=== PATIENT | male | born 1945 | race Caucasian/White ===

== ENCOUNTER 2016-07-31 01:30 | Inpatient (IN) | payer MEDICARE, BC ==
[~2016-07-31 01:30] MED LIST: LIDOCAINE 2% INJ 20 MG/ML SQ ONE; SODIUM CHLORIDE 0.9% 1,000 ML IV ONE
[2016-07-31] MEDS ORDERED: FUROSEMIDE 10 MG/ML 4 ML VIAL ONE ×2 (01:32→01:46)
[2016-07-31] MEDS ORDERED: MIDAZOLAM 2 MG/2 ML VIAL ONE (01:33)
[2016-07-31] MEDS ORDERED: FUROSEMIDE 10 MG/ML 4 ML VIAL IVP ONE ×2 (01:34→01:47)
[2016-07-31] MEDS ORDERED: NITROGLYCERIN OINT 1 INCH/GM PACKET TOPICAL ONE ×2 (01:39→01:40)
[2016-07-31] MEDS ORDERED: BIVALIRUDIN BOLUS 250 MG/50 ML IV ONE (01:45)
[2016-07-31] MEDS ORDERED: BIVALIRUDIN 250 MG in SODIUM CHLORIDE 0.9% 50 ML IV ONE (01:46)
[2016-07-31] MEDS ORDERED: PRASUGREL 10 MG TAB ONE (01:46)
[2016-07-31] MEDS ORDERED: PRASUGREL 10 MG TAB PO ONE (01:50)
[2016-07-31] MEDS ORDERED: NITROGLYCERIN 1000MCG/10ML SYRINGE INTRACORON ONE (01:54)
[2016-07-31] MEDS ORDERED: IOHEXOL 350 MG/ML 125ML BOTTLE INJ ONE (02:10)
[2016-07-31] MEDS ORDERED: RX INFO: IV CONTRAST WAS GIVEN 1 EACH MISC MISCELLANE PRN (02:18)
[2016-07-31] MEDS ORDERED: NITROGLYCERIN SL TABS 0.4 MG TAB SUBLINGUAL PRN (02:18)
[2016-07-31] MEDS ORDERED: MAG HYDROX/AL HYDROX/SIMETH 30 ML CUP PO PRN (02:18)
[2016-07-31] MEDS ORDERED: ATROPINE SULFATE 0.1 MG/ML 10ML SYRINGE IV PRN (02:18)
[2016-07-31] MEDS ORDERED: ZOLPIDEM 5 MG TAB PO PRN (02:18)
[2016-07-31] MEDS ORDERED: SODIUM CHLORIDE 0.9% 1,000 ML IV SCH (02:30)
[2016-07-31 03:22] LABS: Glucose,Whole Blood 124 mg/dL (75-99)
[2016-07-31 03:24] LABS: Basophils % (A) 0 %; CH 29.3; CHCM 33.4; Eosinophils # (A) 0.1 k/uL (0-0.7); Eosinophils % (A) 1 %; HCT 39.8 % (39.0-53.0); HDW 2.62; HGB 13.6 gm/dL (13.0-17.5); Luc # (Auto) 0.07; Luc % (Auto) 1; Lymphocytes # (A) 0.6 k/uL (1.0-4.8); Lymphocytes % (A) 10 %; MCHC 34.1 g/dL (31.0-37.0); MCV 88.1 fL (80.0-100.0); Mean Platelet Volume 7.4; Monocytes # (A) 0.2 k/uL (0-1.0); Monocytes % (A) 4 %; Neutrophils # (A) 5.1 k/uL (1.3-7.7); Neutrophils % (A) 84 %; RBC 4.52 m/uL (4.30-5.90); RDW 13.1 % (11.5-15.5); WBC 6.1 k/uL (3.8-10.6); WBC (Perox) 6.25
[2016-07-31 03:29] LABS: INR 1.6 (<1.1); Prothrombin Time 15.8 sec (9.0-12.0)
[2016-07-31 03:40] LABS: Anion Gap 13 mmol/L; Blood Urea Nitrogen 21 mg/dL (9-20); Calcium 8.4 mg/dL (8.4-10.2); Carbon Dioxide 26 mmol/L (22-30); Chloride 102 mmol/L (98-107); Glucose 120 mg/dL (74-99); Magnesium 2.1 mg/dL (1.6-2.3); Non-African American GFR(MDRD) 50 (>60 ml/min/1.73 sqM); Phosphorous 3.7 mg/dL (2.5-4.5); Sodium 141 mmol/L (137-145)
--- NOTE | 2016-07-31 07:04 | CONS ---
DATE OF CONSULTATION: CHIEF COMPLAINT: Chest pain. This is a 71-year-old gentleman who presented to [facility] with symptoms of shortness of breath and chest pressure. His EKG showed evidence of recent anterior wall myocardial infarction with persistent ST segment elevation. Due to that, he was transferred emergently to [facility] for a cardiac catheterization and primary angioplasty. I have seen the patient in the [facility]. Patient appears short of breath, diaphoretic seems to be in pulmonary edema. EKG shows ST segment elevation. Labs are pending at this time. Patient has been becoming progressively symptomatic over the last 2 to 3 weeks. His symptoms were in the form of chest discomfort that was intermittent, mild to moderate, pressure-like, came on with activity and relieved with rest and he was also short of breath. His shortness of breath has been becoming progressively worse and this was associated with diaphoresis. His past medical history is significant for hypertension, dyslipidemia, he does not remember his medications, there are no known drug allergies. FAMILY HISTORY: Negative for premature coronary artery disease. SOCIAL HISTORY: Negative for smoking. There is no history of EtOH abuse or drug abuse. REVIEW OF SYSTEMS: HEENT is unremarkable. CARDIAC: As described above. GI: Negative. GENITOURINARY: Negative. MUSCULOSKELETAL: Significant for arthritis. PSYCHOSOCIAL: Negative. ENDOCRINE: Negative. DERMATOLOGY: Negative. CONSTITUTIONAL: Negative. ONCOLOGICAL: Negative. BROADBAND TECHNICIAN: Negative. The rest of the system review is not relevant. On exam, patient seems to be in respiratory distress. Heart rate is around 90 to 100 beats per minute, blood pressure is 158/98. There is no jugular venous distention. Carotid upstroke is normal. Chest exam reveals bilateral occasional rhonchi and crackles. Heart exam reveals first and second heart sounds. No gallop. No murmur. Abdomen is soft, nontender. Exam of extremities did not reveal any edema. Peripheral pulses are felt. BROADBAND TECHNICIAN exam did not reveal focal neurological deficits. EKG shows evidence of extensive anterior wall myocardial infarction with Q-waves and ST segment elevation. Labs are pending at this time. ASSESSMENT: 1. Acute anterior wall myocardial infarction with postinfarct angina. 2. Acute pulmonary edema. PLAN: Patient is critically ill and will undergo emergent cardiac catheterization. Will resuscitate him with nitrates, aspirin, beta blockers. His prognosis is guarded.
[2016-07-31] MEDS: FUROSEMIDE 20 MG TAB PO SCH ×2 (08:10→21:16)
[2016-07-31] MEDS: METOPROLOL TARTRATE 25 MG TAB PO SCH ×2 (08:11→21:16)
[2016-07-31] MEDS: ISOSORBIDE MONONITRATE ER 30 MG TAB.ER.24H PO SCH (08:11)
[2016-07-31] MEDS: hydrALAZINE HCL 25 MG TAB PO SCH ×2 (08:12→21:16)
[2016-07-31] MEDS: ASPIRIN 81 MG CHEW PO SCH (08:13)
--- NOTE | 2016-07-31 10:21 | ECHOF ---
Referral Reason:mi MEASUREMENTS -------- HEIGHT: 170.2 cm WEIGHT: 78.9 kg BP: 114/72 IVSd: 1.0 cm (0.6 - 1.1) LVIDd: 5.5 cm (3.9 - 5.3) LVPWd: 1.0 cm (0.6 - 1.1) IVSs: 1.4 cm LVIDs: 4.1 cm LVPWs: 1.4 cm LAESV Index (A-L): 28.75 ml/m Ao Diam: 3.5 cm (2.0 - 3.7) AV Cusp: 1.8 cm (1.5 - 2.6) LA Diam: 4.2 cm (2.7 - 3.8) MV EXCURSION: 20.824 mm (> 18.000) MV EF SLOPE: 117 mm/s (70 - 150) EPSS: 1.3 cm MV E Wayne: 0.93 m/s MV DecT: 108 ms MV A Wayne: 0.58 m/s MV E/A Ratio: 1.60 RAP: 5.00 mmHg RVSP: 11.68 mmHg FINDINGS -------- Sinus rhythm. This was a technically adequate study. There is borderline concentric left ventricular hypertrophy. There is moderate global hypokinesis of LV . Overall left ventricular systolic function is moderate-severely impaired with, an EF between 30 - 35 %. Anterseptal Hypokinesis Inferior Hypokinesis Lanett Hypokinesis. Distal Septal Hypokinesis. The right ventricle is normal in size. LA is midly dilated 29-33ml/m2. The right atrial size is normal. There is mild aortic valve sclerosis. There is no evidence of aortic regurgitation. Mild mitral annular calcification present. Mild mitral regurgitation is present. Mild tricuspid regurgitation present. There is no evidence of pulmonary hypertension. The right ventricular systolic pressure, as measured by Doppler, is 11.68mmHg. Trace/mild (physiologic) pulmonic regurgitation. The aortic root size is normal. There is a trivial pericardial effusion present. CONCLUSIONS -------- 1. There is borderline concentric left ventricular hypertrophy. 2. Mild mitral annular calcification present. 3. Mild mitral regurgitation is present. 4. Mild tricuspid regurgitation present. 5. There is no evidence of pulmonary hypertension. 6. The right ventricular systolic pressure, as measured by Doppler, is 11.68mmHg. 7. Trace/mild (physiologic) pulmonic regurgitation. 8. There is a trivial pericardial effusion present. 9. There is moderate global hypokinesis of LV . 10. Overall left ventricular systolic function is moderate-severely impaired with, an EF between 30 - 35 %. 11. Anterseptal Hypokinesis 12. Inferior Hypokinesis 13. Lanett Hypokinesis. 14. Distal Septal Hypokinesis. 15. LA is midly dilated 29-33ml/m2. 16. There is mild aortic valve sclerosis. CAR FRAMER: Cassandra Monson RDCS
--- NOTE | 2016-07-31 12:17 | PTCA ---
DATE OF SERVICE: Mr. Cabrera is a 71-year-old male with known history of hypertension, hyperlipidemia, history of chronic kidney disease, who presented with symptoms of chest discomfort, and dyspnea and had an EKG change consistent with anterior myocardial infarction with ST elevation, but could have been completed, QS pattern was noted. He underwent cardiac catheterization by Dr. Limon and was found to have a critical stenosis involving the mid LAD. In view of that, recommendation made regarding angioplasty and stenting, the procedure as well as risks and complications were discussed with the patient who is in full understanding and agreement. PROCEDURE: A 6 Kyrgyz FR4 guiding catheter introduced into the system. After cannulating the left main, a 0.014 Advanced medium weight J-wire was advanced across the lesion, positioned distally then a 2.5 x 12 mm Trek balloon was advanced, one inflation at 8 atmospheres was done. Following that, the balloon was removed and a 2.5 x 18 mm Xience Alpine stent was deployed, postdilated at 16 atmospheres. After the last inflation, after appropriate wait, the balloon and the guidewire were withdrawn back in the guiding catheter. Images were obtained, repeated. Those images reveal stable successful stenting. At that point the guiding catheter, the balloon and the guidewire were removed. The sheath was sutured in place. The patient was returned to his room in stable condition. At the end of the procedure, his breathing and chest discomfort have improved. There were no clear EKG changes. He received Angiomax per protocol as well as oral loading dose of Effient. RESULT: Successful stenting of the mid LAD with reduction in stenosis from 95% to 0%. RECOMMENDATION: Patient will be continued on aspirin, Effient, beta milan and statin. The importance of dual antiplatelet treatment were discussed with the patient and his family who are in full understanding and agreement. The duration of the procedure was 26 minutes.
--- NOTE | 2016-07-31 12:21 | LTR ---
July 31, 2016 RE: Raphael Cabrera Dear Dr. Barrera; I had the pleasure to perform coronary angioplasty and stenting on Mr. Cabrera at [facility] on July 31, 2016 and a full copy of the procedure note will be forwarded to you. In brief, he underwent successful stenting of his mid LAD using a drug-eluting stent. I am hopeful that this procedure will stabilize his status and will keep you updated on his progress and thank you again for allowing me to participate in this patient's care. Please feel free to call for any questions. Sincerely yours, CARY MURRAY MD
--- NOTE | 2016-07-31 15:19 | XR ---
EXAMINATION TYPE: XR chest 1V DATE OF EXAM: 07/31/2016 2:56 PM COMPARISON: 12/21/2011 HISTORY: 71-year-old male CHF, placement of cardiac stent yesterday. TECHNIQUE: Single frontal view of the chest is obtained. FINDINGS: Heart is upper limits of normal in size. There is diffuse interstitial prominence and new asymmetric perihilar opacities, right greater than left and bibasilar opacities as well. Opacity is more focal a t the right suprahilar region. No significant pleural effusion seen on the frontal view. IMPRESSION: New interstitial and asymmetric patchy airspace opacity especially in the right perihilar region. The se findings could represent developing pulmonary edema in the correct clinical setting. Correlate to exclude other infiltrates. Follow-up recommended.
--- NOTE | 2016-07-31 16:50 | HP ---
DATE OF ADMISSION: Patient is a 71-year-old transferred from [facility] where she presented with shortness of breath, chest pressure-like sensation. Patient is found to be in ST elevation myocardial infarction. Patient underwent cardiac catheterization with stenting of LAD in the [facility]. Patient apparently was diaphoretic as well and I am unable to review the chest x-ray findings, although patient clinically does not appear to have pulmonary edema although echocardiogram showed ejection fraction of around 30% to 35%. Will obtain chest x-ray here and make sure he does not have any pulmonary edema. Patient is getting IV fluid post cardiac catheterization as a nephro protective agent as he received intravenous contrast during cardiac catheterization. Patient does not have any more chest pain at this point of time. REVIEW OF SYSTEMS: CONSTITUTIONAL: No fever, no malaise, no fatigue. HEENT: No recent visual problems or hearing problems. Denied any sore throat. CARDIOVASCULAR: No chest pain, orthopnea, PND, no palpitations, no syncope. PULMONARY: No shortness of breath, no cough, no hemoptysis. GASTROINTESTINAL: No diarrhea, no nausea, no vomiting, no abdominal pain. Normoactive bowel sounds. NEUROLOGICAL: No headaches, no weakness, no numbness. HEMATOLOGICAL: Denies any bleeding or petechiae. GENITOURINARY: Denies any burning micturition, frequency, or urgency. MUSCULOSKELETAL/RHEUMATOLOGICAL: Denies any joint pain, swelling, or any muscle pain. ENDOCRINE: Denies any polyuria or polydipsia. The rest of the 14 point review of systems is negative. Home medications include amlodipine, metoprolol, atorvastatin and aspirin. PAST MEDICAL HISTORY: Significant for hypertension, hyperlipidemia, myocardial infarction in the past, cholecystectomy, cardiac catheterization and stent placement. SOCIAL HISTORY: Former smoker. Denied any alcohol abuse or any drug abuse. FAMILY HISTORY: Significant for cancer family. PHYSICAL EXAMINATION: Temperature 98.1, pulse of 69, respiratory rate of 25, blood pressure is 106/67, saturating at 96% on room air. GENERAL: The patient is alert and oriented x3, not in any acute distress. Well developed, well nourished. HEENT: Pupils are round and equally reacting to light. EOMI. No scleral icterus. No conjunctival pallor. Normocephalic, atraumatic. No pharyngeal erythema. No thyromegaly. CARDIOVASCULAR: S1 and S2 present. No murmurs, rubs, or gallops. PULMONARY: Chest is clear to auscultation, no wheezing or crackles. ABDOMEN: Soft, nontender, nondistended, normoactive bowel sounds. No palpable organomegaly. MUSCULOSKELETAL: No joint swelling or deformity. EXTREMITIES: No cyanosis, clubbing, or pedal edema. NEUROLOGICAL: Gross neurological examination did not reveal any focal deficits. SKIN: No rashes. LABORATORY DATA: From the other hospital was reviewed except for elevated troponin, no significant abnormality was appreciated. Creatinine is 1.4. The patient's baseline creatinine is around 1.4. ASSESSMENT AND PLAN: 1. Non-ST elevation myocardial infarction. Patient underwent cardiac catheterization and stenting of left anterior descending. 2. Chronic kidney disease because of which patient is receiving IV fluids. Will obtain a chest x-ray and make sure patient does not have any pulmonary edema. Patient's IV fluids will be stopped after 1 liter because of his poor ejection fraction of 30 to 35%. 3. Congestive heart failure appears to be acute systolic dysfunction from myocardial infarction, which most of the time will improve. Cannot use any JILLIAN inhibitor yet at this point of time. 4. Hyperlipidemia. 5. Obesity. Counseling was provided. 6. Hypertension. Continue with metoprolol. Amlodipine will be held as patient's blood pressure is on the low normal side at this point of time.
--- NOTE | 2016-07-31 18:20 | P.PN ---
Subjective Principal diagnosis: Myocardial infarctions, status post stent placement This is a 71-year-old gentleman who was admitted last night with acute anterior wall myocardial infarction on EKG. Cardiac catheterization showed critical lesion involving the mid LAD. Patient had stent placement. Patient is feeling much better today. It has diffuse coronary artery disease. His groin is soft. No complaints of chest pain or shortness of breath. His blood work is reviewed. His lungs are clear. Heart is regular. We'll increase his activity. Possible transfer to telemetry. Objective - Vital Signs Vital signs: Vital Signs Temp 98.1 F 07/31/16 16:00 Pulse 70 07/31/16 16:00 Resp 20 07/31/16 16:00 BP 102/64 07/31/16 16:00 Pulse Ox 93 L 07/31/16 16:00 Intake & Output 07/30/16 07/31/16 07/31/16 18:59 06:59 18:59 Intake Total 660 840 Output Total 2000 825 Balance -1340 15 Weight 79 kg Intake: Intake, IV Titration 300 600 Amount Sodium Chloride 0.9% 1, 300 600 000 ml @ 75 mls/hr IV . [id number] [facility] Rx#:[id number] Oral 360 240 Output: Urine 1999 825 Other: Voiding Method Urinal Urinal - Exam GENERAL EXAM: Patient is alert and oriented and doesn't appear to be in any acute distress HEENT: Normocephalic. Normal reaction of pupils, equal size, normal range of extraocular motion. No erythema or exudates in the throat. NECK: No masses, no nuchal rigidity. CHEST: No chest wall deformity. LUNGS: Equal air entry with no crackles or wheeze. HEART: S1 and S2 normal with no audible mumurs or gallops. Regular rhythm, femorals equal on both sides.. ABDOMEN: No hepatosplenomegaly, normal bowel sounds, no guarding or rigidity. SKIN: No rashes CENTRAL NERVOUS SYSTEM: No focal deficits. EXTREMITIES: No cyanosis, clubbing or edema. GROIN: Cath site appears to be intact - Labs CBC & Chem 7: 07/31/16 03:00 07/31/16 03:00 Labs: Abnormal Lab Results - Last 24 Hours (Table) 07/31/16 07/31/16 07/31/16 Range/Units 03:00 03:00 03:00 Lymphocytes # 0.6 L (1.0-4.8) k/uL PT 15.8 H (9.0-12.0) sec BUN 21 H (9-20) mg/dL Creatinine 1.40 H (0.66-1.25) mg/dL Glucose 120 H (74-99) mg/dL POC Glucose (mg/dL) (75-99) mg/dL Troponin I (0.000-0.034) ng/mL 07/31/16 07/31/16 07/31/16 Range/Units 03:02 03:08 08:51 Lymphocytes # (1.0-4.8) k/uL PT (9.0-12.0) sec BUN (9-20) mg/dL Creatinine (0.66-1.25) mg/dL Glucose (74-99) mg/dL POC Glucose (mg/dL) 124 H (75-99) mg/dL Troponin I 3.420 H* 3.330 H* (0.000-0.034) ng/mL 07/31/16 Range/Units 15:02 Lymphocytes # (1.0-4.8) k/uL PT (9.0-12.0) sec BUN (9-20) mg/dL Creatinine (0.66-1.25) mg/dL Glucose (74-99) mg/dL POC Glucose (mg/dL) (75-99) mg/dL Troponin I 3.450 H* (0.000-0.034) ng/mL Assessment and Plan (1) Acute myocardial infarction Status: Acute (2) Status post coronary artery stent placement Status: Acute Plan: Patient is critically stable. Will transfer patient to telemetry unit. Continue beta blockers, aspirin, lipid-lowering agent and JILLIAN inhibitor . Increase activity as tolerated
[2016-07-31] MEDS: ATORVASTATIN 80 MG TAB PO SCH (21:16)
[2016-08-01] MEDS ORDERED: PRASUGREL 10 MG TAB PO SCH (02:19)
[2016-08-01 05:53] LABS: Anion Gap 9 mmol/L; Blood Urea Nitrogen 26 mg/dL (9-20); Calcium 8.2 mg/dL (8.4-10.2); Carbon Dioxide 24 mmol/L (22-30); Chloride 105 mmol/L (98-107); Glucose 100 mg/dL (74-99); Non-African American GFR(MDRD) 50 (>60 ml/min/1.73 sqM); Potassium 3.8 mmol/L (3.5-5.1); Sodium 138 mmol/L (137-145)
[2016-08-01] MEDS ORDERED: Potassium Replacement Protocol 1 EACH MISC MISCELLANE PRN (06:01)
[2016-08-01] MEDS ORDERED: POTASSIUM CHLORIDE ER 20 MEQ TAB.ER PO SCH (07:00)
[2016-08-01] MEDS: PRASUGREL 10 MG TAB PO SCH (07:49)
[2016-08-01] MEDS: hydrALAZINE HCL 25 MG TAB PO SCH (07:49)
[2016-08-01] MEDS: ASPIRIN 81 MG CHEW PO SCH (07:49)
[2016-08-01] MEDS: ISOSORBIDE MONONITRATE ER 30 MG TAB.ER.24H PO SCH (07:49)
[2016-08-01] MEDS: FUROSEMIDE 20 MG TAB PO SCH ×2 (07:50→20:08)
[2016-08-01] MEDS: METOPROLOL TARTRATE 50 MG TAB PO SCH ×2 (08:35→20:08)
--- NOTE | 2016-08-01 15:04 | P.PN ---
Subjective This is a pleasant 71-year-old gentleman with hypertension and dyslipidemia who presented to the hospital was a chest discomfort and was diagnosed with acute anterior [place]. He underwent an emergent heart catheterization and was found to have severe disease involving the LAD which was opened and stented. From the cardiovascular standpoint of view, he is doing good and he has having any chest pain or discomfort or difficulty breathing or heart racing or fluttering. The right groin is soft and nontender and without any bruises. The echocardiogram showed impaired LV function with an ejection fraction of 35%. I will continue the current medical treatment and add lisinopril to the current medical treatment. He is currently on dual antiplatelet therapy along with a statin and beta milan. Objective - Vital Signs Vital signs: Vital Signs Temp 98.2 F 08/01/16 12:23 Pulse 74 08/01/16 12:23 Resp 19 08/01/16 12:23 BP 114/75 08/01/16 12:23 Pulse Ox 94 L 08/01/16 12:23 Intake & Output 07/31/16 08/01/16 08/01/16 18:59 06:59 18:59 Intake Total 840 720 360 Output Total 825 1375 1450 Balance 15 -205 1090 Weight 79.5 kg Intake: Intake, IV Titration 600 Amount Sodium Chloride 0.9% 1, 600 000 ml @ 75 mls/hr IV . [id number] [facility] Rx#:[id number] Oral 240 720 360 Output: Urine 825 1375 1450 Other: Voiding Method Urinal Urinal Toilet Urinal # Voids 2 # Bowel Movements 1 - Constitutional General appearance: Present: no acute distress - Respiratory Respiratory: bilateral: CTA - Cardiovascular Rhythm: regular Heart sounds: normal: S1, S2 - Labs CBC & Chem 7: 07/31/16 03:00 08/01/16 05:02 Labs: Abnormal Lab Results - Last 24 Hours (Table) 07/31/16 08/01/16 Range/Units 15:02 05:02 BUN 26 H (9-20) mg/dL Creatinine 1.40 H (0.66-1.25) mg/dL Glucose 100 H (74-99) mg/dL Calcium 8.2 L (8.4-10.2) mg/dL Troponin I 3.450 H* (0.000-0.034) ng/mL Assessment and Plan Plan: Assessment #[address] elevation [place] #2 systemic hypertension #3 dyslipidemia Plan #1 continue the current medical treatment #2 add lisinopril to the current medical treatment
[2016-08-01] MEDS ORDERED: FUROSEMIDE 10 MG/ML 4 ML VIAL IV STA (17:03)
[2016-08-01] MEDS: ATORVASTATIN 80 MG TAB PO SCH (20:08)
--- NOTE | 2016-08-01 20:17 | PN ---
A 71-year-old admitted secondary to [id number] myocardial infarction and patient underwent stenting of LAD. Patient's EF is 35%. Patient is in heart failure at this point of time, is on oral Lasix. Will give additional dose of Lasix with close kidney function monitoring. REVIEW OF SYSTEMS: CARDIOVASCULAR: No chest pain, no orthopnea, no PND, no palpitations. PULMONARY: Complaining of some shortness of breath and some orthopnea, PND. GASTROINTESTINAL: No diarrhea, nausea or vomiting. No abdominal pain. Normoactive bowel sounds. NEUROLOGIC: No headaches, no weakness, no numbness. Medications were reviewed. Medication changes as mentioned in the interval history. PHYSICAL EXAMINATION: VITAL SIGNS: Temperature 98.0, pulse of 79, respiratory rate of 17, blood pressure is 118/75, saturating at 97% on room air. GENERAL: The patient is alert and oriented x3, not in any acute distress. Well developed, well nourished. HEENT: Pupils are round and equally reacting to light. EOMI. No scleral icterus. No conjunctival pallor. Normocephalic, atraumatic. No pharyngeal erythema. No thyromegaly. CARDIOVASCULAR: S1 and S2 present. Patient has minimally elevated JVD as well as S3 that was appreciated. PULMONARY: Chest is clear to auscultation, no wheezing. No bibasilar crackles were appreciated. ABDOMEN: Soft, nontender, nondistended, normoactive bowel sounds. No palpable organomegaly. MUSCULOSKELETAL: No joint swelling or deformity. EXTREMITIES: No cyanosis, clubbing, or pedal edema. NEUROLOGICAL: Gross neurological examination did not reveal any focal deficits. SKIN: No rashes. LABORATORY DATA: BUN is 26, creatinine 1.4. ASSESSMENT AND PLAN: 1. Non-ST elevation myocardial infarction. Cardiac catheterization and stenting of left anterior descending artery. 2. Congestive heart failure, acute systolic dysfunction with exacerbation. 3. Possibility of chronic kidney disease versus prerenal azotemia secondary to congestive heart failure expected to improve with IV Lasix. Will monitor kidney function with 1 extra dose of IV Lasix today. The patient on 40 oral b.i.d. of Lasix as per Cardiology. 4. Hyperlipidemia. 5. Obesity. 6. Hypertension.
[2016-08-02 07:09] LABS: Calcium 8.7 mg/dL (8.4-10.2); Potassium 4.1 mmol/L (3.5-5.1)
--- NOTE | 2016-08-02 07:22 | XR ---
EXAMINATION TYPE: XR chest 1V DATE OF EXAM: 08/02/2016 7:01 AM CLINICAL HISTORY: Difficulty breathing and CHF progress study. TECHNIQUE: Single AP portable upright view of the chest is obtained. COMPARISON: Chest x-ray from 2 days earlier FINDINGS: Heart is felt mildly enlarged. There is diffuse interstitial prominence and asymmetric per ihilar opacities, right greater than left and bibasilar opacities as well all redemonstrated. There a re suspected small bilateral pleural effusions. No pneumothorax is seen bilaterally. Visualized osseo us structures are intact. IMPRESSION: Overall stable findings, suspect CHF exacerbation as there is mild cardiomegaly with mi ld to moderate central alveolar and interstitial edema with suspected small bilateral pleural effusio ns all redemonstrated. Underlying infiltrate is not excluded.
[2016-08-02] MEDS: METOPROLOL TARTRATE 50 MG TAB PO SCH ×2 (09:13→20:50)
[2016-08-02] MEDS: FUROSEMIDE 20 MG TAB PO SCH ×2 (09:13→20:50)
[2016-08-02] MEDS: PRASUGREL 10 MG TAB PO SCH (09:13)
[2016-08-02] MEDS: ASPIRIN 81 MG CHEW PO SCH (09:13)
[2016-08-02] MEDS: LISINOPRIL 2.5 MG TAB PO SCH (09:13)
[2016-08-02] MEDS: ISOSORBIDE MONONITRATE ER 30 MG TAB.ER.24H PO SCH (09:13)
--- NOTE | 2016-08-02 09:40 | P.PN ---
Subjective Principal diagnosis: ACS This is a pleasant 71-year-old gentleman with hypertension and dyslipidemia who presented to the hospital was a chest discomfort and was diagnosed with acute anterior [place]. He underwent an emergent heart catheterization and was found to have severe disease involving the LAD which was opened and stented. From the cardiovascular standpoint of view, he is doing good and he has having any chest pain or discomfort or difficulty breathing or heart racing or fluttering. The right groin is soft and nontender and without any bruises. The echocardiogram showed impaired LV function with an ejection fraction of 35%. I will continue the current medical treatment. add Aldactone to the current medical treatment.possible discharge home tomorrow. Objective - Vital Signs Vital signs: Vital Signs Temp 97.5 F L 08/02/16 07:57 Pulse 80 08/02/16 07:57 Resp 16 08/02/16 07:57 BP 115/64 08/02/16 07:57 Pulse Ox 94 L 08/02/16 07:57 Intake & Output 08/01/16 08/02/16 08/02/16 18:59 06:59 18:59 Intake Total 360 180 Output Total 1900 250 Balance -1540 -250 180 Weight 75.3 kg Intake: Oral 360 180 Output: Urine 1900 250 Other: Voiding Method Toilet Toilet Urinal Urinal # Bowel Movements 1 - Constitutional General appearance: Present: no acute distress - Respiratory Respiratory: bilateral: CTA - Cardiovascular Rhythm: regular Heart sounds: normal: S1, S2 - Labs CBC & Chem 7: 07/31/16 03:00 08/02/16 06:37 Labs: Abnormal Lab Results - Last 24 Hours (Table) 08/02/16 Range/Units 06:37 BUN 28 H (9-20) mg/dL Creatinine 1.59 H (0.66-1.25) mg/dL Assessment and Plan Plan: Assessment #[address] elevation [place] #2 systemic hypertension #3 dyslipidemia Plan #1 continue the current medical treatment #2 add Aldactone to the current medical treatment #3 possible DC home tomorrow
--- NOTE | 2016-08-02 15:43 | PN ---
No overnight events. Patient is clinically doing well. REVIEW OF SYSTEMS: CARDIOVASCULAR: No chest pain, no orthopnea, no PND, no palpitations. PULMONARY: Denied any shortness of breath. No cough or hemoptysis. GASTROINTESTINAL: No diarrhea, nausea or vomiting. No abdominal pain. Normoactive bowel sounds. NEUROLOGIC: No headaches, no weakness, no numbness. Medications were reviewed. PHYSICAL EXAMINATION: Temperature 97.6, pulse of 68, respiratory rate 16, blood pressure is 108/66, saturating at 95% on room air. GENERAL: The patient is alert and oriented x3, not in any acute distress. Well developed, well nourished. HEENT: Pupils are round and equally reacting to light. EOMI. No scleral icterus. No conjunctival pallor. Normocephalic, atraumatic. No pharyngeal erythema. No thyromegaly. CARDIOVASCULAR: S1 and S2 present. No murmurs, rubs, or gallops. PULMONARY: Chest is clear to auscultation, no wheezing or crackles. ABDOMEN: Soft, nontender, nondistended, normoactive bowel sounds. No palpable organomegaly. MUSCULOSKELETAL: No joint swelling or deformity. EXTREMITIES: No cyanosis, clubbing, or pedal edema. NEUROLOGICAL: Gross neurological examination did not reveal any focal deficits. SKIN: No rashes. LABORATORY DATA: BUN and creatinine are 28 and 1.59, which we will continue to monitor and repeat electrolytes tomorrow. ASSESSMENT AND PLAN: 1. Non-ST elevation myocardial infarction status post cardiac catheterization and stenting of left anterior descending. 2. Congestive heart failure, acute systolic dysfunction with acute exacerbation. Continue the present congestive heart failure regimen. 3. Possibility of chronic kidney disease along with some prerenal azotemia. 4. Prerenal azotemia secondary to heart failure. 5. 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 6. Hyperlipidemia. 7. Hypertension. 8. Obesity. PLAN: Continue with present medications, dual antiplatelet therapy, beta milan statin, continue to monitor overnight as per recommendation from Cardiology and possibility of discharge tomorrow.
[2016-08-02] MEDS: ATORVASTATIN 80 MG TAB PO SCH (20:50)
[2016-08-03 05:21] VITALS: TEMP 97.6
[2016-08-03 06:11] LABS: Glucose,Whole Blood 204 mg/dL (75-99)
[2016-08-03 07:27] LABS: Calcium 8.9 mg/dL (8.4-10.2); Potassium 4.5 mmol/L (3.5-5.1)
[2016-08-03] MEDS: FUROSEMIDE 40 MG TAB PO SCH ×2 (07:50→17:13)
[2016-08-03] MEDS: LISINOPRIL 2.5 MG TAB PO SCH (07:50)
[2016-08-03] MEDS: METOPROLOL TARTRATE 50 MG TAB PO SCH (07:50)
[2016-08-03] MEDS: ISOSORBIDE MONONITRATE ER 30 MG TAB.ER.24H PO SCH (07:50)
[2016-08-03] MEDS: ASPIRIN 81 MG CHEW PO SCH (07:50)
[2016-08-03] MEDS: PRASUGREL 10 MG TAB PO SCH (07:51)
[2016-08-03 08:26] VITALS: RESP 18
--- NOTE | 2016-08-03 10:22 | CDI ---
In responding to this query, please exercise your independent professional judgment. The [facility] Coding Staff and Clinical Documentation Specialists appreciate your assistance in clarifying documentation, maintaining compliance with coding guidelines, accurately documenting patients condition and capturing severity of illness. The fact that a question is asked does not imply that any particular answer is desired or expected. Communication forms are a method of clarifying documentation and are not made part of the Legal Health Record. Thank you in advance for your clarification. Last Revision, February 2015 Stacy Lan [address] [facility] [place] [address] Documentation Clarification Form Date: 08/03/2016 10:04:00 AM From: Rosa Lindy Admit Date: 07/31/2016 1:30:00 AM Patient Name: Raphael Cabrera Visit Number: [id number] Discharge Date: Dr. Rosa Beth History/Risk Factors: Hypertension Myocardial infarction, Hyperlipidemia Current 08/03/16 BUN 31, CR 1.53, GFR 45 Patients Baseline: CR 1.4 Clinical Indicators: Shortness of breath, found to have ST elevation myocardial infarction. Patient underwent cardiac catheterization with stenting and in the procedure received intravenous contrast. Treatment: IV Fluids Monitor Labs In order to capture the severity of condition, please clarify if the condition signifies: CKD Stage 1 (GFR > 90) CKD Stage 2 (GFR 60-89) CKD Stage 3 (GFR 30-59) CKD Stage 4 (GFR 15-29) CKD Stage 5 (GFR <15) ESRD Unable to determine Other condition, please specify Please document in your progress notes and discharge summary in order to capture severity of illness and risk of mortality. Include clinical findings that support your diagnosis. FYI: Press F11 to launch patient chart. Place X here if this finding has no clinical significance, is not applicable or if you are not able to provide any additional documentation. RUYD
--- NOTE | 2016-08-03 10:55 | P.PN ---
Subjective Principal diagnosis: Acute anterior wall myocardial infarction This is a 71-year-old gentleman who presented to the hospital with an acute anterior wall myocardial infarction. He underwent an emergent heart catheterization by Dr. Limon and subsequently underwent angioplasty with stenting of the LAD by Dr. Encarnacion. Patient was seen and examined this morning, denies any chest pain or difficulty in breathing. He has been up ambulating in the gold without any difficulty. At pressure 126/70 with a heart rate in the 70s. Love remaining stable at 1.5. Echocardiogram with Doppler study was performed which revealed an ejection fraction of 30-35%. Objective - Vital Signs Vital signs: Vital Signs Temp 97.6 F 08/03/16 05:00 Pulse 74 08/03/16 08:00 Resp 18 08/03/16 08:00 BP 126/74 08/03/16 08:00 Pulse Ox 92 L 08/03/16 08:00 Intake & Output 08/02/16 08/03/16 08/03/16 18:59 06:59 18:59 Intake Total 300 360 Output Total 600 Balance 300 -600 360 Weight 75.2 kg Intake: Oral 300 360 Output: Urine 600 - Exam PHYSICAL EXAMINATION: HEENT: Head is atraumatic, normocephalic. Pupils equal, round. Neck is supple. There is no elevated jugular venous pressure. HEART EXAMINATION: Heart S1, S2 normal. No murmur or gallop heard. CHEST EXAMINATION: Lungs are clear to auscultation and precussion. No chest wall tenderness is noted on palpation or with deep breathing. ABDOMEN: Soft, nontender. Bowel sounds are heard. No organomegaly noted. EXTREMITIES: 2+ peripheral pulses with no evidence of peripheral edema and no calf tenderness noted. NEUROLOGIC patient is awake, alert and oriented -3. . - Labs CBC & Chem 7: 07/31/16 03:00 08/03/16 06:05 Labs: Abnormal Lab Results - Last 24 Hours (Table) 08/03/16 08/03/16 Range/Units 05:53 06:05 BUN 31 H (9-20) mg/dL Creatinine 1.53 H (0.66-1.25) mg/dL POC Glucose (mg/dL) 204 H (75-99) mg/dL Assessment and Plan (1) Anterior wall myocardial infarction Status: Acute (2) Presence of stent in LAD coronary artery Status: Acute (3) Ischemic cardiomyopathy Status: Acute (4) HTN (hypertension) Status: Acute (5) Hyperlipemia Status: Acute Plan: Patient may be able to be discharged home today. We will make him a follow-up appointment with Dr. Limon in the office post discharge. He will be discharged home on aspirin 1 mg daily, Lipitor 80 mg daily, Lasix 40 mg twice a day, Imdur 30 mg daily, lisinopril 2-1/2 mg daily, metoprolol tartrate 50 mg one tablet by mouth twice a day, Effient 10 mg daily, and sublingual nitroglycerin as needed for chest pain. Patient has been provided prescriptions for all the above medications. Patient has also been recommended to be discharged home with a LifeVest for prevention of sudden cardiac .
[2016-08-03 14:32] VITALS: BMI 25.9
[2016-08-03 15:49] VITALS: BP 120/66; PULSE 75
--- NOTE | 2016-08-04 09:13 | DS ---
DATE OF ADMISSION: 07/31/2016 DATE OF DISCHARGE: 08/03/2016 Patient is admitted with [id number]-[id number] myocardial infarction, underwent cardiac catheterization and stenting of LAD. Patient's ejection fraction is around 25%. Patient will require left vest and patient is being discharged today. Medication reconciliation was taken care of by Cardiology. Please refer to the depart summary for the further details. ASSESSMENT: 1. Obo-GN-blejzcrtm myocardial infarction, stenting of left anterior descending artery. 2. Congestive heart failure. 3. Acute systolic dysfunction with exacerbation here, patient is fairly euvolemic at this point of time. 4. Patient has chronic kidney disease stage III secondary to hypertensive nephrosclerosis. 5. Hyperlipidemia. 6. Hypertension. 7. Obesity. Patient will follow with Dr. Briana Barrera in about 3 to 7 days; Dr. Wolff in about a week. Activity as tolerated. Cardiac diet. CHF discharge instructions will be provided. Spent greater than 35 minutes in total discharge process.
--- NOTE | 2016-08-26 12:59 | CC ---
DATE OF SERVICE: INDICATION: ST segment elevation TX. PROCEDURE NOTE: After obtaining informed consent, left heart catheterization and coronary angiogram are performed via the right femoral artery. Patient was critically ill. FINDINGS: 1. HEMODYNAMICS: Left ventricular end-diastolic pressure 36 mm. There is no significant gradient across the aortic valve. 2. LEFT VENTRICULOGRAM: Left ventriculogram is not performed. 3. ANGIOGRAPHIC DATA LEFT MAIN CORONARY ARTERY: Left main coronary artery appears calcified but is free of stenosis. Divides into left anterior descending coronary artery and circumflex coronary artery. Proximal LAD shows a 70% to 80% stenosis as does the mid LAD. Circumflex coronary artery shows a 70% stenosis. The right coronary artery is a large dominant vessel and shows the PDA has a 60% stenosis. CONCLUSION: 1. Three-vessel coronary artery disease as described above. 2. Elevated left ventricular end-diastolic pressure. Total sedation time was about 15 minutes.
== END 2016-08-03 19:12 | disposition home or self-care (01) | DRG 246 ==
LOC: 6ICU 01:30 → 6SEL 08-01 16:22
PROVIDERS: ADMIT Hospitalist; ATTEND Hospitalist
PROC: 027034Z Dilation of Coronary Artery, One Artery with Drug-eluting Intraluminal Device, Percutaneous Approach (ICD-10-PCS; principal; 2016-07-31 01:28)
PROC: 4A023N7 Measurement of Cardiac Sampling and Pressure, Left Heart, Percutaneous Approach (ICD-10-PCS; 2016-07-31 01:28)
PROC: B2111ZZ Fluoroscopy of Multiple Coronary Arteries using Low Osmolar Contrast (ICD-10-PCS; 2016-07-31 01:28)
DX: I21.4 Non-ST elevation (NSTEMI) myocardial infarction (principal); I50.23 Acute on chronic systolic (congestive) heart failure; I13.0 Hypertensive heart and chronic kidney disease with heart failure and stage 1 through stage 4 chronic kidney disease, or unspecified chronic kidney disease; I23.7 Postinfarction angina; E78.5 Hyperlipidemia, unspecified; E66.9 Obesity, unspecified; I25.10 Atherosclerotic heart disease of native coronary artery without angina pectoris; I25.5 Ischemic cardiomyopathy; N18.9 Chronic kidney disease, unspecified; Z87.891 Personal history of nicotine dependence; N18.3 Chronic kidney disease, stage 3 (moderate)
CPT/HCPCS: 71010; 80048; 83735; 84100; 84484; 85025; 85347; 85610; 93306; 93458; 94760

== ENCOUNTER → 2018-12-20 | Outpatient (CLI) | payer MEDICARE, BC ==
[2018-12-20 17:40] LABS: Chol/HDL Ratio 4.56; LDL Cholesterol,Calculated 81.4 mg/dL (0.0-131.0); VLDL Calculation 46.6 mg/dL (5.00-40.00)
== END | disposition home or self-care (01) ==
LOC: LABWHC1 09:34
PROVIDERS: ATTEND Internal Medicine Cardiovascular Disease
DX: E78.2 Mixed hyperlipidemia (principal)
CPT/HCPCS: 36415; 80061; 84450; 84460

== ENCOUNTER 2020-11-13 17:13 | Inpatient (IN) | payer MEDICARE, BC ==
[2020-11-13] MEDS ORDERED: DILTIAZEM 5 MG/ML 5 ML VIAL IVP STA (17:19)
[2020-11-13] MEDS: DILTIAZEM 125 MG in SODIUM CHLORIDE 0.9% 100 ML IV SCH (17:39)
[2020-11-13 17:40] LABS: Basophils % (A) 0 %; Eosinophils # (A) 0.1 k/uL (0-0.7); Eosinophils % (A) 2 %; HCT 48.4 % (39.0-53.0); HGB 16.1 gm/dL (13.0-17.5); Lymphocytes # (A) 1.4 k/uL (1.0-4.8); Lymphocytes % (A) 22 %; MCHC 33.2 g/dL (31.0-37.0); MCV 93.4 fL (80.0-100.0); Mean Platelet Volume 8.7; Monocytes # (A) 0.3 k/uL (0-1.0); Monocytes % (A) 5 %; Neutrophils # (A) 4.4 k/uL (1.3-7.7); Neutrophils % (A) 69 %; Platelet Count 116 k/uL (150-450); RBC 5.18 m/uL (4.30-5.90); RDW 14.7 % (11.5-15.5); WBC 6.4 k/uL (3.8-10.6)
--- NOTE | 2020-11-13 17:49 | ED ---
General Adult HPI - General Chief complaint: Arrhythmia/Palpitations Stated complaint: AFIB Time Seen by Provider: 11/13/20 17:27 Source: patient, EMS, RN notes reviewed, old records reviewed Mode of arrival: EMS Limitations: no limitations - History of Present Illness Initial comments: Patient is a 46-year-old male with past medical history remarkable for atrial fibrillation, asthma, GERD, hyperlipidemia, hypertension, sleep apnea presents emergency Department complaining of chest palpitations as well as lightheadedness. This started this morning while at work and has been persistent throughout the day for 3-4 hours. He states that last time this happened, it was his atrial fibrillation. He presents emergency department over concern for exacerbation of his atrial fibrillation. He states is normally in atrial fibrillation, but is concerned that he may be an RVR at this time. Denies any visual changes, weakness, numbness, chest pain, abdominal pain, nausea, vomiting. Does endorse a feeling of abdominal distention which is chronic for him, and states that he may be constipated as he only uses the restroom has bowel movements like once per week. He does endorse some mild dyspnea as well, that he states is worse when lying down he has noticed has been worse throughout the day today. He states that the symptoms began at 5 AM this morning when he woke up to start laying in the floor in the house. They've been persistent throughout the day which prompted him to come to the emergency department today for evaluation. He is not on a blood thinner. Denies any trauma or hitting his head. Does have a history of CAD with stent placement, last known in 2017. His no other acute complaints at this time. - Related Data Home Medications Medication Instructions Recorded Confirmed Bumetanide 1 mg PO HS 07/31/16 11/13/20 Atorvastatin [Lipitor] 40 mg PO DAILY 11/13/20 11/13/20 Docusate [Colace] 100 mg PO DAILY 11/13/20 11/13/20 Metoprolol Tartrate [Lopressor] 25 mg PO BID 11/13/20 11/13/20 Multivitamins, Thera [Multivitamin 1 tab PO DAILY 11/13/20 11/13/20 (formulary)] Omeprazole 20 mg PO DAILY 11/13/20 11/13/20 amLODIPine [Norvasc] 5 mg PO HS 11/13/20 11/13/20 lisinopriL [Zestril] 10 mg PO DAILY 11/13/20 11/13/20 Previous Rx's Medication Instructions Recorded Aspirin 81 mg PO DAILY #30 chew 08/03/16 Nitroglycerin Sl Tabs [Nitrostat] 0.4 mg SUBLINGUAL Q5M PRN #25 tab 08/03/16 Allergies Allergy/AdvReac Type Severity Reaction Status Date / Time No Known Allergies Allergy Verified 11/13/20 17:54 Review of Systems ROS Statement: Those systems with pertinent positive or pertinent negative responses have been documented in the HPI. Review of Systems: CONST: Denies fever EYES: Denies blurry vision ENT: Denies nasal congestion C/V: Denies Chest pain RESP: Endorses dyspnea mild GI: Endorses feeling of bloating : Denies dysuria SKIN: Denies rash. MSK: Denies joint pain. NEURO: Denies headache ROS Other: All systems not noted in ROS Statement are negative. Past Medical History Past Medical History: Hyperlipidemia, Hypertension, Myocardial Infarction ([place]) Last Myocardial Infarction Date:: 07/31/2016 History of Any Multi-Drug Resistant Organisms: None Reported Past Surgical History: Cholecystectomy, Heart Catheterization With Stent Past Anesthesia/Blood Transfusion Reactions: No Reported Reaction Date of Last Stent Placement:: 07/28/2016 Past Psychological History: No Psychological Hx Reported Smoking Status: Former smoker Past Alcohol Use History: None Reported Past Drug Use History: None Reported - Past Family History Mother Family Medical History: Cancer General Exam - General Exam Comments Initial Comments: General: Appears in no acute distress. HEAD: Normal with no signs of head trauma. EYES: PERRLA, EOMI, conjunctiva normal, no discharge. ENT: Hearing grossly intact, normal oropharynx. RESPIRATORY: Clear breath sounds bilaterally. No wheezes, rales, or rhonchi. Patient is mildly hypoxic to 90% at this time. C/V: Patient is tachycardic with an irregularly irregular rhythm. S1 and S2 auscultated. Peripheral pulses are 2+ intact throughout. No peripheral edema. ABD: Abd is soft, nontender, nondistended. There are no peritoneal signs. No rebound tenderness. EXT: Normal range of motion, no obvious deformity SKIN: No rashes or lesions observed on exposed skin. NEURO: Alert and oriented 4. No focal sensory strength deficits. Limitations: no limitations Course Vital Signs 11/13/20 11/13/20 11/13/20 17:22 17:46 18:00 Temperature 98.3 F Pulse Rate 144 H 106 H 125 H Respiratory 18 17 14 Rate Blood Pressure 168/117 168/117 139/113 O2 Sat by Pulse 90 L 92 L 94 L Oximetry 11/13/20 11/13/20 11/13/20 18:15 18:45 19:00 Temperature Pulse Rate 109 H 146 H 123 H Respiratory 16 16 18 Rate Blood Pressure 133/103 138/100 157/129 O2 Sat by Pulse 96 95 97 Oximetry 11/13/20 11/13/20 19:15 20:00 Temperature Pulse Rate 101 H 115 H Respiratory 16 20 Rate Blood Pressure 155/107 144/101 O2 Sat by Pulse 96 98 Oximetry Medical Decision Making - Medical Decision Making Based on the patient's presentation and physical exam, does appear that he is in atrial fibrillation with RVR. EKG was obtained which confirmed this. No acute ischemic signs seen. Patient is also complaining of acute on chronic abdominal distention/discomfort with no change in bowel habits, no urinary complaints, no nausea, vomiting, pain. Therefore we will obtain basic laboratory studies as we ll as cardiac labs including troponin, EKG, chest x-ray. He'll be connected to continuous cardiac monitoring. Patient was in Mr. 20 mg IV Cardizem which did drop his heart rate to 110, and was started on a Cardizem drip at 5 mg goal heart rate of 110 bpm. He was administered an aspirin. Patient's lavatory studies are remarkable for an JJ, with an elevated BUN of 22 and creatinine 1.73 for which the patient was administered 1 L fluid bolus. Patient's ALT is mildly elevated at 61 and alk phos is 152. Patient's troponin is indeterminate 0.029. Patient's lactic acid is 1.3 normal. Covid is negative. EKG showed atrial fibrillation with RVR. Chest x-ray revealed congestive changes with superimposed infiltrates not excluded which is likely secondary to his age of fibrillation with RVR and cardiogenic in nature. 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 Abdomen revealed cholecystectomy with pneumobilia present which may be benign. Patient also has a what appears to be retained calcific density that may be retained stone in the common bile duct after surgery. GI consult with MRCP or ERCP or recommended. the patient's CT abdomen and pelvis findings, we will consult gastroenterology. His laboratory studies are not concerning for acute ischemic obstruction or infection. I spoke with Dr. Rao who accepted the consult. I consult to cardiology due to the age of fibrillation with RVR and spoke with Dr. Lay. He was in agreement agreement with the plan of starting heparin, trending troponins. We'll also order an echo for the patient. At this time the patient was admitted to the telemetry floor and serous condition. - Lab Data Result diagrams: 11/13/20 17:29 11/13/20 17:29 Lab Results 11/13/20 11/13/20 11/13/20 Range/Units 17:29 17:29 17:29 WBC 6.4 (3.8-10.6) k/uL RBC 5.18 (4.30-5.90) m/uL Hgb 16.1 (13.0-17.5) gm/dL Hct 48.4 (39.0-53.0) % MCV 93.4 (80.0-100.0) fL MCH 31.0 (25.0-35.0) pg MCHC 33.2 (31.0-37.0) g/dL RDW 14.7 (11.5-15.5) % Plt Count 116 L (150-450) k/uL MPV 8.7 Neutrophils % 69 % Lymphocytes % 22 % Monocytes % 5 % Eosinophils % 2 % Basophils % 0 % Neutrophils # 4.4 (1.3-7.7) k/uL Lymphocytes # 1.4 (1.0-4.8) k/uL Monocytes # 0.3 (0-1.0) k/uL Eosinophils # 0.1 (0-0.7) k/uL Basophils # 0.0 (0-0.2) k/uL PT 10.5 (9.0-12.0) sec INR 1.0 (<1.2) APTT 21.1 L (22.0-30.0) sec Sodium 140 (137-145) mmol/L Potassium 4.1 (3.5-5.1) mmol/L Chloride 106 (98-107) mmol/L Carbon Dioxide 25 (22-30) mmol/L Anion Gap 9 mmol/L BUN 22 H (9-20) mg/dL Creatinine 1.73 H (0.66-1.25) mg/dL Est GFR (CKD-EPI)AfAm 44 (>60 ml/min/1.73 sqM) Est GFR (CKD-EPI)NonAf 38 (>60 ml/min/1.73 sqM) Glucose 116 H (74-99) mg/dL Plasma Lactic Acid Jay (0.7-2.0) mmol/L Calcium 8.9 (8.4-10.2) mg/dL Magnesium 2.0 (1.6-2.3) mg/dL Total Bilirubin 0.8 (0.2-1.3) mg/dL AST 48 (17-59) U/L ALT 61 H (4-49) U/L Alkaline Phosphatase 152 H (38-126) U/L Troponin I (0.000-0.034) ng/mL Total Protein 6.9 (6.3-8.2) g/dL Albumin 4.1 (3.5-5.0) g/dL Coronavirus (PCR) (Not Detectd) 11/13/20 11/13/20 11/13/20 Range/Units 17:29 17:44 18:30 WBC (3.8-10.6) k/uL RBC (4.30-5.90) m/uL Hgb (13.0-17.5) gm/dL Hct (39.0-53.0) % MCV (80.0-100.0) fL MCH (25.0-35.0) pg MCHC (31.0-37.0) g/dL RDW (11.5-15.5) % Plt Count (150-450) k/uL MPV Neutrophils % % Lymphocytes % % Monocytes % % Eosinophils % % Basophils % % Neutrophils # (1.3-7.7) k/uL Lymphocytes # (1.0-4.8) k/uL Monocytes # (0-1.0) k/uL Eosinophils # (0-0.7) k/uL Basophils # (0-0.2) k/uL PT (9.0-12.0) sec INR (<1.2) APTT (22.0-30.0) sec Sodium (137-145) mmol/L Potassium (3.5-5.1) mmol/L Chloride (98-107) mmol/L Carbon Dioxide (22-30) mmol/L Anion Gap mmol/L BUN (9-20) mg/dL Creatinine (0.66-1.25) mg/dL Est GFR (CKD-EPI)AfAm (>60 ml/min/1.73 sqM) Est GFR (CKD-EPI)NonAf (>60 ml/min/1.73 sqM) Glucose (74-99) mg/dL Plasma Lactic Acid Jay 1.3 (0.7-2.0) mmol/L Calcium (8.4-10.2) mg/dL Magnesium (1.6-2.3) mg/dL Total Bilirubin (0.2-1.3) mg/dL AST (17-59) U/L ALT (4-49) U/L Alkaline Phosphatase (38-126) U/L Troponin I 0.029 (0.000-0.034) ng/mL Total Protein (6.3-8.2) g/dL Albumin (3.5-5.0) g/dL Coronavirus (PCR) Not Detected (Not Detectd) - EKG Data -: EKG Interpreted by Me EKG Comments: 12-lead Electrocardiogram Interpretation Note EKG was reviewed and interpreted by myself. 12-lead ECG performed at 1716 is interpreted by me as revealing atrial fibrillation with rapid ventricular response at a rate of 145 beats per minute. Left axis deviation. AK interval i s unobtainable. QRS duration is 80 ms, QTc is 478 ms.. There were no ST or T wave abnormalities to suggest myocardial ischemia or injury. R wave progression across the precordium was satisfactory. By my interpretation this EKG is non- diagnostic for acute ischemia. Patient is in atrial fibrillation with RVR with a known history of atrial fibrillation. Disposition Clinical Impression: Atrial fibrillation with RVR, Biliary calculus, History of cholecystectomy, Elevated troponin, Acute kidney injury superimposed on CKD, Palpitations Disposition: ADMITTED IP TO THIS HOSP Condition: Serious Referrals: Briana Barrera MD [Primary Care Provider] - 1-2 days
[2020-11-13 17:50] LABS: Albumin 4.1 g/dL (3.5-5.0); Calcium 8.9 mg/dL (8.4-10.2); Potassium 4.1 mmol/L (3.5-5.1); Total Bilirubin 0.8 mg/dL (0.2-1.3); Total Protein 6.9 g/dL (6.3-8.2)
[2020-11-13 18:03] LABS: Partial Thromboplastin Time 21.1 sec (22.0-30.0); Prothrombin Time 10.5 sec (9.0-12.0)
--- NOTE | 2020-11-13 19:03 | CT ---
EXAMINATION TYPE: CT abdomen pelvis wo con DATE OF EXAM: 11/13/2020 COMPARISON: None available. HISTORY: Abdominal pain, acute, non-localized CT DLP: 732.5 mGycm Automated exposure control for dose reduction was used. TECHNIQUE: Helical acquisition of images was performed from the lung bases through the pelvis. FINDINGS: LUNG BASES: Mild to moderate hazy opacity with interseptal thickening and trace pleural effusions. LIVER/GB: Cholecystectomy with mild pneumobilia seen. Also 1.3 cm calcific density in the distal comm on bile duct. Common bile duct is suboptimally evaluated. PANCREAS: No significant abnormality is seen. SPLEEN: No significant abnormality is seen. ADRENALS: No significant abnormality is seen. KIDNEYS: No significant abnormality is seen. FREE AIR: No free air is visualized RETROPERITONEAL ADENOPATHY: None visualized REPRODUCTIVE ORGANS: No significant abnormality is seen URINARY BLADDER: No significant abnormality is seen. PELVIC ADENOPATHY: None visualized. OSSEOUS STRUCTURES: No significant abnormality is seen. BOWEL: Small hiatal hernia. No bowel obstruction, free air or fluid. OTHER: Moderate to advanced atherosclerotic disease. IMPRESSION: CHOLECYSTECTOMY WITH PNEUMOBILIA, MAY BE BENIGN AND CAN BE SEEN WITH INCOMPETENT VALVE. 1.3 CM CALCIFIC DENSITY IN THE DISTAL COMMON BILE DUCT. CHRONICITY IS UNKNOWN AND CANNOT EXCLUDE LIZ INED/DISPLACED STONE. RECOMMEND CORRELATION WITH PRIOR IMAGING AND SURGICAL HISTORY. OTHERWISE CONSID ER MRCP OR ERCP FOR FURTHER EVALUATION. FINDINGS COMPATIBLE WITH INTERSTITIAL EDEMA WITH TRACE PLEURAL EFFUSIONS.
--- NOTE | 2020-11-13 19:14 | XR ---
EXAMINATION TYPE: XR chest 2V DATE OF EXAM: 11/13/2020 COMPARISON: 08/02/2016 HISTORY: Chest pain. TECHNIQUE: Frontal and lateral views of the chest are obtained. FINDINGS: There is moderate interstitial edema with superimposed hazy and streaky opacities. No pleu ral effusion, or pneumothorax seen. The cardiac silhouette size is enlarged. The osseous structure s are intact. IMPRESSION: Congestive changes with superimposed infiltrates not excluded.
[2020-11-13] MEDS ORDERED: HEPARIN SODIUM 1,000 UN/ML (10ML VL) IV PRN (19:24)
[2020-11-13] MEDS ORDERED: HEPARIN SODIUM 1,000 UN/ML (10ML VL) IV ONE (19:24)
[2020-11-13] MEDS ORDERED: HEPARIN SOD,PORK IN 0.45% NACL 25,000 UNIT in 0.45% NACL 1 250ML.BAG IV SCH (19:30)
[2020-11-13] MEDS ORDERED: MORPHINE SULFATE 4 MG/ML SYRINGE IV PRN (19:55)
[2020-11-13] MEDS ORDERED: NALOXONE 0.4 MG/ML 1 ML VIAL IV PRN (19:55)
[2020-11-13] MEDS ORDERED: ACETAMINOPHEN TAB 325 MG TAB PO PRN (19:55)
[2020-11-13] MEDS ORDERED: ASPIRIN 325 MG TAB PO STA (20:11)
[2020-11-13] MEDS ORDERED: SODIUM CHLORIDE 0.9% 1,000 ML IV ONE (20:12)
[2020-11-14] MEDS: BUMETANIDE 1 MG TAB PO SCH ×2 (00:19→21:39)
[2020-11-14] MEDS: PANTOPRAZOLE 40 MG TABLET PO SCH (06:23)
[2020-11-14 07:37] LABS: Basophils % (A) 0 %; Eosinophils # (A) 0.1 k/uL (0-0.7); Eosinophils % (A) 1 %; HCT 43.3 % (39.0-53.0); HGB 14.3 gm/dL (13.0-17.5); Lymphocytes # (A) 0.9 k/uL (1.0-4.8); Lymphocytes % (A) 13 %; MCH 30.9 pg (25.0-35.0); MCV 93.5 fL (80.0-100.0); Mean Platelet Volume 8.7; Monocytes # (A) 0.4 k/uL (0-1.0); Monocytes % (A) 6 %; Neutrophils # (A) 5.4 k/uL (1.3-7.7); Neutrophils % (A) 78 %; Platelet Count 109 k/uL (150-450); RBC 4.63 m/uL (4.30-5.90); RDW 14.4 % (11.5-15.5); WBC 6.9 k/uL (3.8-10.6)
[2020-11-14 07:45] LABS: INR 1.1 (<1.2); Prothrombin Time 11.5 sec (9.0-12.0)
[2020-11-14 07:56] LABS: Calcium 8.5 mg/dL (8.4-10.2); Potassium 4.1 mmol/L (3.5-5.1)
--- NOTE | 2020-11-14 08:19 | XR ---
EXAMINATION TYPE: XR chest 1V DATE OF EXAM: 11/14/2020 COMPARISON: 11/13/2020 HISTORY: 75-year-old male shortness of breath, dyspnea TECHNIQUE: Single frontal view of the chest is obtained. FINDINGS: Heart normal size. Mild interstitial prominence unchanged. Focal medial right lower lung opacity pers ists. IMPRESSION: Continued medial right basilar airspace disease/pneumonia.
[2020-11-14] MEDS: ATORVASTATIN 40 MG TAB PO SCH (08:43)
[2020-11-14] MEDS: DOCUSATE 100 MG CAP PO SCH (08:43)
[2020-11-14] MEDS: ASPIRIN 81 MG PO SCH (08:43)
[2020-11-14] MEDS ORDERED: MAGNESIUM CITRATE 296 ML BOTTLE PO ONE (09:13)
[2020-11-14] MEDS: polyethylene glycoL 3350 17 GM POWD.PACK PO SCH (09:30)
[2020-11-14] MEDS: APIXABAN 5 MG TAB PO SCH ×2 (11:09→21:39)
[2020-11-14] MEDS: METOPROLOL TARTRATE 50 MG TAB PO SCH ×2 (11:41→21:38)
[2020-11-14] MEDS: DILTIAZEM 125 MG in SODIUM CHLORIDE 0.9% 100 ML IV SCH ×3 (11:43→12:00)
[2020-11-14] MEDS ORDERED: DILTIAZEM 125 MG in SODIUM CHLORIDE 0.9% 100 ML IV SCH (14:00)
--- NOTE | 2020-11-14 14:38 | P.HPIM ---
History of Present Illness Patient is pleasant 46-year-old male came in with compensative shortness of breath which started couple days ago denied any orthopnea or paroxysmal nocturnal dyspnea. Patient was also having palpitations patient [place] lightheaded patient was excessively sweating because of which patient came to ER and found to be in atrial fibrillation with rapid ventricular rate. Patient had a normal echocardiac exam in 2017. Patient had a creatinine of 1.7 admission which improved to 1.53 today which appears to be his baseline. Patient does take Bumex at home patient had a chest x-ray which is showing significant right lower lobe infiltrate which looked looks like pneumonia but patient doesn't have any signs or symptoms of pneumonia doesn't have leukocytosis patient appears to be in heart failure instead. Patient has elevated BNP has possibly elevated JVD as well doesn't have significant pedal edema. Patient is presently and IV Cardizem at 15 mg/hour, patient was given metoprolol as well echocardiac and is being obtained. Patient heart rate now has come down to 88 patient is still in atrial fibrillation. Patient was started on anti-correlation with Eliquis. REVIEW OF SYSTEMS: CONSTITUTIONAL: No fever, no malaise, no fatigue. HEENT: No recent visual problems or hearing problems. Denied any sore throat. CARDIOVASCULAR: No orthopnea, PND, no palpitations, no syncope. PULMONARY:no hemoptysis. GASTROINTESTINAL: No diarrhea, no nausea, no vomiting, no abdominal pain. NEUROLOGICAL: No headaches, no weakness, no numbness. HEMATOLOGICAL: Denies any bleeding or petechiae. GENITOURINARY: Denies any burning micturition, frequency, or urgency. MUSCULOSKELETAL/RHEUMATOLOGICAL: Denies any joint pain, swelling, or any muscle pain. ENDOCRINE: Denies any polyuria or polydipsia. The rest of the 14-point review of systems is negative. PHYSICAL EXAMINATION: GENERAL: The patient is alert and oriented x3, not in any acute distress. Well developed, well nourished. HEENT: Pupils are round and equally reacting to light. EOMI. No scleral icterus. No conjunctival pallor. Normocephalic, atraumatic. No pharyngeal erythema. No thyromegaly. CARDIOVASCULAR: S1 and S2 present. No murmurs, rubs, or gallops. PULMONARY: Chest is clear to auscultation, no wheezing or crackles. ABDOMEN: Soft, nontender, nondistended, normoactive bowel sounds. No palpable organomegaly. MUSCULOSKELETAL: No joint swelling or deformity. EXTREMITIES: No cyanosis, clubbing, or pedal edema. NEUROLOGICAL: Gross neurological examination did not reveal any focal deficits. SKIN: No rashes. Assessment and plan -Atrial fibrillation with rapid ventricular rate patient will be can you done IV Cardizem will taper it down once his heart rate is controlled patient was started on beta milan. 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 -Hyperlipidemia -Hypertension patient is on lisinopril which will be continued -History of coronary artery disease with cardiac catheterization and stents in the past DVT prophylaxis: She is on anticoagulation with Eliquis Past Medical History Past Medical History: Hyperlipidemia, Hypertension, Myocardial Infarction ([place]) Additional Past Medical History / Comment(s): COVID Last Myocardial Infarction Date:: 07/31/2016 History of Any Multi-Drug Resistant Organisms: None Reported Past Surgical History: Cholecystectomy, Heart Catheterization With Stent Additional Past Surgical History / Comment(s): 1 stent Past Anesthesia/Blood Transfusion Reactions: No Reported Reaction Date of Last Stent Placement:: 07/28/2016 Past Psychological History: No Psychological Hx Reported Smoking Status: Former smoker Past Alcohol Use History: None Reported Past Drug Use History: None Reported - Past Family History Mother Family Medical History: Cancer Father Family Medical History: CVA/TIA Medications and Allergies Home Medications Medication Instructions Recorded Confirmed Type Bumetanide 1 mg PO HS 07/31/16 11/13/20 History Aspirin 81 mg PO DAILY #30 chew 08/03/16 11/13/20 Rx Nitroglycerin Sl Tabs [Nitrostat] 0.4 mg SUBLINGUAL Q5M PRN #25 tab 08/03/16 11/13/20 Rx Atorvastatin [Lipitor] 40 mg PO DAILY 11/13/20 11/13/20 History Docusate [Colace] 100 mg PO DAILY 11/13/20 11/13/20 History Metoprolol Tartrate [Lopressor] 25 mg PO BID 11/13/20 11/13/20 History Multivitamins, Thera [Multivitamin 1 tab PO DAILY 11/13/20 11/13/20 History (formulary)] Omeprazole 20 mg PO DAILY 11/13/20 11/13/20 History amLODIPine [Norvasc] 5 mg PO HS 11/13/20 11/13/20 History lisinopriL [Zestril] 10 mg PO DAILY 11/13/20 11/13/20 History Allergies Allergy/AdvReac Type Severity Reaction Status Date / Time No Known Allergies Allergy Verified 11/13/20 17:54 Physical Exam Vitals: Vital Signs Temp Pulse Pulse Resp BP BP Pulse Ox 11/14/20 13:59 88 18 11/14/20 12:00 97.8 F 88 18 130/66 95 11/14/20 08:00 97.8 F 121 H 18 151/94 94 L 11/14/20 04:00 98.6 F 121 H 18 130/83 95 11/14/20 00:35 97.8 F 114 H 20 155/98 95 11/14/20 00:30 20 88 L 11/13/20 23:51 110 H 18 138/99 98 11/13/20 20:00 115 H 20 144/101 98 11/13/20 19:15 101 H 16 155/107 96 11/13/20 19:00 123 H 18 157/129 97 11/13/20 18:45 146 H 16 138/100 95 11/13/20 18:15 109 H 16 133/103 96 11/13/20 18:00 125 H 14 139/113 94 L 11/13/20 17:46 106 H 17 168/117 92 L 11/13/20 17:22 98.3 F 144 H 18 168/117 90 L Intake and Output 11/13/20 11/14/20 11/14/20 22:59 06:59 14:59 Intake Total 294.833 630.333 Output Total 200 100 Balance 94.833 530.333 Intake: Intake, IV Titration 54.833 90.333 Amount Diltiazem 125 mg In 90.333 Sodium Chloride 0.9% 100 ml @ 5 MG/HR 5 mls/hr IV .Q24H [facility] Rx#:[id number] Heparin Sod,Pork in 0.45% 54.833 NaCl 25,000 unit In 0.45 % NaCl 1 250ml.bag @ 11. 364 UNITS/KG/HR 10 mls/hr IV .Q24H [facility] Rx#: [id number] Oral 240 540 Output: Urine 200 100 Other: Voiding Method Toilet Toilet # Voids 2 Weight 87.997 kg 86.6 kg Results CBC & Chem 7: 11/14/20 07:12 11/14/20 07:12 Labs: Abnormal Lab Results - Last 24 Hours (Table) 11/13/20 11/13/20 11/13/20 Range/Units 17:29 17:29 17:29 Plt Count 116 L (150-450) k/uL Lymphocytes # (1.0-4.8) k/uL APTT 21.1 L (22.0-30.0) sec Chloride (98-107) mmol/L BUN 22 H (9-20) mg/dL Creatinine 1.73 H (0.66-1.25) mg/dL Glucose 116 H (74-99) mg/dL ALT 61 H (4-49) U/L Alkaline Phosphatase 152 H (38-126) U/L 11/14/20 11/14/20 11/14/20 Range/Units 01:09 07:12 07:12 Plt Count 109 L (150-450) k/uL Lymphocytes # 0.9 L (1.0-4.8) k/uL APTT 34.4 H 57.0 H (22.0-30.0) sec Chloride (98-107) mmol/L BUN (9-20) mg/dL Creatinine (0.66-1.25) mg/dL Glucose (74-99) mg/dL ALT (4-49) U/L Alkaline Phosphatase (38-126) U/L 11/14/20 11/14/20 Range/Units 07:12 07:12 Plt Count (150-450) k/uL Lymphocytes # (1.0-4.8) k/uL APTT (22.0-30.0) sec Chloride 108 H (98-107) mmol/L BUN (9-20) mg/dL Creatinine 1.51 H (0.66-1.25) mg/dL Glucose 128 H (74-99) mg/dL ALT (4-49) U/L Alkaline Phosphatase 140 H (38-126) U/L Thrombosis Risk Factor Assmnt - Choose All That Apply Each Risk Factor Represents 2 Points: Age 61-74 years Thrombosis Risk Factor Assessment Total Risk Factor Score: 2 Thrombosis Risk Factor Assessment Level: Low Risk
--- NOTE | 2020-11-14 15:46 | P.CONS ---
History of Present Illness - Reason for Consult Consult date: 11/14/20 possible retained biliary stone Requesting physician: Rosa Beth - Chief Complaint Her palpitations - History of Present Illness This is a pleasant 75-year-old male with a past medical history of atrial fibrillation, asthma, GERD, hyperlipidemia, hypertension, sleep apnea and coronary artery disease who presented to the emergency department with complaints of heart palpitations and lightheaded this. Patient came in yesterday evening and stated the symptoms began yesterday morning and lasted throughout the day. He denies any abdominal pain, nausea, vomiting, or fever. He does have some abdominal distention he feeling related to constipation which is chronic. States he usually has a bowel movement once a week. Presenting labs WBC 6, hemoglobin 14, hematocrit 43, platelet count 109,000, INR 1.1, total bilirubin 0.8, alkaline phosphatase 152, AST 48, ALT 61. He had a CT of the abdomen and pelvis that showed cholecystectomy with pneumobilia, may be benign and can be seen with incompetent valve. 1.3 cm calcified density in the distal common bile duct. Chronicity is unknown and cannot exclude retained/displaced stone. Recommend correlation with prior imaging and surgical history. Otherwise consider MRCP or ERCP for further evaluation. Findings compatible with interstitial edema with trace pleural effusions. Patient states in 2014 he had his gallbladder removed here at this hospital for gallstones, at that time he had a large stone in his common bile duct which was unable to be retrieved by ERCP. he states he had not seen and advance endoscopists any has had no further complications since then. He does however suffered from chronic constipation and states he has not had a bowel movement in over a week. He is denying any nausea or vomiting or any abdominal pain other than some fullness and distended and feeling. Patient denies any previous history of colonoscopy. Review of Systems REVIEW OF SYSTEMS: CARDIOPULMONARY: No chest pain or shortness of breath. Her palpitations. Gastrointestinal: No abdominal pain, complaints of abdominal distention and constipation. No nausea or vomiting. No hematemesis, coffee-ground emesis. No rectal bleeding, or melena. GENITOURINARY: No dysuria or hematuria. MUSCULOSKELETAL: Reports normal range of motion., Joint pain. SKIN: No rashes. No jaundice. ENDOCRINE: No chills, fevers. No excessive weight gain or loss. No polydipsia or polyuria. PSYCHIATRIC: Unremarkable. NEUROLOGY: No change in mental status. Denies dizziness, headache. ENT: Vision unremarkable. CONSTITUTIONAL: No recent weight loss. No fever, chills, night sweats. Past Medical History Past Medical History: Hyperlipidemia, Hypertension, Myocardial Infarction ([place]) Additional Past Medical History / Comment(s): COVID Last Myocardial Infarction Date:: 07/31/2016 History of Any Multi-Drug Resistant Organisms: None Reported Past Surgical History: Cholecystectomy, Heart Catheterization With Stent Additional Past Surgical History / Comment(s): 1 stent Past Anesthesia/Blood Transfusion Reactions: No Reported Reaction Date of Last Stent Placement:: 07/28/2016 Past Psychological History: No Psychological Hx Reported Smoking Status: Former smoker Past Alcohol Use History: None Reported Past Drug Use History: None Reported - Past Family History Mother Family Medical History: Cancer Father Family Medical History: CVA/TIA Medications and Allergies Home Medications Medication Instructions Recorded Confirmed Type Bumetanide 1 mg PO HS 07/31/16 11/13/20 History Aspirin 81 mg PO DAILY #30 chew 08/03/16 11/13/20 Rx Nitroglycerin Sl Tabs [Nitrostat] 0.4 mg SUBLINGUAL Q5M PRN #25 tab 08/03/1602/23 Rx Atorvastatin [Lipitor] 40 mg PO DAILY 11/13/20 11/13/20 History Docusate [Colace] 100 mg PO DAILY 11/13/20 11/13/20 History Metoprolol Tartrate [Lopressor] 25 mg PO BID 11/13/20 11/13/20 History Multivitamins, Thera [Multivitamin 1 tab PO DAILY 11/13/20 11/13/20 History (formulary)] Omeprazole 20 mg PO DAILY 11/13/20 11/13/20 History amLODIPine [Norvasc] 5 mg PO HS 11/13/20 11/13/20 History lisinopriL [Zestril] 10 mg PO DAILY 11/13/20 11/13/20 History Allergies Allergy/AdvReac Type Severity Reaction Status Date / Time No Known Allergies Allergy Verified 11/13/20 17:54 Physical Exam Vitals: Vital Signs Temp Pulse Pulse Resp BP BP Pulse Ox 11/14/20 04:00 98.6 F 121 H 18 130/83 95 11/14/20 00:35 97.8 F 114 H 20 155/98 95 11/14/20 00:30 20 88 L 11/13/20 23:51 110 H 18 138/99 98 11/13/20 20:00 115 H 20 144/101 98 11/13/20 19:15 101 H 16 155/107 96 11/13/20 19:00 123 H 18 157/129 97 11/13/20 18:45 146 H 16 138/100 95 11/13/20 18:15 109 H 16 133/103 96 11/13/20 18:00 125 H 14 139/113 94 L 11/13/20 17:46 106 H 17 168/117 92 L 11/13/20 17:22 98.3 F 144 H 18 168/117 90 L Intake and Output 11/13/20 11/14/20 11/14/20 22:59 06:59 14:59 Intake Total 294.833 Output Total 200 Balance 94.833 Intake: Intake, IV Titration 54.833 Amount Heparin Sod,Pork in 0.45% 54.833 NaCl 25,000 unit In 0.45 % NaCl 1 250ml.bag @ 11. 364 UNITS/KG/HR 10 mls/hr IV .Q24H [facility] Rx#: [id number] Oral 240 Output: Urine 200 Other: Voiding Method Toilet # Voids 2 Weight 87.997 kg 86.6 kg General appearance: The patient is alert, oriented, appears in no acute distress. HET: Head is normocephalic and atraumatic. Conjunctiva pink. Sclera anicteric. Neck: Supple without lymphadenopathy. Trachea midline. Heart: S1 S2. Regular rate and rhythm. Lungs: Clear to auscultation. Abdomen: Soft, nontender, nondistended with bowel sounds. No guarding or rigidity. Skin: No rashes. No jaundice. Extremities: Normal skin color and turgor. No pedal edema. Neurological: No focal deficits. Alert and oriented 3.. Results CBC & Chem 7: 11/14/20 07:12 11/14/20 07:12 Labs: Abnormal Lab Results - Last 24 Hours (Table) 11/13/20 11/13/20 11/13/20 Range/Units 17:29 17:29 17:29 Plt Count 116 L (150-450) k/uL Lymphocytes # (1.0-4.8) k/uL APTT 21.1 L (22.0-30.0) sec Chloride (98-107) mmol/L BUN 22 H (9-20) mg/dL Creatinine 1.73 H (0.66-1.25) mg/dL Glucose 116 H (74-99) mg/dL ALT 61 H (4-49) U/L Alkaline Phosphatase 152 H (38-126) U/L 11/14/20 11/14/20 11/14/20 Range/Units 01:09 07:12 07:12 Plt Count 109 L (150-450) k/uL Lymphocytes # 0.9 L (1.0-4.8) k/uL APTT 34.4 H 57.0 H (22.0-30.0) sec Chloride (98-107) mmol/L BUN (9-20) mg/dL Creatinine (0.66-1.25) mg/dL Glucose (74-99) mg/dL ALT (4-49) U/L Alkaline Phosphatase (38-126) U/L 11/14/20 Range/Units 07:12 Plt Count (150-450) k/uL Lymphocytes # (1.0-4.8) k/uL APTT (22.0-30.0) sec Chloride 108 H (98-107) mmol/L BUN (9-20) mg/dL Creatinine 1.51 H (0.66-1.25) mg/dL Glucose 128 H (74-99) mg/dL ALT (4-49) U/L Alkaline Phosphatase (38-126) U/L CT scan - abdomen: report reviewed (the abdomen and pelvis that showed cholecystectomy with pneumobilia, may be benign and can be seen with incompetent valve. 1.3 cm calcified density in the distal common bile duct. Chronicity is unknown and cannot exclude retained/displaced stone. Recommend correlation with prior imaging and surgi) Assessment and Plan (1) Abnormal finding on CT scan Narrative/Plan: This is a 75-year-old male patient who presented to the emergency department with complaints of heart palpitations. Patient has a history of atrial fibri llation. He also had complaints of abdominal discomfort and distention related to constipation. The patient suffers from chronic constipation and has not had a bowel movement in over one week duration. He only takes a stool softener at home. He denies any nausea, vomiting or other abdominal pain. Patient also has a history of cholecystectomy related to gallstones, and a history of choledochal lithiasis in 2015. He states that he underwent an ERCP and cholecystectomy with unsuccessful retrieval of large stone. He states the stone has been present and is bile ducts since the operation and has not caused any further problems. Patient also states his constipation seems to have occurred s reji the operation. On presentation his LFTs are normal. Cardiology is following for atrial fibrillation. CT of the abdomen and pelvis reviewed. There are no plans at this time for ERCP. Will recommend patient to follow-up with advanced endoscopist for outpatient EUS and possible ERCP and a tertiary center. Current Visit: Yes Status: Acute Code(s): R93.89 - ABNORMAL FINDINGS ON DX IMAGING OF OTH BODY STRUCTURES SNOMED Code(s): 740665551 (2) Constipation Narrative/Plan: Patient given magnesium citrate. Will order MiraLAX once a day, discussed with patient he will need to continue this outpatient and may titrate to 1-2 capfuls a day for normal bowel movements. Also recommended to patient to follow-up with gastroenterology for outpatient colonoscopy as he has never had a colonoscopy done in the past. Current Visit: Yes Status: Acute Code(s): K59.00 - CONSTIPATION, UNSPECIFIED SNOMED Code(s): 86740492 (3) History of atrial fibrillation Current Visit: Yes Status: Acute Code(s): Z86.79 - PERSONAL HISTORY OF OTHER DISEASES OF THE CIRCULATORY SYSTEM SNOMED Code(s): 985952090 (4) History of cholecystectomy Current Visit: Yes Status: Acute Code(s): Z90.49 - ACQUIRED ABSENCE OF OTHER SPECIFIED PARTS OF DIGESTIVE TRACT SNOMED Code(s): 699213409 Plan: 1. Continue symptomatic and supportive care 2. Repeat LFTs today 3. Will begin bowel regimen with MiraLAX daily, may titrate up to 2 times a day 4. Magnesium citrate 1 5. Continue with cardiology workup and recommendations 6. There are no acute indications for ERCP. CT of the abdomen and pelvis reviewed. This is chronic in nature, however would recommend outpatient follow- up with advance endoscopists for possible EUS and ERCP. 7. Recommend outpatient screening colonoscopy Thank you for this consultation, we will sign off at this time Dr.Velocci I agree with the dictator's note, documented as a scribe by Ev Hughes.
--- NOTE | 2020-11-14 16:49 | CONS ---
CONSULTATION HISTORY OF PRESENT ILLNESS: Mr. Cabrera is a 75-year-old male with a known history of coronary artery disease status post anterior myocardial infarction in 2017 with percutaneous revascularization of his LAD at that time, history of severe cardiomyopathy, followed by Dr. Limon on a regular basis, who presented to the emergency room with symptoms of progressive dyspnea that occurred yesterday. In the emergency room, he was noted to be in atrial fibrillation of unknown duration. Patient is vague about having palpitations or if he feels the palpitation. On the prior evaluation by Dr. Limon, there is no documentation of atrial fibrillation. He had an an echocardiogram performed in 2019 revealed an ejection fraction of 30% and apparently the patient declined ICD implantation. According to the ER note the patient is in atrial fibrillation chronically, although asking the patient, he does not recall the word. He denies any peripheral edema. He has no PND, no orthopnea. No dizziness. No syncope. His coronary risk factors are remarkable for hypertension, hyperlipidemia, he is nondiabetic and nonsmoker at this point. MEDICATION: Her medications at home include Zestril 10 mg daily, Norvasc 5 mg daily, omeprazole, metoprolol tartrate 25 mg twice a day, Bumex 1 mg daily, Lipitor 40 mg daily and aspirin once a day. REVIEW OF SYSTEMS: Respiratory system: He had dyspnea on exertion. No recent wheezing or cough. GI system: No recent GI bleeding. No peptic ulcer disease. system: No dysuria or hematuria. Nervous system: No history of stroke or seizure. PHYSICAL EXAMINATION: 75-year-old male, alert, oriented, no apparent distress. Blood pressure running in the 130 and 150 with a heart rate in the 120s to 140s. HEAD: Normocephalic. Eyes sclerae anicteric. NECK: Good carotid upstroke. No jugular venous distention. LUNGS: Clear to auscultation. HEART: Irregularly irregular S1, S2. No S3 with a systolic murmur at the base. No diastolic murmur. No rub. ABDOMEN: Soft, nontender. Positive bowel sounds. No megaly. EXTREMITIES: No edema. Intact pulses. LAB DATA: Lab data revealed a troponin of 0.029, 0.033 and 0.032. BUN and creatinine on admission of 22 and 1.73. This morning, creatinine is down to 0.51. He has history of chronic kidney disease stage 3. His hemoglobin is 16.1. His EKG revealed atrial fibrillation with rapid ventricular response, rate 145 with evidence of anteroapical myocardial infarction. His chest x-ray shows evidence of congestion. His abdominal and pelvis CT scan showed 1.3 cm calcified density in the distal common bile duct. IMPRESSION: 1. Symptoms of progressive dyspnea with atrial fibrillation and rapid ventricular response. The patient was not anticoagulated on presentation his CHADS VASc score is 3. He is maintained on IV heparin at this time. 2. History of ischemic cardiomyopathy with ejection fraction of 30% in the past and patient declined ICD implantation. 3. History of PCI and stenting of the LAD, IFR and anterior myocardial infarction. 4. Hypertension. 5. Hyperlipidemia. 6. Chronic kidney disease. RECOMMENDATIONS: From the cardiac standpoint, I will restart him on a beta milan. I will obtain a repeat echocardiogram with Doppler. Will check his thyroid function test. I will initiate anticoagulation with Eliquis 5 mg twice a day. I have discussed with the rationale behind that. Depending on his response, further recommendations will be made. Thank you for this consult. We will follow with you. MMODL / IJN: [id number] /
--- NOTE | 2020-11-14 16:55 | ECHOF ---
Referral Reason:elevated troponin MEASUREMENTS -------- HEIGHT: 170.2 cm WEIGHT: 86.2 kg BP: 130/83 RVIDd: 2.4 cm (< 3.3) IVSd: 1.1 cm (0.6 - 1.1) LVIDd: 4.9 cm (3.9 - 5.3) LVPWd: 1.4 cm (0.6 - 1.1) IVSs: 1.6 cm LVIDs: 4.3 cm LVPWs: 1.5 cm LAESV Index (A-L): 30.97 ml/m Ao Diam: 2.8 cm (2.0 - 3.7) AV Cusp: 1.6 cm (1.5 - 2.6) LA Diam: 4.4 cm (2.7 - 3.8) RAP: 5.00 mmHg RVSP: 9.12 mmHg FINDINGS -------- Atrial fibrillation. This was a technically difficult study with suboptimal views. The left ventricular size is normal. There is mild concentric left ventricular hypertrophy. Overa ll left ventricular systolic function is severely impaired with, an EF between 25 - 30 %. Left vent ricular fillimg pressure cannot be estimated due to Atrial fibrillation. Basal anterior LV wall mot ion is hypokinetic. Basal anteroseptal LV wall motion is hypokinetic. Mid anterior LV wall nabila on is hypokinetic. Mid anteroseptal LV wall motion is hypokinetic. Apical anterior LV wall nabila on is hypokinetic. Apical lateral LV wall motion is hypokinetic. Apical inferior LV wall motion is hypokinetic. Apical septum LV wall motion is hypokinetic. The right ventricle is normal in size. LA is midly dilated 29-33ml/m2. The right atrial size is normal. Lumason used The aortic valve was not well visualized. The mitral valve is normal. Mild mitral regurgitation is present. The tricuspid valve appears structurally normal. Trace tricuspid regurgitation present. Right richa tricular systolic pressure is normal at < 35 mmHg. The pulmonic valve was not well visualized. The aortic root size is normal. IVC Not well visulized. There is no pericardial effusion. CONCLUSIONS -------- 1. Atrial fibrillation. 2. The left ventricular size is normal. 3. There is mild concentric left ventricular hypertrophy. 4. Overall left ventricular systolic function is severely impaired with, an EF between 25 - 30 %. 5. Left ventricular fillimg pressure cannot be estimated due to Atrial fibrillation. 6. Basal anterior LV wall motion is hypokinetic. 7. Basal anteroseptal LV wall motion is hypokinetic. 8. Mid anterior LV wall motion is hypokinetic. 9. Mid anteroseptal LV wall motion is hypokinetic. 10. Apical anterior LV wall motion is hypokinetic. 11. Apical lateral LV wall motion is hypokinetic. 12. Apical inferior LV wall motion is hypokinetic. 13. Apical septum LV wall motion is hypokinetic. 14. LA is midly dilated 29-33ml/m2. 15. Mild mitral regurgitation is present. 16. Trace tricuspid regurgitation present. 17. There is no pericardial effusion. INDUSTRIAL ELECTRICIAN: Sherrell Garland RDCS
[2020-11-14 21:29] LABS: Magnesium 2.4 mg/dL (1.6-2.3); Potassium 4.1 mmol/L (3.5-5.1)
[2020-11-14] MEDS: lisinopriL 5 MG TAB PO SCH (21:38)
[2020-11-15] MEDS: PANTOPRAZOLE 40 MG TABLET PO SCH (06:33)
[2020-11-15] MEDS: DILTIAZEM 125 MG in SODIUM CHLORIDE 0.9% 100 ML IV SCH (06:34)
[2020-11-15 07:22] LABS: Calcium 8.4 mg/dL (8.4-10.2); Magnesium 2.3 mg/dL (1.6-2.3); Potassium 3.8 mmol/L (3.5-5.1)
[2020-11-15 09:30] VITALS: RESP 18; TEMP 98.3
[2020-11-15] MEDS: lisinopriL 5 MG TAB PO SCH (09:32)
[2020-11-15] MEDS: ASPIRIN 81 MG PO SCH (09:32)
[2020-11-15] MEDS: APIXABAN 5 MG TAB PO SCH (09:32)
[2020-11-15] MEDS: DOCUSATE 100 MG CAP PO SCH (09:32)
[2020-11-15] MEDS: ATORVASTATIN 40 MG TAB PO SCH (09:32)
[2020-11-15] MEDS: polyethylene glycoL 3350 17 GM POWD.PACK PO SCH (09:33)
[2020-11-15] MEDS: METOPROLOL TARTRATE 50 MG TAB PO SCH (09:33)
[2020-11-15 12:21] VITALS: BP 108/74; PULSE 72
--- NOTE | 2020-11-15 12:55 | PN ---
PROGRESS NOTE Mr. Cabrera is a 75-year-old male with known history of severe ischemic cardiomyopathy, status post myocardial infarction, who presented to the hospital and was found to be in atrial fibrillation with rapid ventricular response. He was initiated on anticoagulation and his medical regimen was adjusted. He is feeling much better today. His rate is controlled. He denies any chest pain. He denies any dizziness. He denies any palpitation. He denies any nausea. On the monitor he is in atrial fibrillation with controlled ventricular response. He had an echocardiogram performed yesterday that revealed severely impaired left ventricular systolic function with segmental wall motion consistent with prior myocardial infarction, unchanged, with no significant changes compared to the past. He continues to be on Eliquis 5 mg twice a day, aspirin once a day, atorvastatin 40 mg daily, Bumex 1 mg daily, lisinopril 5 mg twice a day, metoprolol tartrate 50 mg twice a day, Protonix 40 mg daily. PHYSICAL EXAMINATION: Blood pressure 123/70 with a heart rate in the 90s. LUNGS: Clear. HEART: Irregularly irregular. S1, S2. No S3. No rub. ABDOMEN: Soft, nontender. Positive bowel sounds. No organomegaly. EXTREMITIES: No edema. IMPRESSION: 1. Atrial fibrillation with rapid ventricular response, under better control at this time. Anticoagulation initiated. 2. Severe ischemic cardiomyopathy, status post myocardial infarction in 2017. The patient has declined ICD. 3. Chronic kidney disease. 4. Hypertension. 5. Hyperlipidemia. RECOMMENDATIONS: From the cardiac standpoint, will continue present therapy, increase his level of activity. I will stop his IV Cardizem. If he remains stable with a stable rate, I would expect he should be able to be discharged home and followed as an outpatient. Follow his renal function to see if further adjustment of his regimen is needed. MMODL / IJN: [id number] / RUDY
--- NOTE | 2020-11-15 15:11 | P.DS ---
Providers Date of admission: 11/13/20 19:58 Expected date of discharge: 11/15/20 Attending physician: Brenda Monae Consults: 11/13/20 19:56 Consult Physician Urgent Consulting Provider: Antonio Lay Consult Reason/Comments: Afib with RVR Do you want consulting provider notified?: Already Contacted Primary care physician: Briana Barrera Hospital Course: Final diagnosis -Atrial fibrillation with rapid ventricular rate -Possible congestive heart failure possibly secondary to atrial fibrillation -Severe ischemic cardiomyopathy -No clinical evidence of pneumonia patient will not need any antibiotics at this time -Acute renal failure secondary to prerenal azotemia from atrial fibrillation and decreased kidney perfusion, improved -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 Patient will follow-up with Dr. Barrera in the outpatient setting upon discharge. Patient is to also follow-up with Dr Braxton beckham in one week. Patient is being started on Eliquis and will give a coupon for one free month and will discuss with primary care provider along with cardiology about other anticoagulation recommendations as this one is too expensive. Total time taken is greater than 35 minutes. Hospital course Patient is pleasant 46-year-old male came in with compensative shortness of breath which started couple days ago denied any orthopnea or paroxysmal nocturnal dyspnea. Patient was also having palpitations patient [place] lightheaded patient was excessively sweating because of which patient came to ER and found to be in atrial fibrillation with rapid ventricular rate. Patient had a normal echocardiac exam in 2017. Patient had a creatinine of 1.7 admission which improved to 1.53 today which appears to be his baseline. Patient does take Bumex at home patient had a chest x-ray which is showing significant right lower lobe infiltrate which looked looks like pneumonia but patient doesn't have any signs or symptoms of pneumonia doesn't have leukocytosis patient appears to be in heart failure instead. Patient has elevated BNP has possibly elevated JVD as well doesn't have significant pedal edema. Patient is presently and IV Cardizem at 15 mg/hour, patient was given metoprolol as well echocardiac and is being obtained. Patient heart rate now has come down to 88 patient is still in atrial fibrillation. Patient was started on anti-correlation with Eliquis. 11/15/2020 Patient is seen in follow-up this morning and has been discontinued on Cardizem and maintaining normal sinus rhythm and being evaluated by cardiology. Patient is continued on metoprolol and has been initiated on anticoagulant. Case management verified coverage and he has no medication coverage and will give one free month of eliquis and will follow-up with cardiology along with his primary care provider to discuss further anticoagulation as this medication is expensive. Patient continues to refuse ICD placement given his EF and is agreeable to follow-up with cardiology outpatient. Appointment has been made for this week. Patient denies any shortness of breath or chest pain and is asking if he can go home. at the bedside. Currently no reports of chest pain, shortness of breath, or palpitations. Patient is afebrile. No reports of nausea or vomiting and patient is tolerating diet. Patient will be discharged home today. GENERAL: The patient is alert and oriented x3, not in any acute distress. Well developed, well nourished. HEENT: Pupils are round and equally reacting to light. EOMI. No scleral icterus. No conjunctival pallor. Normocephalic, atraumatic. No pharyngeal erythema. No thyromegaly. CARDIOVASCULAR: S1 and S2 present. No murmurs, rubs, or gallops. PULMONARY: Chest is clear to auscultation, no wheezing or crackles. ABDOMEN: Soft, nontender, nondistended, normoactive bowel sounds. No palpable organomegaly. MUSCULOSKELETAL: No joint swelling or deformity. EXTREMITIES: No cyanosis, clubbing, or pedal edema. NEUROLOGICAL: Gross neurological examination did not reveal any focal deficits. SKIN: No rashes. On exam vital signs are stable. Cardio S1, S2 are muffled. Respiratory system shows diminished breath sounds at the bases with no wheezing or rhonchi noted. Abdomen is soft and obese, and nontender. Nervous system shows no focal deficits. Please refer to medication reconciliation sheet for a list of medications. Patient Condition at Discharge: Stable Plan - Discharge Summary Discharge Rx Participant: No New Discharge Prescriptions: New Metoprolol Tartrate [Lopressor] 50 mg PO BID 30 Days #60 tab Apixaban [Eliquis] 5 mg PO BID 30 Days #60 tab Continue Bumetanide 1 mg PO HS Aspirin 81 mg PO DAILY #30 chew Nitroglycerin Sl Tabs [Nitrostat] 0.4 mg SUBLINGUAL Q5M PRN #25 tab PRN Reason: Chest Pain lisinopriL [Zestril] 10 mg PO DAILY Multivitamins, Thera [Multivitamin (formulary)] 1 tab PO DAILY Atorvastatin [Lipitor] 40 mg PO DAILY Docusate [Colace] 100 mg PO DAILY Omeprazole 20 mg PO DAILY Discontinued amLODIPine [Norvasc] 5 mg PO HS Metoprolol Tartrate [Lopressor] 25 mg PO BID Discharge Medication List Bumetanide 1 mg PO HS 07/31/16 [History] Aspirin 81 mg PO DAILY #30 chew 08/03/16 [Rx] Nitroglycerin Sl Tabs [Nitrostat] 0.4 mg SUBLINGUAL Q5M PRN #25 tab 08/03/16 [Rx] Atorvastatin [Lipitor] 40 mg PO DAILY 11/13/20 [History] Docusate [Colace] 100 mg PO DAILY 11/13/20 [History] Multivitamins, Thera [Multivitamin (formulary)] 1 tab PO DAILY 11/13/20 [History] Omeprazole 20 mg PO DAILY 11/13/20 [History] lisinopriL [Zestril] 10 mg PO DAILY 11/13/20 [History] Apixaban [Eliquis] 5 mg PO BID 30 Days #60 tab 11/15/20 [Rx] Metoprolol Tartrate [Lopressor] 50 mg PO BID 30 Days #60 tab 11/15/20 [Rx] Follow up Appointment(s)/Referral(s): Briana Barrera MD [Primary Care Provider] - 1-2 days Jack Limon MD [STAFF PHYSICIAN] - 11/21/20 9:45 am Ambulatory/Diagnostic Orders: Basic Metabolic Panel [LAB.AMB] Time Frame: 3 Days, Location: None Selected Patient Instructions/Handouts: Heart Failure (DC), A-fib (Atrial Fibrillation) (DC) Activity/Diet/Wound Care/Special Instructions: Prescription sent to [facility] pharmacy here Activity Limited until follow-up Follow-up with primary care provider upon discharge Follow-up with cardiology outpatient continue medications as prescribed Follow-up repeat labs to monitor kidney functions Discharge Disposition: HOME SELF-CARE
== END 2020-11-15 15:51 | disposition home or self-care (01) | DRG 309 ==
LOC: EC 17:13 → 3SCARD 19:58
PROVIDERS: ADMIT Hospitalist; ATTEND Hospitalist
DX: I48.91 Unspecified atrial fibrillation (principal); N17.9 Acute kidney failure, unspecified; I13.0 Hypertensive heart and chronic kidney disease with heart failure and stage 1 through stage 4 chronic kidney disease, or unspecified chronic kidney disease; E78.5 Hyperlipidemia, unspecified; N18.30 Chronic kidney disease, stage 3 unspecified; I50.9 Heart failure, unspecified; I25.10 Atherosclerotic heart disease of native coronary artery without angina pectoris; I25.2 Old myocardial infarction; I25.5 Ischemic cardiomyopathy; J45.909 Unspecified asthma, uncomplicated; K59.09 Other constipation; K80.20 Calculus of gallbladder without cholecystitis without obstruction; Z20.822 Contact with and (suspected) exposure to COVID-19; Z79.01 Long term (current) use of anticoagulants; Z79.82 Long term (current) use of aspirin; Z79.899 Other long term (current) drug therapy; Z87.891 Personal history of nicotine dependence; Z90.49 Acquired absence of other specified parts of digestive tract; Z95.5 Presence of coronary angioplasty implant and graft; Z95.810 Presence of automatic (implantable) cardiac defibrillator; Z86.19 Personal history of other infectious and parasitic diseases
CPT/HCPCS: 36415; 71045; 71046; 74176; 80048; 80053; 82247; 83605; 83735; 83880; 84075; 84132; 84443; 84450; 84460; 84484; 85025; 85610; 85730; 87635; 93005; 93306; 96365; 96366; 96374; 99285

== ENCOUNTER 2020-12-23 19:14 | Observation (INO) | payer MEDICARE, BC ==
[2020-12-23 20:06] LABS: Basophils # (A) 0.1 k/uL (0-0.2); Basophils % (A) 1 %; Eosinophils # (A) 0.2 k/uL (0-0.7); Eosinophils % (A) 3 %; HGB 14.5 gm/dL (13.0-17.5); Lymphocytes # (A) 1.3 k/uL (1.0-4.8); Lymphocytes % (A) 24 %; MCH 29.8 pg (25.0-35.0); MCHC 32.3 g/dL (31.0-37.0); MCV 92.3 fL (80.0-100.0); Mean Platelet Volume 9.5; Monocytes # (A) 0.3 k/uL (0-1.0); Monocytes % (A) 6 %; Neutrophils # (A) 3.6 k/uL (1.3-7.7); Neutrophils % (A) 65 %; Platelet Count 119 k/uL (150-450); RBC 4.88 m/uL (4.30-5.90); RDW 13.5 % (11.5-15.5); WBC 5.5 k/uL (3.8-10.6)
--- NOTE | 2020-12-23 20:08 | ED ---
General Adult HPI - General Chief complaint: Shortness of Breath Stated complaint: Chest Pain,NICHOLAS Time Seen by Provider: 12/23/20 19:32 Source: patient Mode of arrival: ambulatory Limitations: no limitations - History of Present Illness Initial comments: Dictation was produced using Dragon Tail dictation software. please excuse any grammatical, word or spelling errors. Chief Complaint: 75-year-old male presents to the emergency department for shortness of breath History of Present Illness: 75-year-old male who presents today with 2 of his family members. Patient has been having orthopnea. He feels like he cannot sleep at night unless he is sitting up. Patient has history of 25% ejection fraction. He was recently diagnosed with atrial fibrillation. He is now taking liquids. He was not prescribed any diuretic medications for fear of any failure. No chest pain. States that he does feel like his symptoms get worse with exertion. States that he does have a little tickle in his throat that's causing him to cough. No constitutional symptoms. The ROS documented in this emergency department record has been reviewed and confirmed by me. Those systems with pertinent positive or negative responses have been documented in the HPI. All other systems are other negative and/or noncontributory. PHYSICAL EXAM: General Impression: Alert and oriented x3, not in acute distress HEENT: Normocephalic atraumatic, extra-ocular movements intact, pupils equal and reactive to light bilaterally, mucous membranes moist. Cardiovascular: Heart regular rate and rhythm Chest: Able to complete full sentences, no retractions, no tachypnea, diffuse lung crackles worse in the right lower lung base than the left Abdomen: abdomen soft, non-tender, non-distended, no organomegaly Musculoskeletal: Pulses present and equal in all extremities, no peripheral edema Motor: no focal deficits noted Neurological: CN II-XII grossly intact, no focal motor or sensory deficits noted Skin: Intact with no visualized rashes Psych: Normal affect and mood ED course: 75-year-old male presents to the emergency department for positional dyspnea. He has reported history of 25% ejection fraction. Signs upon arrival are within acceptable limits. Patient does not seem overly dyspneic at the bedside while sitting up. Chart review was performed. In echocardiogram performed last month that showed 25-30% ejection fraction. Patient's medications were reviewed. EKG interpretation: Ventricular rate 116, A. fib with RVR, QRS 82, QTc 469. No [place] prolongation, no QTC prolongation, no ST or T-wave changes noted. EKG compared to 11/13/2020 showing no changes. Overall, this EKG is unremarkable Laboratory evaluation obtained. CBC, coag panel, metabolic panel is within acceptable limits. His kidney markers are slightly higher than his normal. His 0.038. He has no ACS symptoms. Viral PCR for panel studies unremarkable. A natruretic peptide is elevated at 7140. Patient states she's been eating a lot of fast food recently since been discharged from the hospital last month. Chest x-ray shows mild pulmonary edema. Patient reevaluated 9:15 PM. He is breathing comfortably no respiratory distress at the bedside. Patient would benefit from observation admission for gentle diuresis given that he has already uptrending renal markers. Cardiology consulted. Case discussed with just goes willing to accept patient care on behalf of of [facility] hospitalist group. - Related Data Home Medications Medication Instructions Recorded Confirmed Bumetanide 1 mg PO HS 07/31/16 11/13/20 Atorvastatin [Lipitor] 40 mg PO DAILY 11/13/20 11/13/20 Docusate [Colace] 100 mg PO DAILY 11/13/20 11/13/20 Multivitamins, Thera [Multivitamin 1 tab PO DAILY 11/13/20 11/13/20 (formulary)] Omeprazole 20 mg PO DAILY 11/13/20 11/13/20 lisinopriL [Zestril] 10 mg PO DAILY 11/13/20 11/13/20 Metoprolol Tartrate [Lopressor] 75 mg PO BID 12/23/20 12/23/20 Previous Rx's Medication Instructions Recorded Aspirin 81 mg PO DAILY #30 chew 08/03/16 Nitroglycerin Sl Tabs [Nitrostat] 0.4 mg SUBLINGUAL Q5M PRN #25 tab 08/03/16 Apixaban [Eliquis] 5 mg PO BID 30 Days #60 tab 11/15/20 Allergies Allergy/AdvReac Type Severity Reaction Status Date / Time No Known Allergies Allergy Verified 12/23/20 20:56 Review of Systems ROS Statement: Those systems with pertinent positive or pertinent negative responses have been documented in the HPI. ROS Other: All systems not noted in ROS Statement are negative. Past Medical History Past Medical History: Hyperlipidemia, Hypertension, Myocardial Infarction ([place]) Additional Past Medical History / Comment(s): COVID Last Myocardial Infarction Date:: 07/31/2016 History of Any Multi-Drug Resistant Organisms: None Reported Past Surgical History: Cholecystectomy, Heart Catheterization With Stent Additional Past Surgical History / Comment(s): 1 stent Past Anesthesia/Blood Transfusion Reactions: No Reported Reaction Date of Last Stent Placement:: 07/28/2016 Past Psychological History: No Psychological Hx Reported Smoking Status: Former smoker Past Alcohol Use History: None Reported Past Drug Use History: None Reported - Past Family History Mother Family Medical History: Cancer Father Family Medical History: CVA/TIA General Exam Limitations: no limitations Course Vital Signs 12/23/20 19:28 Temperature 98 F Pulse Rate 60 Respiratory 18 Rate Blood Pressure 131/90 O2 Sat by Pulse 97 Oximetry Medical Decision Making - Lab Data Result diagrams: 12/23/20 19:53 12/23/20 19:53 Lab Results 12/23/20 12/23/20 12/23/20 Range/Units 19:53 19:53 19:53 WBC 5.5 (3.8-10.6) k/uL RBC 4.88 (4.30-5.90) m/uL Hgb 14.5 (13.0-17.5) gm/dL Hct 45.0 (39.0-53.0) % MCV 92.3 (80.0-100.0) fL MCH 29.8 (25.0-35.0) pg MCHC 32.3 (31.0-37.0) g/dL RDW 13.5 (11.5-15.5) % Plt Count 119 L (150-450) k/uL MPV 9.5 Neutrophils % 65 % Lymphocytes % 24 % Monocytes % 6 % Eosinophils % 3 % Basophils % 1 % Neutrophils # 3.6 (1.3-7.7) k/uL Lymphocytes # 1.3 (1.0-4.8) k/uL Monocytes # 0.3 (0-1.0) k/uL Eosinophils # 0.2 (0-0.7) k/uL Basophils # 0.1 (0-0.2) k/uL PT 11.4 (9.0-12.0) sec INR 1.1 (<1.2) APTT 23.7 (22.0-30.0) sec Sodium 138 (137-145) mmol/L Potassium 4.7 (3.5-5.1) mmol/L Chloride 104 (98-107) mmol/L Carbon Dioxide 25 (22-30) mmol/L Anion Gap 9 mmol/L BUN 30 H (9-20) mg/dL Creatinine 1.73 H (0.66-1.25) mg/dL Est GFR (CKD-EPI)AfAm 44 (>60 ml/min/1.73 sqM) Est GFR (CKD-EPI)NonAf 38 (>60 ml/min/1.73 sqM) Glucose 112 H (74-99) mg/dL Calcium 8.5 (8.4-10.2) mg/dL Magnesium 2.1 (1.6-2.3) mg/dL Total Bilirubin 0.8 (0.2-1.3) mg/dL AST 60 H (17-59) U/L ALT 53 H (4-49) U/L Alkaline Phosphatase 103 (38-126) U/L Troponin I (0.000-0.034) ng/mL NT-Pro-B Natriuret Pep pg/mL Total Protein 6.4 (6.3-8.2) g/dL Albumin 3.5 (3.5-5.0) g/dL Influenza Type A (PCR) (Not Detectd) Influenza Type B (PCR) (Not Detectd) RSV (PCR) (Not Detectd) SARS-CoV-2 (PCR) (Not Detectd) 12/23/20 12/23/20 12/23/20 Range/Units 19:53 19:53 19:53 WBC (3.8-10.6) k/uL RBC (4.30-5.90) m/uL Hgb (13.0-17.5) gm/dL Hct (39.0-53.0) % MCV (80.0-100.0) fL MCH (25.0-35.0) pg MCHC (31.0-37.0) g/dL RDW (11.5-15.5) % Plt Count (150-450) k/uL MPV Neutrophils % % Lymphocytes % % Monocytes % % Eosinophils % % Basophils % % Neutrophils # (1.3-7.7) k/uL Lymphocytes # (1.0-4.8) k/uL Monocytes # (0-1.0) k/uL Eosinophils # (0-0.7) k/uL Basophils # (0-0.2) k/uL PT (9.0-12.0) sec INR (<1.2) APTT (22.0-30.0) sec Sodium (137-145) mmol/L Potassium (3.5-5.1) mmol/L Chloride (98-107) mmol/L Carbon Dioxide (22-30) mmol/L Anion Gap mmol/L BUN (9-20) mg/dL Creatinine (0.66-1.25) mg/dL Est GFR (CKD-EPI)AfAm (>60 ml/min/1.73 sqM) Est GFR (CKD-EPI)NonAf (>60 ml/min/1.73 sqM) Glucose (74-99) mg/dL Calcium (8.4-10.2) mg/dL Magnesium (1.6-2.3) mg/dL Total Bilirubin (0.2-1.3) mg/dL AST (17-59) U/L ALT (4-49) U/L Alkaline Phosphatase (38-126) U/L Troponin I 0.038 H* (0.000-0.034) ng/mL NT-Pro-B Natriuret Pep 7140 pg/mL Total Protein (6.3-8.2) g/dL Albumin (3.5-5.0) g/dL Influenza Type A (PCR) Not Detected (Not Detectd) Influenza Type B (PCR) Not Detected (Not Detectd) RSV (PCR) Not Detected (Not Detectd) SARS-CoV-2 (PCR) Not Detected (Not Detectd) Disposition Clinical Impression: Heart failure Disposition: ADMITTED IP TO THIS HOSP Condition: Fair Referrals: Briana Barrera MD [Primary Care Provider] - 1-2 days
[2020-12-23 20:14] LABS: INR 1.1 (<1.2)
[2020-12-23 20:15] LABS: Partial Thromboplastin Time 23.7 sec (22.0-30.0); Prothrombin Time 11.4 sec (9.0-12.0)
[2020-12-23 20:20] LABS: Albumin 3.5 g/dL (3.5-5.0); Calcium 8.5 mg/dL (8.4-10.2); Magnesium 2.1 mg/dL (1.6-2.3); Total Bilirubin 0.8 mg/dL (0.2-1.3); Total Protein 6.4 g/dL (6.3-8.2)
[2020-12-23 20:24] LABS: Potassium 4.7 mmol/L (3.5-5.1)
--- NOTE | 2020-12-23 20:44 | XR ---
EXAMINATION TYPE: XR chest 2V DATE OF EXAM: 12/23/2020 COMPARISON: 11/14/2020. HISTORY: Shortness of breath. TECHNIQUE: Frontal and lateral views of the chest are obtained. FINDINGS: There is moderate interstitial edema superimposed streaky opacities. No pleural effusion, or pneumothorax seen. The cardiac silhouette size is enlarged. The osseous structures are intact. IMPRESSION: Interstitial edema with superimposed infiltrates not excluded.
[2020-12-23] MEDS: FUROSEMIDE 40 MG TAB PO SCH (22:33)
[2020-12-23] MEDS ORDERED: NITROGLYCERIN SL TABS 0.4 MG TAB SUBLINGUAL PRN (23:32)
[2020-12-23] MEDS ORDERED: ACETAMINOPHEN TAB 325 MG TAB PO PRN (23:34)
[2020-12-23] MEDS ORDERED: amLODIPine 5 MG TAB PO STA (23:34)
[2020-12-23] MEDS ORDERED: ONDANSETRON 4 MG/2 ML VIAL IVP PRN (23:34)
[2020-12-24] MEDS: METOPROLOL TARTRATE 25 MG TAB PO SCH ×2 (00:21→08:26)
[2020-12-24 04:40] LABS: Basophils % (A) 0 %; Eosinophils # (A) 0.1 k/uL (0-0.7); Eosinophils % (A) 2 %; HCT 46.1 % (39.0-53.0); Lymphocytes # (A) 1.3 k/uL (1.0-4.8); Lymphocytes % (A) 21 %; MCH 30.2 pg (25.0-35.0); MCHC 32.5 g/dL (31.0-37.0); Mean Platelet Volume 9.1; Monocytes # (A) 0.3 k/uL (0-1.0); Monocytes % (A) 5 %; Neutrophils # (A) 4.4 k/uL (1.3-7.7); Neutrophils % (A) 71 %; Platelet Count 125 k/uL (150-450); RBC 4.96 m/uL (4.30-5.90); RDW 13.4 % (11.5-15.5); WBC 6.2 k/uL (3.8-10.6)
[2020-12-24 04:46] LABS: Calcium 8.7 mg/dL (8.4-10.2); Potassium 3.9 mmol/L (3.5-5.1)
[2020-12-24] MEDS: ASPIRIN 81 MG PO SCH (08:26)
[2020-12-24] MEDS: FUROSEMIDE 40 MG TAB PO SCH (08:26)
[2020-12-24] MEDS: DOCUSATE 100 MG CAP PO SCH (08:27)
[2020-12-24] MEDS: MULTIVITAMINS, THERA 1 EACH TAB PO SCH (08:27)
[2020-12-24] MEDS ORDERED: APIXABAN 5 MG TAB PO SCH (09:00)
[2020-12-24] MEDS ORDERED: METOPROLOL TARTRATE 50 MG TAB PO STA (09:09)
[2020-12-24] MEDS: lisinopriL 10 MG TAB PO SCH (09:59)
[2020-12-24] MEDS: FAMOTIDINE 20 MG TAB PO SCH (09:59)
--- NOTE | 2020-12-24 10:09 | P.HPIM ---
History of Present Illness 72-year-old pleasant male came in with compensative short of breath started 3 days ago along with orthopnea and paroxysmal nocturnal dyspnea. Patient was hospitalized about a month ago and the he is found to have EF of around 25-30% and the patient was admitted for atrial fibrillation at that time. Patient does have elevated JVD doesn't have much of pedal edema patient does have chronic kidney disease with baseline creatinine of around 1.5 present creatinine is around 1.8. Patient is on Eliquis for anticoagulation. Patient was started on oral Lasix in ER but not urinating much. Patient does take 1 mg of Bumex on daily basis. Patient has been complaint with the no salt diet but the for couple days patient did eat outside food which was salty. Patient denied any fever chills nausea vomiting diarrhea. REVIEW OF SYSTEMS: CONSTITUTIONAL: No fever, no malaise, no fatigue. HEENT: No recent visual problems or hearing problems. Denied any sore throat. CARDIOVASCULAR: No chest pain, no palpitations, no syncope. PULMONARY: no cough, no hemoptysis. GASTROINTESTINAL: No diarrhea, no nausea, no vomiting, no abdominal pain. NEUROLOGICAL: No headaches, no weakness, no numbness. HEMATOLOGICAL: Denies any bleeding or petechiae. GENITOURINARY: Denies any burning micturition, frequency, or urgency. MUSCULOSKELETAL/RHEUMATOLOGICAL: Denies any joint pain, swelling, or any muscle pain. ENDOCRINE: Denies any polyuria or polydipsia. The rest of the 14-point review of systems is negative. PHYSICAL EXAMINATION: GENERAL: The patient is alert and oriented x3, not in any acute distress. Well developed, well nourished. HEENT: Pupils are round and equally reacting to light. EOMI. No scleral icterus. No conjunctival pallor. Normocephalic, atraumatic. No pharyngeal erythema. No thyromegaly. CARDIOVASCULAR: S1 and S2 present. No murmurs, rubs, or gallops. Tachycardic irregularly irregular rhythm elevated JVD. PULMONARY: Chest is clear to auscultation, no wheezing or crackles. ABDOMEN: Soft, nontender, nondistended, normoactive bowel sounds. No palpable organomegaly. MUSCULOSKELETAL: No joint swelling or deformity. EXTREMITIES: No cyanosis, clubbing, or pedal edema. NEUROLOGICAL: Gross neurological examination did not reveal any focal deficits. SKIN: No rashes. Assessment and plan -Congestive heart failure chronic systolic dysfunction with acute exacerbation patient will be started on IV Lasix 60 mg twice a day. Monitor the input and output. -Atrial fibrillation with rapid and regular rate patient is on metoprolol which was resumed patient was given additional dose of metoprolol by cardiology, patient will be continue on Eliquis -Elevated troponin secondary to atrial fibrillation congestive heart failure and chronic kidney disease -Acute renal failure prerenal azotemia due to CHF expected to improve with IV Lasix -Chronic kidney disease stage III: Probably hypertensive nephrosclerosis -Hyperlipidemia -Hypertension -Coronary artery disease with the cardiac catheterization and stents in the past and patient has ischemic cardiomyopathy DVT prophylaxis: On Eliquis Past Medical History Past Medical History: Hyperlipidemia, Hypertension, Myocardial Infarction ([place]) Additional Past Medical History / Comment(s): COVID Last Myocardial Infarction Date:: 07/31/2016 History of Any Multi-Drug Resistant Organisms: None Reported Past Surgical History: Cholecystectomy, Heart Catheterization With Stent Additional Past Surgical History / Comment(s): 1 stent Past Anesthesia/Blood Transfusion Reactions: No Reported Reaction Date of Last Stent Placement:: 07/28/2016 Past Psychological History: No Psychological Hx Reported Smoking Status: Former smoker Past Alcohol Use History: None Reported Past Drug Use History: None Reported - Past Family History Mother Family Medical History: Cancer Father Family Medical History: CVA/TIA Medications and Allergies Home Medications Medication Instructions Recorded Confirmed Type Bumetanide 1 mg PO DAILY 07/31/16 12/23/20 History Aspirin 81 mg PO DAILY #30 chew 08/03/16 12/23/20 Rx Nitroglycerin Sl Tabs [Nitrostat] 0.4 mg SUBLINGUAL Q5M PRN #25 tab 08/03/16 12/23/20 Rx Atorvastatin [Lipitor] 40 mg PO HS 11/13/20 12/23/20 History Docusate [Colace] 100 mg PO DAILY 11/13/20 12/23/20 History Multivitamins, Thera [Multivitamin 1 tab PO DAILY 11/13/20 12/23/20 History (formulary)] Omeprazole 20 mg PO DAILY 11/13/20 12/23/20 History lisinopriL [Zestril] 10 mg PO DAILY 11/13/20 12/23/20 History Apixaban [Eliquis] 5 mg PO BID 30 Days #60 tab 11/15/20 12/23/20 Rx Metoprolol Tartrate [Lopressor] 75 mg PO BID 12/23/20 12/23/20 History Allergies Allergy/AdvReac Type Severity Reaction Status Date / Time No Known Allergies Allergy Verified 12/23/20 20:56 Physical Exam Vitals: Vital Signs Temp Pulse Pulse Resp BP BP Pulse Ox 12/24/20 08:00 98.1 F 111 H 18 145/108 96 12/24/20 04:00 93 18 134/98 96 12/24/20 00:00 110 H 18 141/113 98 12/23/20 22:14 62 12/23/20 22:00 62 18 136/99 97 12/23/20 19:28 98 F 60 18 131/90 97 Intake and Output 12/23/20 12/24/20 12/24/20 22:59 06:59 14:59 Other: Weight 82.554 kg 82.554 kg Results CBC & Chem 7: 12/24/20 04:19 12/24/20 04:19 Labs: Abnormal Lab Results - Last 24 Hours (Table) 12/23/20 12/23/20 12/23/20 Range/Units 19:53 19:53 19:53 Plt Count 119 L (150-450) k/uL BUN 30 H (9-20) mg/dL Creatinine 1.73 H (0.66-1.25) mg/dL Glucose 112 H (74-99) mg/dL AST 60 H (17-59) U/L ALT 53 H (4-49) U/L Troponin I 0.038 H* (0.000-0.034) ng/mL 12/24/20 12/24/20 12/24/20 Range/Units 00:53 04:19 04:19 Plt Count 125 L (150-450) k/uL BUN 27 H (9-20) mg/dL Creatinine 1.81 H (0.66-1.25) mg/dL Glucose 111 H (74-99) mg/dL AST (17-59) U/L ALT (4-49) U/L Troponin I 0.042 H* (0.000-0.034) ng/mL 12/24/20 Range/Units 04:19 Plt Count (150-450) k/uL BUN (9-20) mg/dL Creatinine (0.66-1.25) mg/dL Glucose (74-99) mg/dL AST (17-59) U/L ALT (4-49) U/L Troponin I 0.041 H* (0.000-0.034) ng/mL Thrombosis Risk Factor Assmnt - Choose All That Apply Each Factor Represents 1 point: Heart failure (<1month) Each Risk Factor Represents 2 Points: Age 61-74 years Thrombosis Risk Factor Assessment Total Risk Factor Score: 3 Thrombosis Risk Factor Assessment Level: Moderate Risk
[2020-12-24] MEDS: FUROSEMIDE 10 MG/ML 10 ML VIAL IV SCH ×2 (10:49→21:16)
[2020-12-24] MEDS ORDERED: SPIRONOLACTONE 25 MG TAB PO SCH (11:45)
--- NOTE | 2020-12-24 12:37 | P.CRDCN ---
History of Present Illness History of present illness: HISTORY OF PRESENTING ILLNESS This is a pleasant 75-year-old male past medical history significant for chronic persistent atrial fibrillation on Eliquis, dyslipidemia, chronic systolic heart failure, ischemic cardiomyopathy, coronary artery disease, hypertension and former nicotine dependence. He follows in the office with Dr. Limon. We have been asked to see in consultation for heart failure. Presented to the hospital with a 2 day history of worsening shortness of breath mostly at night. He states he felt this way previously in November when he was diagnosed with atrial fibrillation. Review of the records appear that since that time he has been in atrial fibrillation. He was discharged in atrial fibrillation at that time. He states he did have increased salt intake a couple of days ago. He denies chest pain, dizziness or palpitations. He states the only way he knew he was in A. fib last time was he couldn't sleep which is exactly how he feels this time. Most recent echocardiogram obtained November 2020 revealed severely impaired LV systolic function with ejection fraction 25-30%, basal anterior, basal anteroseptal, mid anterior, anterior septal, apical anterior, apical lateral, apical inferior and apical septal wall motion hypokinesia. He has declined AICD in the past and still has no interest in discussing. DIAGNOSTICS EKG reveals atrial fibrillation heart rate of 114 with poor R-wave progression. Telemetry tracings indicate atrial fibrillation with variable ventricular rates. Chest xray interstitial edema with superimposed infiltrates. Laboratory reviewed, sodium 140, potassium 3.9, creatinine on admission 1.70 3 repeat today 1.8, magnesium 2.1, troponin 0.038, 0.042, 0.041 and proBNP is 7140. Current cardiac medications include Eliquis 5 mg twice a day, aspirin 81 mg daily, atorvastatin 40 mg daily, Bumex 1 mg daily, lisinopril 10 mg daily and Lopressor 75 mg twice a day. REVIEW OF SYSTEMS At the time of my exam: CONSTITUTIONAL: Denies fever or chills. CARDIOVASCULAR: Complains of shortness of breath and orthopnea. Denies chest pa in, PND or palpitations. RESPIRATORY: Denies cough. GASTROINTESTINAL: Denies abdominal pain, diarrhea, constipation, nausea or vomiting. MUSCULOSKELETAL: Denies myalgias. NEUROLOGIC: Denies numbness, tingling, headache or weakness. ENDOCRINE: Denies fatigue, weight change, polydipsia or polyurina. GENITOURINARY: Complains of decreased urine output. Denies burning, hematuria or urgency with micturation. HEMATOLOGIC: Denies history of anemia or bleeding. PHYSICAL EXAMINATION Blood pressure 145/108 heart rate 111 afebrile and maintaining oxygen saturation on room air. CONSTITUTIONAL: No apparent distress. HEENT: Head is normocephalic. Pupils are equal, round. Sclerae anicteric. Mucous membranes of the mouth are moist. No JVD. No carotid bruit. CHEST EXAMINATION: Lungs are clear to auscultation. No chest wall tenderness is noted on palpation or with deep breathing. HEART EXAMINATION: Irregular rate and rhythm. S1, S2 heard. Systolic ejection murmur at the base, no gallops or rub. ABDOMEN: Soft, nontender. EXTREMITIES: 2+ peripheral pulses, no lower extremity edema and no calf te nderness. NEUROLOGIC EXAMINATION: Patient is awake, alert and oriented x3. ASSESSMENT Acute on chronic systolic heart failure Ischemic cardiomyopathy Chronic persistent atrial fibrillation with rapid ventricular rate Coronary artery disease status post PCI LAD 2016 Hypertension Dyslipidemia Acute on chronic kidney disease Troponin elevation related to kidney disease PLAN Give additional dose of lopressor 50 mg now then change his beta milan to toprol 200 mg daily. Add aldactone 25 mg daily. Lasix has been adjusted per the primary care team to 60 mg IV BID. Document accurate intake and output along with daily weights. Follow renal function and electrolytes in the morning. No need to repeat echo at this time. Further recommendations to follow based on clinical course. Thank you kindly for this consultation. Nurse Practitioner note has been reviewed, I agree with a documented findings and plan of care. Patient was seen and examined. Past Medical History Past Medical History: Hyperlipidemia, Hypertension, Myocardial Infarction ([place]) Additional Past Medical History / Comment(s): COVID Last Myocardial Infarction Date:: 07/31/2016 History of Any Multi-Drug Resistant Organisms: None Reported Past Surgical History: Cholecystectomy, Heart Catheterization With Stent Additional Past Surgical History / Comment(s): 1 stent Past Anesthesia/Blood Transfusion Reactions: No Reported Reaction Date of Last Stent Placement:: 07/28/2016 Past Psychological History: No Psychological Hx Reported Smoking Status: Former smoker Past Alcohol Use History: None Reported Past Drug Use History: None Reported - Past Family History Mother Family Medical History: Cancer Father Family Medical History: CVA/TIA Medications and Allergies Home Medications Medication Instructions Recorded Confirmed Type Bumetanide 1 mg PO DAILY 07/31/16 12/23/20 History Aspirin 81 mg PO DAILY #30 chew 08/03/16 12/23/20 Rx Nitroglycerin Sl Tabs [Nitrostat] 0.4 mg SUBLINGUAL Q5M PRN #25 tab 08/03/16 12/23/20 Rx Atorvastatin [Lipitor] 40 mg PO HS 11/13/20 12/23/20 History Docusate [Colace] 100 mg PO DAILY 11/13/20 12/23/20 History Multivitamins, Thera [Multivitamin 1 tab PO DAILY 11/13/20 12/23/20 History (formulary)] Omeprazole 20 mg PO DAILY 11/13/20 12/23/20 History lisinopriL [Zestril] 10 mg PO DAILY 11/13/20 12/23/20 History Apixaban [Eliquis] 5 mg PO BID 30 Days #60 tab 11/15/20 12/23/20 Rx Metoprolol Tartrate [Lopressor] 75 mg PO BID 12/23/20 12/23/20 History Allergies Allergy/AdvReac Type Severity Reaction Status Date / Time No Known Allergies Allergy Verified 12/23/20 20:56 Physical Exam Vitals: Vital Signs Temp Pulse Pulse Resp BP BP Pulse Ox 12/24/20 08:00 98.1 F 111 H 18 145/108 96 12/24/20 04:00 93 18 134/98 96 12/24/20 00:00 110 H 18 141/113 98 12/23/20 22:14 62 12/23/20 22:00 62 18 136/99 97 12/23/20 19:28 98 F 60 18 131/90 97 Intake and Output 12/23/20 12/24/20 12/24/20 22:59 06:59 14:59 Other: Weight 82.554 kg 82.554 kg Results 12/24/20 04:19 12/24/20 04:19 Cardiac Enzymes 12/23/20 12/23/20 12/24/20 Range/Units 19:53 19:53 00:53 AST 60 H (17-59) U/L Troponin I 0.038 H* 0.042 H* (0.000-0.034) ng/mL 12/24/20 Range/Units 04:19 AST (17-59) U/L Troponin I 0.041 H* (0.000-0.034) ng/mL Coagulation 12/23/20 Range/Units 19:53 PT 11.4 (9.0-12.0) sec APTT 23.7 (22.0-30.0) sec CBC 12/23/20 12/24/20 Range/Units 19:53 04:19 WBC 5.5 6.2 (3.8-10.6) k/uL RBC 4.88 4.96 (4.30-5.90) m/uL Hgb 14.5 15.0 (13.0-17.5) gm/dL Hct 45.0 46.1 (39.0-53.0) % Plt Count 119 L 125 L (150-450) k/uL Comprehensive Metabolic Panel 12/23/20 12/24/20 Range/Units 19:53 04:19 Sodium 138 140 (137-145) mmol/L Potassium 4.7 3.9 (3.5-5.1) mmol/L Chloride 104 104 (98-107) mmol/L Carbon Dioxide 25 28 (22-30) mmol/L BUN 30 H 27 H (9-20) mg/dL Creatinine 1.73 H 1.81 H (0.66-1.25) mg/dL Glucose 112 H 111 H (74-99) mg/dL Calcium 8.5 8.7 (8.4-10.2) mg/dL AST 60 H (17-59) U/L ALT 53 H (4-49) U/L Alkaline Phosphatase 103 (38-126) U/L Total Protein 6.4 (6.3-8.2) g/dL Albumin 3.5 (3.5-5.0) g/dL Current Medications Generic Name Dose Route Start Last Admin Trade Name Freq PRN Reason Stop Dose Admin Acetaminophen 650 mg 12/23/20 23:34 Acetaminophen Tab 325 Mg Tab PO Q6HR PRN Fever and/ or Pain Apixaban 5 mg 12/24/20 21:00 Apixaban 5 Mg Tab PO BID [facility] Protocol Aspirin 81 mg 12/24/20 09:00 12/24/20 08:26 Aspirin 81 Mg PO 81 mg DAILY [facility] Administration Atorvastatin Calcium 40 mg 12/24/20 21:00 Atorvastatin 40 Mg Tab PO HS [facility] Docusate Sodium 100 mg 12/24/20 09:00 12/24/20 08:27 Docusate 100 Mg Cap PO 100 mg DAILY [facility] Administration Famotidine 20 mg 12/24/20 09:30 12/24/20 09:59 Famotidine 20 Mg Tab PO 20 mg DAILY [facility] Administration Furosemide 60 mg 12/24/20 10:00 Furosemide 10 Mg/Ml 10 Ml Vial IV Q12HR [facility] Lisinopril 10 mg 12/24/20 09:00 12/24/20 09:59 Lisinopril 10 Mg Tab PO 10 mg DAILY [facility] Administration Metoprolol Tartrate 75 mg 12/23/20 23:45 12/24/20 08:26 Metoprolol Tartrate 25 Mg Tab PO 75 mg BID [facility] Administration Multivitamins 1 each 12/24/20 09:00 12/24/20 08:27 Multivitamins, Thera 1 Each Tab PO 1 each DAILY [facility] Administration Nitroglycerin 0.4 mg 12/23/20 23:32 Nitroglycerin Sl Tabs 0.4 Mg Tab SUBLINGUAL Q5M PRN Chest Pain Ondansetron HCl 4 mg 12/23/20 23:34 Ondansetron 4 Mg/2 Ml Vial IVP Q6HR PRN Nausea And Vomiting Intake and Output 12/23/20 12/24/20 12/24/20 22:59 06:59 14:59 Other: Weight 82.554 kg 82.554 kg Patient Weight 12/25/20 06:59 Weight 82.554 kg 12/24/20 04:19 12/24/20 04:19
[2020-12-24 15:04] VITALS: BMI 28.5
[2020-12-24] MEDS ORDERED: APIXABAN 2.5 MG TABLET PO SCH (21:00)
[2020-12-24] MEDS ORDERED: ATORVASTATIN 40 MG TAB PO SCH (21:00)
[2020-12-24] MEDS ORDERED: METOPROLOL SUCCINATE (ER) 100 MG TAB.ER.24H PO SCH (21:00)
[2020-12-24] MEDS: APIXABAN 5 MG TAB PO SCH (21:16)
[2020-12-25 07:32] LABS: Calcium 9.5 mg/dL (8.4-10.2)
[2020-12-25 07:45] VITALS: TEMP 98.1
[2020-12-25] MEDS: DOCUSATE 100 MG CAP PO SCH (08:13)
[2020-12-25] MEDS: MULTIVITAMINS, THERA 1 EACH TAB PO SCH (08:13)
[2020-12-25] MEDS: lisinopriL 10 MG TAB PO SCH (08:13)
[2020-12-25] MEDS: ASPIRIN 81 MG PO SCH (08:13)
[2020-12-25] MEDS: APIXABAN 5 MG TAB PO SCH (08:13)
[2020-12-25] MEDS: FUROSEMIDE 10 MG/ML 10 ML VIAL IV SCH (08:13)
[2020-12-25] MEDS: FAMOTIDINE 20 MG TAB PO SCH (08:13)
[2020-12-25] MEDS ORDERED: SPIRONOLACTONE 25 MG TAB PO SCH (09:00)
--- NOTE | 2020-12-25 11:33 | P.PN ---
Subjective HISTORY OF PRESENTING ILLNESS This is a pleasant 75-year-old male past medical history significant for chronic persistent atrial fibrillation on Eliquis, dyslipidemia, chronic systolic heart failure, ischemic cardiomyopathy, coronary artery disease, hypertension and former nicotine dependence. He follows in the office with Dr. Limon. We have been asked to see in consultation for heart failure. Presented to the hospital with a 2 day history of worsening shortness of breath mostly at night. He states he felt this way previously in November when he was diagnosed with atrial fibrillation. Review of the records appear that since that time he has been in atrial fibrillation. He was discharged in atrial fibrillation at that time. He states he did have increased salt intake a couple of days ago. He denies chest pain, dizziness or palpitations. He states the only way he knew he was in A. fib last time was he couldn't sleep which is exactly how he feels this time. Most recent echocardiogram obtained November 2020 revealed severely impaired LV systolic function with ejection fraction 25-30%, basal anterior, basal anteroseptal, mid anterior, anterior septal, apical anterior, apical lateral, apical inferior and apical septal wall motion hypokinesia. He has declined AICD in the past and still has no interest in discussing. 12/25/2020 Pt seen and examined laying flat in bed in no acute distress. He had 4L of urine output. He states he was able to sleep last night without shortness of breath. He denies chest pain, dizziness or palpitations. Blood pressure 118/71 heart rate 102 afebrile maintaining oxygen saturation on room air. Laboratory data reviewed, sodium 139, potassium 4, creatinine 2.01. He continues to be in afib with variable rates. PHYSICAL EXAMINATION CONSTITUTIONAL: No apparent distress. HEENT: Head is normocephalic. Pupils are equal, round. Sclerae anicteric. Mucous membranes of the mouth are moist. No JVD. No carotid bruit. CHEST EXAMINATION: Lungs are clear to auscultation. No chest wall tenderness is noted on palpation or with deep breathing. HEART EXAMINATION: Irregular rate and rhythm. S1, S2 heard. Systolic ejection murmur at the base, no gallops or rub. EXTREMITIES: 2+ peripheral pulses, no lower extremity edema and no calf tenderness. ASSESSMENT Acute on chronic systolic heart failure Ischemic cardiomyopathy Chronic persistent atrial fibrillation with rapid ventricular rate Coronary artery disease status post PCI LAD 2017 Hypertension Dyslipidemia Acute on chronic kidney disease Troponin elevation related to kidney disease PLAN Transition to oral diuretics. Continue increased dose of toprol. Repeat BMP in the morning. Increase activity and ambulation. Further recommendations to follow. Nurse Practitioner note has been reviewed, I agree with a documented findings and plan of care. Patient was seen and examined. Objective - Vital Signs Vital signs: Vital Signs Temp 98.1 F 12/25/20 07:42 Pulse 102 H 12/25/20 07:42 Resp 17 12/25/20 07:42 BP 118/71 12/25/20 07:42 Pulse Ox 96 12/25/20 07:42 Intake & Output 12/24/20 12/25/20 12/25/20 18:59 06:59 18:59 Intake Total 850 Output Total 600 3400 Balance 250 -3400 Weight 82.554 kg 79.6 kg Intake: Oral 850 Output: Urine 600 3400 Other: Voiding Method Urinal Urinal # Voids 1 - Labs CBC & Chem 7: 12/24/20 04:19 12/25/20 06:54 Labs: Abnormal Lab Results - Last 24 Hours (Table) 12/25/20 Range/Units 06:54 BUN 32 H (9-20) mg/dL Creatinine 2.01 H (0.66-1.25) mg/dL Glucose 125 H (74-99) mg/dL
--- NOTE | 2020-12-25 12:32 | P.DS ---
Providers Date of admission: 12/23/20 21:09 Attending physician: Brenda Monae Consults: 12/23/20 21:09 Consult Physician Routine Consulting Provider: Geovany Wolff Consult Reason/Comments: heart failure Do you want consulting provider notified?: Yes Primary care physician: Brinaa Barrera [facility] Course: 72-year-old pleasant male came in with compensative short of breath started 3 days ago along with orthopnea and paroxysmal nocturnal dyspnea. Patient was hospitalized about a month ago and the he is found to have EF of around 25-30% and the patient was admitted for atrial fibrillation at that time. Patient does have elevated JVD doesn't have much of pedal edema patient does have chronic kidney disease with baseline creatinine of around 1.5 present creatinine is around 1.8. Patient is on Eliquis for anticoagulation. Patient was started on oral Lasix in ER but not urinating much. Patient does take 1 mg of Bumex on daily basis. Patient has been complaint with the no salt diet but the for cou ple days patient did eat outside food which was salty. Patient denied any fever chills nausea vomiting diarrhea. 11/24/2020 Patient had significant urine output and about 3 pound weight loss urinated about 4 L of urine since last night leading to mild renal failure with creatinine going up from 1.8-2 baseline is around 1.5. Patient was switched back to oral Lasix. Since there is no significant elevation of creatinine patient will be continue on lisinopril basic metabolic profile will be obtained and 2 more days and if creatinine goes up then we need to hold off on lisinopril. Patient is being resumed on Bumex patient was switched to Toprol-XL 200 mg daily. Patient will be discharged to follow up closely with cardiology and PCP as an outpatient. Discussed with cardiology regarding his discharge. PHYSICAL EXAMINATION: GENERAL: The patient is alert and oriented x3, not in any acute distress. Well developed, well nourished. HEENT: Pupils are round and equally reacting to light. EOMI. No scleral icterus. No conjunctival pallor. Normocephalic, atraumatic. No pharyngeal erythema. No thyromegaly. CARDIOVASCULAR: S1 and S2 present. No murmurs, rubs, or gallops. Heart rate is well controlled at this time, no JVD PULMONARY: Chest is clear to auscultation, no wheezing or crackles. ABDOMEN: Soft, nontender, nondistended, normoactive bowel sounds. No palpable organomegaly. MUSCULOSKELETAL: No joint swelling or deformity. EXTREMITIES: No cyanosis, clubbing, or pedal edema. NEUROLOGICAL: Gross neurological examination did not reveal any focal deficits. SKIN: No rashes. Assessment and plan -Congestive heart failure chronic systolic dysfunction with acute exacerbation, patient has significant improvement with IV Lasix and patient will be discharged today -Atrial fibrillation with a rapid ventricular rate on admission, presently rate controlled patient is being switched to Toprol-XL 200 mg daily sustained release. Patient is on Eliquis which will be continued -Elevated troponin secondary to atrial fibrillation congestive heart failure and chronic kidney disease -Acute renal failure prerenal azotemia due to excessive diuretic therapy which is being switched to oral repeat basic metabolic profile as an outpatient -Chronic kidney disease stage III: Probably hypertensive nephrosclerosis -Hyperlipidemia -Hypertension -Coronary artery disease with the cardiac catheterization and stents in the past and patient has ischemic cardiomyopathy Patient Condition at Discharge: Fair Plan - Discharge Summary Discharge Rx Participant: No New Discharge Prescriptions: New Metoprolol Succinate (ER) [Toprol XL] 200 mg PO HS #30 tablet Continue Bumetanide 1 mg PO DAILY Aspirin 81 mg PO DAILY #30 chew Nitroglycerin Sl Tabs [Nitrostat] 0.4 mg SUBLINGUAL Q5M PRN #25 tab PRN Reason: Chest Pain lisinopriL [Zestril] 10 mg PO DAILY Multivitamins, Thera [Multivitamin (formulary)] 1 tab PO DAILY Atorvastatin [Lipitor] 40 mg PO HS Docusate [Colace] 100 mg PO DAILY Omeprazole 20 mg PO DAILY Apixaban [Eliquis] 5 mg PO BID 30 Days #60 tab Discontinued Metoprolol Tartrate [Lopressor] 75 mg PO BID Discharge Medication List Bumetanide 1 mg PO DAILY 07/31/16 [History] Aspirin 81 mg PO DAILY #30 chew 08/03/16 [Rx] Nitroglycerin Sl Tabs [Nitrostat] 0.4 mg SUBLINGUAL Q5M PRN #25 tab 08/03/16 [Rx] Atorvastatin [Lipitor] 40 mg PO HS 11/13/20 [History] Docusate [Colace] 100 mg PO DAILY 11/13/20 [History] Multivitamins, Thera [Multivitamin (formulary)] 1 tab PO DAILY 11/13/20 [History] Omeprazole 20 mg PO DAILY 11/13/20 [History] lisinopriL [Zestril] 10 mg PO DAILY 11/13/20 [History] Apixaban [Eliquis] 5 mg PO BID 30 Days #60 tab 11/15/20 [Rx] Metoprolol Succinate (ER) [Toprol XL] 200 mg PO HS #30 tablet 12/25/20 [Rx] Follow up Appointment(s)/Referral(s): Briana Barrera MD [Primary Care Provider] - 3 Days Ambulatory/Diagnostic Orders: Basic Metabolic Panel [LAB.AMB] Time Frame: 2 Days, Location: None Selected
[2020-12-25 12:57] VITALS: BP 127/87; PULSE 88; RESP 16
[2020-12-26] MEDS ORDERED: BUMETANIDE 1 MG TAB PO SCH (09:00)
== END 2020-12-25 14:19 | disposition home health service (06) ==
LOC: EC 19:14 → 3SCARD 21:09
PROVIDERS: ADMIT Hospitalist; ATTEND Hospitalist
DX: I13.0 Hypertensive heart and chronic kidney disease with heart failure and stage 1 through stage 4 chronic kidney disease, or unspecified chronic kidney disease (principal); I50.23 Acute on chronic systolic (congestive) heart failure; N18.30 Chronic kidney disease, stage 3 unspecified; I25.5 Ischemic cardiomyopathy; I48.19 Other persistent atrial fibrillation; E78.5 Hyperlipidemia, unspecified; Z20.822 Contact with and (suspected) exposure to COVID-19; R77.8 Other specified abnormalities of plasma proteins; R79.89 Other specified abnormal findings of blood chemistry; Z95.5 Presence of coronary angioplasty implant and graft; I25.2 Old myocardial infarction; Z90.49 Acquired absence of other specified parts of digestive tract; Z87.891 Personal history of nicotine dependence; Z80.9 Family history of malignant neoplasm, unspecified; Z82.3 Family history of stroke; Z79.82 Long term (current) use of aspirin; Z79.818 Long term (current) use of other agents affecting estrogen receptors and estrogen levels; Z79.899 Other long term (current) drug therapy
CPT/HCPCS: 96376 ×2; 96374; 99285; 36415; 93005; 83880; 80053; 80048 ×2; 83735; 84484 ×2; 85025 ×2; 85610; 85730; 87636; 71046; G0378 ×3; J1940 ×2

== ENCOUNTER → 2021-03-27 | Outpatient (CLI) | payer MEDICARE, BC ==
--- NOTE | 2021-03-27 19:07 | US ---
EXAMINATION TYPE: US kidneys/renal and bladder DATE OF EXAM: 03/27/2021 COMPARISON: NONE CLINICAL HISTORY: 75-year-old male N18.3 CKD Stage 3. TECHNIQUE: Multiple sonographic images of the kidneys and bladder were obtained. FINDINGS: EXAM MEASUREMENTS: Right Kidney: 8.4 x 4.6 x 4.4 cm Left Kidney: 8.9 x 4.6 x 4.7 cm Right Kidney: No hydronephrosis. Left Kidney: 2 small cysts lateral mid pole with largest measuring 1.1cm. No hydronephrosis. Bladder: wnl Bilateral Jets seen: yes IMPRESSION: No hydronephrosis. A couple small left-sided renal cysts measuring up to 1.1 cm.
== END | disposition home or self-care (01) ==
LOC: RADUSWWP 13:57
PROVIDERS: ATTEND Internal Medicine
DX: N28.1 Cyst of kidney, acquired (principal)
CPT/HCPCS: 76770

== ENCOUNTER → 2021-05-14 | Outpatient (CLI) | payer MEDICARE, BC ==
[2021-05-14 14:50] LABS: Chol/HDL Ratio 3.77 Ratio; LDL Cholesterol,Calculated 66.3 mg/dL (0.0-131.0)
[2021-05-14 14:52] LABS: ALT 43 U/L (10-49); AST 28 U/L (14-35); African American GFR (CKD) 37.7 (60.0-200.0); Blood Urea Nitrogen 26.2 mg/dL (9.0-27.0); Calcium 9.2 mg/dL (8.7-10.3); Carbon Dioxide 27.1 mmol/L (20.0-27.5); Chloride 103 mmol/L (96-109); Glucose 108 mg/dL (70-110); Non-African American GFR(CKD) 32.5 (60.0-200.0); Potassium 4.5 mmol/L (3.5-5.5); Sodium 142 mmol/L (135-145)
== END | disposition home or self-care (01) ==
LOC: LABWHC1 09:40
PROVIDERS: ATTEND Nurse Practitioner Family
DX: I50.22 Chronic systolic (congestive) heart failure (principal); E78.2 Mixed hyperlipidemia
CPT/HCPCS: 36415; 80048; 80061; 84450; 84460

== ENCOUNTER → 2021-08-06 | Outpatient (CLI) | payer MEDICARE, BC ==
[2021-08-06 10:34] LABS: HCT 49.6 % (39.6-50.0); HGB 15.6 g/dL (13.0-17.0); MCH 28.6 pg (27.0-32.0); MCHC 31.5 g/dL (32.0-37.0); MCV 90.8 fL (80.0-97.0); Mean Platelet Volume 11.4 fL (9.5-12.2); NRBC Per 100 WBC 0 /100 WBCS (0.0-0.0); Platelet Count 127 X 10*3/uL (140-440); RBC 5.46 X 10*6/uL (4.40-5.60); RDW 15.4 % (11.5-14.5); WBC 6.09 X 10*3/uL (4.50-10.00)
[2021-08-06 10:53] LABS: % Iron Saturation 12.56 (15.00-50.00); African American GFR (CKD) 33.2 (60.0-200.0); Albumin 3.6 g/dL (3.8-4.9); Albumin/Globulin Ratio 1.35 (1.60-3.17); Anion Gap 11.7 mmol/L (10.00-18.00); BUN/Creat Ratio 13.65 Ratio (12.00-20.00); Blood Urea Nitrogen 29.9 mg/dL (9.0-27.0); Calcium 9.1 mg/dL (8.7-10.3); Carbon Dioxide 26.3 mmol/L (20.0-27.5); Globulin 2.7 g/dL (1.6-3.3); Magnesium 2.2 mg/dL (1.5-2.4); Non-African American GFR(CKD) 28.6 (60.0-200.0); Phosphorus 4.2 mg/dL (2.4-5.1); Potassium 4.4 mmol/L (3.5-5.5); Total Bilirubin 0.6 mg/dL (0.30-1.20); Total Protein 6.3 g/dL (6.2-8.2)
[2021-08-06 10:58] LABS: Ferritin 52.9 ng/mL (22.0-322.0)
== END | disposition home or self-care (01) ==
LOC: LABWHC1 07:51
PROVIDERS: ATTEND Internal Medicine
DX: N25.81 Secondary hyperparathyroidism of renal origin (principal); M10.9 Gout, unspecified; D64.9 Anemia, unspecified; N39.0 Urinary tract infection, site not specified; E55.9 Vitamin D deficiency, unspecified; N18.32 Chronic kidney disease, stage 3b
CPT/HCPCS: 36415; 80053; 82306; 82728; 83540; 83550; 83735; 83970; 84100; 84550; 85027

== ENCOUNTER 2021-10-10 00:23 | Inpatient (IN) | payer MEDICARE, BC ==
--- NOTE | 2021-10-10 01:35 | ED ---
General Adult HPI - General Source: patient, RN notes reviewed Mode of arrival: ambulatory <Shilpa Villanueva - Last Filed: 10/10/21 04:25> - General Source: RN notes reviewed, old records reviewed - History of Present Illness Consistency: constant Improves with: none Worsens with: none Associated Symptoms: shortness of breath, weakness Treatments Prior to Arrival: none <Landon Martin - Last Filed: 10/10/21 21:19> - General Chief complaint: Extremity Problem,Nontraumatic Stated complaint: swelling in feet Time Seen by Provider: 10/10/21 01:02 - History of Present Illness Initial comments: 76-year-old male presents to the emergency department for evaluation of shortness of breath and lower extremity edema. Patient states he had hernia surgery a week ago at [facility]. Reports he has since developed lower extremity edema, worse in the ankle and feet, but extending up the lower extremities. Also reports orthopnea affecting his ability to sleep tonight. Denies any medication changes aside for taking [place] for post-op pain. No fever, chills, headache, dizziness, chest pain, abdominal pain, nausea, or vomiting. (Shilpa Villanueva) - Related Data Home Medications Medication Instructions Recorded Confirmed Bumetanide 1 mg PO HS 07/31/16 10/10/21 Atorvastatin [Lipitor] 40 mg PO DAILY 11/13/20 10/10/21 Docusate [Colace] 100 mg PO DAILY 11/13/20 10/10/21 lisinopriL [Zestril] 10 mg PO DAILY 11/13/20 10/10/21 Famotidine [Pepcid] 20 mg PO DAILY 10/10/21 10/10/21 Metoprolol Succinate [Toprol XL] 200 mg PO HS 10/10/21 10/10/21 Multivitamins, Thera [Multivitamin 1 tab PO DAILY 10/10/21 10/10/21 (formulary)] Ubidecarenone [Co Q-10] 400 mg PO DAILY 10/10/21 10/10/21 Previous Rx's Medication Instructions Recorded Aspirin 81 mg PO DAILY #30 chew 08/03/16 Apixaban [Eliquis] 5 mg PO BID 30 Days #60 tab 11/15/20 Allergies Allergy/AdvReac Type Severity Reaction Status Date / Time No Known Allergies Allergy Verified 10/10/21 08:23 Review of Systems ROS Other: All systems not noted in ROS Statement are negative. <Shilpa Villanueva - Last Filed: 10/10/21 04:25> ROS Other: All systems not noted in ROS Statement are negative. <Landon Martin - Last Filed: 10/10/21 21:19> ROS Statement: Those systems with pertinent positive or pertinent negative responses have been documented in the HPI. Past Medical History Past Medical History: Hyperlipidemia, Hypertension, Myocardial Infarction (SD) Additional Past Medical History / Comment(s): COVID Last Myocardial Infarction Date:: 07/31/2016 History of Any Multi-Drug Resistant Organisms: None Reported Past Surgical History: Cholecystectomy, Heart Catheterization With Stent, Hernia Repair Additional Past Surgical History / Comment(s): 1 stent Past Anesthesia/Blood Transfusion Reactions: No Reported Reaction Date of Last Stent Placement:: 07/28/2016 Past Psychological History: No Psychological Hx Reported Smoking Status: Former smoker Past Alcohol Use History: None Reported Past Drug Use History: None Reported - Past Family History Mother Family Medical History: Cancer Father Family Medical History: CVA/TIA <Shilpa Villanueva - Last Filed: 10/10/21 04:25> General Exam Limitations: no limitations (Well-developed, well-nourished male in no acute distress. Initial temperature 97.6, pulse 110, respirations 19, blood pressure 120/70, pulse ox 100% on room air.) General appearance: alert, in no apparent distress Eye exam: Present: normal appearance, PERRL, EOMI. Absent: scleral icterus, conjunctival injection Neck exam: Present: normal inspection, full ROM. Absent: tenderness, meningismus, lymphadenopathy Respiratory exam: Present: normal lung sounds bilaterally, other (no increased work of breathing noted while at rest). Absent: respiratory distress, wheezes, rales, rhonchi, stridor, chest wall tenderness Cardiovascular Exam: Present: tachycardia (heart rate 85-115), irregular rhythm, normal heart sounds, other (heart rate 85-115 on continuous monitor) GI/Abdominal exam: Present: soft, normal bowel sounds, other (Surgical site left groin clean, dry, and intact. Residual ecchymosis around site.). Absent: distended, tenderness, guarding, rebound, rigid Extremities exam: Present: normal inspection, full ROM, normal capillary refill, pedal edema, other (trace nonpitting edema of BLE. ). Absent: tenderness, calf tenderness Neurological exam: Present: alert, oriented X3, CN II-XII intact Psychiatric exam: Present: normal affect, normal mood Skin exam: Present: warm, dry, intact, normal color. Absent: rash <Shilpa Villanueva - Last Filed: 10/10/21 04:25> General appearance: alert, in no apparent distress, anxious Head exam: Present: atraumatic, normocephalic, normal inspection Eye exam: Present: normal appearance, PERRL, EOMI. Absent: scleral icterus, conjunctival injection, periorbital swelling ENT exam: Present: normal exam, mucous membranes moist Neck exam: Present: normal inspection. Absent: tenderness, meningismus, lymphadenopathy Respiratory exam: Present: normal lung sounds bilaterally. Absent: respiratory distress, wheezes, rales, rhonchi, stridor Cardiovascular Exam: Present: tachycardia, irregular rhythm, normal heart sounds. Absent: systolic murmur, diastolic murmur, rubs, gallop, clicks GI/Abdominal exam: Present: soft, normal bowel sounds. Absent: distended, tenderness, guarding, rebound, rigid Extremities exam: Present: normal inspection, full ROM, normal capillary refill. Absent: tenderness, pedal edema, joint swelling, calf tenderness Back exam: Present: normal inspection Neurological exam: Present: alert, oriented X3, CN II-XII intact Psychiatric exam: Present: normal affect, normal mood Skin exam: Present: warm, dry, intact, normal color. Absent: rash <Landon Martin - Last Filed: 10/10/21 21:19> Course <Shilpa Villanueva - Last Filed: 10/10/21 04:25> <Landon Martin - Last Filed: 10/10/21 21:19> Vital Signs 10/10/21 10/10/21 00:41 01:44 Temperature 97.6 F 97.6 F Pulse Rate 110 H Respiratory 19 Rate Blood Pressure 120/70 O2 Sat by Pulse 100 Oximetry - Reevaluation(s) Reevaluation #1: 10/10/21 04:01 This patient's care will be assumed by my attending, Dr. Martin. (Shilpa Villanueva) Reevaluation #2: 10/10/21 Records reviewed (Landon Martin) Reevaluation #3: 10/10/21 Patient has no improvement in heart rate here in the emergency department (Landon Martin) Medical Decision Making - Lab Data Result diagrams: 10/10/21 02:50 10/10/21 02:50 - EKG Data Rate: tachycardia <Shilpa Villanueva - Last Filed: 10/10/21 04:25> - Lab Data Result diagrams: 10/10/21 02:50 10/10/21 11:32 - Radiology Data Radiology results: report reviewed (Chest x-rays positive for significant CHF exacerbation), image reviewed <Landon Martin - Last Filed: 10/10/21 21:19> - Medical Decision Making 76-year-old male with a past medical history of hypertension, SD, CHF, and recent left inguinal hernia repair presents to the emergency department for evaluation of shortness of breath, bilateral lower extremity edema, and o rthopnea. Upon exam, patient is resting comfortably. Lung sounds are clear. Denies chest pain. Currently in Atrial fibrillation which is baseline for him. Rate fluctuates between 85 and 115; he is on Eliquis. Nonpitting bilateral lower extremity edema with worsening swelling of the ankles and feet. EKG and appears unchanged from baseline. Laboratory studies were obtained. Mild hyperkalemia, worsening renal function, and elevated BNP noted. Troponin pending. Lopressor 2.5 mg IVP for elevated heart rate as Cardizem is contraindicated at this time. This patient's hospital admission will be facilitated by my attending, Dr. Martin. (Shilpa Villanueva) 76 male to ER strong cardiac history coming in for atrial fibrillation with RVR mildly worsening renal function. Patient will be admitted for cardiology evaluation and treatment (Landon Martin) - Lab Data Lab Results 10/10/21 10/10/21 10/10/21 Range/Units 02:50 02:50 02:50 WBC 6.7 (3.8-10.6) k/uL RBC 5.06 (4.30-5.90) m/uL Hgb 15.5 (13.0-17.5) gm/dL Hct 47.0 (39.0-53.0) % MCV 92.8 (80.0-100.0) fL MCH 30.7 (25.0-35.0) pg MCHC 33.1 (31.0-37.0) g/dL RDW 14.8 (11.5-15.5) % Plt Count 145 L (150-450) k/uL MPV 9.1 Neutrophils % 73 % Lymphocytes % 17 % Monocytes % 6 % Eosinophils % 2 % Basophils % 1 % Neutrophils # 4.9 (1.3-7.7) k/uL Lymphocytes # 1.2 (1.0-4.8) k/uL Monocytes # 0.4 (0-1.0) k/uL Eosinophils # 0.1 (0-0.7) k/uL Basophils # 0.1 (0-0.2) k/uL PT 12.4 H (9.0-12.0) sec INR 1.2 H (<1.2) APTT 25.5 (22.0-30.0) sec Sodium 135 L (137-145) mmol/L Potassium 5.5 H (3.5-5.1) mmol/L Chloride 100 (98-107) mmol/L Carbon Dioxide 26 (22-30) mmol/L Anion Gap 9 mmol/L BUN 38 H (9-20) mg/dL Creatinine 1.95 H (0.66-1.25) mg/dL Est GFR (CKD-EPI)AfAm 38 (>60 ml/min/1.73 sqM) Est GFR (CKD-EPI)NonAf 33 (>60 ml/min/1.73 sqM) Glucose 112 H (74-99) mg/dL Calcium 8.1 L (8.4-10.2) mg/dL Magnesium 2.2 (1.6-2.3) mg/dL Total Bilirubin 0.9 (0.2-1.3) mg/dL AST 59 (17-59) U/L ALT 51 H (4-49) U/L Alkaline Phosphatase 122 (38-126) U/L Troponin I (0.000-0.034) ng/mL NT-Pro-B Natriuret Pep pg/mL Total Protein 6.1 L (6.3-8.2) g/dL Albumin 3.3 L (3.5-5.0) g/dL 10/10/21 10/10/21 Range/Units 02:50 02:50 WBC (3.8-10.6) k/uL RBC (4.30-5.90) m/uL Hgb (13.0-17.5) gm/dL Hct (39.0-53.0) % MCV (80.0-100.0) fL MCH (25.0-35.0) pg MCHC (31.0-37.0) g/dL RDW (11.5-15.5) % Plt Count (150-450) k/uL MPV Neutrophils % % Lymphocytes % % Monocytes % % Eosinophils % % Basophils % % Neutrophils # (1.3-7.7) k/uL Lymphocytes # (1.0-4.8) k/uL Monocytes # (0-1.0) k/uL Eosinophils # (0-0.7) k/uL Basophils # (0-0.2) k/uL PT (9.0-12.0) sec INR (<1.2) APTT (22.0-30.0) sec Sodium (137-145) mmol/L Potassium (3.5-5.1) mmol/L Chloride (98-107) mmol/L Carbon Dioxide (22-30) mmol/L Anion Gap mmol/L BUN (9-20) mg/dL Creatinine (0.66-1.25) mg/dL Est GFR (CKD-EPI)AfAm (>60 ml/min/1.73 sqM) Est GFR (CKD-EPI)NonAf (>60 ml/min/1.73 sqM) Glucose (74-99) mg/dL Calcium (8.4-10.2) mg/dL Magnesium (1.6-2.3) mg/dL Total Bilirubin (0.2-1.3) mg/dL AST (17-59) U/L ALT (4-49) U/L Alkaline Phosphatase (38-126) U/L Troponin I 0.062 H* (0.000-0.034) ng/mL NT-Pro-B Natriuret Pep 08379 pg/mL Total Protein (6.3-8.2) g/dL Albumin (3.5-5.0) g/dL - EKG Data EKG Comments: EKG obtained at 108 shows atrial flutter/tachycardia with rapid ventricular response. Possible right ventricular hypertrophy and anterolateral myocardial infarction of indeterminate age. Ventricular rate 105, MN interval indeterminate, QRS duration 92, QT/QTC 363/424. (Shilpa Villanueva) Critical Care Time Critical Care Time: Yes Total Critical Care Time: 31 <Landon Martin - Last Filed: 10/10/21 21:19> Disposition <Shilpa Villanueva - Last Filed: 10/10/21 04:25> Is patient prescribed a controlled substance at d/c from ED?: No <Landon Martin - Last Filed: 10/10/21 21:19> Clinical Impression: NSTEMI (non-ST elevated myocardial infarction), Heart failure, Atrial fibrillation with RVR, Elevated troponin Disposition: ADMITTED IP TO THIS HOSP Condition: Fair
[2021-10-10] MEDS ORDERED: METOPROLOL TARTRATE 5 MG/5 ML VIAL IVP STA (02:41)
[2021-10-10 03:10] LABS: Basophils # (A) 0.1 k/uL (0-0.2); Basophils % (A) 1 %; Eosinophils # (A) 0.1 k/uL (0-0.7); Eosinophils % (A) 2 %; HGB 15.5 gm/dL (13.0-17.5); Lymphocytes # (A) 1.2 k/uL (1.0-4.8); Lymphocytes % (A) 17 %; MCH 30.7 pg (25.0-35.0); MCHC 33.1 g/dL (31.0-37.0); MCV 92.8 fL (80.0-100.0); Mean Platelet Volume 9.1; Monocytes # (A) 0.4 k/uL (0-1.0); Monocytes % (A) 6 %; Neutrophils # (A) 4.9 k/uL (1.3-7.7); Neutrophils % (A) 73 %; Platelet Count 145 k/uL (150-450); RBC 5.06 m/uL (4.30-5.90); RDW 14.8 % (11.5-15.5); WBC 6.7 k/uL (3.8-10.6)
[2021-10-10 03:19] LABS: Albumin 3.3 g/dL (3.5-5.0); Calcium 8.1 mg/dL (8.4-10.2); Magnesium 2.2 mg/dL (1.6-2.3); Total Bilirubin 0.9 mg/dL (0.2-1.3); Total Protein 6.1 g/dL (6.3-8.2)
[2021-10-10 03:26] LABS: INR 1.2 (<1.2); Partial Thromboplastin Time 25.5 sec (22.0-30.0); Prothrombin Time 12.4 sec (9.0-12.0)
[2021-10-10 03:37] LABS: Potassium 5.5 mmol/L (3.5-5.1)
[2021-10-10] MEDS ORDERED: MORPHINE SULFATE 4 MG/ML SYRINGE IV PRN (04:23)
[2021-10-10] MEDS ORDERED: HEPARIN SODIUM 1,000 UN/ML (10ML VL) IV ONE (04:23)
[2021-10-10] MEDS ORDERED: ASPIRIN 81 MG PO STA (04:23)
[2021-10-10] MEDS ORDERED: NITROGLYCERIN SL TABS 0.4 MG TAB SUBLINGUAL PRN (04:23)
[2021-10-10] MEDS ORDERED: SODIUM CHLORIDE 0.9% 1,000 ML IV SCH (04:30)
[2021-10-10] MEDS ORDERED: HEPARIN SOD,PORK IN 0.45% NACL 25,000 UNIT in 0.45% NACL 1 250ML.BAG IV SCH (04:30)
--- NOTE | 2021-10-10 05:18 | XR ---
EXAMINATION TYPE: XR chest 2V DATE OF EXAM: 10/10/2021 COMPARISON: Chest x-ray December 23, 2020 HISTORY: Difficulty in breathing. TECHNIQUE: Frontal and lateral views of the chest are obtained. FINDINGS: Stable mild cardiomegaly with mild central vascular congestion. No pleural effusion or pn eumothorax is evident bilaterally. Underlying scoliosis in the lumbar spine is redemonstrated. IMPRESSION: Correlate for CHF exacerbation or fluid overload state as there is mild cardiomegaly wit h mild interstitial edema felt present.
[2021-10-10] MEDS ORDERED: METOPROLOL TARTRATE 50 MG TAB PO SCH (09:00)
--- NOTE | 2021-10-10 11:55 | P.CRDCN ---
History of Present Illness History of present illness: HISTORY OF PRESENTING ILLNESS This is a pleasant 76 year-old male past medical history significant for recent hernia surgery at [facility] on October 03 2021, coronary artery disease with PCI of the mid LAD in 2017, ischemic cardiomyopathy with severe LV dysfunction, chronic systolic heart failure, chronic kidney disease, permanent atrial fibrillation on Eliquis, hypertension, dyslipidemia. He follows in the office with Dr. Limon. We have been asked to see in consultation for elevated troponin. Patient states that after his surgery last Ven[place] been having symptoms of worsening shortness of breath with activity, orthopnea, PND, bilateral lower extremity edema. Due to his symptoms worsening he presents emergency department for further evaluation. He denies any chest pain, lightheadedness, dizziness, palpitations, nausea, vomiting. DIAGNOSTICS EKG reveals atrial fibrillation HR 105 Telemetry tracings indicate atrial fibrillation with heart rate 90slow 100s Chest xray cardiomegaly, vascular congestion present. Laboratory reviewed, CBC unremarkable, troponin 0.06, 0.05, 0.04, INR 1.2, sodium 135, potassium 5.5, BUN 38, serum creatinine 0.9, magnesium 2.2 Current home cardiac medications include Eliquis 5 mg twice a day, aspirin 81 mg daily, atorvastatin 40 mg daily, metoprolol succinate 200 mg nightly, lisinopril 10 mg daily Most recent echocardiogram in 11/2020 revealed an EF 2530 percent with wall motion abnormalities, mild mitral regurgitation Cardiac catheterization in 2017 revealed three-vessel coronary artery disease with proximal LAD 7080 percent stenosis in the mid LAD was 7080 percent stenosis, subtotal complex coronary artery shows 70% stenosis, RCA shows PDA has 60% stenosis. Patient underwent PCI of mid LAD REVIEW OF SYSTEMS At the time of my exam: CONSTITUTIONAL: Denies fever or chills. CARDIOVASCULAR: Denies chest pain,+ shortness of breath, +orthopnea, +PND +edema bilateral lower extremity Denies palpitations. RESPIRATORY: Denies cough. GASTROINTESTINAL: Denies abdominal pain, diarrhea, constipation, nausea or vomiting. MUSCULOSKELETAL: Denies myalgias. NEUROLOGIC: Denies numbness, tingling, headacbe or weakness. ENDOCRINE: Denies fatigue, weight change, polydipsia or polyurina. GENITOURINARY: Denies burning, hematuria or urgency with micturation. HEMATOLOGIC: Denies history of anemia or bleeding. PHYSICAL EXAMINATION Vitals revealed CONSTITUTIONAL: No apparent distress. HEENT: Head is normocephalic. Pupils are equal, round. Sclerae anicteric. Mucous membranes of the mouth are moist. CHEST EXAMINATION: Lungs crackles bilateral bases to auscultation. No chest wall tenderness is noted on palpation or with deep breathing. HEART EXAMINATION: Irregular rate and rhythm. S1, S2 heard. No murmurs, gallops or rub. ABDOMEN: Soft, nontender. Positive bowel sounds. EXTREMITIES: 2+ peripheral pulses,2+ bilateral lower extremity edema and no calf tenderness. NEUROLOGIC EXAMINATION: Patient is awake, alert and oriented x3. ASSESSMENT Acute on chronic heart failure with reduced ejection fraction Elevated troponin, likely secondary to heart failure Recent hernia surgery at [facility] 10/03/2021 Coronary artery disease with PCI of the mid LAD in 2017 Ischemic cardiomyopathy with severe LV dysfunction Chronic kidney disease Permanent atrial fibrillation on Eliquis Hypertension Dyslipidemia PLAN Bumex 2mg IV BID Monitor I/Os, daily weights, renal function and electrolytes Obtain 2D echocardiogram and doppler study to assess cardiac structure and function. Stop IV heparin Continue home Eliquis Continue home statin and metoprolol succinate Further recommendations based on clinical course Nurse practitioner note has been reviewed by physician. Signing provider agrees with the documented findings, assessment, and plan of care. Past Medical History Past Medical History: Hyperlipidemia, Hypertension, Myocardial Infarction ([place]) Additional Past Medical History / Comment(s): COVID 2019 Last Myocardial Infarction Date:: 07/31/2016 History of Any Multi-Drug Resistant Organisms: None Reported Past Surgical History: Cholecystectomy, Heart Catheterization With Stent, Hernia Repair Additional Past Surgical History / Comment(s): 1 stent Past Anesthesia/Blood Transfusion Reactions: No Reported Reaction Date of Last Stent Placement:: 07/28/2016 Past Psychological History: No Psychological Hx Reported Smoking Status: Former smoker Past Alcohol Use History: None Reported Past Drug Use History: None Reported - Past Family History Mother Family Medical History: Cancer Father Family Medical History: CVA/TIA Medications and Allergies Home Medications Medication Instructions Recorded Confirmed Type Bumetanide 1 mg PO HS 07/31/16 10/10/21 History Aspirin 81 mg PO DAILY #30 chew 08/03/16 10/10/21 Rx Atorvastatin [Lipitor] 40 mg PO DAILY 11/13/20 10/10/21 History Docusate [Colace] 100 mg PO DAILY 11/13/20 10/10/21 History lisinopriL [Zestril] 10 mg PO DAILY 11/13/20 10/10/21 History Apixaban [Eliquis] 5 mg PO BID 30 Days #60 tab 11/15/20 10/10/21 Rx Famotidine [Pepcid] 20 mg PO DAILY 10/10/21 10/10/21 History Metoprolol Succinate [Toprol XL] 200 mg PO HS 10/10/21 10/10/21 History Multivitamins, Thera [Multivitamin 1 tab PO DAILY 10/10/21 10/10/21 History (formulary)] Ubidecarenone [Co Q-10] 400 mg PO DAILY 10/10/21 10/10/21 History Allergies Allergy/AdvReac Type Severity Reaction Status Date / Time No Known Allergies Allergy Verified 10/10/21 08:23 Physical Exam Vitals: Vital Signs Temp Pulse Pulse Resp BP BP Pulse Ox 10/10/21 06:01 96 20 10/10/21 05:40 97.9 F 96 20 136/90 98 10/10/21 01:44 97.6 F 10/10/21 00:41 97.6 F 110 H 19 120/70 100 Intake and Output 10/09/21 10/10/21 10/10/21 22:59 06:59 14:59 Other: Weight 82.1 kg Results 10/10/21 02:50 10/10/21 02:50 Cardiac Enzymes 10/10/21 10/10/21 10/10/21 Range/Units 02:50 02:50 05:43 AST 59 (17-59) U/L Troponin I 0.062 H* 0.050 H* (0.000-0.034) ng/mL Coagulation 10/10/21 Range/Units 02:50 PT 12.4 H (9.0-12.0) sec APTT 25.5 (22.0-30.0) sec CBC 10/10/21 Range/Units 02:50 WBC 6.7 (3.8-10.6) k/uL RBC 5.06 (4.30-5.90) m/uL Hgb 15.5 (13.0-17.5) gm/dL Hct 47.0 (39.0-53.0) % Plt Count 145 L (150-450) k/uL Comprehensive Metabolic Panel 10/10/21 Range/Units 02:50 Sodium 135 L (137-145) mmol/L Potassium 5.5 H (3.5-5.1) mmol/L Chloride 100 (98-107) mmol/L Carbon Dioxide 26 (22-30) mmol/L BUN 38 H (9-20) mg/dL Creatinine 1.95 H (0.66-1.25) mg/dL Glucose 112 H (74-99) mg/dL Calcium 8.1 L (8.4-10.2) mg/dL AST 59 (17-59) U/L ALT 51 H (4-49) U/L Alkaline Phosphatase 122 (38-126) U/L Total Protein 6.1 L (6.3-8.2) g/dL Albumin 3.3 L (3.5-5.0) g/dL Current Medications Generic Name Dose Route Start Last Admin Trade Name Freq PRN Reason Stop Dose Admin Aspirin 325 mg 10/11/21 09:00 Aspirin 325 Mg Tab PO DAILY [facility] Sodium Chloride 1,000 mls @ 20 mls/hr 10/10/21 04:30 10/10/21 05:52 Saline 0.9% IV Not Given .Q24H [facility] Heparin Sodium/Sodium Chloride 250 mls @ 9.852 mls/hr 10/10/21 04:30 10/10/21 05:15 25,000 unit/ Sodium Chloride IV 12 units/kg/hr .Q24H ALICJA 9.852 mls/hr Administration Protocol 12 UNITS/KG/HR Metoprolol Tartrate 50 mg 10/10/21 09:00 Metoprolol Tartrate 50 Mg Tab PO BID [facility] Morphine Sulfate 4 mg 10/10/21 04:23 Morphine Sulfate 4 Mg/Ml Syringe IV Q4HR PRN Chest Pain Nitroglycerin 0.4 mg 10/10/21 04:23 Nitroglycerin Sl Tabs 0.4 Mg Tab SUBLINGUAL Q5M PRN Chest Pain Intake and Output 10/09/21 10/10/21 10/10/21 22:59 06:59 14:59 Other: Weight 82.1 kg 10/10/21 02:50 10/10/21 02:50
[2021-10-10] MEDS: APIXABAN 5 MG TAB PO SCH ×2 (12:09→20:09)
[2021-10-10] MEDS: BUMETANIDE 0.25 MG/ML 10 ML VIAL IV SCH ×2 (12:53→22:58)
[2021-10-10 13:09] LABS: Calcium 8.7 mg/dL (8.4-10.2); Potassium 4.5 mmol/L (3.5-5.1)
--- NOTE | 2021-10-10 18:40 | CA ---
Transthoracic Echo Report Name: Raphael Cabrera Age: 76 Gender: M : 1945 Exam Date: 10/10/2021 13:09 Exam Location: [place] [facility] Ht (in): 67 Wt (lb): 181 Ordering Physician: Landon Martin DO Attending/Referring Phys: [id number], Mario Celery Wrapper Melissa Verduzco RDCS Procedure CPT: Indications: elevTrop Cardiac Hx: Technical Quality: Fair Contrast 1: Total Dose (mL): Contrast 2: Total Dose (mL): MEASUREMENTS (Male / Female) Normal Values 2D ECHO LV Diastolic Diameter PLAX 5.1 cm 4.2 - 5.9 / 3.9 - 5.3 cm LV Systolic Diameter PLAX 4.9 cm IVS Diastolic Thickness 1.3 cm 0.6 - 1.0 / 0.6 - 0.9 cm LVPW Diastolic Thickness 1.8 cm 0.6 - 1.0 / 0.6 - 0.9 cm LV Relative Wall Thickness 0.6 RV Internal Dim ED PLAX 2.8 cm LA Volume 102.5 cm??? 18 - 58 / 22 - 52 cm??? M-MODE Aortic Root Diameter MM 2.9 cm LA Systolic Diameter MM 5.7 cm LA Ao Ratio MM 2.0 AV Cusp Separation MM 2.0 cm DOPPLER LVOT Peak Velocity 37.7 cm/s LVOT Peak Gradient 0.6 mmHg TR Peak Velocity 279.8 cm/s TR Peak Gradient 31.3 mmHg Right Ventricular Systolic Press 35.5 mmHg FINDINGS Left Ventricle Mildly increased septal wall thickness. Severely reduced global left ventricular systolic function. Left ventricular ejection fraction is estimated at < 20 %. Right Ventricle Normal right ventricular size. Mild pulmonary hypertension. Right Atrium Severe right atrial dilatation. Left Atrium Severely increased left atrial volume. Mitral Valve Mitral valve thickened. Mild mitral annular calcification. Aortic Valve No aortic valve stenosis or regurgitation. Tricuspid Valve Moderate tricuspid regurgitation. Pulmonic Valve Trace pulmonic regurgitation. Trace pulmonic regurgitation. Pericardium No pericardial effusion. Aorta Normal size aortic root and proximal ascending aorta. CONCLUSIONS Dilated left ventricle with severely impaired function and EF of 20% Previewed by: Dr. Geovany Wolff MD (Electronically Signed) Final Date: 10 October 2021 18:40
--- NOTE | 2021-10-10 19:22 | P.HPIM ---
History of Present Illness H&P Date: 10/10/21 Chief Complaint: Shortness of breath 76-year-old male presents to the emergency department for evaluation of shortness of breath and lower extremity edema. Patient states he had hernia surgery a week ago at [facility]. Reports he has since developed lower extremity edema, worse in the ankle and feet, but extending up the lower extremities. Also reports orthopnea affecting his ability to sleep tonight. Denies any medication changes aside for taking [place] for post-op pain. No fever, chills, headache, dizziness, chest pain, abdominal pain, nausea, or vomiting. EKG reveals atrial fibrillation HR 105 Telemetry tracings indicate atrial fibrillation with heart rate 90slow 100s Chest xray cardiomegaly, vascular congestion present. Laboratory reviewed, CBC unremarkable, troponin 0.06, 0.05, 0.04, INR 1.2, sodium 135, potassium 5.5, BUN 38, serum creatinine 0.9, magnesium 2.2 Current home cardiac medications include Eliquis 5 mg twice a day, aspirin 81 mg daily, atorvastatin 40 mg daily, metoprolol succinate 200 mg nightly, lisinopril 10 mg daily Most recent echocardiogram in 11/2020 revealed an EF 2530 percent with wall motion abnormalities, mild mitral regurgitation Cardiac catheterization in 2017 revealed three-vessel coronary artery disease wi th proximal LAD 7080 percent stenosis in the mid LAD was 7080 percent stenosis, subtotal complex coronary artery shows 70% stenosis, RCA shows PDA has 60% stenosis. Patient underwent PCI of mid LAD Review of Systems REVIEW OF SYSTEMS: CONSTITUTIONAL: No fever, no malaise, no fatigue. HEENT: No recent visual problems or hearing problems. Denied any sore throat. CARDIOVASCULAR: No chest pain, orthopnea, PND, no palpitations, no syncope. PULMONARY: No shortness of breath, no cough, no hemoptysis. GASTROINTESTINAL: No diarrhea, no nausea, no vomiting, no abdominal pain. NEUROLOGICAL: No headaches, no weakness, no numbness. HEMATOLOGICAL: Denies any bleeding or petechiae. GENITOURINARY: Denies any burning micturition, frequency, or urgency. MUSCULOSKELETAL/RHEUMATOLOGICAL: Denies any joint pain, swelling, or any muscle pain. ENDOCRINE: Denies any polyuria or polydipsia. The rest of the 14-point review of systems is negative. Past Medical History Past Medical History: Hyperlipidemia, Hypertension, Myocardial Infarction ([place]) Additional Past Medical History / Comment(s): COVID 2020 Last Myocardial Infarction Date:: 07/31/2016 History of Any Multi-Drug Resistant Organisms: None Reported Past Surgical History: Cholecystectomy, Heart Catheterization With Stent, Hernia Repair Additional Past Surgical History / Comment(s): 1 stent Past Anesthesia/Blood Transfusion Reactions: No Reported Reaction Date of Last Stent Placement:: 07/28/2016 Past Psychological History: No Psychological Hx Reported Smoking Status: Former smoker Past Alcohol Use History: None Reported Past Drug Use History: None Reported - Past Family History Mother Family Medical History: Cancer Father Family Medical History: CVA/TIA Medications and Allergies Home Medications Medication Instructions Recorded Confirmed Type Bumetanide 1 mg PO HS 07/31/16 10/10/21 History Aspirin 81 mg PO DAILY #30 chew 08/03/16 10/10/21 Rx Atorvastatin [Lipitor] 40 mg PO DAILY 11/13/20 10/10/21 History Docusate [Colace] 100 mg PO DAILY 11/13/20 10/10/21 History lisinopriL [Zestril] 10 mg PO DAILY 11/13/20 10/10/21 History Apixaban [Eliquis] 5 mg PO BID 30 Days #60 tab 11/15/20 10/10/21 Rx Famotidine [Pepcid] 20 mg PO DAILY 10/10/21 10/10/21 History Metoprolol Succinate [Toprol XL] 200 mg PO HS 10/10/21 10/10/21 History Multivitamins, Thera [Multivitamin 1 tab PO DAILY 10/10/21 10/10/21 History (formulary)] Ubidecarenone [Co Q-10] 400 mg PO DAILY 10/10/21 10/10/21 History Allergies Allergy/AdvReac Type Severity Reaction Status Date / Time No Known Allergies Allergy Verified 10/10/21 08:23 Physical Exam Vitals: Vital Signs Temp Pulse Pulse Resp BP BP Pulse Ox 10/10/21 08:00 97.5 F L 130 H 18 138/104 100 10/10/21 06:01 96 20 10/10/21 05:40 97.9 F 96 20 136/90 98 10/10/21 01:44 97.6 F 10/10/21 00:41 97.6 F 110 H 19 120/70 100 Intake and Output 10/09/21 10/10/21 10/10/21 22:59 06:59 14:59 Output Total 100 Balance -100 Output: Urine 100 Other: Weight 82.1 kg PHYSICAL EXAMINATION: GENERAL: The patient is alert and oriented x3, not in any acute distress. Well developed, well nourished. HEENT: Pupils are round and equally reacting to light. EOMI. No scleral icterus. No conjunctival pallor. Normocephalic, atraumatic. No pharyngeal erythema. No thyromegaly. CARDIOVASCULAR: S1 and S2 present. No murmurs, rubs, or gallops. PULMONARY: Chest is clear to auscultation, no wheezing or crackles. ABDOMEN: Soft, nontender, nondistended, normoactive bowel sounds. No palpable organomegaly. MUSCULOSKELETAL: No joint swelling or deformity. EXTREMITIES: No cyanosis, clubbing, or pedal edema. NEUROLOGICAL: Gross neurological examination did not reveal any focal deficits. SKIN: No rashes. Results CBC & Chem 7: 10/10/21 02:50 10/10/21 11:32 Labs: Abnormal Lab Results - Last 24 Hours (Table) 10/10/21 10/10/21 10/10/21 Range/Units 02:50 02:50 02:50 Plt Count 145 L (150-450) k/uL PT 12.4 H (9.0-12.0) sec INR 1.2 H (<1.2) Sodium 135 L (137-145) mmol/L Potassium 5.5 H (3.5-5.1) mmol/L BUN 38 H (9-20) mg/dL Creatinine 1.95 H (0.66-1.25) mg/dL Glucose 112 H (74-99) mg/dL Calcium 8.1 L (8.4-10.2) mg/dL ALT 51 H (4-49) U/L Troponin I (0.000-0.034) ng/mL Total Protein 6.1 L (6.3-8.2) g/dL Albumin 3.3 L (3.5-5.0) g/dL 10/10/21 10/10/21 10/10/21 Range/Units 02:50 05:43 08:32 Plt Count (150-450) k/uL PT (9.0-12.0) sec INR (<1.2) Sodium (137-145) mmol/L Potassium (3.5-5.1) mmol/L BUN (9-20) mg/dL Creatinine (0.66-1.25) mg/dL Glucose (74-99) mg/dL Calcium (8.4-10.2) mg/dL ALT (4-49) U/L Troponin I 0.062 H* 0.050 H* 0.042 H* (0.000-0.034) ng/mL Total Protein (6.3-8.2) g/dL Albumin (3.5-5.0) g/dL Thrombosis Risk Factor Assmnt - Choose All That Apply Any of the Below Risk Factors Present?: Yes Each Factor Represents 1 point: History of prior major surgery (<1month) Each Risk Factor Represents 2 Points: Age 61-74 years Thrombosis Risk Factor Assessment Total Risk Factor Score: 3 Thrombosis Risk Factor Assessment Level: Moderate Risk Assessment and Plan Assessment: 1. Acute exacerbation systolic CHF; BNP elevated at 12,800 - Cardiology on board and recommending to place patient on Bumex 2 mg IV twice a day - 2-D echo to evaluate cardiac structure and LV function - We will monitor strict ORESTES's, daily weights, renal function and electrolytes; losartan fluid restricted diet 2. Elevated troponin likely related to CHF exacerbation; patient was initially placed on IV heparin which has been discontinued; cardiology recommending to continue home dose of Eliquis along with statins and and metoprolol - 2-D echo is ordered and further recommendations after echo is completed 3. Hyperkalemia; potassium level at 5.5 upon admission and is down to 4.5 this morning; we will continue with electrolyte monitoring and further recommendations after results 3. Ischemic cardiomyopathy; patient has severe LV dysfunction; underwent catheterization with PCI to mid LAD in 2017; further evaluation of heart structure and function with echocardiogram 4. Chronic kidney disease; creatinine slight trend up from 1.95 yesterday up to 1.99; we will continue to monitor renal function and electrolytes; avoid nephrotoxins and hypotension 5. Permanent atrial fibrillation; continue with metoprolol and anticoagulation with Eliquis 6. Hypertension; improved control on metoprolol 20 mg. Daily at bedtime 7. Hyperlipidemia; Lipitor 40 mg 2 daily at bedtime DVT prophylaxis; SCDs/anticoagulation CODE STATUS; full code
[2021-10-10] MEDS: METOPROLOL SUCCINATE (ER) 100 MG TAB.ER.24H PO SCH (20:09)
[2021-10-10] MEDS ORDERED: BUMETANIDE 1 MG TAB PO SCH (21:00)
[2021-10-11] MEDS ORDERED: DIGOXIN 250 MCG/ML 2 ML AMP IVP STA (04:46)
--- NOTE | 2021-10-11 04:52 | P.PN ---
Subjective HISTORY OF PRESENTING ILLNESS This is a pleasant 76 year-old male past medical history significant for recent hernia surgery at [facility] on October 03 2021, coronary artery disease with PCI of the mid LAD in 2017, ischemic cardiomyopathy with severe LV dysfunction, chronic systolic heart failure, chronic kidney disease, permanent a trial fibrillation on Eliquis, hypertension, dyslipidemia. He follows in the office with Dr. Limon. We have been asked to see in consultation for elevated troponin. Patient states that after his surgery last Wednesday been having symptoms of worsening shortness of breath with activity, orthopnea, PND, bilateral lower extremity edema. Due to his symptoms worsening he presents emergency department for further evaluation. He denies any chest pain, lightheadedness, dizziness, palpitations, nausea, vomiting. DIAGNOSTICS EKG reveals atrial fibrillation HR 105 Telemetry tracings indicate atrial fibrillation with heart rate 90slow 100s Chest xray cardiomegaly, vascular congestion present. Laboratory reviewed, CBC unremarkable, troponin 0.06, 0.05, 0.04, INR 1.2, sodium 135, potassium 5.5, BUN 38, serum creatinine 0.9, magnesium 2.2 Current home cardiac medications include Eliquis 5 mg twice a day, aspirin 81 mg daily, atorvastatin 40 mg daily, metoprolol succinate 200 mg nightly, lisinopril 10 mg daily Most recent echocardiogram in 11/2020 revealed an EF 2530 percent with wall motion abnormalities, mild mitral regurgitation Cardiac catheterization in 2017 revealed three-vessel coronary artery disease with proximal LAD 7080 percent stenosis in the mid LAD was 7080 percent stenosis, subtotal complex coronary artery shows 70% stenosis, RCA shows PDA has 60% stenosis. Patient underwent PCI of mid LAD 10/11 Patient seen and examined. Patient's heart rate still remained in the 90s to 110 range predominantly in the 100s. He admits to good urine output with the Bumex IV. He admits his lower extremity edema is improving and his shortness breath is improving. Admits improvement in his constipation. Denies any chest pain or pressure. PHYSICAL EXAMINATION Vitals revealed CONSTITUTIONAL: No apparent distress. HEENT: Head is normocephalic. Pupils are equal, round. Sclerae anicteric. Mucous membranes of the mouth are moist. CHEST EXAMINATION: Lungs crackles bilateral bases to auscultation. No chest wall tenderness is noted on palpation or with deep breathing. HEART EXAMINATION: Irregular rate and rhythm. S1, S2 heard. No murmurs, gallops or rub. ABDOMEN: Soft, nontender. Positive bowel sounds. EXTREMITIES: 2+ peripheral pulses,2+ bilateral lower extremity edema and no calf tenderness. NEUROLOGIC EXAMINATION: Patient is awake, alert and oriented x3. ASSESSMENT Acute on chronic heart failure with reduced ejection fraction Elevated troponin, likely secondary to heart failure Recent hernia surgery at [facility] 10/03/2021 Coronary artery disease with PCI of the mid LAD in 2017 Ischemic cardiomyopathy with severe LV dysfunction Chronic kidney disease Permanent atrial fibrillation on Eliquis Hypertension Dyslipidemia PLAN Patient still appears volume overloaded and continue with Bumex 2mg IV BID Patient's echo shows continued severe LV dysfunction, EF less than 20% We will add digoxin for better rate control with lowered loading dose given CKD. Hopeful discharge home 10/12 if continues improved and heart rates better controlled. Objective - Vital Signs Vital signs: Vital Signs Temp 98 F 10/11/21 03:50 Pulse 100 10/11/21 03:50 Resp 18 10/11/21 03:50 BP 137/93 10/11/21 03:50 Pulse Ox 99 10/11/21 03:50 FiO2 Intake & Output 10/10/21 10/10/21 10/11/21 06:59 18:59 06:59 Intake Total 313.726 Output Total 1100 1500 Balance -786.274 -1500 Weight 82.1 kg Intake: Intake, IV Titration 73.726 Amount Heparin Sod,Pork in 0.45% 73.726 NaCl 25,000 unit In 0.45 % NaCl 1 250ml.bag @ 12 UNITS/KG/HR 9.852 mls/hr IV .Q24H [facility] Rx#: [id number] Oral 240 Output: Urine 1100 1500 - Labs CBC & Chem 7: 10/10/21 02:50 10/10/21 11:32 Labs: Abnormal Lab Results - Last 24 Hours (Table) 10/10/21 10/10/21 10/10/21 Range/Units 05:43 08:32 11:32 Sodium 136 L (137-145) mmol/L BUN 36 H (9-20) mg/dL Creatinine 1.99 H (0.66-1.25) mg/dL Glucose 102 H (74-99) mg/dL Troponin I 0.050 H* 0.042 H* (0.000-0.034) ng/mL
[2021-10-11 08:11] LABS: Basophils # (A) 0.1 k/uL (0-0.2); Basophils % (A) 1 %; Eosinophils # (A) 0.1 k/uL (0-0.7); Eosinophils % (A) 2 %; HCT 44.9 % (39.0-53.0); HGB 14.8 gm/dL (13.0-17.5); Lymphocytes # (A) 1.1 k/uL (1.0-4.8); Lymphocytes % (A) 22 %; MCH 30.9 pg (25.0-35.0); MCHC 32.9 g/dL (31.0-37.0); MCV 93.8 fL (80.0-100.0); Mean Platelet Volume 8.4; Monocytes # (A) 0.3 k/uL (0-1.0); Monocytes % (A) 6 %; Neutrophils # (A) 3.2 k/uL (1.3-7.7); Neutrophils % (A) 66 %; Platelet Count 140 k/uL (150-450); RBC 4.79 m/uL (4.30-5.90); RDW 14.9 % (11.5-15.5); WBC 4.8 k/uL (3.8-10.6)
[2021-10-11 08:30] LABS: Calcium 8.5 mg/dL (8.4-10.2); Potassium 4.5 mmol/L (3.5-5.1)
[2021-10-11] MEDS: FAMOTIDINE 20 MG TAB PO SCH (08:47)
[2021-10-11] MEDS: ATORVASTATIN 40 MG TAB PO SCH (08:47)
[2021-10-11] MEDS: ASPIRIN 81 MG PO SCH (08:47)
[2021-10-11] MEDS: APIXABAN 5 MG TAB PO SCH ×2 (08:47→20:15)
[2021-10-11] MEDS: DOCUSATE 100 MG CAP PO SCH (08:47)
[2021-10-11] MEDS: MULTIVITAMINS, THERA 1 EACH TAB PO SCH (08:47)
[2021-10-11] MEDS: BUMETANIDE 0.25 MG/ML 10 ML VIAL IV SCH ×2 (08:49→22:54)
[2021-10-11] MEDS ORDERED: lisinopriL 10 MG TAB PO SCH (09:00)
[2021-10-11] MEDS ORDERED: ASPIRIN 325 MG TAB PO SCH (09:00)
[2021-10-11] MEDS ORDERED: DIGOXIN 250 MCG/ML 2 ML AMP IVP SCH (11:00)
[2021-10-11 12:00] LABS: Chol/HDL Ratio 4.16 Ratio; LDL Cholesterol,Calculated 56.5 mg/dL (0.0-131.0)
--- NOTE | 2021-10-11 17:28 | P.PN ---
Subjective Progress Note Date: 10/11/21 76-year-old male presents to the emergency department for evaluation of shortness of breath and lower extremity edema. Patient states he had hernia surgery a week ago at [facility]. Reports he has since developed lower extremity edema, worse in the ankle and feet, but extending up the lower extremities. Also reports orthopnea affecting his ability to sleep tonight. Denies any medication changes aside for taking [place] for post-op pain. No fever, chills, headache, dizziness, chest pain, abdominal pain, nausea, or vomiting. EKG reveals atrial fibrillation HR 105 Telemetry tracings indicate atrial fibrillation with heart rate 90slow 100s Chest xray cardiomegaly, vascular congestion present. Laboratory reviewed, CBC unremarkable, troponin 0.06, 0.05, 0.04, INR 1.2, sodium 135, potassium 5.5, BUN 38, serum creatinine 0.9, magnesium 2.2 Current home cardiac medications include Eliquis 5 mg twice a day, aspirin 81 mg daily, atorvastatin 40 mg daily, metoprolol succinate 200 mg nightly, lisinopril 10 mg daily Most recent echocardiogram in 11/2020 revealed an EF 2530 percent with wall motion abnormalities, mild mitral regurgitation Cardiac catheterization in 2017 revealed three-vessel coronary artery disease with proximal LAD 7080 percent stenosis in the mid LAD was 7080 percent stenosis, subtotal complex coronary artery shows 70% stenosis, RCA shows PDA has 60% stenosis. Patient underwent PCI of mid LAD 10/11/2021 Patient seen and examined. Patient's heart rate still remained in the 90s to 110 range predominantly in the 100s. He admits to good urine output with the B umex IV. He admits his lower extremity edema is improving and his shortness breath is improving. Admits improvement in his constipation. Denies any chest pain or pressure. - Patient didn't treated for acute on chronic CHF with EF of 20%; cardiology on board and recommending to continue with Bumex 2 mg IV twice a day for another 24 hours; digoxin has been added according to renal dosing - Possible discharge in next 24 hours if remains stable Objective - Vital Signs Vital signs: Vital Signs Temp 97.4 F L 10/11/21 08:00 Pulse 63 10/11/21 08:00 Resp 18 10/11/21 08:00 BP 136/74 10/11/21 08:00 Pulse Ox 99 07/09/22 03:50 FiO2 Intake & Output 10/10/21 10/11/21 10/11/21 18:59 06:59 18:59 Intake Total 313.726 Output Total 1100 1500 1600 Balance -786.274 -1500 -1600 Intake: Intake, IV Titration 73.726 Amount Heparin Sod,Pork in 0.45% 73.726 NaCl 25,000 unit In 0.45 % NaCl 1 250ml.bag @ 12 UNITS/KG/HR 9.852 mls/hr IV .Q24H [facility] Rx#: [id number] Oral 240 Output: Urine 1100 1500 1600 - Exam GENERAL: The patient is alert and oriented x3, not in any acute distress. Well developed, well nourished. HEENT: Pupils are round and equally reacting to light. EOMI. No scleral icterus. No conjunctival pallor. Normocephalic, atraumatic. No pharyngeal erythema. No thyromegaly. CARDIOVASCULAR: S1 and S2 present. No murmurs, rubs, or gallops. PULMONARY: Chest is clear to auscultation, no wheezing or crackles. ABDOMEN: Soft, nontender, nondistended, normoactive bowel sounds. No palpable organomegaly. MUSCULOSKELETAL: No joint swelling or deformity. EXTREMITIES: No cyanosis, clubbing, or pedal edema. NEUROLOGICAL: Gross neurological examination did not reveal any focal deficits. SKIN: No rashes. - Labs CBC & Chem 7: 10/11/21 07:42 10/11/21 07:42 Labs: Abnormal Lab Results - Last 24 Hours (Table) 10/10/21 10/11/21 10/11/21 Range/Units 11:32 07:42 07:42 Plt Count 140 L (150-450) k/uL Sodium 136 L (137-145) mmol/L Carbon Dioxide 32 H (22-30) mmol/L BUN 36 H 37 H (9-20) mg/dL Creatinine 1.99 H 1.91 H (0.66-1.25) mg/dL Glucose 102 H 106 H (74-99) mg/dL Assessment and Plan Assessment: 1. Acute exacerbation systolic CHF; BNP elevated at 12,800 - Cardiology on board and recommending to place patient on Bumex 2 mg IV twice a day - 2-D echo to evaluate cardiac structure and LV function - We will monitor strict ORESTES's, daily weights, renal function and electrolytes; losartan fluid restricted diet 2. Elevated troponin likely related to CHF exacerbation; patient was initially placed on IV heparin which has been discontinued; cardiology recommending to continue home dose of Eliquis along with statins and and metoprolol - 2-D echo is ordered and further recommendations after echo is completed 3. Hyperkalemia; potassium level at 5.5 upon admission and is down to 4.5 this morning; we will continue with electrolyte monitoring and further recommendations after results 3. Ischemic cardiomyopathy; patient has severe LV dysfunction; underwent catheterization with PCI to mid LAD in 2017; further evaluation of heart structure and function with echocardiogram 4. Chronic kidney disease; creatinine slight trend up from 1.95 yesterday up to 1.99; we will continue to monitor renal function and electrolytes; avoid nephrotoxins and hypotension 5. Permanent atrial fibrillation; continue with metoprolol and anticoagulation with Eliquis 6. Hypertension; improved control on metoprolol 20 mg. Daily at bedtime 7. Hyperlipidemia; Lipitor 40 mg 2 daily at bedtime DVT prophylaxis; SCDs/anticoagulation CODE STATUS; full code
[2021-10-11] MEDS: METOPROLOL SUCCINATE (ER) 100 MG TAB.ER.24H PO SCH (20:15)
[2021-10-12 04:29] VITALS: RESP 18; TEMP 98.3
[2021-10-12 07:57] VITALS: BP 153/85; PULSE 79
[2021-10-12] MEDS: ASPIRIN 81 MG PO SCH (07:58)
[2021-10-12] MEDS: DOCUSATE 100 MG CAP PO SCH (07:58)
[2021-10-12] MEDS: APIXABAN 5 MG TAB PO SCH (07:58)
[2021-10-12] MEDS: BUMETANIDE 0.25 MG/ML 10 ML VIAL IV SCH (07:58)
[2021-10-12] MEDS: MULTIVITAMINS, THERA 1 EACH TAB PO SCH (07:58)
[2021-10-12] MEDS: ATORVASTATIN 40 MG TAB PO SCH (07:58)
[2021-10-12] MEDS: FAMOTIDINE 20 MG TAB PO SCH (07:59)
[2021-10-12 08:56] LABS: Calcium 8.7 mg/dL (8.4-10.2)
[2021-10-12] MEDS ORDERED: DIGOXIN 250 MCG TAB PO SCH ×2 (09:00)
--- NOTE | 2021-10-14 10:13 | CDI ---
Documentation Clarification Form Date: 10/14/21 From: Paulina Triana Admit Date: 10/10/2021 04:00:00 AM Patient Name: Raphael Cabrera Visit Number: [id number] Discharge Date: 10/12/2021 05:20:00 PM ATTENTION: The Clinical Documentation Specialists (CDI) and [facility] Coding Staff appreciate your assistance in clarifying documentation. Please respond to the clarification below the line at the bottom and electronically sign. The CDI & [facility] Coding staff will review the response and follow-up if needed. Please note: Queries are made part of the Legal Health Record. If you have any questions, please contact the author of this message via ITS. Dr. Loreto Silva, Unspecified CKD is documented in your H&P. Additional clarification regarding the stage of CKD is requested. History/Risk Factors: HTN w acute & chronic systolic CHF & CKD, permanent A Fib, mitral insufficiency, hyperkalemia, ischemic cardiomyopathy, CAD, HLD Clinical Indicators: Chronic kidney disease; creatinine slight trend up from 1.95 yesterday up to 1.99. Current BUN: 38, 36, 37, 35 Current CR: 1.95, 1.99, 1.91, 1.93 Current GFR: 33, 32, 34, 33 Treatment: Monitor renal function and electrolytes, avoid nephrotoxins and hypotension. Please clarify the stage of the CKD, if known: [ ] CKD Stage 1 (GFR > 90) [ ] CKD Stage 2 (GFR 60-89) [ ] CKD Stage 3 (GFR 30-59) [ ] CKD Stage 3a (GFR 45-59) [ ] CKD Stage 3b (GFR 30-44) [ ] CKD Stage 4 (GFR 15-29) [ ] CKD Stage 5 (GFR <15) [ ] ESRD [ ] Other, please specify [ ] Unable to determine CKD Stage 3 (GFR 30-59) MTDD
== END 2021-10-12 17:20 | disposition home or self-care (01) | DRG 291 ==
LOC: EC 00:23 → 3SCARD 04:00
PROVIDERS: ADMIT Hospitalist; ATTEND Hospitalist
DX: I13.0 Hypertensive heart and chronic kidney disease with heart failure and stage 1 through stage 4 chronic kidney disease, or unspecified chronic kidney disease (principal); I50.23 Acute on chronic systolic (congestive) heart failure; I48.21 Permanent atrial fibrillation; N18.30 Chronic kidney disease, stage 3 unspecified; Z28.310 Unvaccinated for COVID-19; I34.0 Nonrheumatic mitral (valve) insufficiency; E87.5 Hyperkalemia; I25.5 Ischemic cardiomyopathy; I25.10 Atherosclerotic heart disease of native coronary artery without angina pectoris; E78.5 Hyperlipidemia, unspecified; K59.00 Constipation, unspecified; I25.2 Old myocardial infarction; R77.8 Other specified abnormalities of plasma proteins; Z79.01 Long term (current) use of anticoagulants; Z79.82 Long term (current) use of aspirin; Z79.899 Other long term (current) drug therapy; Z86.16 Personal history of COVID-19; Z87.891 Personal history of nicotine dependence; Z95.5 Presence of coronary angioplasty implant and graft
CPT/HCPCS: 36415; 71046; 80048; 80053; 80061; 83735; 83880; 84484; 85025; 85610; 85730; 93005; 93306; 96374; 96375; 99291

== ENCOUNTER → 2021-11-19 | Outpatient (CLI) | payer MEDICARE, BC ==
[2021-11-19 19:08] LABS: Hepatitis A Antibody IgM Nonreactive (Nonreactive); Hepatitis B Core IgM Nonreactive (Nonreactive); Hepatitis B Surface Antigen Nonreactive (Nonreactive); Hepatitis C IgG Antibody Nonreactive (Nonreactive)
[2021-11-19 21:23] LABS: DNA Double-Stranded NEGATIVE (NEGATIVE)
[2021-11-20 13:57] LABS: C-ANCA <1:20 Titer (<1:20)
== END | disposition home or self-care (01) ==
LOC: LABWHC1 11:00
PROVIDERS: ATTEND Internal Medicine
DX: R80.9 Proteinuria, unspecified (principal)
CPT/HCPCS: 36415; 80074; 86038; 86160; 86162; 86225; 86255; 86334

== ENCOUNTER → 2022-02-18 | Outpatient (CLI) | payer MEDICARE, BC ==
[2022-02-18 14:22] LABS: Basophils # (A) 0.04 X 10*3/uL (0.00-0.10); Basophils % (A) 0.6 %; Eosinophils # (A) 0.14 X 10*3/uL (0.04-0.35); Eosinophils % (A) 2.2 %; HCT 50.1 % (39.6-50.0); HGB 16.2 g/dL (13.0-17.0); Immature Grans, Automated 0.3 %; Lymphocytes # (A) 1.44 X 10*3/uL (0.90-5.00); Lymphocytes % (A) 22.7 %; MCH 30.5 pg (27.0-32.0); MCHC 32.3 g/dL (32.0-37.0); MCV 94.2 fL (80.0-97.0); Mean Platelet Volume 11.3 fL (9.5-12.2); Monocytes % (A) 9.4 %; NRBC Per 100 WBC 0 /100 WBCS (0.0-0.0); Neutrophils # (A) 4.11 X 10*3/uL (1.80-7.70); Neutrophils % (A) 64.8 %; Platelet Count 129 X 10*3/uL (140-440); RBC 5.32 X 10*6/uL (4.40-5.60); RDW 13.8 % (11.5-14.5); WBC 6.35 X 10*3/uL (4.50-10.00)
[2022-02-18 15:58] LABS: % Iron Saturation 19.01 (15.00-50.00); Albumin 3.6 g/dL (3.8-4.9); Albumin/Globulin Ratio 1.2 (1.60-3.17); Anion Gap 14.6 mmol/L (10.00-18.00); BUN/Creat Ratio 12.6 Ratio (12.00-20.00); Blood Urea Nitrogen 25.2 mg/dL (9.0-27.0); Calcium 9.2 mg/dL (8.7-10.3); Carbon Dioxide 27.4 mmol/L (20.0-27.5); Magnesium 2.3 mg/dL (1.5-2.4); Non-African American GFR(CKD) 31.9 (60.0-200.0); Phosphorus 3.3 mg/dL (2.4-5.1); Total Bilirubin 0.8 mg/dL (0.30-1.20); Total Protein 6.6 g/dL (6.2-8.2); Uric Acid 8.1 mg/dL (3.7-8.7)
== END | disposition home or self-care (01) ==
LOC: LABWHC1 09:21
PROVIDERS: ATTEND Nurse Practitioner Family
DX: N25.81 Secondary hyperparathyroidism of renal origin (principal); N18.32 Chronic kidney disease, stage 3b; D63.1 Anemia in chronic kidney disease; N39.0 Urinary tract infection, site not specified; E55.9 Vitamin D deficiency, unspecified; M10.9 Gout, unspecified
CPT/HCPCS: 36415; 80053; 82306; 82728; 83540; 83550; 83735; 83970; 84100; 84550; 85025

== ENCOUNTER → 2022-07-07 | Outpatient (CLI) | payer MEDICARE, BC ==
[2022-07-07 15:32] LABS: Basophils # (A) 0.04 X 10*3/uL (0.00-0.10); Basophils % (A) 0.7 %; Eosinophils # (A) 0.17 X 10*3/uL (0.04-0.35); Eosinophils % (A) 2.8 %; HCT 45.4 % (39.6-50.0); HGB 14.6 g/dL (13.0-17.0); Immature Grans, Automated 0.3 %; Lymphocytes # (A) 1.19 X 10*3/uL (0.90-5.00); Lymphocytes % (A) 19.5 %; MCH 30.2 pg (27.0-32.0); MCHC 32.2 g/dL (32.0-37.0); Mean Platelet Volume 11.3 fL (9.5-12.2); Monocytes # (A) 0.64 X 10*3/uL (0.20-1.00); Monocytes % (A) 10.5 %; NRBC Per 100 WBC 0 /100 WBCS (0.0-0.0); Neutrophils # (A) 4.03 X 10*3/uL (1.80-7.70); Neutrophils % (A) 66.2 %; Platelet Count 129 X 10*3/uL (140-440); RBC 4.83 X 10*6/uL (4.40-5.60); RDW 13.5 % (11.5-14.5); WBC 6.09 X 10*3/uL (4.50-10.00)
[2022-07-07 15:44] LABS: % Iron Saturation 9.42 (15.00-50.00); African American GFR (CKD) 38.1 (60.0-200.0); Albumin 3.9 g/dL (3.8-4.9); Albumin/Globulin Ratio 1.48 (1.60-3.17); BUN/Creat Ratio 13.4 Ratio (12.00-20.00); Globulin 2.6 g/dL (1.6-3.3); Magnesium 2.4 mg/dL (1.5-2.4); Non-African American GFR(CKD) 32.9 (60.0-200.0); Phosphorus 3.9 mg/dL (2.4-5.1); Potassium 3.8 mmol/L (3.5-5.5); Total Bilirubin 0.6 mg/dL (0.30-1.20); Total Protein 6.5 g/dL (6.2-8.2); Uric Acid 8.3 mg/dL (3.7-8.7)
== END | disposition home or self-care (01) ==
LOC: LABWHC1 09:31
PROVIDERS: ATTEND Internal Medicine
DX: E55.9 Vitamin D deficiency, unspecified (principal); N39.0 Urinary tract infection, site not specified; E21.3 Hyperparathyroidism, unspecified; M10.9 Gout, unspecified; N18.32 Chronic kidney disease, stage 3b; D63.1 Anemia in chronic kidney disease
CPT/HCPCS: 36415; 80053; 82306; 82728; 83540; 83550; 83735; 83970; 84100; 84550; 85025

== ENCOUNTER 2023-07-09 05:02 | Inpatient (IN) | payer MEDICARE, BC ==
[2023-07-09 05:58] LABS: Basophils % (A) 0 %; Eosinophils % (A) 1 %; HCT 52.3 % (39.0-53.0); HGB 16.9 gm/dL (13.0-17.5); Lymphocytes # (A) 0.5 k/uL (1.0-4.8); Lymphocytes % (A) 11 %; MCH 30.6 pg (25.0-35.0); MCHC 32.4 g/dL (31.0-37.0); MCV 94.4 fL (80.0-100.0); Mean Platelet Volume 9.5; Monocytes # (A) 0.2 k/uL (0-1.0); Monocytes % (A) 5 %; Neutrophils # (A) 3.5 k/uL (1.3-7.7); Neutrophils % (A) 81 %; Platelet Count 100 k/uL (150-450); RBC 5.54 m/uL (4.30-5.90); RDW 14.4 % (11.5-15.5); WBC 4.4 k/uL (3.8-10.6)
[2023-07-09] MEDS: SODIUM CHLORIDE 0.9% 1,000 ML IV ONE (06:05)
--- NOTE | 2023-07-09 06:14 | XR ---
EXAMINATION TYPE: XR chest 2V DATE OF EXAM: 07/09/2023 COMPARISON: Chest x-ray October 10, 2021 HISTORY: Difficulty in breathing. TECHNIQUE: Frontal and lateral views of the chest are obtained. FINDINGS: Persistent cardiomegaly. Central increased opacities bilaterally. More focal left basilar opacity on current study. No pleural effusion or pneumothorax seen bilaterally. The osseous structur es are intact. IMPRESSION: Mild cardiomegaly with central opacities favoring mild edema. Correlate for fluid overlo ad state/CHF exacerbation. Additional areas of acute infiltrate in the left lower lung cannot be excl uded on current study.
[2023-07-09 06:15] LABS: INR 1.2 (<1.2); Partial Thromboplastin Time 23.7 sec (22.0-30.0); Prothrombin Time 13.1 sec (10.0-12.5)
[2023-07-09 06:37] LABS: ALT 40 U/L (4-49); AST 50 U/L (17-59); African American GFR (CKD) 39 (>60 ml/min/1.73 sqM); Albumin 3.9 g/dL (3.5-5.0); Alkaline Phosphatase 126 U/L (38-126); Anion Gap 10 mmol/L; Blood Urea Nitrogen 32 mg/dL (9-20); Calcium 8.6 mg/dL (8.4-10.2); Carbon Dioxide 29 mmol/L (22-30); Chloride 99 mmol/L (98-107); Glucose 143 mg/dL (74-99); Non-African American GFR(CKD) 34 (>60 ml/min/1.73 sqM); Sodium 138 mmol/L (137-145); Total Bilirubin 1.4 mg/dL (0.2-1.3); Total Protein 7.2 g/dL (6.3-8.2)
[2023-07-09] MEDS ORDERED: PNEUMONIA PROTOCOL UTILIZED 1 EACH MISC PO PRN (07:02)
--- NOTE | 2023-07-09 07:06 | ED ---
SOB HPI - General Chief Complaint: Shortness of Breath Stated Complaint: SOB cough Time Seen by Provider: 07/09/23 05:41 Source: patient Mode of arrival: ambulatory Limitations: no limitations - History of Present Illness Initial Comments: Raphael das 78-year-old with a history of CHF who presents the ER today for evaluation of cough and hemoptysis. Patient reports he had a couple day of cough it has been minimally productive he feels somewhat short of breath, today he noted his cough is streaked with blood. This is new for him. - Related Data Home Medications Medication Instructions Recorded Confirmed Atorvastatin [Lipitor] 40 mg PO DAILY 11/13/20 10/10/21 Docusate [Colace] 100 mg PO DAILY 11/13/20 10/10/21 lisinopriL [Zestril] 10 mg PO DAILY 11/13/20 10/10/21 Famotidine [Pepcid] 20 mg PO DAILY 10/10/21 10/10/21 Metoprolol Succinate [Toprol XL] 200 mg PO HS 10/10/21 10/10/21 Multivitamins, Thera [Multivitamin 1 tab PO DAILY 10/10/21 10/10/21 (formulary)] Ubidecarenone [Co Q-10] 400 mg PO DAILY 10/10/21 10/10/21 Previous Rx's Medication Instructions Recorded Aspirin 81 mg PO DAILY #30 chew 08/03/16 Apixaban [Eliquis] 5 mg PO BID 30 Days #60 tab 11/15/20 Bumetanide [BUMEX] 2 mg PO DAILY 30 Days #30 tablet 10/12/21 Digoxin [Lanoxin] 125 mcg PO DAILY 30 Days #30 tab 10/12/21 Allergies Allergy/AdvReac Type Severity Reaction Status Date / Time No Known Allergies Allergy Verified 07/09/23 05:17 Review of Systems ROS Statement: Those systems with pertinent positive or pertinent negative responses have been documented in the HPI. ROS Other: All systems not noted in ROS Statement are negative. Past Medical History Past Medical History: Hyperlipidemia, Hypertension, Myocardial Infarction (OK) Additional Past Medical History / Comment(s): COVID 2019 Last Myocardial Infarction Date:: 07/31/2016 History of Any Multi-Drug Resistant Organisms: None Reported Past Surgical History: Cholecystectomy, Heart Catheterization With Stent, Hernia Repair Additional Past Surgical History / Comment(s): 1 stent Past Anesthesia/Blood Transfusion Reactions: No Reported Reaction Date of Last Stent Placement:: 07/28/2016 Past Psychological History: No Psychological Hx Reported Smoking Status: Former smoker Past Alcohol Use History: None Reported Past Drug Use History: None Reported - Past Family History Mother Family Medical History: Cancer Father Family Medical History: CVA/TIA General Exam - General Exam Comments Initial Comments: Physical Exam GENERAL: Patient is well-developed and well-nourished. Patient is nontoxic and well-hydrated and is in no distress. HENT: Normocephalic, Atraumatic. EYES: PERRL, EOMI PULMONARY: Breath sounds bilateral lower lobes CARDIOVASCULAR: RRR Pitting edema in bilateral lower extremities ABDOMEN: Non-distended SKIN: No rashes or bruising : Deferred NEUROLOGIC: Alert and oriented Normal speech Normal gait MUSCULOSKELETAL: Moving all extremities with no apparent injury PSYCHIATRIC: No SI/HI Limitations: no limitations Course Vital Signs 07/09/23 07/09/23 07/09/23 05:12 06:17 07:45 Temperature 97.8 F Pulse Rate 107 H 105 H 98 Respiratory 18 19 17 Rate Blood Pressure 137/84 135/96 127/104 O2 Sat by Pulse 94 L 95 95 Oximetry Medical Decision Making - Medical Decision Making Was pt. sent in by a medical professional or institution ([facility], COIL [employer]ER, urgent care, hospital, or fci...) When possible be specific @ -No Did you speak to anyone other than the patient for history (EMS, parent, family, police, friend...)? What history was obtained from this source @ -No Did you review nursing and triage notes (agree or disagree)? Why? @ -I reviewed and agree with nursing and triage notes Were old charts reviewed (outside hosp., previous admission, EMS record, old EKG, old radiological studies, urgent care reports/EKG's, fci records)? Report findings @ -No old charts were reviewed Differential Diagnosis (chest pain, altered mental status, abdominal pain women, abdominal pain men, vaginal bleeding, weakness, fever, dyspnea, syncope, headache, dizziness, GI bleed, back pain, seizure, CVA, palpatations, mental health)? @ -Not applicable EKG interpreted by me (3pts min.). @ -As above X-rays interpreted by me (1pt min.). @ -None done CT interpreted by me (1pt min.). @ -None done U/S interpreted by me (1pt. min.). @ -None done What testing was considered but not performed or refused? (CT, X-rays, U/S, labs)? Why? @ -None What meds were considered but not given or refused? Why? @ -None Did you discuss the management of the patient with other professionals (professionals i.e. DrEden, PA, COIL ASSEMBLER, lab, RT, psych nurse, sr. social media & mobile manager, physical therapy director, teacher, fire control officer, casework specialist)? Give summary @ -No Was smoking cessation discussed for >3mins.? @ -No Was critical care preformed (if so, how long)? @ -No Were there social determinants of health that impacted care today? How? (Homelessness, low income, unemployed, alcoholism, drug addiction, transportation, low edu. Level, literacy, decrease access to med. care, penitentiary, rehab)? @ -No Was there de-escalation of care discussed even if they declined (Discuss DNR or withdrawal of care, Hospice)? DNR status @ -No What co-morbidities impacted this encounter? (DM, HTN, Smoking, COPD, CAD, Cancer, CVA, ARF, Chemo, Hep., AIDS, mental health diagnosis, sleep apnea, morbid obesity)? @ -None Was patient admitted / discharged? Hospital course, mention meds given and route , prescriptions, significant lab abnormalities, going to OR and other pertinent info. @ -Admit Thoroughly gentleman with chest x-ray concerning for pneumonia having scant hemoptysis. Patient will be admitted for evaluation by pulmonology. Patient was agreeable to this plan. IV antibiotics ordered and patient admitted. Undiagnosed new problem with uncertain prognosis? @ -No Drug Therapy requiring intensive monitoring for toxicity (Heparin, Nitro, Insulin, Cardizem)? @ -No Were any procedures done? @ -No Diagnosis/symptom? @ -Pneumonia and hemoptysis Acute, or Chronic, or Acute on Chronic? @ -Acute Uncomplicated (without systemic symptoms) or Complicated (systemic symptoms)? @ -Default Side effects of treatment? @ -No Exacerbation, Progression, or Severe Exacerbation? @ -No Poses a threat to life or bodily function? How? (Chest pain, [place], [place], pneumonia, PE, COPD, DKA, ARF, appy, cholecystitis, CVA, Diverticulitis, Homicidal, Suicidal, threat to staff... and all critical care pts) @ -Potentially if it worsens - Lab Data Result diagrams: 07/09/23 05:35 07/09/23 05:35 Lab Results 07/09/23 07/09/23 07/09/23 Range/Units 05:35 05:35 05:35 WBC 4.4 (3.8-10.6) k/uL RBC 5.54 (4.30-5.90) m/uL Hgb 16.9 (13.0-17.5) gm/dL Hct 52.3 (39.0-53.0) % MCV 94.4 (80.0-100.0) fL MCH 30.6 (25.0-35.0) pg MCHC 32.4 (31.0-37.0) g/dL RDW 14.4 (11.5-15.5) % Plt Count 100 L (150-450) k/uL MPV 9.5 Neutrophils % 81 % Lymphocytes % 11 % Monocytes % 5 % Eosinophils % 1 % Basophils % 0 % Neutrophils # 3.5 (1.3-7.7) k/uL Lymphocytes # 0.5 L (1.0-4.8) k/uL Monocytes # 0.2 (0-1.0) k/uL Eosinophils # 0.0 (0-0.7) k/uL Basophils # 0.0 (0-0.2) k/uL PT 13.1 H (10.0-12.5) sec INR 1.2 H (<1.2) APTT 23.7 (22.0-30.0) sec Sodium 138 (137-145) mmol/L Potassium (3.5-5.1) mmol/L Chloride 99 (98-107) mmol/L Carbon Dioxide 29 (22-30) mmol/L Anion Gap 10 mmol/L BUN 32 H (9-20) mg/dL Creatinine 1.89 H (0.66-1.25) mg/dL Est GFR (CKD-EPI)AfAm 39 (>60 ml/min/1.73 sqM) Est GFR (CKD-EPI)NonAf 34 (>60 ml/min/1.73 sqM) Glucose 143 H (74-99) mg/dL Calcium 8.6 (8.4-10.2) mg/dL Total Bilirubin 1.4 H (0.2-1.3) mg/dL AST 50 (17-59) U/L ALT 40 (4-49) U/L Alkaline Phosphatase 126 (38-126) U/L Troponin I (0.000-0.034) ng/mL Total Protein 7.2 (6.3-8.2) g/dL Albumin 3.9 (3.5-5.0) g/dL Influenza Type A (PCR) (Not Detectd) Influenza Type B (PCR) (Not Detectd) RSV (PCR) (Not Detectd) SARS-CoV-2 (PCR) (Not Detectd) 07/09/23 07/09/23 Range/Units 05:35 06:05 WBC (3.8-10.6) k/uL RBC (4.30-5.90) m/uL Hgb (13.0-17.5) gm/dL Hct (39.0-53.0) % MCV (80.0-100.0) fL MCH (25.0-35.0) pg MCHC (31.0-37.0) g/dL RDW (11.5-15.5) % Plt Count (150-450) k/uL MPV Neutrophils % % Lymphocytes % % Monocytes % % Eosinophils % % Basophils % % Neutrophils # (1.3-7.7) k/uL Lymphocytes # (1.0-4.8) k/uL Monocytes # (0-1.0) k/uL Eosinophils # (0-0.7) k/uL Basophils # (0-0.2) k/uL PT (10.0-12.5) sec INR (<1.2) APTT (22.0-30.0) sec Sodium (137-145) mmol/L Potassium (3.5-5.1) mmol/L Chloride (98-107) mmol/L Carbon Dioxide (22-30) mmol/L Anion Gap mmol/L BUN (9-20) mg/dL Creatinine (0.66-1.25) mg/dL Est GFR (CKD-EPI)AfAm (>60 ml/min/1.73 sqM) Est GFR (CKD-EPI)NonAf (>60 ml/min/1.73 sqM) Glucose (74-99) mg/dL Calcium (8.4-10.2) mg/dL Total Bilirubin (0.2-1.3) mg/dL AST (17-59) U/L ALT (4-49) U/L Alkaline Phosphatase (38-126) U/L Troponin I 0.126 H* (0.000-0.034) ng/mL Total Protein (6.3-8.2) g/dL Albumin (3.5-5.0) g/dL Influenza Type A (PCR) Not Detected (Not Detectd) Influenza Type B (PCR) Not Detected (Not Detectd) RSV (PCR) Not Detected (Not Detectd) SARS-CoV-2 (PCR) Not Detected (Not Detectd) - EKG Data -: EKG Interpreted by Wy EKG Comments: EKG obtained due to complaint of shortness of breath EKG obtained at 5:30 AM rate is 116 rhythm is narrow complex irregularly irregular rhythm consistent with patient's history of atrial fibrillation. No acute ST elevations or depressions no evidence of acute ischemia or infarction. Disposition Clinical Impression: Congestive heart failure, Acute pulmonary edema, Hemoptysis Disposition: ADMITTED IP TO THIS HOSP Condition: Serious Is patient prescribed a controlled substance at d/c from ED?: No
[2023-07-09] MEDS: AZITHROMYCIN 500 MG in SODIUM CHLORIDE 0.9% 250 ML IVPB STA (08:05)
[2023-07-09] MEDS: FUROSEMIDE 10 MG/ML 4 ML VIAL IV SCH (09:29)
[2023-07-09] MEDS: METOPROLOL SUCCINATE (ER) 100 MG TAB.ER.24H PO SCH ×2 (09:29→20:22)
[2023-07-09] MEDS: ONDANSETRON 4 MG/2 ML VIAL IVP PRN (10:33)
--- NOTE | 2023-07-09 11:22 | P.CNPUL ---
History of Present Illness Consult date: 07/09/23 Requesting physician: Briana Barrera Reason for consult: dyspnea, cough, hypoxemia, pneumonia, abnormal CXR/CT Chief complaint: Shortness of breath. History of present illness: Pulmonary consult dated July 09, 2023. 78-year-old male, seen in the emergency department, room 20. The patient presented to the emergency department, at 5:00 in the morning, on July 08, complaining of increasing shortness of breath, cough, and hemoptysis. The patient apparently has a history of heart failure, hyperlipidemia, previous heart catheterization with stent, hypertension, and previous myocardial infarction. Much of the history was obtained from the patient's who is in the room. Currently, the patient is on room air, and also receiving saline IV. The patient was given a dose of Lasix, and started on antibiotics in the form of Rocephin, and azithromycin. The patient's chest x-ray in my opinion, could be consistent with either heart failure or pneumonia. In that regard, we placed an order for a procalcitonin level, and an N-terminal proBNP. Labs include a white count of 4.4, hemoglobin 16.9, hematocrit 52.3, and a platelet count of 100,000. PT 13.1, INR 1.2, and PTT 23.7. BUN is 32, creatinine 1.89. Glucose is 143. Troponin 0.126. Albumin is 3.9. He tested negative for influenza, RSV, and coronavirus. Chest x-ray shows mild cardiomegaly, and possible CHF, versus pneumonia. Review of Systems REVIEW OF SYSTEMS: CONSTITUTIONAL: [Negative.] NEUROLOGIC: [ Negative.] HEENT: [ Negative.] CARDIAC: [Negative.] PULMONARY: Shortness of breath, cough, minimal hemoptysis. GI: [Negative.] : [Negative.] RHEUMATOLOGIC: [ Negative.] IMMUNOLOGIC: [ Negative.] ENDOCRINE: [Negative. ] DERMATOLOGIC: [Negative.] Past Medical History Past Medical History: Hyperlipidemia, Hypertension, Myocardial Infarction ([place]) Additional Past Medical History / Comment(s): COVID 2019 Last Myocardial Infarction Date:: 07/31/2016 History of Any Multi-Drug Resistant Organisms: None Reported Past Surgical History: Cholecystectomy, Heart Catheterization With Stent, Hernia Repair Additional Past Surgical History / Comment(s): 1 stent Past Anesthesia/Blood Transfusion Reactions: No Reported Reaction Date of Last Stent Placement:: 07/28/2016 Past Psychological History: No Psychological Hx Reported Smoking Status: Former smoker Past Alcohol Use History: None Reported Past Drug Use History: None Reported - Past Family History Mother Family Medical History: Cancer Father Family Medical History: CVA/TIA Medications and Allergies Home Medications Medication Instructions Recorded Confirmed Type Atorvastatin [Lipitor] 40 mg PO DAILY 11/13/20 07/09/23 History Docusate [Colace] 100 mg PO BID 11/13/20 07/09/23 History lisinopriL [Zestril] 10 mg PO DAILY 11/13/20 07/09/23 History Apixaban [Eliquis] 5 mg PO BID 30 Days #60 tab 11/15/20 07/09/23 Rx Metoprolol Succinate [Toprol XL] 200 mg PO HS 10/10/21 07/09/23 History Multivitamins, Thera [Multivitamin 1 tab PO DAILY 10/10/21 07/09/23 History (formulary)] Ubidecarenone [Co Q-10] 400 mg PO DAILY 10/10/21 07/09/23 History Bumetanide [BUMEX] 2 mg PO DAILY 30 Days #30 tablet 10/12/21 07/09/23 Rx Gabapentin [Neurontin] 300 mg PO HS 07/09/23 07/09/23 History Omeprazole [PriLOSEC] 20 mg PO HS 07/09/23 07/09/23 History calcitrioL [Rocaltrol] 0.25 mcg PO Q7D 07/09/23 07/09/23 History Allergies Allergy/AdvReac Type Severity Reaction Status Date / Time No Known Allergies Allergy Verified 07/09/23 09:36 Physical Exam Osteopathic Statement: *. No significant issues noted on an osteopathic structural exam other than those noted in the History and Physical/Consult. Vitals: Vital Signs Temp Pulse Resp BP Pulse Ox 07/09/23 10:56 113 H 32 H 96 07/09/23 10:45 98.3 F 124 H 46 H 96/81 07/09/23 09:00 112 H 18 129/100 97 07/09/23 07:45 98 17 127/104 95 07/09/23 06:17 105 H 19 135/96 95 07/09/23 05:12 97.8 F 107 H 18 137/84 94 L Intake and Output 07/08/23 07/09/23 07/09/23 22:59 06:59 14:59 Other: Weight 77.111 kg No acute distress, oriented 3. Currently on room air. HEENT examination is grossly unremarkable. Mucous membranes are moist. No oral lesions. Neck supple. Full range of motion. No adenopathy thyromegaly or neck vein distention. Cardiovascular examination reveals regular rhythm rate. S1-S2 normal. No S3 or S4. No discernible murmur noted. Heart sounds are distant. Heart rate 100 bpm. Lungs reveal scattered rhonchi and crackles. No wheezes. Breath sounds equal bilaterally. Saturations on room air are 97%. Abdomen soft bowel sounds are heard. No masses or tenderness. Extremities are intact. No cyanosis clubbing or edema. Skin is without rash or lesion. Neurologic examination is brief but nonfocal. Results - Laboratory Findings CBC and BMP: 07/09/23 05:35 07/09/23 05:35 PT/INR, D-dimer PT 13.1 sec (10.0-12.5) H 07/09/23 05:35 INR 1.2 (<1.2) H 07/09/23 05:35 Abnormal lab findings: Abnormal Labs 07/09/23 07/09/23 07/09/23 05:35 05:35 05:35 Plt Count 100 L Lymphocytes # 0.5 L PT 13.1 H INR 1.2 H BUN 32 H Creatinine 1.89 H Glucose 143 H Total Bilirubin 1.4 H Troponin I 07/09/23 05:35 Plt Count Lymphocytes # PT INR BUN Creatinine Glucose Total Bilirubin Troponin I 0.126 H* - Diagnostic Findings Chest x-ray: image reviewed Assessment and Plan Assessment: Acute shortness of breath, with mild hemoptysis, which may relate to CHF, and or pneumonia. History of hypertension. History of CAD, with previous catheterization and stent placement. History of myocardial infarction. History of hyperlipidemia. History of congestive heart failure. Prior history of tobacco use. Plan: Plan dated July 09, 2023. The patient is seen in the emergency department, room 20. He was brought in be cause of shortness of breath, cough, and hemoptysis. His chest x-ray could be consistent with fluid overload, and or pneumonia. He was started on antibiotics, given some Lasix, we ordered a procalcitonin level, as well as an N-terminal proBNP level. We will continue to follow and make recommendations along the way. The patient's overall prognosis remains guarded. We also added some breathing treatments onto this patient's medication list. Time with Patient: Greater than 30
[2023-07-09] MEDS: IPRATROPIUM-ALBUTEROL 3 ML NEB INHALATION SCH (11:42)
--- NOTE | 2023-07-09 12:04 | P.CRDCN ---
History of Present Illness History of present illness: HISTORY OF PRESENT ILLNESS: This is a 78-year-old male with a past medical history significant for hypertension, hyperlipidemia, diabetes, chronic kidney disease, coronary artery disease, and atrial fibrillation. Patient follows in the office with Dr. Limon. We have been asked to see the patient in consultation for elevated troponins. Patient examined at the bedside in the emergency room. Patient states that him and his have been having cold symptoms for the past 3 weeks. He states he has been coughing for the past 3 days. He reports he has been having blood- tinged sputum for the past day or two. He also reports he has been wheezing at home. Patient also reports having shortness of breath at night. He denies any chest pain or pressure. DIAGNOSTICS: - EKG reveals atrial fibrillation with mild RVR. - Chest xray mild cardiomegaly and central opacities favoring mild edema. Correlate for fluid overload state/CHF. Additional areas of acute infiltrate in left lower lung cannot be excluded.. - Laboratory data: WBC 4.4. Hemoglobin 16.9. Platelet count 100. Sodium 138. BUN 32. Creatinine 1.89. Troponin 0.126. - Current home cardiac medications include Eliquis 5 mg twice a day, Lipitor 40 mg daily, lisinopril 10 mg daily, Bumex 2 mg daily, metoprolol succinate 200 mg at night. - Most recent echocardiogram obtained in October 2021 revealed ejection fraction le ss than 20%, mild pulmonary hypertension, moderate TR - Cardiac catheterization history: 07/2016 with stenting of the mid LAD REVIEW OF SYSTEMS: At the time of my exam: CONSTITUTIONAL: Denies fever or chills. HEENT: Denies blurred vision, vision changes, or eye pain. Denies hemoptysis CARDIOVASCULAR: Denies chest pain. Denies orthopnea. Denies PND. Denies palpitations RESPIRATORY: Denies shortness of breath. GASTROINTESTINAL: Denies abdominal pain. Denies nausea or vomiting. HEMATOLOGIC: Denies bleeding disorders. GENITOURINARY: Denies any blood in urine. SKIN: Denies pruitis. Denies rash. PHYSICAL EXAM: VITAL SIGNS: Reviewed. GENERAL: Well-developed in no acute distress. HEENT: Head is normocephalic. Pupils are equal, round. Sclerae anicteric. Mucous membranes of the mouth are moist. Neck supple. No JVD or thyromegaly LUNGS: Respirations even and unlabored. Lungs with expiratory wheezing noted HEART: Regular rate and rhythm. S1 and S2 heard. ABDOMEN: Soft. Nondistended. Nontender. EXTREMITIES: Normal range of motion. No clubbing or cyanosis. Peripheral pulses intact. Bilateral lower extremity edema NEUROLOGIC: Awake and alert. Oriented x 3. ASSESSMENT: Shortness of breath Acute on chronic heart failure with reduced EF, 20% Elevated troponin, likely type II [place] secondary to oxygen supply/demand mismatch Hemoptysis Coronary artery disease with previous stenting of the mid LAD Ischemic cardiomyopathy Persistent atrial fibrillation Chronic kidney disease Hypertension Hyperlipidemia Diabetes PLAN: Resume home cardiac medications We will hold Eliquis for 2 days secondary to hemoptysis and then resume if hemoglobin remained stable Begin IV Lasix 40 mg every 12 hours Daily weights, accurate intake and output, and monitoring of kidney function Further recommendations pending patient course Nurse practitioner note has been reviewed by physician. Signing provider agrees with the documented findings, assessment, and plan of care documented by LEARNING PROGRAM MANAGER as a scribe. Past Medical History Past Medical History: Hyperlipidemia, Hypertension, Myocardial Infarction (OK) Additional Past Medical History / Comment(s): COVID 2019 Last Myocardial Infarction Date:: 07/31/2016 History of Any Multi-Drug Resistant Organisms: None Reported Past Surgical History: Cholecystectomy, Heart Catheterization With Stent, Hernia Repair Additional Past Surgical History / Comment(s): 1 stent Past Anesthesia/Blood Transfusion Reactions: No Reported Reaction Date of Last Stent Placement:: 07/28/2016 Past Psychological History: No Psychological Hx Reported Smoking Status: Former smoker Past Alcohol Use History: None Reported Past Drug Use History: None Reported - Past Family History Mother Family Medical History: Cancer Father Family Medical History: CVA/TIA Medications and Allergies Home Medications Medication Instructions Recorded Confirmed Type Atorvastatin [Lipitor] 40 mg PO DAILY 11/13/20 07/09/23 History Docusate [Colace] 100 mg PO BID 11/13/20 07/09/23 History lisinopriL [Zestril] 10 mg PO DAILY 11/13/20 07/09/23 History Apixaban [Eliquis] 5 mg PO BID 30 Days #60 tab 11/15/20 07/09/23 Rx Metoprolol Succinate [Toprol XL] 200 mg PO HS 10/10/21 07/09/23 History Multivitamins, Thera [Multivitamin 1 tab PO DAILY 10/10/21 07/09/23 History (formulary)] Ubidecarenone [Co Q-10] 400 mg PO DAILY 10/10/21 07/09/23 History Bumetanide [BUMEX] 2 mg PO DAILY 30 Days #30 tablet 10/12/21 07/09/23 Rx Gabapentin [Neurontin] 300 mg PO HS 07/09/23 07/09/23 History Omeprazole [PriLOSEC] 20 mg PO HS 07/09/23 07/09/23 History calcitrioL [Rocaltrol] 0.25 mcg PO Q7D 07/09/23 07/09/23 History Allergies Allergy/AdvReac Type Severity Reaction Status Date / Time No Known Allergies Allergy Verified 07/09/23 09:36 Physical Exam Vitals: Vital Signs Temp Pulse Resp BP Pulse Ox 07/09/23 11:45 92 L 07/09/23 11:42 113 H 07/09/23 10:56 113 H 32 H 96 07/09/23 10:45 98.3 F 124 H 46 H 96/81 07/09/23 09:00 112 H 18 129/100 97 07/09/23 07:45 98 17 127/104 95 07/09/23 06:17 105 H 19 135/96 95 07/09/23 05:12 97.8 F 107 H 18 137/84 94 L Intake and Output 07/08/23 07/09/23 07/09/23 22:59 06:59 14:59 Other: Weight 77.111 kg Results 07/09/23 05:35 07/09/23 05:35 Cardiac Enzymes 07/09/23 07/09/23 Range/Units 05:35 05:35 AST 50 (17-59) U/L Troponin I 0.126 H* (0.000-0.034) ng/mL Coagulation 07/09/23 Range/Units 05:35 PT 13.1 H (10.0-12.5) sec APTT 23.7 (22.0-30.0) sec CBC 07/09/23 Range/Units 05:35 WBC 4.4 (3.8-10.6) k/uL RBC 5.54 (4.30-5.90) m/uL Hgb 16.9 (13.0-17.5) gm/dL Hct 52.3 (39.0-53.0) % Plt Count 100 L (150-450) k/uL Comprehensive Metabolic Panel 07/09/23 Range/Units 05:35 Sodium 138 (137-145) mmol/L Potassium (3.5-5.1) mmol/L Chloride 99 (98-107) mmol/L Carbon Dioxide 29 (22-30) mmol/L BUN 32 H (9-20) mg/dL Creatinine 1.89 H (0.66-1.25) mg/dL Glucose 143 H (74-99) mg/dL Calcium 8.6 (8.4-10.2) mg/dL AST 50 (17-59) U/L ALT 40 (4-49) U/L Alkaline Phosphatase 126 (38-126) U/L Total Protein 7.2 (6.3-8.2) g/dL Albumin 3.9 (3.5-5.0) g/dL Current Medications Generic Name Dose Route Start Last Admin Trade Name Freq PRN Reason Stop Dose Admin Albuterol/Ipratropium 3 ml 07/09/23 12:00 07/09/23 11:42 Ipratropium-Albuterol 3 Ml Neb INHALATION 3 ml RT-QID ALICJA Administration Atorvastatin Calcium 40 mg 07/09/23 21:00 Atorvastatin 40 Mg Tab PO HS ALICJA Furosemide 40 mg 07/09/23 09:00 07/09/23 09:29 Furosemide 10 Mg/Ml 4 Ml Vial IV 40 mg Q12HR ALICJA Administration Metoprolol Succinate 200 mg 07/09/23 09:00 07/09/23 09:29 Metoprolol Succinate (Er) 100 Mg Tab.Er.24h PO 200 mg DAILY ALICJA Administration Miscellaneous Information 1 each 07/09/23 07:02 Pneumonia Protocol Utilized 1 Each Misc PO ONCE PRN Per Protocol Ondansetron HCl 4 mg 07/09/23 09:59 07/09/23 10:33 Ondansetron 4 Mg/2 Ml Vial IVP 4 mg Q6HR PRN Administration Nausea And Vomiting Intake and Output 07/08/23 07/09/23 07/09/23 22:59 06:59 14:59 Other: Weight 77.111 kg 07/09/23 05:35 07/09/23 05:35
[2023-07-09] MEDS ORDERED: IPRATROPIUM-ALBUTEROL 3 ML NEB INHALATION PRN (13:43)
[2023-07-09] MEDS: PANTOPRAZOLE 40 MG/10 ML VIAL IVP SCH (16:07)
[2023-07-09] MEDS: ATORVASTATIN 40 MG TAB PO SCH ×2 (16:07→20:27)
[2023-07-09] MEDS: GABAPENTIN 300 MG CAP PO SCH (20:22)
[2023-07-09] MEDS: DOCUSATE 100 MG CAP PO SCH (20:22)
--- NOTE | 2023-07-10 08:04 | XR ---
EXAMINATION TYPE: XR chest 2V DATE OF EXAM: 07/10/2023 COMPARISON: 07/09/2023 HISTORY: Shortness of breath TECHNIQUE: Frontal and lateral views of the chest are obtained. FINDINGS: Scattered senescent parenchymal changes noted. Hyperinflation compatible with COPD. Left perihilar and left basilar infiltrate persist and may have progressed in the interval. Mild righ t perihilar infiltrate suggested. Heart size is stable. Mediastinal structures are stable and grossly unremarkable. No evidence for hilar prominence. Degenerative changes dorsal spine. IMPRESSION: 1. Left perihilar and left basilar infiltrate persist and may have progressed in the interval. Mild r ight perihilar infiltrate suggested.
[2023-07-10] MEDS ORDERED: NON FORMULARY DRUG (Ubidecarenone [Co Q-10] 400 MG Capsule) PO SCH (09:00)
[2023-07-10] MEDS: MULTIVITAMINS, THERA 1 EACH TAB PO SCH (09:59)
--- NOTE | 2023-07-10 10:07 | P.HPIM ---
History of Present Illness H&P Date: 07/09/23 This is a pleasant 78-year-old male who presented to the emergency department with with cough and hemoptysis. Patient and at the bedside report some viral illness had been going through the house over the last week and patient had not been feeling well eating more short of breath with exertion and having coughing fits and the hemoptysis started yesterday with scant streaky blood noted in the sputum. Patient does not normally wear oxygen outpatient and follows with Dr. Barrera in the outpatient setting with a past medical history of hyperlipidemia, hypertension, previous myocardial infarction, former smoker of many years ago and denies any other illicit drugs or alcohol use. Patient is currently on Eliquis with history of atrial fibrillation. In the ER, chest x- ray showed mild cardiomegaly with central opacities favoring edema correlate for fluid overload and CHF exacerbation additional areas of acute infiltrate in the left lower lung cannot be entirely excluded. EKG shows A-fib with RVR patient being admitted for CHF exacerbation with pulmonary and cardiology on consult. L abs reviewed show a white count of 4.4, hemoglobin is 16.9, platelets are 100, INR is 1.2, D-dimer 0.77, age-appropriate, sodium 138, BUN 32 with a creatinine of 1.89 glucose elevated at 143, total bili is 1.4 troponin 0.126 with a repeat 0.151 BNP is 20,000 and all viral testing including influenza, RSV, COVID are all negative. Patient was admitted and started on ceftriaxone and Zithromax along with IV Lasix. REVIEW OF SYSTEMS: CONSTITUTIONAL: No fever, no malaise, reports of fatigue. HEENT: No recent visual problems or hearing problems. Denied any sore throat. CARDIOVASCULAR: No chest pain, orthopnea, PND, no palpitations, no syncope. PULMONARY: Reports of shortness of breath with exertion that had been progressively getting worse, reports cough, reports hemoptysis. GASTROINTESTINAL: No diarrhea, no nausea, no vomiting, no abdominal pain. Reports decreased appetite NEUROLOGICAL: No headaches, reports generalized weakness, no numbness. HEMATOLOGICAL: Denies any bleeding or petechiae. GENITOURINARY: Denies any burning micturition, frequency, or urgency. MUSCULOSKELETAL/RHEUMATOLOGICAL: Denies any joint pain, swelling, or any muscle pain. ENDOCRINE: Denies any polyuria or polydipsia. The rest of the 14-point review of systems is negative. PHYSICAL EXAMINATION: GENERAL: The patient is alert and oriented x3, short of breath and dyspneic on conversation. Well developed, elderly appearing, ill-appearing HEENT: Pupils are round and equally reacting to light. EOMI. No scleral icterus. No conjunctival pallor. Normocephalic, atraumatic. No pharyngeal erythema. No t hyromegaly. CARDIOVASCULAR: S1 and S2 muffled, tachycardic, irregular PULMONARY: Breath sounds diminished bilaterally with scattered wheezing and rhonchi noted. Some crackles noted at the bases. ABDOMEN: Soft, nontender, nondistended, normoactive bowel sounds. No palpable organomegaly. MUSCULOSKELETAL: No joint swelling or deformity. EXTREMITIES: No cyanosis, clubbing, or pedal edema. NEUROLOGICAL: Gross neurological examination did not reveal any focal deficits. Diffusely weak SKIN: No rashes. Assessment: Shortness of breath with hemoptysis, possibly secondary to CHF exacerbation and is on Eliquis Generalized weakness with gait dysfunction history of congestive heart failure with acute on chronic heart failure exacerbation with reduced EF. Most recent EF is 20% Elevated troponin, likely type II CA due to CHF exacerbation Dyspnea with minimal exertion with acute hypoxic respiratory failure likely secondary to CHF exacerbation Elevated BNP of 20,000 secondary to CHF exacerbation History of atrial fibrillation, uncontrolled with RVR Hypertension history History of coronary artery disease with stents previously History of ischemic cardiomyopathy Chronic kidney disease history History of myocardial infarction Hyperlipidemia Former smoker GI prophylaxis DVT prophylaxis Full code Plan: Patient with increased shortness of breath and dyspnea does not normally wear oxygen outpatient currently requiring high flow and was noted to be cyanotic on initial exam with pulse ox is in the low 60s to 70s and once a good waveform was captured Patient with significant wheezing on exertion with some crackles, started on IV Lasix and will continue. Monitor kidney functions and will follow-up on repeat labs DuoNeb treatment started and procalcitonin is pending. Patient was empirically started on Zithromax and ceftriaxone as there was concern for pneumonia although felt to be more of a CHF exacerbation Virology testing including COVID, influenza, RSV are all negative and pending procalcitonin at this time. Family reports they have all been sick over the last few weeks and patient started developing further cough and last night was noted to have hemoptysis. Recommend holding Eliquis for now and monitor hemoglobins Cardiology and pulmonary following Wean FiO2 as tolerated as patient does not normally wear oxygen outpatient CODE STATUS was discussed and patient wishes to remain full code including mechanical ventilation and CPR as necessary Overall prognosis is guarded The impression and plan of care has been dictated by Ashanti Watters Nurse Prac titioner as directed. Dr. Ignacia MD I have performed a history and examination and MDM of this patient, discussed the same with the dictator, and agree with the dictator's assessment and plan as written ,documented as a scribe. Based on total visit time, I have performed more than 50% of the visit. Past Medical History Past Medical History: Hyperlipidemia, Hypertension, Myocardial Infarction (CA) Additional Past Medical History / Comment(s): COVID 2019 Last Myocardial Infarction Date:: 07/31/2016 History of Any Multi-Drug Resistant Organisms: None Reported Past Surgical History: Cholecystectomy, Heart Catheterization With Stent, Hernia Repair Additional Past Surgical History / Comment(s): 1 stent Past Anesthesia/Blood Transfusion Reactions: No Reported Reaction Date of Last Stent Placement:: 07/28/2016 Past Psychological History: No Psychological Hx Reported Smoking Status: Former smoker Past Alcohol Use History: None Reported Past Drug Use History: None Reported - Past Family History Mother Family Medical History: Cancer Father Family Medical History: CVA/TIA Medications and Allergies Home Medications Medication Instructions Recorded Confirmed Type Atorvastatin [Lipitor] 40 mg PO DAILY 11/13/20 07/09/23 History Docusate [Colace] 100 mg PO BID 11/13/20 07/09/23 History lisinopriL [Zestril] 10 mg PO DAILY 11/13/20 07/09/23 History Apixaban [Eliquis] 5 mg PO BID 30 Days #60 tab 11/15/20 07/09/23 Rx Metoprolol Succinate [Toprol XL] 200 mg PO HS 10/10/21 07/09/23 History Multivitamins, Thera [Multivitamin 1 tab PO DAILY 10/10/21 07/09/23 History (formulary)] Ubidecarenone [Co Q-10] 400 mg PO DAILY 10/10/21 07/09/23 History Bumetanide [BUMEX] 2 mg PO DAILY 30 Days #30 tablet 10/12/21 07/09/23 Rx Gabapentin [Neurontin] 300 mg PO HS 07/09/23 07/09/23 History Omeprazole [PriLOSEC] 20 mg PO HS 07/09/23 07/09/23 History calcitrioL [Rocaltrol] 0.25 mcg PO Q7D 07/09/23 07/09/23 History Allergies Allergy/AdvReac Type Severity Reaction Status Date / Time No Known Allergies Allergy Verified 07/09/23 09:36 Physical Exam Vitals: Vital Signs Temp Pulse Resp BP Pulse Ox 07/09/23 07:45 98 17 127/104 95 07/09/23 06:17 105 H 19 135/96 95 07/09/23 05:12 97.8 F 107 H 18 137/84 94 L Intake and Output 07/08/23 07/09/23 07/09/23 22:59 06:59 14:59 Other: Weight 77.111 kg Results CBC & Chem 7: 07/09/23 05:35 07/09/23 05:35 Labs: Abnormal Lab Results - Last 24 Hours (Table) 07/09/23 07/09/23 07/09/23 Range/Units 05:35 05:35 05:35 Plt Count 100 L (150-450) k/uL Lymphocytes # 0.5 L (1.0-4.8) k/uL PT 13.1 H (10.0-12.5) sec INR 1.2 H (<1.2) BUN 32 H (9-20) mg/dL Creatinine 1.89 H (0.66-1.25) mg/dL Glucose 143 H (74-99) mg/dL Total Bilirubin 1.4 H (0.2-1.3) mg/dL Troponin I (0.000-0.034) ng/mL 07/09/23 Range/Units 05:35 Plt Count (150-450) k/uL Lymphocytes # (1.0-4.8) k/uL PT (10.0-12.5) sec INR (<1.2) BUN (9-20) mg/dL Creatinine (0.66-1.25) mg/dL Glucose (74-99) mg/dL Total Bilirubin (0.2-1.3) mg/dL Troponin I 0.126 H* (0.000-0.034) ng/mL Thrombosis Risk Factor Assmnt - DVT/VTE Prophylaxis DVT/VTE Prophylaxis: Pharmacologic Prophylaxis ordered Assessment and Plan Time with Patient: Greater than 30
--- NOTE | 2023-07-10 12:03 | P.PN ---
Subjective HISTORY OF PRESENT ILLNESS: This is a 78-year-old male with a past medical history significant for hypertension, hyperlipidemia, diabetes, chronic kidney disease, coronary artery disease, and atrial fibrillation. Patient follows in the office with Dr. Limon. We have been asked to see the patient in consultation for elevated troponins. Patient examined at the bedside in the emergency room. Patient states that him and his have been having cold symptoms for the past 3 weeks. He states he has been coughing for the past 3 days. He reports he has been having blood- tinged sputum for the past day or two. He also reports he has been wheezing at home. Patient also reports having shortness of breath at night. He denies any chest pain or pressure. DIAGNOSTICS: - EKG reveals atrial fibrillation with mild RVR. - Chest xray mild cardiomegaly and central opacities favoring mild edema. Correlate for fluid overload state/CHF. Additional areas of acute infiltrate in left lower lung cannot be excluded.. - Laboratory data: WBC 4.4. Hemoglobin 16.9. Platelet count 100. Sodium 138. BUN 32. Creatinine 1.89. Troponin 0.126. - Current home cardiac medications include Eliquis 5 mg twice a day, Lipitor 40 mg daily, lisinopril 10 mg daily, Bumex 2 mg daily, metoprolol succinate 200 mg at night. - Most recent echocardiogram obtained in October 2021 revealed ejection fraction less than 20%, mild pulmonary hypertension, moderate TR - Cardiac catheterization history: 07/2016 with stenting of the mid LAD 07/10/2023 Patient examined this morning. He is sitting up in the chair. Patient currently denies chest pain or pressure. He denies shortness of breath. He reports improvement in his hemoptysis. Telemetry reveals atrial fibrillation with a heart rate around 100. Patient does have some episodes of tachycardia. PHYSICAL EXAM: VITAL SIGNS: Reviewed. GENERAL: Well-developed in no acute distress. HEENT: Head is normocephalic. Pupils are equal, round. Sclerae anicteric. Mucous membranes of the mouth are moist. Neck supple. No JVD or thyromegaly LUNGS: Respirations even and unlabored. Lungs with expiratory wheezing noted HEART: Regular rate and rhythm. S1 and S2 heard. ABDOMEN: Soft. Nondistended. Nontender. EXTREMITIES: Normal range of motion. No clubbing or cyanosis. Peripheral pulses intact. Bilateral lower extremity edema NEUROLOGIC: Awake and alert. Oriented x 3. ASSESSMENT: Shortness of breath Acute on chronic heart failure with reduced EF, 20% Elevated troponin, likely type II LA secondary to oxygen supply/demand mismatch Hemoptysis Coronary artery disease with previous stenting of the mid LAD Ischemic cardiomyopathy Persistent atrial fibrillation Chronic kidney disease Hypertension Hyperlipidemia Diabetes PLAN: Continue current dose of metoprolol 200 milligrams daily Add amiodarone 400 mg twice a day for optimal heart rate control Resume Eliquis tomorrow morning Continue IV Lasix 40 mg every 12 hours. Anticipate transitioning to oral diuretics tomorrow Daily weights, accurate intake and output, and monitoring of kidney function Further recommendations pending patient course Nurse practitioner note has been reviewed by physician. Signing provider agrees with the documented findings, assessment, and plan of care documented by DIRECTOR WEIGHTS AND MEASURES as a scribe. Objective - Vital Signs Vital signs: Vital Signs Temp 97.4 F L 07/10/23 07:52 Pulse 106 H 07/10/23 08:13 Resp 20 07/10/23 07:52 BP 133/96 07/10/23 07:52 Pulse Ox 95 07/10/23 07:55 FiO2 Intake & Output 07/09/23 07/10/23 07/10/23 18:59 06:59 18:59 Intake Total 180 118 250 Output Total 1100 Balance 180 -982 250 Weight 77.111 kg 79.8 kg Intake: IV 10 Invasive Line 2 10 Oral 180 118 240 Output: Urine 1100 Other: Voiding Method External Catheter External Catheter Urinal # Voids 1 - Labs CBC & Chem 7: 07/09/23 05:35 07/09/23 05:35 Labs: Abnormal Lab Results - Last 24 Hours (Table) 07/09/23 07/09/23 07/09/23 Range/Units 11:50 11:50 11:50 D-Dimer 0.77 H (<0.60) mg/L FEU Troponin I 0.151 H* (0.000-0.034) ng/mL Procalcitonin 0.28 H (0.02-0.09) ng/mL 07/09/23 Range/Units 14:57 D-Dimer (<0.60) mg/L FEU Troponin I 0.183 H* (0.000-0.034) ng/mL Procalcitonin (0.02-0.09) ng/mL
[2023-07-10 12:18] LABS: African American GFR (CKD) 42 (>60 ml/min/1.73 sqM); Anion Gap 11 mmol/L; Blood Urea Nitrogen 39 mg/dL (9-20); Calcium 8.1 mg/dL (8.4-10.2); Carbon Dioxide 29 mmol/L (22-30); Chloride 99 mmol/L (98-107); Glucose 157 mg/dL (74-99); Non-African American GFR(CKD) 36 (>60 ml/min/1.73 sqM); Sodium 139 mmol/L (137-145)
[2023-07-10 12:27] LABS: Potassium 3.4 mmol/L (3.5-5.1)
[2023-07-10] MEDS: AMIODARONE 200 MG TAB PO SCH (12:30)
--- NOTE | 2023-07-10 12:52 | P.PN ---
Subjective Progress Note Date: 07/10/23 Principal diagnosis: Shortness of breath. Pulmonary consult dated July 09, 2023. 78-year-old male, seen in the emergency department, room 20. The patient presented to the emergency department, at 5:00 in the morning, on July 08, complaining of increasing shortness of breath, cough, and hemoptysis. The patient apparently has a history of heart failure, hyperlipidemia, previous heart catheterization with stent, hypertension, and previous myocardial infarction. Much of the history was obtained from the patient's who is in the room. Currently, the patient is on room air, and also receiving saline IV. The patient was given a dose of Lasix, and started on antibiotics in the form of Rocephin, and azithromycin. The patient's chest x-ray in my opinion, could be consistent with either heart failure or pneumonia. In that regard, we placed an order for a procalcitonin level, and an N-terminal proBNP. Labs include a white count of 4.4, hemoglobin 16.9, hematocrit 52.3, and a platelet count of 100,000. PT 13.1, INR 1.2, and PTT 23.7. BUN is 32, creatinine 1.89. Glucose is 143. Troponin 0.126. Albumin is 3.9. He tested negative for influenza, RSV, and coronavirus. Chest x-ray shows mild cardiomegaly, and possible CHF, versus pneumonia. Progress note dated July 10, 2023. This is a 78-year-old male who we saw yesterday in consultation, in the emergenc y department. The patient was complaining of shortness of breath, and was spitting up a small amount of blood. We thought the primary diagnosis was that of CHF. Currently, the patient is seen today in room 376. The patient is using oxygen, at 4 L. He is not receiving any IV fluids. He is feeling much better today. Labs today include a sodium 139, potassium 3.4, chlorides 99, CO2 29, BUN 39, creatinine 1.79. The patient's calcium was 8.1. Troponins were 0.126, 0.151, and 0.183. N-terminal proBNP was 20,100, and the procalcitonin level was 0.28. His x-ray shows left perihilar and left basilar infiltrates, as well as a right perihilar infiltrate. Patient continues on Lasix, Rocephin, and azithromycin. He is also getting breathing treatments. Objective - Vital Signs Vital signs: Vital Signs Temp 97.4 F L 07/10/23 07:52 Pulse 89 07/10/23 12:32 Resp 16 07/10/23 12:32 BP 99/58 07/10/23 12:32 Pulse Ox 99 07/10/23 12:32 FiO2 Intake & Output 07/09/23 07/10/23 07/10/23 18:59 06:59 18:59 Intake Total 180 118 250 Output Total 1100 Balance 180 -982 250 Weight 77.111 kg 79.8 kg Intake: IV 10 Invasive Line 2 10 Oral 180 118 240 Output: Urine 1100 Other: Voiding Method External Catheter External Catheter Urinal # Voids 1 2 - Exam No acute distress, oriented 3. Currently on 4 L with saturations of 99%. HEENT examination is grossly unremarkable. Mucous membranes are moist. No oral lesions. Neck supple. Full range of motion. No adenopathy thyromegaly or neck vein distention. Cardiovascular examination reveals regular rhythm rate. S1-S2 normal. No S3 or S4. No discernible murmur noted. Heart sounds are distant. Heart rate 100 bpm. Lungs reveal scattered rhonchi and crackles. No wheezes. Breath sounds equal bilaterally. Saturations on room air are 97%. Abdomen soft bowel sounds are heard. No masses or tenderness. Extremities are intact. No cyanosis clubbing or edema. Skin is without rash or lesion. Neurologic examination is brief but nonfocal. - Labs CBC & Chem 7: 07/09/23 05:35 07/10/23 11:35 Labs: Abnormal Lab Results - Last 24 Hours (Table) 07/09/23 07/09/23 07/10/23 Range/Units 11:50 14:57 11:35 Potassium 3.4 L (3.5-5.1) mmol/L BUN 39 H (9-20) mg/dL Creatinine 1.79 H (0.66-1.25) mg/dL Glucose 157 H (74-99) mg/dL Calcium 8.1 L (8.4-10.2) mg/dL Troponin I 0.183 H* (0.000-0.034) ng/mL Procalcitonin 0.28 H (0.02-0.09) ng/mL Assessment and Plan Assessment: Acute shortness of breath, with mild hemoptysis, which may relate to CHF, and/or pneumonia. The procalcitonin level was elevated, as was the N-terminal proBNP. History of hypertension. History of CAD, with previous catheterization and stent placement. History of myocardial infarction. History of hyperlipidemia. History of congestive heart failure. Prior history of tobacco use. Plan: Plan dated July 09, 2023. The patient is seen in the emergency department, room 20. He was brought in because of shortness of breath, cough, and hemoptysis. His chest x-ray could be consistent with fluid overload, and or pneumonia. He was started on antibiotics, given some Lasix, we ordered a procalcitonin level, as well as an N-terminal proBNP level. We will continue to follow and make recommendations along the way. The patient's overall prognosis remains guarded. We also added some breathing treatments onto this patient's medication list. Plan dated July 10, 2023. The patient is seen today in room 376. He is sitting in the chair next to his hospital bed. He is feeling much better today. He is not having any nausea or vomiting anymore. He states his breathing is much improved. He denies any chest pain or chest discomfort. He is not coughing up any phlegm. He continues on Lasix, Rocephin, and azithromycin. The patient's N-terminal proBNP, and procalcitonin level are both elevated. We will continue to follow the patient, make recommendations along the way. Prognosis remains guarded. Time with Patient: Less than 30
--- NOTE | 2023-07-10 14:47 | P.PN ---
Subjective Progress Note Date: 07/10/23 This is a pleasant 78-year-old male who presented to the emergency department with with cough and hemoptysis. Patient and at the bedside report some viral illness had been going through the house over the last week and patient had not been feeling well eating more short of breath with exertion and having coughing fits and the hemoptysis started yesterday with scant streaky blood noted in the sputum. Patient does not normally wear oxygen outpatient and follows with Dr. Barrera in the outpatient setting with a past medical history of hyperlipidemia, hypertension, previous myocardial infarction, former smoker of many years ago and denies any other illicit drugs or alcohol use. Patient is currently on Eliquis with history of atrial fibrillation. In the ER, chest x- ray showed mild cardiomegaly with central opacities favoring edema correlate for fluid overload and CHF exacerbation additional areas of acute infiltrate in the left lower lung cannot be entirely excluded. EKG shows A-fib with RVR patient being admitted for CHF exacerbation with pulmonary and cardiology on consult. Labs reviewed show a white count of 4.4, hemoglobin is 16.9, platelets are 100, INR is 1.2, D-dimer 0.77, age-appropriate, sodium 138, BUN 32 with a creatinine of 1.89 glucose elevated at 143, total bili is 1.4 troponin 0.126 with a repeat 0.151 BNP is 20,000 and all viral testing including influenza, RSV, COVID are all negative. Patient was admitted and started on ceftriaxone and Zithromax along with IV Lasix. 07/10/2023 Patient evaluated in follow up today on the medical floor. Patient continues to report cough with significant hemoptysis and eliquis remains on hold. Patient is being diuresed with IV lasix 40 mg every 12 hours, patient is -1.4 L of urine output in the last 24 hours. Chest x-ray today showing left perihilar and left basilar infiltrate persistent may have progressed in the interval. A mild right perihilar infiltrate suggested. Creatinine is improving down to 1.79. Procalcitonin at 0.28. Review of Systems Constitutional: Denied any fatigue denied any fever. Cardio vascular: denied any chest pain, palpitations Gastrointestinal: denied any nausea, vomiting, diarrhea Pulmonary: Denied any shortness of breath cough Neurologic denied any new focal deficits All inpatient medications were reviewed and appropriate changes in these medications as dictated in the interval history and assessment and plan. PHYSICAL EXAMINATION: GENERAL: The patient is alert and oriented x3, short of breath and dyspneic on conversation. Well developed, elderly appearing, ill-appearing HEENT: Pupils are round and equally reacting to light. EOMI. No scleral icterus. No conjunctival pallor. Normocephalic, atraumatic. No pharyngeal erythema. No thyromegaly. CARDIOVASCULAR: S1 and S2 muffled, tachycardic, irregular PULMONARY: Breath sounds diminished bilaterally with scattered wheezing and rhonchi noted. Some crackles noted at the bases. ABDOMEN: Soft, nontender, nondistended, normoactive bowel sounds. No palpable organomegaly. MUSCULOSKELETAL: No joint swelling or deformity. EXTREMITIES: No cyanosis, clubbing, or pedal edema. NEUROLOGICAL: Gross neurological examination did not reveal any focal deficits. Diffusely weak SKIN: No rashes. Assessment: Shortness of breath with hemoptysis, possibly secondary to CHF exacerbation and is on Eliquis Generalized weakness with gait dysfunction history of congestive heart failure with acute on chronic heart failure exacerbation with reduced EF. Most recent EF is 20% Elevated troponin, likely type II [place] due to CHF exacerbation Dyspnea with minimal exertion with acute hypoxic respiratory failure likely secondary to CHF exacerbation Elevated BNP of 20,000 secondary to CHF exacerbation History of atrial fibrillation, uncontrolled with RVR Hypertension history History of coronary artery disease with stents previously History of ischemic cardiomyopathy Chronic kidney disease history History of myocardial infarction Hyperlipidemia Former smoker GI prophylaxis DVT prophylaxis Full code Plan: Patient with increased shortness of breath and dyspnea does not normally wear oxygen outpatient currently requiring high flow and was noted to be cyanotic on initial exam with pulse ox is in the low 60s to 70s and once a good waveform was captured. Patient has been weaned down to 4 L of oxygen at this time. Patient with significant wheezing on exertion with some crackles, started on IV Lasix and will continue. Monitor kidney functions and will follow-up on repeat labs DuoNeb treatment started and procalcitonin is pending. Patient was empirically started on Zithromax and ceftriaxone as there was concern for pneumonia although felt to be more of a CHF exacerbation. procalcitonin of 0.28 and patient is currently being monitored off of antibiotics at this time. Virology testing including COVID, influenza, RSV are all negative and pending procalcitonin at this time. Family reports they have all been sick over the last few weeks and patient started developing further cough and last night was noted to have hemoptysis. Recommend holding Eliquis for now and monitor hemoglobins Cardiology and pulmonary following Wean FiO2 as tolerated as patient does not normally wear oxygen outpatient CODE STATUS was discussed and patient wishes to remain full code including mechanical ventilation and CPR as necessary The impression and plan of care has been dictated by Aarti Case, Nurse Practitioner as directed. Dr. Ignacia MD I have performed a history and physical examination and medical decision making of this patient, discussed the same with the dictator, and agree with the dictators assessment and plan as written, documented as a scribe. Based on total visit time, I have performed more than 50% of this visit. Objective - Vital Signs Vital signs: Vital Signs Temp 97.4 F L 07/10/23 07:52 Pulse 89 07/10/23 12:32 Resp 16 07/10/23 12:32 BP 99/58 07/10/23 12:32 Pulse Ox 99 07/10/23 12:32 FiO2 Intake & Output 07/09/23 07/10/23 07/10/23 18:59 06:59 18:59 Intake Total 180 118 368 Output Total 1100 Balance 180 -982 368 Weight 77.111 kg 79.8 kg Intake: IV 10 Invasive Line 2 10 Oral 180 118 358 Output: Urine 1100 Other: Voiding Method External Catheter External Catheter Urinal # Voids 1 2 - Labs CBC & Chem 7: 07/09/23 05:35 07/10/23 11:35 Labs: Abnormal Lab Results - Last 24 Hours (Table) 07/09/23 07/09/23 07/10/23 Range/Units 11:50 14:57 11:35 Potassium 3.4 L (3.5-5.1) mmol/L BUN 39 H (9-20) mg/dL Creatinine 1.79 H (0.66-1.25) mg/dL Glucose 157 H (74-99) mg/dL Calcium 8.1 L (8.4-10.2) mg/dL Troponin I 0.183 H* (0.000-0.034) ng/mL Procalcitonin 0.28 H (0.02-0.09) ng/mL Microbiology - Last 24 Hours (Table) 07/09/23 14:54 Gram Stain - Preliminary Sputum Assessment and Plan Time with Patient: Less than 30
[2023-07-10] MEDS ORDERED: Potassium Replacement Protocol 1 EACH MISC MISCELLANE PRN (16:39)
[2023-07-10] MEDS: POTASSIUM CHLORIDE ER 20 MEQ TAB.ER PO STA (17:05)
[2023-07-11 06:38] LABS: African American GFR (CKD) 36 (>60 ml/min/1.73 sqM); Anion Gap 7 mmol/L; Blood Urea Nitrogen 41 mg/dL (9-20); Calcium 7.9 mg/dL (8.4-10.2); Carbon Dioxide 25 mmol/L (22-30); Chloride 103 mmol/L (98-107); Glucose 97 mg/dL (74-99); Non-African American GFR(CKD) 32 (>60 ml/min/1.73 sqM); Potassium 3.6 mmol/L (3.5-5.1); Sodium 135 mmol/L (137-145)
[2023-07-11] MEDS: APIXABAN 5 MG TAB PO SCH (09:04)
[2023-07-11] MEDS: PANTOPRAZOLE 40 MG TABLET PO SCH (09:04)
--- NOTE | 2023-07-11 10:10 | P.PN ---
Subjective HISTORY OF PRESENT ILLNESS: This is a 78-year-old male with a past medical history significant for hypertension, hyperlipidemia, diabetes, chronic kidney disease, coronary artery disease, and atrial fibrillation. Patient follows in the office with Dr. Limon. We have been asked to see the patient in consultation for elevated troponins. Patient examined at the bedside in the emergency room. Patient states that him and his have been having cold symptoms for the past 3 weeks. He states he has been coughing for the past 3 days. He reports he has been having blood- tinged sputum for the past day or two. He also reports he has been wheezing at home. Patient also reports having shortness of breath at night. He denies any chest pain or pressure. DIAGNOSTICS: - EKG reveals atrial fibrillation with mild RVR. - Chest xray mild cardiomegaly and central opacities favoring mild edema. Correlate for fluid overload state/CHF. Additional areas of acute infiltrate in left lower lung cannot be excluded.. - Laboratory data: WBC 4.4. Hemoglobin 16.9. Platelet count 100. Sodium 138. BUN 32. Creatinine 1.89. Troponin 0.126. - Current home cardiac medications include Eliquis 5 mg twice a day, Lipitor 40 mg daily, lisinopril 10 mg daily, Bumex 2 mg daily, metoprolol succinate 200 mg at night. - Most recent echocardiogram obtained in October 2021 revealed ejection fraction less than 20%, mild pulmonary hypertension, moderate TR - Cardiac catheterization history: 07/2016 with stenting of the mid LAD 07/10/2023 Patient examined this morning. He is sitting up in the chair. Patient currently denies chest pain or pressure. He denies shortness of breath. He reports improvement in his hemoptysis. Telemetry reveals atrial fibrillation with a heart rate around 100. Patient does have some episodes of tachycardia. 07/11/2023 Patient examined this morning. He is sitting up in the chair. He currently denies chest pain or pressure. He denies shortness of breath. He remains on IV diuretics. No further episodes of hemoptysis. He remains in atrial fibrillation with controlled ventricular rates. PHYSICAL EXAM: VITAL SIGNS: Reviewed. GENERAL: Well-developed in no acute distress. HEENT: Head is normocephalic. Pupils are equal, round. Sclerae anicteric. Mucous membranes of the mouth are moist. Neck supple. No JVD or thyromegaly LUNGS: Respirations even and unlabored. Lungs with expiratory wheezing noted HEART: Regular rate and rhythm. S1 and S2 heard. ABDOMEN: Soft. Nondistended. Nontender. EXTREMITIES: Normal range of motion. No clubbing or cyanosis. Peripheral pulses intact. Bilateral lower extremity edema NEUROLOGIC: Awake and alert. Oriented x 3. ASSESSMENT: Shortness of breath Acute on chronic heart failure with reduced EF, 20% Elevated troponin, likely type II [place] secondary to oxygen supply/demand mismatch Hemoptysis Coronary artery disease with previous stenting of the mid LAD Ischemic cardiomyopathy Persistent atrial fibrillation Chronic kidney disease Hypertension Hyperlipidemia Diabetes PLAN: Continue current dose of metoprolol 200 milligrams daily Continue amiodarone 400 mg twice a day for optimal heart rate control Resume Eliquis this morning Discontinue IV Lasix. Resume home dose of Bumex Daily weights, accurate intake and output, and monitoring of kidney function Further recommendations pending patient course Nurse practitioner note has been reviewed by physician. Signing provider agrees with the documented findings, assessment, and plan of care documented by MANAGER DIESEL as a scribe. Objective - Vital Signs Vital signs: Vital Signs Temp 98.3 F 07/11/23 09:01 Pulse 117 H 07/11/23 09:01 Resp 20 07/11/23 09:01 BP 127/85 07/11/23 09:01 Pulse Ox 96 07/11/23 09:01 FiO2 Intake & Output 07/10/23 07/11/23 07/11/23 18:59 06:59 18:59 Intake Total 486 Balance 486 Weight 79.5 kg Intake: IV 10 Invasive Line 2 10 Oral 476 Other: Voiding Method Urinal Urinal Urinal # Voids 3 - Labs CBC & Chem 7: 07/09/23 05:35 07/11/23 05:51 Labs: Abnormal Lab Results - Last 24 Hours (Table) 07/10/23 07/11/23 Range/Units 11:35 05:51 Sodium 135 L (137-145) mmol/L Potassium 3.4 L (3.5-5.1) mmol/L BUN 39 H 41 H (9-20) mg/dL Creatinine 1.79 H 2.00 H (0.66-1.25) mg/dL Glucose 157 H (74-99) mg/dL Calcium 8.1 L 7.9 L (8.4-10.2) mg/dL Microbiology - Last 24 Hours (Table) 07/09/23 07:24 Blood Culture - Preliminary Blood 07/09/23 07:20 Blood Culture - Preliminary Blood 07/09/23 14:54 Gram Stain - Preliminary Sputum Sputum Culture - Preliminary
[2023-07-11] MEDS: AMOXIC-POT CLAV 875-125MG 1 EACH TAB PO SCH (10:59)
[2023-07-11] MEDS: POTASSIUM CHLORIDE ER 20 MEQ TAB.ER PO STA (11:36)
--- NOTE | 2023-07-11 12:01 | P.PN ---
Subjective Progress Note Date: 07/11/23 Principal diagnosis: Shortness of breath. Pulmonary consult dated July 09, 2023. 78-year-old male, seen in the emergency department, room 20. The patient presented to the emergency department, at 5:00 in the morning, on July 08, complaining of increasing shortness of breath, cough, and hemoptysis. The patient apparently has a history of heart failure, hyperlipidemia, previous heart catheterization with stent, hypertension, and previous myocardial infarction. Much of the history was obtained from the patient's who is in the room. Currently, the patient is on room air, and also receiving saline IV. The patient was given a dose of Lasix, and started on antibiotics in the form of Rocephin, and azithromycin. The patient's chest x-ray in my opinion, could be consistent with either heart failure or pneumonia. In that regard, we placed an order for a procalcitonin level, and an N-terminal proBNP. Labs include a white count of 4.4, hemoglobin 16.9, hematocrit 52.3, and a platelet count of 100,000. PT 13.1, INR 1.2, and PTT 23.7. BUN is 32, creatinine 1.89. Glucose is 143. Troponin 0.126. Albumin is 3.9. He tested negative for influenza, RSV, and coronavirus. Chest x-ray shows mild cardiomegaly, and possible CHF, versus pneumonia. Progress note dated July 10, 2023. This is a 78-year-old male who we saw yesterday in consultation, in the emergenc y department. The patient was complaining of shortness of breath, and was spitting up a small amount of blood. We thought the primary diagnosis was that of CHF. Currently, the patient is seen today in room 376. The patient is using oxygen, at 4 L. He is not receiving any IV fluids. He is feeling much better today. Labs today include a sodium 139, potassium 3.4, chlorides 99, CO2 29, BUN 39, creatinine 1.79. The patient's calcium was 8.1. Troponins were 0.126, 0.151, and 0.183. N-terminal proBNP was 20,100, and the procalcitonin level was 0.28. His x-ray shows left perihilar and left basilar infiltrates, as well as a right perihilar infiltrate. Patient continues on Lasix, Rocephin, and azithromycin. He is also getting breathing treatments. Progress note dated July 11, 2023. 78-year-old male seen in consultation 2 days ago. He was admitted with a diagnosis of shortness of breath, cough, and hemoptysis. He likely has both CHF, and pneumonia. Currently, he has been weaned off his oxygen. He is not receiving any IV fluids. We did add Augmentin 875 twice a day, to his regimen. Labs today include a sodium 135, potassium 3.6, chlorides 103, CO2 25, BUN 41, and creatinine 2.0. Calcium is 7.9. Urine Legionella antigen was negative. His previous N-terminal proBNP was 20,100. Sputum and blood sampling has been negative thus far. Chest x-ray shows a pattern of bilateral patchy infiltrates. Objective - Vital Signs Vital signs: Vital Signs Temp 98.3 F 07/11/23 11:33 Pulse 100 07/11/23 11:52 Resp 16 07/11/23 11:33 BP 143/72 07/11/23 11:33 Pulse Ox 97 07/11/23 11:33 FiO2 Intake & Output 07/10/23 07/11/23 07/11/23 18:59 06:59 18:59 Intake Total 486 250 Output Total 200 Balance 486 50 Weight 79.5 kg Intake: IV 10 10 Invasive Line 2 10 Invasive Line 4 10 Oral 476 240 Output: Urine 200 Other: Voiding Method Urinal Urinal Urinal # Voids 3 - Exam No acute distress, oriented 3. Currently on room air. Saturations are 97%. HEENT examination is grossly unremarkable. Mucous membranes are moist. No oral lesions. Neck supple. Full range of motion. No adenopathy thyromegaly or neck vein distention. Cardiovascular examination reveals regular rhythm rate. S1-S2 normal. No S3 or S4. No discernible murmur noted. Heart sounds are distant. Heart rate 96 bpm. Lungs reveal scattered rhonchi and crackles. No wheezes. Breath sounds equal bilaterally. Saturations on room air are 97%. Abdomen soft bowel sounds are heard. No masses or tenderness. Extremities are intact. No cyanosis clubbing or edema. Skin is without rash or lesion. Neurologic examination is brief but nonfocal. - Labs CBC & Chem 7: 07/09/23 05:35 04/07/24 05:51 Labs: Abnormal Lab Results - Last 24 Hours (Table) 07/10/23 07/11/23 Range/Units 11:35 05:51 Sodium 135 L (137-145) mmol/L Potassium 3.4 L (3.5-5.1) mmol/L BUN 39 H 41 H (9-20) mg/dL Creatinine 1.79 H 2.00 H (0.66-1.25) mg/dL Glucose 157 H (74-99) mg/dL Calcium 8.1 L 7.9 L (8.4-10.2) mg/dL Microbiology - Last 24 Hours (Table) 07/09/23 14:54 Gram Stain - Final Sputum Sputum Culture - Final 07/09/23 07:24 Blood Culture - Preliminary Blood 07/09/23 07:20 Blood Culture - Preliminary Blood Assessment and Plan Assessment: Acute shortness of breath, with mild hemoptysis, which may relate to CHF, and/or pneumonia. The procalcitonin level was elevated, as was the N-terminal proBNP. History of hypertension. History of CAD, with previous catheterization and stent placement. History of myocardial infarction. History of hyperlipidemia. History of congestive heart failure. Prior history of tobacco use. Plan: Plan dated July 09, 2023. The patient is seen in the emergency department, room 20. He was brought in because of shortness of breath, cough, and hemoptysis. His chest x-ray could be consistent with fluid overload, and or pneumonia. He was started on antibiotics, given some Lasix, we ordered a procalcitonin level, as well as an N-terminal proBNP level. We will continue to follow and make recommendations along the way. The patient's overall prognosis remains guarded. We also added some breathing treatments onto this patient's medication list. Plan dated July 10, 2023. The patient is seen today in room 376. He is sitting in the chair next to his hospital bed. He is feeling much better today. He is not having any nausea or vomiting anymore. He states his breathing is much improved. He denies any chest pain or chest discomfort. He is not coughing up any phlegm. He continues on Lasix, Rocephin, and azithromycin. The patient's N-terminal proBNP, and procalcitonin level are both elevated. We will continue to follow the patient, make recommendations along the way. Prognosis remains guarded. Plan dated July 11, 2023. The patient continues on Lasix, and, was given Augmentin today. Previously, he was on Rocephin, and azithromycin. The patient's N-terminal proBNP was elevat ed, as was his procalcitonin level. Labs, x-rays, and medications are all reviewed. Patient is feeling much better. He has been weaned off of oxygen. He is not receiving any IV fluids. In addition, the patient is taking updrafts, with albuterol sulfate, and ipratropium bromide. We will continue to follow, and make recommendations along the way. No further episodes of hemoptysis. Time with Patient: Less than 30
--- NOTE | 2023-07-11 14:28 | P.PN ---
Subjective Progress Note Date: 07/11/23 This is a pleasant 78-year-old male who presented to the emergency department with with cough and hemoptysis. Patient and at the bedside report some viral illness had been going through the house over the last week and patient had not been feeling well eating more short of breath with exertion and having coughing fits and the hemoptysis started yesterday with scant streaky blood noted in the sputum. Patient does not normally wear oxygen outpatient and follows with Dr. Barrera in the outpatient setting with a past medical history of hyperlipidemia, hypertension, previous myocardial infarction, former smoker of many years ago and denies any other illicit drugs or alcohol use. Patient is currently on Eliquis with history of atrial fibrillation. In the ER, chest x- ray showed mild cardiomegaly with central opacities favoring edema correlate for fluid overload and CHF exacerbation additional areas of acute infiltrate in the left lower lung cannot be entirely excluded. EKG shows A-fib with RVR patient being admitted for CHF exacerbation with pulmonary and cardiology on consult. Labs reviewed show a white count of 4.4, hemoglobin is 16.9, platelets are 100, INR is 1.2, D-dimer 0.77, age-appropriate, sodium 138, BUN 32 with a creatinine of 1.89 glucose elevated at 143, total bili is 1.4 troponin 0.126 with a repeat 0.151 BNP is 20,000 and all viral testing including influenza, RSV, COVID are all negative. Patient was admitted and started on ceftriaxone and Zithromax along with IV Lasix. 07/10/2023 Patient evaluated in follow up today on the medical floor. Patient continues to report cough with significant hemoptysis and eliquis remains on hold. Patient is being diuresed with IV lasix 40 mg every 12 hours, patient is -1.4 L of urine output in the last 24 hours. Chest x-ray today showing left perihilar and left basilar infiltrate persistent may have progressed in the interval. A mild right perihilar infiltrate suggested. Creatinine is improving down to 1.79. Procalcitonin at 0.28. 07/11/2023 Patient is evaluated in follow-up today on the medical floor. Patient reports resolution of his hemoptysis and Eliquis has been resumed. He did have a sputum culture that was sent down and currently pending at this time. Patient has been transition to oral Lasix. He is now on room air. He reports improvement in his shortness of breath and he does not have any peripheral edema. His creatinine is up to 2.00 and we will repeat this level in the morning. Review of Systems Constitutional: Denied any fatigue denied any fever. Cardio vascular: denied any chest pain, palpitations Gastrointestinal: denied any nausea, vomiting, diarrhea Pulmonary: Denied any shortness of breath cough Neurologic denied any new focal deficits All inpatient medications were reviewed and appropriate changes in these medications as dictated in the interval history and assessment and plan. PHYSICAL EXAMINATION: GENERAL: The patient is alert and oriented x3, short of breath and dyspneic on conversation. Well developed, elderly appearing, ill-appearing HEENT: Pupils are round and equally reacting to light. EOMI. No scleral icterus. No conjunctival pallor. Normocephalic, atraumatic. No pharyngeal erythema. No thyromegaly. CARDIOVASCULAR: S1 and S2 muffled, tachycardic, irregular PULMONARY: Breath sounds diminished bilaterally with scattered wheezing and rhonchi noted. Some crackles noted at the bases. ABDOMEN: Soft, nontender, nondistended, normoactive bowel sounds. No palpable organomegaly. MUSCULOSKELETAL: No joint swelling or deformity. EXTREMITIES: No cyanosis, clubbing, or pedal edema. NEUROLOGICAL: Gross neurological examination did not reveal any focal deficits. Diffusely weak SKIN: No rashes. Assessment: Shortness of breath with hemoptysis, possibly secondary to CHF exacerbation and is on Eliquis; this has resolved Generalized weakness with gait dysfunction history of congestive heart failure with acute on chronic heart failure exacerbation with reduced EF. Most recent EF is 20% Elevated troponin, likely type II [place] due to CHF exacerbation Dyspnea with minimal exertion with acute hypoxic respiratory failure likely secondary to CHF exacerbation Elevated BNP of 20,000 secondary to CHF exacerbation History of atrial fibrillation, uncontrolled with RVR Hypertension history History of coronary artery disease with stents previously History of ischemic cardiomyopathy Chronic kidney disease history History of myocardial infarction Hyperlipidemia Former smoker GI prophylaxis DVT prophylaxis Full code Plan: Patient has been transition to oral Lasix .monitor kidney functions and will follow-up on repeat labs DuoNeb treatment started, procalcitonin of 0.28 and patient is currently being monitored off of antibiotics at this time. Virology testing including COVID, influenza, RSV are all negative and pending procalcitonin at this time. Family reports they have all been sick over the last few weeks and patient started developing further cough. Symptoms have improved. Cardiology and pulmonary following Wean FiO2 as tolerated as patient does not normally wear oxygen outpatient CODE STATUS was discussed and patient wishes to remain full code including mechanical ventilation and CPR as necessary The impression and plan of care has been dictated by Aarti Case, Nurse Practitioner as directed. Dr. Ignacia MD I have performed a history and physical examination and medical decision making of this patient, discussed the same with the dictator, and agree with the dictators assessment and plan as written, documented as a scribe. Based on total visit time, I have performed more than 50% of this visit. Objective - Vital Signs Vital signs: Vital Signs Temp 98.3 F 07/11/23 11:33 Pulse 100 07/11/23 11:52 Resp 16 07/11/23 11:33 BP 143/72 07/11/23 11:33 Pulse Ox 97 07/11/23 11:33 FiO2 Intake & Output 07/10/23 07/11/23 07/11/23 18:59 06:59 18:59 Intake Total 486 608 Output Total 200 Balance 486 408 Weight 79.5 kg Intake: IV 10 10 Invasive Line 2 10 Invasive Line 4 10 Oral 476 [id number] Output: Urine 200 Other: Voiding Method Urinal Urinal Urinal # Voids 3 - Labs CBC & Chem 7: 07/09/23 05:35 07/11/23 05:51 Labs: Abnormal Lab Results - Last 24 Hours (Table) 07/11/23 Range/Units 05:51 Sodium 135 L (137-145) mmol/L BUN 41 H (9-20) mg/dL Creatinine 2.00 H (0.66-1.25) mg/dL Calcium 7.9 L (8.4-10.2) mg/dL Microbiology - Last 24 Hours (Table) 07/09/23 14:54 Gram Stain - Final Sputum Sputum Culture - Final 07/09/23 07:24 Blood Culture - Preliminary Blood 07/09/23 07:20 Blood Culture - Preliminary Blood Assessment and Plan Time with Patient: Less than 30
[2023-07-12 09:30] LABS: African American GFR (CKD) 36 (>60 ml/min/1.73 sqM); Anion Gap 11 mmol/L; Blood Urea Nitrogen 37 mg/dL (9-20); Calcium 8.4 mg/dL (8.4-10.2); Carbon Dioxide 28 mmol/L (22-30); Chloride 100 mmol/L (98-107); Glucose 137 mg/dL (74-99); Non-African American GFR(CKD) 31 (>60 ml/min/1.73 sqM); Potassium 3.8 mmol/L (3.5-5.1); Sodium 139 mmol/L (137-145)
[2023-07-12] MEDS: BUMETANIDE 1 MG TAB PO SCH (09:48)
--- NOTE | 2023-07-12 14:38 | P.PN ---
Progress Note - Text Progress Note Date: 07/12/23 Patient will require nebulizer on discharge as patient is undergoing breathing treatments with DuoNebs 3 times daily and as needed. Patient does have history of COPD. Prescription provided to shoe caser for discharge planning.
--- NOTE | 2023-07-12 15:02 | P.PN ---
Subjective Progress Note Date: 07/12/23 HISTORY OF PRESENT ILLNESS: This is a 78-year-old male with a past medical history significant for hype rtension, hyperlipidemia, diabetes, chronic kidney disease, coronary artery disease, and atrial fibrillation. Patient follows in the office with Dr. Limon. We have been asked to see the patient in consultation for elevated troponins. Patient examined at the bedside in the emergency room. Patient states that him and his have been having cold symptoms for the past 3 weeks. He states he has been coughing for the past 3 days. He reports he has been having blood- tinged sputum for the past day or two. He also reports he has been wheezing at home. Patient also reports having shortness of breath at night. He denies any chest pain or pressure. DIAGNOSTICS: - EKG reveals atrial fibrillation with mild RVR. - Chest xray mild cardiomegaly and central opacities favoring mild edema. Correlate for fluid overload state/CHF. Additional areas of acute infiltrate in left lower lung cannot be excluded.. - Laboratory data: WBC 4.4. Hemoglobin 16.9. Platelet count 100. Sodium 138. BUN 32. Creatinine 1.89. Troponin 0.126. - Current home cardiac medications include Eliquis 5 mg twice a day, Lipitor 40 mg daily, lisinopril 10 mg daily, Bumex 2 mg daily, metoprolol succinate 200 mg at night. - Most recent echocardiogram obtained in October 2021 revealed ejection fraction less than 20%, mild pulmonary hypertension, moderate TR - Cardiac catheterization history: 07/2016 with stenting of the mid LAD 07/10/2023 Patient examined this morning. He is sitting up in the chair. Patient currently denies chest pain or pressure. He denies shortness of breath. He reports improvement in his hemoptysis. Telemetry reveals atrial fibrillation with a heart rate around 100. Patient does have some episodes of tachycardia. 07/11/2023 Patient examined this morning. He is sitting up in the chair. He currently denies chest pain or pressure. He denies shortness of breath. He remains on IV diuretics. No further episodes of hemoptysis. He remains in atrial fibrillation with controlled ventricular rates. 07/11 Blood pressure 115/79, heart rate 96. Patient continues to have a little wheezing. He states he has been walking in the hallway and doing well. He has been maintained on amiodarone 400 mg twice daily as well as Eliquis, Toprol XL. He is expecting to go home today. Repeat blood work reveals sodium 139, potassium 3.8, BUN 37 creatinine 2.03. PHYSICAL EXAM: VITAL SIGNS: Reviewed. GENERAL: Well-developed in no acute distress. HEENT: Head is normocephalic. Pupils are equal, round. Sclerae anicteric. Mucous membranes of the mouth are moist. Neck supple. No JVD or thyromegaly LUNGS: Respirations even and unlabored. Lungs with expiratory wheezing noted HEART: Regular rate and rhythm. S1 and S2 heard. ABDOMEN: Soft. Nondistended. Nontender. EXTREMITIES: Normal range of motion. No clubbing or cyanosis. Peripheral pulses intact. Bilateral lower extremity edema NEUROLOGIC: Awake and alert. Oriented x 3. ASSESSMENT: Shortness of breath Acute on chronic heart failure with reduced EF, 20% Elevated troponin, likely type II HI secondary to oxygen supply/demand mismatch Hemoptysis Coronary artery disease with previous stenting of the mid LAD Ischemic cardiomyopathy Persistent atrial fibrillation Chronic kidney disease Hypertension Hyperlipidemia Diabetes PLAN: Continue current dose of metoprolol 200 milligrams daily Continue amiodarone 400 mg twice a day and taper down to daily after 2 weeks, prescription sent to his pharmacy Continue Eliquis this morning Continue home dose of Bumex Daily weights, accurate intake and output, and monitoring of kidney function Patient is cleared from cardiology for discharge and may follow-up with Dr. Claudia Limon in 1 to 2 weeks. Nurse practitioner note has been reviewed by physician. Signing provider agrees with the documented findings, assessment, and plan of care documented by OUTSIDE MACHINIST APPRENTICE as a scribe. Objective - Vital Signs Vital signs: Vital Signs Temp 97.4 F L 07/12/23 04:00 Pulse 96 07/12/23 09:51 Resp 16 07/12/23 08:00 BP 115/79 07/12/23 08:00 Pulse Ox 100 07/12/23 08:00 FiO2 Intake & Output 07/11/23 07/12/23 07/12/23 18:59 06:59 18:59 Intake Total 848 240 118 Output Total 200 Balance 648 240 118 Weight 80 kg Intake: IV 10 Invasive Line 4 10 Oral 838 240 118 Output: Urine 200 Other: Voiding Method Urinal Urinal - Labs CBC & Chem 7: 07/09/23 05:35 07/12/23 08:21 Labs: Abnormal Lab Results - Last 24 Hours (Table) 07/12/23 Range/Units 08:21 BUN 37 H (9-20) mg/dL Creatinine 2.03 H (0.66-1.25) mg/dL Glucose 137 H (74-99) mg/dL Microbiology - Last 24 Hours (Table) 07/09/23 07:24 Blood Culture - Preliminary Blood 07/09/23 07:20 Blood Culture - Preliminary Blood 07/09/23 14:54 Gram Stain - Final Sputum Sputum Culture - Final
--- NOTE | 2023-07-12 16:47 | P.PN ---
Subjective Progress Note Date: 07/12/23 Pulmonary consult dated July 09, 2023. 78-year-old male, seen in the emergency department, room 20. The patient presented to the emergency department, at 5:00 in the morning, on July 08, complaining of increasing shortness of breath, cough, and hemoptysis. The patient apparently has a history of heart failure, hyperlipidemia, previous heart catheterization with stent, hypertension, and previous myocardial infarction. Much of the history was obtained from the patient's who is in the room. Currently, the patient is on room air, and also receiving saline IV. The patient was given a dose of Lasix, and started on antibiotics in the form of Rocephin, and azithromycin. The patient's chest x-ray in my opinion, could be consistent with either heart failure or pneumonia. In that regard, we placed an order for a procalcitonin level, and an N-terminal proBNP. Labs include a white count of 4.4, hemoglobin 16.9, hematocrit 52.3, and a platelet count of 100,000. PT 13.1, INR 1.2, and PTT 23.7. BUN is 32, creatinine 1.89. Glucose is 143. Troponin 0.126. Albumin is 3.9. He tested negative for influenza, RSV, and coronavirus. Chest x-ray shows mild cardiomegaly, and possible CHF, versus pneumonia. Progress note dated July 10, 2023. This is a 78-year-old male who we saw yesterday in consultation, in the emergency department. The patient was complaining of shortness of breath, and was spitting up a small amount of blood. We thought the primary diagnosis was that of CHF. Currently, the patient is seen today in room 376. The patient is using oxygen, at 4 L. He is not receiving any IV fluids. He is feeling much better today. Labs today include a sodium 139, potassium 3.4, chlorides 99, CO2 29, BUN 39, creatinine 1.79. The patient's calcium was 8.1. Troponins were 0. 126, 0.151, and 0.183. N-terminal proBNP was 20,100, and the procalcitonin level was 0.28. His x-ray shows left perihilar and left basilar infiltrates, as well as a right perihilar infiltrate. Patient continues on Lasix, Rocephin, and azithromycin. He is also getting breathing treatments. Progress note dated July 11, 2023. 78-year-old male seen in consultation 2 days ago. He was admitted with a diagnosis of shortness of breath, cough, and hemoptysis. He likely has both CHF, and pneumonia. Currently, he has been weaned off his oxygen. He is not receiving any IV fluids. We did add Augmentin 875 twice a day, to his regimen. Labs today include a sodium 135, potassium 3.6, chlorides 103, CO2 25, BUN 41, and creatinine 2.0. Calcium is 7.9. Urine Legionella antigen was negative. Hi s previous N-terminal proBNP was 20,100. Sputum and blood sampling has been negative thus far. Chest x-ray shows a pattern of bilateral patchy infiltrates. On today's evaluation of 07/12/2023, I am seeing the patient for a follow-up. The patient has been treated for CHF and he also encountered some mild hemoptysis which is currently inactive and stable. Note that his proBNP level and procalcitonin level were both elevated at time of admission. Nevertheless, his chest x-ray finding was most consistent with CHF and there was some left perihilar and left basilar pulmonary filtrates urine noted and some mild perihilar infiltration was also noted on the right. The patient for now he is on Augmentin 1 tablet twice a day. The patient remains on Bumex 2 mg p.o. daily. The patient is on a combination of metoprolol 200 mg p.o. daily and amiodarone 400 mg p.o. twice a day and anticoagulation with Eliquis 5 mg p.o. twice a day. Renal function remained stable with a BUN of 37 and creatinine of 2.03 and a sodium levels at 139. Good viral screen at time of admission was essentially negative. He is afebrile. Hemodynamically stable with a pulse ox of 97% on room air oxygen. Continues to have some limited cough and congestion. Objective - Vital Signs Vital signs: Vital Signs Temp 97.4 F L 07/12/23 04:00 Pulse 101 H 07/12/23 12:04 Resp 18 07/12/23 12:04 BP 115/79 07/12/23 08:00 Pulse Ox 100 07/12/23 08:00 FiO2 Intake & Output 07/11/23 07/12/23 07/12/23 18:59 06:59 18:59 Intake Total 848 240 118 Output Total 200 Balance 648 240 118 Weight 80 kg Intake: IV 10 Invasive Line 4 10 Oral 838 240 118 Output: Urine 200 Other: Voiding Method Urinal Urinal Urinal - Exam No acute distress, oriented 3. Currently on room air. No signs of any active respiratory distress at this point in time. HEENT examination is grossly unremarkable. Mucous membranes are moist. No oral lesions. Neck supple. Full range of motion. No adenopathy thyromegaly or neck vein distention. Cardiovascular examination reveals regular rhythm rate. S1-S2 normal. No S3 or S4. No discernible murmur noted. Heart sounds are distant. Lungs reveal scattered rhonchi and crackles. Scattered rhonchi and wheezing are appreciated bilaterally. Abdomen soft bowel sounds are heard. No masses or tenderness. Extremities are intact. No cyanosis clubbing or edema. Skin is without rash or lesion. Neurologic examination is brief but nonfocal. - Labs CBC & Chem 7: 07/09/23 05:35 07/12/23 08:21 Labs: Abnormal Lab Results - Last 24 Hours (Table) 07/12/23 Range/Units 08:21 BUN 37 H (9-20) mg/dL Creatinine 2.03 H (0.66-1.25) mg/dL Glucose 137 H (74-99) mg/dL Microbiology - Last 24 Hours (Table) 07/09/23 07:24 Blood Culture - Preliminary Blood 07/09/23 07:20 Blood Culture - Preliminary Blood 07/09/23 14:54 Gram Stain - Final Sputum Sputum Culture - Final Assessment and Plan Plan: Acute shortness of breath, with mild hemoptysis, most likely consistent with CHF although a component of perihilar bilateral pneumonia cannot be completely excluded. The patient is currently on Augmentin. Patient is also Bumex 2 mg p.o. daily. Currently on room air oxygen. Will obtain a follow-up chest x-ray. CHF with systolic heart failure and reduced ejection fraction of less than 20% Troponin leak likely secondary to type II myocardial ischemia Hemoptysis, recovered and the patient remains on anticoagulation History of ischemic cardiomyopathy Chronic atrial fibrillation Chronic stage III kidney disease, creatinine stable for now History of hypertension. History of CAD, with previous catheterization and stent placement involving the mid LAD History of myocardial infarction. History of hyperlipidemia. Diabetes mellitus type 2 Plan: Shortness of breath is improved and the patient is currently on room air oxygen. Would like to obtain a follow-up chest x-ray for tomorrow to monitor the perihilar bilateral pulmonary filtrates. Continue Augmentin Continue Bumex Continue current dose of metoprolol 200 milligrams daily Continue amiodarone 400 mg twice a day and taper down to daily after 2 weeks, prescription sent to his pharmacy Continue Eliquis Daily weights, accurate intake and output, and monitoring of kidney function
--- NOTE | 2023-07-12 18:00 | P.PN ---
Subjective Progress Note Date: 07/12/23 This is a pleasant 78-year-old male who presented to the emergency department with with cough and hemoptysis. Patient and at the bedside report some viral illness had been going through the house over the last week and patient had not been feeling well eating more short of breath with exertion and having coughing fits and the hemoptysis started yesterday with scant streaky blood noted in the sputum. Patient does not normally wear oxygen outpatient and follows with Dr. Barrera in the outpatient setting with a past medical history of hyperlipidemia, hypertension, previous myocardial infarction, former smoker of many years ago and denies any other illicit drugs or alcohol use. Patient is currently on Eliquis with history of atrial fibrillation. In the ER, chest x- ray showed mild cardiomegaly with central opacities favoring edema correlate for fluid overload and CHF exacerbation additional areas of acute infiltrate in the left lower lung cannot be entirely excluded. EKG shows A-fib with RVR patient being admitted for CHF exacerbation with pulmonary and cardiology on consult. Labs reviewed show a white count of 4.4, hemoglobin is 16.9, platelets are 100, INR is 1.2, D-dimer 0.77, age-appropriate, sodium 138, BUN 32 with a creatinine of 1.89 glucose elevated at 143, total bili is 1.4 troponin 0.126 with a repeat 0.151 BNP is 20,000 and all viral testing including influenza, RSV, COVID are all negative. Patient was admitted and started on ceftriaxone and Zithromax along with IV Lasix. 07/10/2023 Patient evaluated in follow up today on the medical floor. Patient continues to report cough with significant hemoptysis and eliquis remains on hold. Patient is being diuresed with IV lasix 40 mg every 12 hours, patient is -1.4 L of urine output in the last 24 hours. Chest x-ray today showing left perihilar and left basilar infiltrate persistent may have progressed in the interval. A mild right perihilar infiltrate suggested. Creatinine is improving down to 1.79. Procalc itonin at 0.28. 07/11/2023 Patient is evaluated in follow-up today on the medical floor. Patient reports resolution of his hemoptysis and Eliquis has been resumed. He did have a sputum culture that was sent down and currently pending at this time. Patient has been transition to oral Lasix. He is now on room air. He reports improvement in his shortness of breath and he does not have any peripheral edema. His creatinine is up to 2.00 and we will repeat this level in the morning. 07/12/2023 Patient is seen in follow-up today with cardiology and pulmonary following. Patient is currently sitting up and has been up and walking the halls in room air and tolerating well. Patient continues to have some wheezing will continue with DuoNebs and arrange for outpatient nebulizer. Discussed with case management and will provide prescription. Patient reports he is feeling like he continues to need to expectorate secretions although unable to. Patient reports to feeling improved and would like to go home. Will discuss with pulmonary and cardiology regarding discharge planning. Likely discharge in 24 hours. Review of Systems Constitutional: Denied any fatigue denied any fever. Cardio vascular: denied any chest pain, palpitations Gastrointestinal: denied any nausea, vomiting, diarrhea Pulmonary: Denied any shortness of breath, reports cough and unable to expectorate phlegm Neurologic denied any new focal deficits All inpatient medications were reviewed and appropriate changes in these medications as dictated in the interval history and assessment and plan. PHYSICAL EXAMINATION: GENERAL: The patient is alert and oriented x3, currently on room air much improved from yesterday. Well developed, elderly appearing, ill-appearing HEENT: Pupils are round and equally reacting to light. EOMI. No scleral icterus. No conjunctival pallor. Normocephalic, atraumatic. No pharyngeal erythema. No thyromegaly. CARDIOVASCULAR: S1 and S2 muffled, tachycardic, irregular PULMONARY: Breath sounds diminished bilaterally with scattered wheezing and rhonchi noted. Some crackles noted at the bases. ABDOMEN: Soft, nontender, nondistended, normoactive bowel sounds. No palpable organomegaly. MUSCULOSKELETAL: No joint swelling or deformity. EXTREMITIES: No cyanosis, clubbing, or pedal edema. NEUROLOGICAL: Gross neurological examination did not reveal any focal deficits. Diffusely weak SKIN: No rashes. Assessment: Shortness of breath with hemoptysis, possibly secondary to CHF exacerbation and is on Eliquis; this has resolved Generalized weakness with gait dysfunction history of congestive heart failure with acute on chronic heart failure exacerbation with reduced EF. Most recent EF is 20% Elevated troponin, likely type II CO due to CHF exacerbation Dyspnea with minimal exertion with acute hypoxic respiratory failure likely secondary to CHF exacerbation history of COPD Elevated BNP of 20,000 secondary to CHF exacerbation History of atrial fibrillation, uncontrolled with RVR, currently rate controlled will continue on amiodarone taper Hypertension history History of coronary artery disease with stents previously History of ischemic cardiomyopathy Chronic kidney disease history History of myocardial infarction Hyperlipidemia Former smoker GI prophylaxis DVT prophylaxis Full code Plan: Patient has been transition to oral Lasix .monitor kidney functions and will follow-up on repeat labs, kidney function stable although elevated with a creatinine above 2 Continue DuoNeb treatment. Patient with significant wheezing likely COPD as patient was a smoker for many years. Will obtain nebulizer and have patient follow-up with pulmonary outpatient. Case management following arranging for discharge planning needs Virology testing including COVID, influenza, RSV are all negative. Family reports they have all been sick over the last few weeks and patient started developing further cough. Symptoms have improved. Cardiology and pulmonary following Patient has been weaned off oxygen currently maintaining room air. CODE STATUS was discussed and patient wishes to remain full code including mechanical ventilation and CPR as necessary Will await clearance from cardiology and pulmonary. Arrange for nebulizer for outpatient. Likely discharge in 24 hours The impression and plan of care has been dictated by Ashanti Watters, Nurse Practitioner as directed. Dr. Zhao MD I have performed a history and physical examination and medical decision making of this patient, discussed the same with the dictator, and agree with the dictators assessment and plan as written, documented as a scribe. Based on total visit time, I have performed more than 50% of this visit. Objective - Vital Signs Vital signs: Vital Signs Temp 97.4 F L 07/12/23 04:00 Pulse 96 07/12/23 09:51 Resp 16 07/12/23 08:00 BP 115/79 07/12/23 08:00 Pulse Ox 100 07/12/23 08:00 FiO2 Intake & Output 07/11/23 07/12/23 07/12/23 18:59 06:59 18:59 Intake Total 848 240 118 Output Total 200 Balance 648 240 118 Weight 80 kg Intake: IV 10 Invasive Line 4 10 Oral 838 240 118 Output: Urine 200 Other: Voiding Method Urinal Urinal - Labs CBC & Chem 7: 07/09/23 05:35 07/12/23 08:21 Labs: Abnormal Lab Results - Last 24 Hours (Table) 07/12/23 Range/Units 08:21 BUN 37 H (9-20) mg/dL Creatinine 2.03 H (0.66-1.25) mg/dL Glucose 137 H (74-99) mg/dL Microbiology - Last 24 Hours (Table) 07/09/23 07:24 Blood Culture - Preliminary Blood 07/09/23 07:20 Blood Culture - Preliminary Blood 07/09/23 14:54 Gram Stain - Final Sputum Sputum Culture - Final
--- NOTE | 2023-07-12 18:41 | XR ---
EXAMINATION TYPE: XR chest 1V DATE OF EXAM: 07/12/2023 COMPARISON: 11/14/2020 HISTORY: CHF TECHNIQUE: Single frontal view of the chest is obtained. FINDINGS: There is moderate cardiomegaly. The pulmonary vasculature is not appear congested and there is no air space or interstitial edema there is no consolidative opacity. There is no pneumothorax. There is no pleural effusion. The osseous structures are intact IMPRESSION: 1. No definite acute cardiopulmonary disease. 2. Moderate cardiomegaly without overt CHF.
[2023-07-13 11:49] VITALS: BP 148/106; RESP 18; TEMP 97.4
[2023-07-13 12:29] VITALS: PULSE 92
--- NOTE | 2023-07-13 14:15 | P.PN ---
Subjective Progress Note Date: 07/13/23 Pulmonary consult dated July 09, 2023. 78-year-old male, seen in the emergency department, room 20. The patient presented to the emergency department, at 5:00 in the morning, on July 08, complaining of increasing shortness of breath, cough, and hemoptysis. The patient apparently has a history of heart failure, hyperlipidemia, previous heart catheterization with stent, hypertension, and previous myocardial infarction. Much of the history was obtained from the patient's who is in the room. Currently, the patient is on room air, and also receiving saline IV. The patient was given a dose of Lasix, and started on antibiotics in the form of Rocephin, and azithromycin. The patient's chest x-ray in my opinion, could be consistent with either heart failure or pneumonia. In that regard, we placed an order for a procalcitonin level, and an N-terminal proBNP. Labs include a white count of 4.4, hemoglobin 16.9, hematocrit 52.3, and a platelet count of 100,000. PT 13.1, INR 1.2, and PTT 23.7. BUN is 32, creatinine 1.89. Glucose is 143. Troponin 0.126. Albumin is 3.9. He tested negative for influenza, RSV, and coronavirus. Chest x-ray shows mild cardiomegaly, and possible CHF, versus pneumonia. Progress note dated July 10, 2023. This is a 78-year-old male who we saw yesterday in consultation, in the emergency department. The patient was complaining of shortness of breath, and was spitting up a small amount of blood. We thought the primary diagnosis was that of CHF. Currently, the patient is seen today in room 376. The patient is using oxygen, at 4 L. He is not receiving any IV fluids. He is feeling much better today. Labs today include a sodium 139, potassium 3.4, chlorides 99, CO2 29, BUN 39, creatinine 1.79. The patient's calcium was 8.1. Troponins were 0. 126, 0.151, and 0.183. N-terminal proBNP was 20,100, and the procalcitonin level was 0.28. His x-ray shows left perihilar and left basilar infiltrates, as well as a right perihilar infiltrate. Patient continues on Lasix, Rocephin, and azithromycin. He is also getting breathing treatments. Progress note dated July 11, 2023. 78-year-old male seen in consultation 2 days ago. He was admitted with a diagnosis of shortness of breath, cough, and hemoptysis. He likely has both CHF, and pneumonia. Currently, he has been weaned off his oxygen. He is not receiving any IV fluids. We did add Augmentin 875 twice a day, to his regimen. Labs today include a sodium 135, potassium 3.6, chlorides 103, CO2 25, BUN 41, and creatinine 2.0. Calcium is 7.9. Urine Legionella antigen was negative. Hi s previous N-terminal proBNP was 20,100. Sputum and blood sampling has been negative thus far. Chest x-ray shows a pattern of bilateral patchy infiltrates. On today's evaluation of 07/12/2023, I am seeing the patient for a follow-up. The patient has been treated for CHF and he also encountered some mild hemoptysis which is currently inactive and stable. Note that his proBNP level and procalcitonin level were both elevated at time of admission. Nevertheless, his chest x-ray finding was most consistent with CHF and there was some left perihilar and left basilar pulmonary filtrates urine noted and some mild perihilar infiltration was also noted on the right. The patient for now he is on Augmentin 1 tablet twice a day. The patient remains on Bumex 2 mg p.o. daily. The patient is on a combination of metoprolol 200 mg p.o. daily and amiodarone 400 mg p.o. twice a day and anticoagulation with Eliquis 5 mg p.o. twice a day. Renal function remained stable with a BUN of 37 and creatinine of 2.03 and a sodium levels at 139. Good viral screen at time of admission was essentially negative. He is afebrile. Hemodynamically stable with a pulse ox of 97% on room air oxygen. Continues to have some limited cough and congestion. On today's evaluation of 07/13/2023, the patient is being seen for a follow-up. The patient doing extremely well. The patient remains on room air oxygen. Rep eat chest x-ray was done today and it shows cardiomegaly without overt signs of heart failure. The right lower lobe pulmonary filtration has improved on today's chest x-ray. The BUN is at 37 with a creatinine of 2.03 which is stable and a sodium levels at 139. The patient remains on oral Augmentin. A home nebulizer was arranged for this patient. Remains on amiodarone and metoprolol. Remains on Bumex 2 mg p.o. on a daily basis. Denies having any other specific complaints otherwise. Objective - Vital Signs Vital signs: Vital Signs Temp 98.1 F 07/13/23 07:42 Pulse 92 07/13/23 08:58 Resp 16 07/13/23 07:42 BP 135/93 07/13/23 07:42 Pulse Ox 97 07/13/23 08:48 FiO2 Intake & Output 07/12/23 07/13/23 07/13/23 18:59 06:59 18:59 Intake Total 716 240 118 Output Total 600 Balance 116 240 118 Weight 80.5 kg Intake: Oral 716 240 118 Output: Urine 600 Other: Voiding Method Urinal Urinal Urinal - Exam No acute distress, oriented 3. Currently on room air. No signs of any active respiratory distress at this point in time. HEENT examination is grossly unremarkable. Mucous membranes are moist. No oral lesions. Neck supple. Full range of motion. No adenopathy thyromegaly or neck vein distention. Cardiovascular examination reveals regular rhythm rate. S1-S2 normal. No S3 or S4. No discernible murmur noted. Heart sounds are distant. Lungs reveal scattered rhonchi and crackles. Scattered rhonchi and wheezing are appreciated bilaterally. Abdomen soft bowel sounds are heard. No masses or tenderness. Extremities are intact. No cyanosis clubbing or edema. Skin is without rash or lesion. Neurologic examination is brief but nonfocal. - Labs CBC & Chem 7: 07/09/23 05:35 07/12/23 08:21 Labs: Microbiology - Last 24 Hours (Table) 07/09/23 07:24 Blood Culture - Preliminary Blood 07/09/23 07:20 Blood Culture - Preliminary Blood 07/11/23 11:48 Gram Stain - Preliminary Sputum Assessment and Plan Plan: Acute shortness of breath, with mild hemoptysis, most likely consistent with CHF although a component of perihilar bilateral pneumonia cannot be completely excluded. The patient is currently on Augmentin. Patient is also Bumex 2 mg p.o. daily. Currently on room air oxygen. Follow-up chest x-ray shows improvement in the left lower lobe pulmonary infiltrates as the patient is completing a course of Augmentin. CHF is under better control his condition is optimized at this point in time. CHF with systolic heart failure and reduced ejection fraction of less than 20% Troponin leak likely secondary to type II myocardial ischemia Hemoptysis, recovered and the patient remains on anticoagulation History of ischemic cardiomyopathy Chronic atrial fibrillation Chronic stage III kidney disease, creatinine stable for now History of hypertension. History of CAD, with previous catheterization and stent placement involving the mid LAD History of myocardial infarction. History of hyperlipidemia. Diabetes mellitus type 2 Plan: Chest x-ray improved Shortness of breath improved Continue Augmentin and complete the course on outpatient basis Continue Bumex 2 mg p.o. daily Continue current dose of metoprolol 200 milligrams daily Continue amiodarone 400 mg twice a day and taper down to daily after 2 weeks, prescription sent to his pharmacy Continue Eliquis Daily weights, accurate intake and output, and monitoring of kidney function Renal function is stable Home nebulizer Possible home today
== END 2023-07-13 14:29 | disposition home or self-care (01) | DRG 280 ==
LOC: EC 05:02 → 3SCARD 07:02
PROVIDERS: ADMIT Internal Medicine; ATTEND Internal Medicine
DX: I13.0 Hypertensive heart and chronic kidney disease with heart failure and stage 1 through stage 4 chronic kidney disease, or unspecified chronic kidney disease (principal); I50.23 Acute on chronic systolic (congestive) heart failure; I21.A1 Myocardial infarction type 2; R04.2 Hemoptysis; I48.19 Other persistent atrial fibrillation; I25.10 Atherosclerotic heart disease of native coronary artery without angina pectoris; I25.5 Ischemic cardiomyopathy; N18.30 Chronic kidney disease, stage 3 unspecified; E78.5 Hyperlipidemia, unspecified; Z79.01 Long term (current) use of anticoagulants; Z95.5 Presence of coronary angioplasty implant and graft
CPT/HCPCS: 36415; 71045; 71046; 80048; 80053; 83880; 84145; 84484; 85025; 85379; 85610; 85730; 87040; 87070; 87205; 87449; 87636; 93005; 94640; 94760; 96361; 96365; 96367; 96375; 99285

== ENCOUNTER → 2023-12-08 | Outpatient (CLI) | payer MEDICARE, BC | END | disposition home or self-care (01) | LOC: LABWHC1 12:50 | PROVIDERS: ATTEND Internal Medicine | DX: R94.6 Abnormal results of thyroid function studies (principal) | CPT/HCPCS: 36415; 84443 ==

== ENCOUNTER → 2024-01-20 | Outpatient (CLI) | payer MEDICARE, BC ==
[2024-01-20 15:38] LABS: T4, Free (Free Thyroxine) 1.26 ng/dL (0.80-1.80)
== END | disposition home or self-care (01) ==
LOC: LABWHC1 10:13
PROVIDERS: ATTEND Internal Medicine
DX: E03.9 Hypothyroidism, unspecified (principal)
CPT/HCPCS: 36415; 84439; 84443

== ENCOUNTER 2024-06-19 13:29 | Emergency (ER) | payer MEDICARE, BC ==
--- NOTE | 2024-06-19 13:43 | ED ---
General Adult HPI - General Source: patient, family, RN notes reviewed Mode of arrival: ambulatory Limitations: no limitations <Mady Aquino - Last Filed: 06/19/24 13:42> - General Source: patient, family, RN notes reviewed Mode of arrival: ambulatory Limitations: no limitations <Tyrone Edwards - Last Filed: 06/19/24 16:36> - General Stated complaint: Congestion,cough,SOB Time Seen by Provider: 06/19/24 13:42 - History of Present Illness Initial comments: Quick note: 79-year-old male presented the ER for evaluation of cough. Patient states for a while he has been having a persistent nighttime cough with the inability to bring anything up. He does use a nebulizer twice daily. Patient reports a history of fluid on his lungs. Patient admits to exertional dyspnea and peripheral edema. He does take a water pill. No supplemental oxygen. (Mady Aquino) This is a 79-year-old male with history of CAD, cardiac stent, hypertension and hyperlipidemia presenting for productive cough x 4 days. Patient endorses productive cough with milky white sputum and nasal congestion. Endorses use of albuterol twice daily with transient relief. Patient endorses dyspnea with exertion and BLE edema for at least 1 month. 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 Limon, last week, who is aware of all current symptoms, including echocardiogram revealing ejection fraction 25%. Patient denies chest pain, dyspnea at rest, pallor, dizziness. Endorses occasional sweating at night but denies recent unplanned weight loss. Denies fever, chills, abdominal pain, N/V/D. (Tyrone Edwards) - Related Data Home Medications Medication Instructions Recorded Confirmed Atorvastatin [Lipitor] 40 mg PO DAILY 11/13/20 06/19/24 Docusate [Colace] 100 mg PO BID 11/13/20 06/19/24 Gabapentin [Neurontin] 300 mg PO BID 07/09/23 06/19/24 Amiodarone [Cordarone] 200 mg PO DAILY 06/19/24 06/19/24 Empagliflozin [Jardiance] 10 mg PO DAILY 06/19/24 06/19/24 Ipratropium-Albuterol Nebulize 3 ml INHALATION RT-QID PRN 06/19/24 06/19/24 [Duoneb 0.5 mg-3 mg/3 ml Soln] Levothyroxine Sodium [Synthroid] 75 mcg PO DAILY 06/19/24 06/19/24 Metoprolol Succinate (ER) [Toprol 100 mg PO BID 06/19/24 06/19/24 XL] Nitroglycerin Sl Tabs [Nitrostat] 0.4 mg SL Q5M PRN 06/19/24 06/19/24 Sennosides [Ex-Lax Maximum 25 mg PO Q72H 06/19/24 06/19/24 Strength] Previous Rx's Medication Instructions Recorded Apixaban [Eliquis] 5 mg PO BID 30 Days #60 tab 11/15/20 Bumetanide [BUMEX] 2 mg PO DAILY 30 Days #30 tablet 10/12/21 guaiFENesin [Mucinex] 1,200 mg PO BID PRN #24 tab 06/19/24 predniSONE 50 mg PO DAILY #5 tab 06/19/24 Allergies Allergy/AdvReac Type Severity Reaction Status Date / Time No Known Allergies Allergy Verified 06/19/24 15:26 Review of Systems ROS Other: All systems not noted in ROS Statement are negative. <Mady Aquino - Last Filed: 06/19/24 13:42> ROS Other: All systems not noted in ROS Statement are negative. <Tyrone Edwards - Last Filed: 06/19/24 16:36> ROS Statement: Those systems with pertinent positive or pertinent negative responses have been documented in the HPI. Past Medical History Past Medical History: Hyperlipidemia, Hypertension, Myocardial Infarction ([place]) Additional Past Medical History / Comment(s): COVID 2020 Last Myocardial Infarction Date:: 07/31/2016 History of Any Multi-Drug Resistant Organisms: None Reported Past Surgical History: Cholecystectomy, Heart Catheterization With Stent, Hernia Repair Additional Past Surgical History / Comment(s): 1 stent Past Anesthesia/Blood Transfusion Reactions: No Reported Reaction Date of Last Stent Placement:: 07/28/2016 Past Psychological History: No Psychological Hx Reported Smoking Status: Former smoker Past Alcohol Use History: None Reported Past Drug Use History: None Reported - Past Family History Mother Family Medical History: Cancer Father Family Medical History: CVA/TIA <Mady Aquino - Last Filed: 06/19/24 13:42> General Exam <Mady Aquino - Last Filed: 06/19/24 13:42> General appearance: alert, in no apparent distress Head exam: Present: atraumatic, normocephalic, normal inspection Eye exam: Present: normal appearance, PERRL, EOMI. Absent: scleral icterus, conjunctival injection, periorbital swelling ENT exam: Present: normal exam, mucous membranes moist Neck exam: Present: normal inspection, tenderness (Positive right anterolateral neck point tenderness). Absent: meningismus, lymphadenopathy Respiratory exam: Present: wheezes, rhonchi, prolonged expiratory. Absent: respiratory distress, rales, stridor, chest wall tenderness, accessory muscle use Cardiovascular Exam: Present: regular rate, normal rhythm, normal heart sounds. Absent: systolic murmur, diastolic murmur, rubs, gallop, clicks GI/Abdominal exam: Present: soft, normal bowel sounds. Absent: distended, tenderness, guarding, rebound, rigid Extremities exam: Present: normal inspection, full ROM, normal capillary refill. Absent: tenderness, pedal edema, joint swelling, calf tenderness Back exam: Present: normal inspection Neurological exam: Present: alert, oriented X3, CN II-XII intact Psychiatric exam: Present: normal affect, normal mood Skin exam: Present: warm, dry, intact, normal color. Absent: rash <Tyrone Edwards - Last Filed: 06/19/24 16:36> - General Exam Comments Initial Comments: Visual Physical Exam Vital signs reviewed General: Well-appearing, nontoxic, no acute distress. Head: Normocephalic, atraumatic Eyes: PERRLA, EOMI ENT: Airway patent Chest: Nonlabored breathing Skin: No visual rash, normal skin tone Neuro: Alert and oriented 3 Musculoskeletal: No gross abnormalities (Mady Aquino) Course Vital Signs 06/19/24 13:52 Temperature 98.1 F Pulse Rate 71 Respiratory 15 Rate Blood Pressure 115/71 O2 Sat by Pulse 98 Oximetry Medical Decision Making <Mady Aquino - Last Filed: 06/19/24 13:42> <Tyrone Edwards - Last Filed: 06/19/24 16:36> - Medical Decision Making I performed the quick note portion of this chart. Electronically signed by Mady Aquino PA-C (Mady Aquino) Was pt. sent in by a medical professional or institution (JEN Mayo, CONTROL BOARD OPERATOR, urgent care, hospital, or retirement...) When possible be specific @ -[No] Did you speak to anyone other than the patient for history (EMS, parent, family, police, friend...)? What history was obtained from this source @ -[No] Did you review nursing and triage notes (agree or disagree)? Why? @ -[I reviewed and agree with nursing and triage notes] Were old charts reviewed (outside hosp., previous admission, EMS record, old EKG, old radiological studies, urgent care reports/EKG's, retirement records)? Report findings @ -[No old charts were reviewed] Differential Diagnosis (chest pain, altered mental status, abdominal pain women, abdominal pain men, vaginal bleeding, weakness, fever, dyspnea, syncope, headache, dizziness, GI bleed, back pain, seizure, CVA, palpatations, mental health, musculoskeletal)? @ -Differential Dyspnea: Coronary syndrome, arrhythmia, tamponade, asthma, COPD, pulmonary embolism, pneumonia, pneumothorax, pulmonary effusion, anaphylaxis, diabetic ketoacidosis, flailed chest, pulmonary contusion, diaphragmatic rupture, anemia, neuromuscular, this is not meant to be an all-inclusive list. EKG interpreted by me (3pts min.). @ -Not done X-rays interpreted by me (1pt min.). @ -[None done] CT interpreted by me (1pt min.). @ -[None done] U/S interpreted by me (1pt. min.). @ -[None done] What testing was considered but not performed or refused? (CT, X-rays, U/S, labs)? Why? @ -[None] What meds were considered but not given or refused? Why? @ -[None] Did you discuss the management of the patient with other professionals (professionals i.e. JEN Mayo, CONTROL BOARD OPERATOR, lab, RT, psych nurse, community mental health social worker, web content editor, teacher, traffic police officer, complex case manager)? Give summary @ -[No] Was smoking cessation discussed for >3mins.? @ -[No] Was critical care preformed (if so, how long)? @ -[No] Were there social determinants of health that impacted care today? How? (Homelessness, low income, unemployed, alcoholism, drug addiction, transportation, low edu. Level, literacy, decrease access to med. care, assisted, rehab)? @ -[No] Was there de-escalation of care discussed even if they declined (Discuss DNR or withdrawal of care, Hospice)? DNR status @ -[No] What co-morbidities impacted this encounter? (DM, HTN, Smoking, COPD, CAD, Cancer, CVA, ARF, Chemo, Hep., AIDS, mental health diagnosis, sleep apnea, morbid obesity)? @ -[None] Was patient admitted / discharged? Hospital course, mention meds given and [place], prescriptions, significant lab abnormalities, going to OR and other pertinent info. @ -[hospital course] Undiagnosed new problem with uncertain prognosis? @ -[No] Drug Therapy requiring intensive monitoring for toxicity (Heparin, Nitro, Insulin, Cardizem)? @ -[No] Were any procedures done? @ -[No] Diagnosis/symptom? @ -[default] Acute, or Chronic, or Acute on Chronic? @ -Acute Uncomplicated (without systemic symptoms) or Complicated (systemic symptoms)? @ -Uncomplicated Side effects of treatment? @ -[No] Exacerbation, Progression, or Severe Exacerbation? @ -[No] Poses a threat to life or bodily function? How? (Chest pain, [place], SD, pneumonia, PE, COPD, DKA, ARF, appy, cholecystitis, CVA, Diverticulitis, Homicidal, Suicidal, threat to staff... and all critical care pts) @ -[No] (Tyrone Edwards) - Lab Data Lab Results 06/19/24 Range/Units 13:56 Influenza Type A (PCR) Not Detected (Not Detectd) Influenza Type B (PCR) Not Detected (Not Detectd) RSV (PCR) Not Detected (Not Detectd) SARS-CoV-2 (PCR) Not Detected (Not Detectd) Disposition <Mady Aquino - Last Filed: 06/19/24 13:42> Is patient prescribed a controlled substance at d/c from ED?: No Time of Disposition: 16:14 <Tyrone Edwards - Last Filed: 06/19/24 16:36> Clinical Impression: Bronchitis Disposition: HOME SELF-CARE Condition: Good Instructions (If sedation given, give patient instructions): Acute Bronchitis (ED) Additional Instructions: Continue albuterol every 4-6 hours as needed. Take other prescribed medication as directed. Follow-up with PCP for any ongoing symptoms. Prescriptions: guaiFENesin [Mucinex] 1,200 mg PO BID PRN #24 tab PRN Reason: Congestion predniSONE 50 mg PO DAILY #5 tab Referrals: Briana Barrera MD [Primary Care Provider] - 1-2 days
[2024-06-19 14:39] LABS: Influenza A Not Detected (Not Detectd); Influenza B Not Detected (Not Detectd); RSV Not Detected (Not Detectd)
[2024-06-19] MEDS: IPRATROPIUM-ALBUTEROL 3 ML NEB INHALATION STA (15:09)
--- NOTE | 2024-06-19 15:59 | XR ---
EXAMINATION TYPE: XR chest 2V DATE OF EXAM: 06/19/2024 3:46 PM COMPARISON: 07/12/2023 CLINICAL INDICATION: Male, 79 years old with history of Chest Pain: Shortness of breath TECHNIQUE: XR chest 2V views of the chest are obtained. FINDINGS: Scattered senescent parenchymal changes noted. Hyperinflation compatible with COPD. No evidence for infiltrate. No evidence for atelectasis. Heart size is stable. Mediastinal structures are stable and grossly unremarkable. No evidence for hilar prominence. Degenerative changes dorsal spine. IMPRESSION: 1. No evidence for acute pulmonary disease. [facility], , 06/19/2024 3:56 PM
[2024-06-19] MEDS: predniSONE 50 MG TAB PO STA (16:18)
[2024-06-19 17:11] VITALS: BP 119/70; PULSE 68; RESP 20; TEMP 98.5
== END 2024-06-19 17:33 | disposition home or self-care (01) ==
LOC: EC 13:29
DX: J40 Bronchitis, not specified as acute or chronic (principal); Z87.891 Personal history of nicotine dependence; Z86.16 Personal history of COVID-19
CPT/HCPCS: 94640; 87636; 71046; 99285; J7512

== ENCOUNTER 2024-06-27 22:56 | Inpatient (IN) | payer MEDICARE, BC ==
[2024-06-28 00:09] LABS: Glucose,Whole Blood 136 mg/dL (70-110)
--- NOTE | 2024-06-28 00:25 | XR ---
EXAM: XR Chest, 2 Views CLINICAL HISTORY: ITS.REASON XR Reason: cough TECHNIQUE: Frontal and lateral views of the chest. COMPARISON: XR Chest dated 06/19/24 FINDINGS: Lungs: New patchy atelectasis or airspace disease in the medial lower lobes bilaterally. Ovoid opacities overlying the lateral left lower lobe and to lesser degree on the right. Likely reflect nipple shadows. Pleural space: Unremarkable. No pneumothorax. Heart: See below. Mediastinum: Stable cardiomediastinal silhouette/mild cardiomegaly. Bones/joints: Unremarkable. No acute fracture. IMPRESSION: New patchy atelectasis or airspace disease in the medial lower lobes bilaterally. May represent pneumonia.
[2024-06-28 00:56] LABS: Influenza A Not Detected (Not Detectd); Influenza B Not Detected (Not Detectd); RSV Not Detected (Not Detectd)
--- NOTE | 2024-06-28 01:23 | ED ---
General Adult HPI - General Chief complaint: Upper Respiratory Infection Stated complaint: Weakness Time Seen by Provider: 06/27/24 23:01 Source: patient, EMS Mode of arrival: EMS Limitations: no limitations - History of Present Illness Initial comments: This patient is 79-year-old man who complains of having cough, congestion, mild dyspnea. Patient states that he started having symptoms a little over a week ago. He was even seen here June 19 and was diagnosed with bronchitis. Patient states that he completed a course of steroid, and was feeling a little better and then over the course of the past 1 to 2 days has had worsening of his symptoms. He describes a "tickle in his chest, some congestion and cough. He has not noted fever though he has had frequent sweating episodes, followed by chills. -: days(s) Severity scale (1-10): 0 Consistency: constant Improves with: none Worsens with: none Associated Symptoms: cough, diaphoresis, fever/chills, shortness of breath Treatments Prior to Arrival: other (Steroid) - Related Data Home Medications Medication Instructions Recorded Confirmed Atorvastatin [Lipitor] 40 mg PO DAILY 11/13/20 06/19/24 Docusate [Colace] 100 mg PO BID 11/13/20 06/19/24 Gabapentin [Neurontin] 300 mg PO BID 07/09/23 06/19/24 Amiodarone [Cordarone] 200 mg PO DAILY 06/19/24 06/19/24 Empagliflozin [Jardiance] 10 mg PO DAILY 06/19/24 06/19/24 Ipratropium-Albuterol Nebulize 3 ml INHALATION RT-QID PRN 06/19/24 06/19/24 [Duoneb 0.5 mg-3 mg/3 ml Soln] Levothyroxine Sodium [Synthroid] 75 mcg PO DAILY 06/19/24 06/19/24 Metoprolol Succinate (ER) [Toprol 100 mg PO BID 06/19/24 06/19/24 XL] Nitroglycerin Sl Tabs [Nitrostat] 0.4 mg SL Q5M PRN 06/19/24 06/19/24 Sennosides [Ex-Lax Maximum 25 mg PO Q72H 06/19/24 06/19/24 Strength] Previous Rx's Medication Instructions Recorded Apixaban [Eliquis] 5 mg PO BID 30 Days #60 tab 11/15/20 Bumetanide [BUMEX] 2 mg PO DAILY 30 Days #30 tablet 10/12/21 guaiFENesin [Mucinex] 1,200 mg PO BID PRN #24 tab 06/19/24 predniSONE 50 mg PO DAILY #5 tab 06/19/24 Allergies Allergy/AdvReac Type Severity Reaction Status Date / Time No Known Allergies Allergy Verified 06/28/24 01:16 Review of Systems ROS Statement: Those systems with pertinent positive or pertinent negative responses have been documented in the HPI. ROS Other: All systems not noted in ROS Statement are negative. Constitutional: Reports: fever (Subjective), chills Respiratory: Reports: cough, dyspnea. Denies: wheezes, hemoptysis Cardiovascular: Denies: chest pain, palpitations, edema Gastrointestinal: Denies: abdominal pain, nausea, vomiting Genitourinary: Denies: dysuria, hematuria Musculoskeletal: Denies: back pain Skin: Denies: rash Neurological: Denies: headache, weakness, numbness Past Medical History Past Medical History: COPD, Hyperlipidemia, Hypertension, Myocardial Infarction ([place]) Additional Past Medical History / Comment(s): COVID 2020 Last Myocardial Infarction Date:: 07/31/2016 History of Any Multi-Drug Resistant Organisms: None Reported Past Surgical History: Cholecystectomy, Heart Catheterization With Stent, Hernia Repair Additional Past Surgical History / Comment(s): 1 stent Past Anesthesia/Blood Transfusion Reactions: No Reported Reaction Date of Last Stent Placement:: 07/28/2016 Past Psychological History: No Psychological Hx Reported Smoking Status: Former smoker Past Alcohol Use History: None Reported Past Drug Use History: None Reported - Past Family History Mother Family Medical History: Cancer Father Family Medical History: CVA/TIA General Exam Limitations: no limitations General appearance: alert, in no apparent distress Head exam: Present: atraumatic, normocephalic Eye exam: Present: normal appearance. Absent: scleral icterus, conjunctival injection Neck exam: Present: normal inspection Respiratory exam: Present: rales. Absent: respiratory distress, wheezes, rhonchi, stridor, accessory muscle use Cardiovascular Exam: Present: regular rate, normal rhythm, normal heart sounds. Absent: systolic murmur, diastolic murmur, rubs, gallop GI/Abdominal exam: Present: soft. Absent: distended, tenderness, guarding, rebound, rigid, mass Extremities exam: Present: normal inspection, normal capillary refill. Absent: pedal edema, calf tenderness Back exam: Present: normal inspection. Absent: CVA tenderness (R), CVA tenderness (L) Neurological exam: Present: alert Skin exam: Present: warm, dry, intact, normal color. Absent: rash Course Vital Signs 06/27/24 06/28/24 06/28/24 23:03 02:20 05:30 Temperature 98.4 F 97.9 F 97.7 F Pulse Rate 63 64 104 H Respiratory 17 18 19 Rate Blood Pressure 105/68 104/71 120/85 O2 Sat by Pulse 97 97 97 Oximetry 06/28/24 06:30 Temperature 97.8 F Pulse Rate 86 Respiratory 18 Rate Blood Pressure 130/94 O2 Sat by Pulse 96 Oximetry Medical Decision Making - Medical Decision Making Patient is 79-year-old man presenting with dyspnea, cough, fever and chills. The patient does have some evidence of congestive heart failure therefore initial fluid bolus is limited. Patient is admitted for further antibiotic therapy. - Lab Data Result diagrams: 06/28/24 02:02 06/28/24 02:02 Lab Results 06/28/24 06/28/24 06/28/24 Range/Units 00:05 00:07 02:02 WBC 16.1 H (3.8-10.6) k/uL RBC 5.76 (4.30-5.90) m/uL Hgb 14.0 (13.0-17.5) gm/dL Hct 45.5 (39.0-53.0) % MCV 79.1 L (80.0-100.0) fL MCH 24.4 L (25.0-35.0) pg MCHC 30.8 L (31.0-37.0) g/dL RDW 17.9 H (11.5-15.5) % Plt Count 169 (150-450) k/uL MPV 8.8 Neutrophils % (Manual) 91 % Lymphocytes % (Manual) 6 % Monocytes % (Manual) 3 % Neutrophils # (Manual) 14.65 H (1.3-7.7) k/uL Lymphocytes # (Manual) 0.97 L (1.0-4.8) k/uL Monocytes # (Manual) 0.48 (0-1.0) k/uL Nucleated RBCs 0 (0-0) /100 WBC Manual Slide Review Performed Hypochromasia Marked Poikilocytosis (manual Present Anisocytosis Slight Microcytosis Slight Sodium (137-145) mmol/L Potassium (3.5-5.1) mmol/L Chloride (98-107) mmol/L Carbon Dioxide (22-30) mmol/L Anion Gap mmol/L BUN (9-20) mg/dL Creatinine (0.66-1.25) mg/dL Est GFR (CKD-EPI)AfAm (>60 ml/min/1.73 sqM) Est GFR (CKD-EPI)NonAf (>60 ml/min/1.73 sqM) Glucose (74-99) mg/dL POC Glucose (mg/dL) 136 H (70-110) mg/dL POC Glu [employer] Consultant ID Tony Lee Lactic Ac Sepsis Rflx Plasma Lactic Acid Jay (0.7-2.0) mmol/L Calcium (8.4-10.2) mg/dL Total Bilirubin (0.2-1.3) mg/dL AST (17-59) U/L ALT (4-49) U/L Alkaline Phosphatase (38-126) U/L NT-Pro-B Natriuret Pep pg/mL Total Protein (6.3-8.2) g/dL Albumin (3.5-5.0) g/dL Influenza Type A (PCR) Not Detected (Not Detectd) Influenza Type B (PCR) Not Detected (Not Detectd) RSV (PCR) Not Detected (Not Detectd) SARS-CoV-2 (PCR) Not Detected (Not Detectd) 06/28/24 06/28/24 06/28/24 Range/Units 02:02 02:02 03:06 WBC (3.8-10.6) k/uL RBC (4.30-5.90) m/uL Hgb (13.0-17.5) gm/dL Hct (39.0-53.0) % MCV (80.0-100.0) fL MCH (25.0-35.0) pg MCHC (31.0-37.0) g/dL RDW (11.5-15.5) % Plt Count (150-450) k/uL MPV Neutrophils % (Manual) % Lymphocytes % (Manual) % Monocytes % (Manual) % Neutrophils # (Manual) (1.3-7.7) k/uL Lymphocytes # (Manual) (1.0-4.8) k/uL Monocytes # (Manual) (0-1.0) k/uL Nucleated RBCs (0-0) /100 WBC Manual Slide Review Hypochromasia Poikilocytosis (manual Anisocytosis Microcytosis Sodium 134 L (137-145) mmol/L Potassium 4.1 (3.5-5.1) mmol/L Chloride 95 L (98-107) mmol/L Carbon Dioxide 30 (22-30) mmol/L Anion Gap 9 mmol/L BUN 47 H (9-20) mg/dL Creatinine 1.88 H (0.66-1.25) mg/dL Est GFR (CKD-EPI)AfAm 39 (>60 ml/min/1.73 sqM) Est GFR (CKD-EPI)NonAf 34 (>60 ml/min/1.73 sqM) Glucose 113 H (74-99) mg/dL POC Glucose (mg/dL) (70-110) mg/dL POC Glu [employer] Consultant ID Lactic Ac Sepsis Rflx Y Plasma Lactic Acid Jay 2.2 H* (0.7-2.0) mmol/L Calcium 8.2 L (8.4-10.2) mg/dL Total Bilirubin 1.8 H (0.2-1.3) mg/dL AST 75 H (17-59) U/L ALT 66 H (4-49) U/L Alkaline Phosphatase 169 H (38-126) U/L NT-Pro-B Natriuret Pep 80486 pg/mL Total Protein 6.2 L (6.3-8.2) g/dL Albumin 3.4 L (3.5-5.0) g/dL Influenza Type A (PCR) (Not Detectd) Influenza Type B (PCR) (Not Detectd) RSV (PCR) (Not Detectd) SARS-CoV-2 (PCR) (Not Detectd) Disposition Clinical Impression: Pneumonia Disposition: ADMITTED IP TO THIS HOSP Condition: Fair Is patient prescribed a controlled substance at d/c from ED?: No
[2024-06-28] MEDS: cefTRIAXone 1,000 MG VIAL (IM USE) IM STA (01:28)
[2024-06-28] MEDS: SODIUM CHLORIDE 0.9% 500 ML 500 ML IV STA (02:09)
[2024-06-28] MEDS: SODIUM CHLORIDE 0.9% 1,000 ML IV STA (02:12)
[2024-06-28] MEDS: AZITHROMYCIN 500 MG TAB PO STA (02:12)
[2024-06-28] MEDS: cefTRIAXone IN SWFI 1,000 MG/10 ML SYRINGE IVP STA (02:13)
[2024-06-28 02:15] LABS: Anisocytosis Slight; HCT 45.5 % (39.0-53.0); Hypochromasia Marked; MCH 24.4 pg (25.0-35.0); MCHC 30.8 g/dL (31.0-37.0); MCV 79.1 fL (80.0-100.0); Mean Platelet Volume 8.8; Microcytosis Slight; Platelet Count 169 k/uL (150-450); RBC 5.76 m/uL (4.30-5.90); RDW 17.9 % (11.5-15.5); WBC 16.1 k/uL (3.8-10.6)
[2024-06-28 03:09] LABS: ALT 66 U/L (4-49); AST 75 U/L (17-59); African American GFR (CKD) 39 (>60 ml/min/1.73 sqM); Albumin 3.4 g/dL (3.5-5.0); Alkaline Phosphatase 169 U/L (38-126); Anion Gap 9 mmol/L; Blood Urea Nitrogen 47 mg/dL (9-20); Calcium 8.2 mg/dL (8.4-10.2); Carbon Dioxide 30 mmol/L (22-30); Chloride 95 mmol/L (98-107); Glucose 113 mg/dL (74-99); Non-African American GFR(CKD) 34 (>60 ml/min/1.73 sqM); Sodium 134 mmol/L (137-145); Total Bilirubin 1.8 mg/dL (0.2-1.3); Total Protein 6.2 g/dL (6.3-8.2)
[2024-06-28 03:17] LABS: NT-Pro-B-Type Natriuretic Pept 17300 pg/mL
[2024-06-28 03:19] LABS: Potassium 4.1 mmol/L (3.5-5.1)
[2024-06-28 03:53] LABS: Lymphocytes # (M) 0.97 k/uL (1.0-4.8); Monocytes # (M) 0.48 k/uL (0-1.0); Neutrophils # (M) 14.65 k/uL (1.3-7.7); Neutrophils % (M) 91 %; Nucleated Red Blood Cells 0 /100 WBC (0-0); Total Cells Counted 100
[2024-06-28 03:57] LABS: Poikilocytosis (M) Present
[2024-06-28] MEDS ORDERED: PNEUMONIA PROTOCOL UTILIZED 1 EACH MISC PO PRN (05:09)
[2024-06-28] MEDS: IPRATROPIUM-ALBUTEROL 3 ML NEB INHALATION SCH (09:07)
[2024-06-28] MEDS ORDERED: GABAPENTIN 300 MG CAP PO PRN (17:06)
[2024-06-28] MEDS: ATORVASTATIN 40 MG TAB PO SCH (17:39)
[2024-06-28] MEDS: AMIODARONE 200 MG TAB PO SCH (17:39)
[2024-06-28] MEDS: LEVOTHYROXINE 75 MCG TAB PO SCH (17:39)
[2024-06-28] MEDS: SENNOSIDES 8.6 MG TAB PO SCH (17:50)
--- NOTE | 2024-06-28 18:15 | P.HPIM ---
History of Present Illness H&P Date: 06/28/24 Chief Complaint: Shortness of breath/weakness 79-year-old man, history of hypertension, hyperlipidemia, history of CAD/MT, COPD, who complains of having cough, congestion, mild dyspnea. Patient states that he started having symptoms a little over a week ago. He was even seen here June 19 and was diagnosed with bronchitis. Patient states that he completed a course of steroid, and was feeling a little better and then over the course of the past 1 to 2 days has had worsening of his symptoms. He describes a "tickle in his chest, some congestion and cough. He has not noted fever though he has had frequent sweating episodes, followed by chills. Blood work completed in ED reveals a WBC of 16.1, hemoglobin of 14 and platelet count of 169, sodium 134, potassium 4.1, BUNs/creatinine 47/1.88 and blood glucose of 113, lactic acid level of 2.2, total bilirubin elevated at 1.8, AST elevated at 75 with ALT of 66, BNP of 17,300 Viral screen is negative for influenza A, influenza B, RSV and COVID-19 PCR Chest x-ray reveals new patchy atelectasis versus airspace disease and medial lower lobes bilaterally which could represent pneumonia Review of Systems REVIEW OF SYSTEMS: CONSTITUTIONAL: No fever, no malaise, no fatigue. HEENT: No recent visual problems or hearing problems. Denied any sore throat. CARDIOVASCULAR: No chest pain, orthopnea, PND, no palpitations, no syncope. PULMONARY: No shortness of breath, no cough, no hemoptysis. GASTROINTESTINAL: No diarrhea, no nausea, no vomiting, no abdominal pain. NEUROLOGICAL: No headaches, no weakness, no numbness. HEMATOLOGICAL: Denies any bleeding or petechiae. GENITOURINARY: Denies any burning micturition, frequency, or urgency. MUSCULOSKELETAL/RHEUMATOLOGICAL: Denies any joint pain, swelling, or any muscle pain. ENDOCRINE: Denies any polyuria or polydipsia. The rest of the 14-point review of systems is negative. Past Medical History Past Medical History: Atrial Fibrillation, COPD, Dialysis, Hyperlipidemia, Hypertension, Myocardial Infarction ([place]) Additional Past Medical History / Comment(s): COVID 2020, heart failure Last Myocardial Infarction Date:: 07/31/2016 History of Any Multi-Drug Resistant Organisms: None Reported Past Surgical History: Cholecystectomy, Heart Catheterization With Stent, Hernia Repair Additional Past Surgical History / Comment(s): 1 stent Past Anesthesia/Blood Transfusion Reactions: No Reported Reaction Date of Last Stent Placement:: 07/28/2016 Past Psychological History: No Psychological Hx Reported Smoking Status: Former smoker Past Alcohol Use History: None Reported Additional Past Alcohol Use History / Comment(s): Smoked for 25 years 2packed a day Past Drug Use History: None Reported - Past Family History Mother Family Medical History: Cancer Father Family Medical History: CVA/TIA Medications and Allergies Home Medications Medication Instructions Recorded Confirmed Type Atorvastatin [Lipitor] 40 mg PO DAILY 11/13/20 06/28/24 History Docusate [Colace] 100 mg PO BID 11/13/20 06/28/24 History Apixaban [Eliquis] 5 mg PO BID 30 Days #60 tab 11/15/20 06/28/24 Rx Bumetanide [BUMEX] 2 mg PO DAILY 30 Days #30 tablet 10/12/21 06/28/24 Rx Gabapentin [Neurontin] 300 mg PO HS 07/09/23 06/28/24 History Amiodarone [Cordarone] 200 mg PO DAILY 06/19/24 06/28/24 History Empagliflozin [Jardiance] 10 mg PO DAILY 06/19/24 06/28/24 History Levothyroxine Sodium [Synthroid] 75 mcg PO DAILY 06/19/24 06/28/24 History Metoprolol Succinate (ER) [Toprol 100 mg PO BID 06/19/24 06/28/24 History XL] Nitroglycerin Sl Tabs [Nitrostat] 0.4 mg SL Q5M PRN 06/19/24 06/28/24 History Sennosides [Ex-Lax Maximum 25 mg PO Q72H 06/19/24 06/28/24 History Strength] Co Q-10 200mg 200 mg PO DAILY 06/28/24 06/28/24 History Gabapentin [Neurontin] 300 mg PO DAILY PRN 06/28/24 06/28/24 History Allergies Allergy/AdvReac Type Severity Reaction Status Date / Time No Known Allergies Allergy Verified 06/28/24 07:58 Physical Exam Vitals: Vital Signs Temp Pulse Pulse Resp BP BP Pulse Ox 06/28/24 13:45 98.0 F 67 16 124/92 98 06/28/24 12:17 88 06/28/24 12:03 90 06/28/24 09:22 90 06/28/24 09:15 84 17 125/97 100 06/28/24 09:07 92 06/28/24 07:31 16 06/28/24 06:30 97.8 F 86 18 130/94 96 06/28/24 05:53 97.7 F 78 18 125/97 97 06/28/24 05:30 97.7 F 104 H 19 120/85 97 06/28/24 02:20 97.9 F 64 18 104/71 97 06/27/24 23:03 98.4 F 63 17 105/68 97 Intake and Output 06/28/24 06/28/24 06/28/24 06:59 14:59 22:59 Other: Weight 78.925 kg General appearance: alert, in no apparent distress Head exam: Present: atraumatic, normocephalic Eye exam: Present: normal appearance. Absent: scleral icterus, conjunctival injection Neck exam: Present: normal inspection Respiratory exam: Present: rales. Absent: respiratory distress, wheezes, rhonchi, stridor, accessory muscle use Cardiovascular Exam: Present: regular rate, normal rhythm, normal heart sounds. Absent: systolic murmur, diastolic murmur, rubs, gallop GI/Abdominal exam: Present: soft. Absent: distended, tenderness, guarding, rebound, rigid, mass Extremities exam: Present: normal inspection, normal capillary refill. Absent: pedal edema, calf tenderness Back exam: Present: normal inspection. Absent: CVA tenderness (R), CVA tenderness (L) Neurological exam: Present: alert Skin exam: Present: warm, dry, intact, normal color. Absent: rash Results CBC & Chem 7: 06/28/24 02:02 06/28/24 02:02 Labs: Abnormal Lab Results - Last 24 Hours (Table) 06/28/24 06/28/24 06/28/24 Range/Units 00:07 02:02 02:02 WBC 16.1 H (3.8-10.6) k/uL MCV 79.1 L (80.0-100.0) fL MCH 24.4 L (25.0-35.0) pg MCHC 30.8 L (31.0-37.0) g/dL RDW 17.9 H (11.5-15.5) % Neutrophils # (Manual) 14.65 H (1.3-7.7) k/uL Lymphocytes # (Manual) 0.97 L (1.0-4.8) k/uL Sodium 134 L (137-145) mmol/L Chloride 95 L (98-107) mmol/L BUN 47 H (9-20) mg/dL Creatinine 1.88 H (0.66-1.25) mg/dL Glucose 113 H (74-99) mg/dL POC Glucose (mg/dL) 136 H (70-110) mg/dL Plasma Lactic Acid Jay (0.7-2.0) mmol/L Calcium 8.2 L (8.4-10.2) mg/dL Total Bilirubin 1.8 H (0.2-1.3) mg/dL AST 75 H (17-59) U/L ALT 66 H (4-49) U/L Alkaline Phosphatase 169 H (38-126) U/L Total Protein 6.2 L (6.3-8.2) g/dL Albumin 3.4 L (3.5-5.0) g/dL Procalcitonin (0.02-0.50) ng/mL 06/28/24 06/28/24 Range/Units 02:02 02:02 WBC (3.8-10.6) k/uL MCV (80.0-100.0) fL MCH (25.0-35.0) pg MCHC (31.0-37.0) g/dL RDW (11.5-15.5) % Neutrophils # (Manual) (1.3-7.7) k/uL Lymphocytes # (Manual) (1.0-4.8) k/uL Sodium (137-145) mmol/L Chloride (98-107) mmol/L BUN (9-20) mg/dL Creatinine (0.66-1.25) mg/dL Glucose (74-99) mg/dL POC Glucose (mg/dL) (70-110) mg/dL Plasma Lactic Acid Jay 2.2 H* (0.7-2.0) mmol/L Calcium (8.4-10.2) mg/dL Total Bilirubin (0.2-1.3) mg/dL AST (17-59) U/L ALT (4-49) U/L Alkaline Phosphatase (38-126) U/L Total Protein (6.3-8.2) g/dL Albumin (3.5-5.0) g/dL Procalcitonin 15.90 H (0.02-0.50) ng/mL Assessment and Plan Assessment: 1. Bilateral pneumonia -Patient received IV Rocephin 2 g in ED, we will plan to continue along with azithromycin 500 mg daily; DuoNeb nebulizer treatments 4 times daily and as needed -Blood cultures, sputum cultures and Legionella antigen has been sent -We will monitor CBC, CRP and procalcitonin 2. Acute exacerbation CHF; BNP elevated at 17,000; will add Lasix 40 mg IV x 1 -Will order 2D echo; consult cardiology -Monitor strict ORESTES's and daily weight; low-salt and fluid restricted diet 3. Chronic kidney disease stage IV; creatinine seems to be at baseline at 1.80; monitor strict ORESTES's, daily weights, renal function electrolytes; avoid nephrotoxins and hypotension 4. Leukocytosis; likely related to pneumonia; patient has been placed on IV an tibiotics; we will monitor CBC, CRP and procalcitonin 5. Mild hyponatremia; sodium level at 134; patient received IV fluid bolus with normal saline in ED; hold off on any further IV fluids given elevated BNP; we will monitor electrolytes 6. Lactic acidosis; associated with pneumonia; blood cultures and sputum cultures obtained; will trend lactic acid levels 7. Hyperlipidemia; Lipitor 40 mg p.o. nightly 8. Hypertension; Lipitor 100 mg twice daily 9. Hypothyroidism; levothyroxine 75 mcg daily 10. Diabetes mellitus type 2/neuropathy; patient takes Jardiance 10 mg daily; monitor Accu-Cheks before every meal and at bedtime with insulin sliding scale; Neurontin 300 mg nightly 11. Atrial fibrillation; patient remains rate controlled on amiodarone 200 mg daily, metoprolol 100 mg twice daily; anticoagulated with apixaban DVT prophylaxis; SCDs/Eliquis CODE STATUS; full code
[2024-06-28] MEDS: DOCUSATE 100 MG CAP PO SCH (21:26)
[2024-06-28] MEDS: METOPROLOL SUCCINATE (ER) 100 MG TAB.ER.24H PO SCH (21:26)
[2024-06-28] MEDS: APIXABAN 5 MG TAB PO SCH (21:26)
[2024-06-28] MEDS: AZITHROMYCIN 500 MG TAB PO SCH (22:36)
[2024-06-29] MEDS: DAPAGLIFLOZIN PROPANEDIOL 5 MG TABLET PO SCH (08:32)
[2024-06-29 08:39] LABS: Blood Urea Nitrogen 37.4 mg/dL (9.0-27.0); Carbon Dioxide 27.2 mmol/L (21.6-31.8); Chloride 100 mmol/L (96-109); Glucose 122 mg/dL (70-110); Sodium 139 mmol/L (135-145)
[2024-06-29 08:51] LABS: Basophils # (A) 0.02 X 10*3/uL (0.00-0.10); Basophils % (A) 0.2 %; Eosinophils # (A) 0.08 X 10*3/uL (0.04-0.35); Eosinophils % (A) 0.9 %; HCT 42.7 % (39.6-50.0); HGB 12.6 g/dL (13.0-17.0); MCH 24.1 pg (27.0-32.0); MCHC 29.5 g/dL (32.0-37.0); MCV 81.6 FL (80.0-97.0); Monocytes # (A) 0.69 X 10*3/uL (0.20-1.00); Monocytes % (A) 7.9 %; NRBC Per 100 WBC 0 X 10*3/uL (0.00-0.01); Neutrophils # (A) 7.22 X 10*3/uL (1.80-7.70); Neutrophils % (A) 82.3 %; Platelet Count 159 X 10*3/uL (140-440); RBC 5.23 X 10*6/uL (4.40-5.60); RDW 20.4 % (11.5-14.5); WBC 8.77 X 10*3/uL (4.50-10.00)
[2024-06-29] MEDS ORDERED: CO Q10 200 MG PO SCH (09:00)
--- NOTE | 2024-06-29 12:25 | P.CRDCN ---
History of Present Illness History of present illness: HISTORY OF PRESENT ILLNESS: This is a 79-year-old male with a past medical history significant for congestive heart failure, chronic kidney disease, hypertension, hyperlipidemia, diabetes, cardiomyopathy, and atrial fibrillation. Patient follows in the office with Dr. Limon. We have been asked to see the patient in consultation for congestive heart failure. Patient examined at the bedside. Patient presented to the hospital due to a " tickle in his throat". At the time of examination he denies any shortness of breath. He denies any chest pain. Patient was found to have pneumonia and was started on antibiotics. Additionally he was found to be in acute CHF and was given a dose of IV Lasix in the emergency room. DIAGNOSTICS: - EKG reveals atrial flutter with controlled ventricular rate. - Chest xray new patchy atelectasis or airspace disease in the medial lower lobes bilaterally. May represent pneumonia.. - Laboratory data: WBC 8.77. Hemoglobin 12.6. Platelet count 159. Sodium 139. Potassium 4.0. BUN 37. Creatinine 2.0. Lactic acid 2.2. proBNP 17,300. Procalcitonin 15.9 - Current home cardiac medications include Eliquis 5 mg twice a day, Lipitor 40 mg daily, Jardiance 10 mg daily, Bumex 2 mg daily, amiodarone 200 mg daily. - Most recent echocardiogram obtained in November 2023 revealed ejection fraction 20 to 25% with large hypokinetic areas of anterior, anterior lateral and inferior roy from the base to the mid wall, trace aortic regurgitation, moder ate mitral regurgitation, mild tricuspid regurgitation - Cardiac catheterization history: 2017 with stenting of the mid LAD REVIEW OF SYSTEMS: At the time of my exam: CONSTITUTIONAL: Denies fever or chills. HEENT: Denies blurred vision, vision changes, or eye pain. Denies hemoptysis CARDIOVASCULAR: Denies chest pain. Denies orthopnea. Denies PND. Denies palpitations RESPIRATORY: Denies shortness of breath. GASTROINTESTINAL: Denies abdominal pain. Denies nausea or vomiting. HEMATOLOGIC: Denies bleeding disorders. GENITOURINARY: Denies any blood in urine. SKIN: Denies pruitis. Denies rash. PHYSICAL EXAM: VITAL SIGNS: Reviewed. GENERAL: Well-developed in no acute distress. HEENT: Head is normocephalic. Pupils are equal, round. Sclerae anicteric. Mucous membranes of the mouth are moist. Neck supple. No JVD or thyromegaly LUNGS: Respirations even and unlabored. Lungs diminished bilaterally HEART: Regular rate and rhythm. S1 and S2 heard. ABDOMEN: Soft. Nondistended. Nontender. EXTREMITIES: Normal range of motion. No clubbing or cyanosis. Peripheral pulses intact. Trace bilateral lower extremity edema NEUROLOGIC: Awake and alert. Oriented x 3. ASSESSMENT: Shortness of breath Bilateral pneumonia Acute on chronic heart failure with reduced EF Permanent atrial fibrillation/typical atrial flutter with controlled ventricular rate Coronary artery disease with previous stenting Ischemic cardiomyopathy, declining ICD implantation Chronic kidney disease Hypertension Hyperlipidemia Diabetes PLAN: No need to repeat echocardiogram as this was performed in November 2023 Resume home cardiac medications Resume home Bumex Further recommendations pending patient course Nurse practitioner note has been reviewed by physician. Signing provider agrees with the documented findings, assessment, and plan of care documented by CONE CHOCOLATE DIPPER as a scribe. Past Medical History Past Medical History: Atrial Fibrillation, COPD, Dialysis, Hyperlipidemia, H ypertension, Myocardial Infarction ([place]) Additional Past Medical History / Comment(s): COVID 2020, heart failure Last Myocardial Infarction Date:: 07/31/2016 History of Any Multi-Drug Resistant Organisms: None Reported Past Surgical History: Cholecystectomy, Heart Catheterization With Stent, Hernia Repair Additional Past Surgical History / Comment(s): 1 stent Past Anesthesia/Blood Transfusion Reactions: No Reported Reaction Date of Last Stent Placement:: 07/28/2016 Past Psychological History: No Psychological Hx Reported Smoking Status: Former smoker Past Alcohol Use History: None Reported Additional Past Alcohol Use History / Comment(s): Smoked for 25 years 2packed a day Past Drug Use History: None Reported - Past Family History Mother Family Medical History: Cancer Father Family Medical History: CVA/TIA Medications and Allergies Home Medications Medication Instructions Recorded Confirmed Type Atorvastatin [Lipitor] 40 mg PO DAILY 11/13/20 06/28/24 History Docusate [Colace] 100 mg PO BID 11/13/20 06/28/24 History Apixaban [Eliquis] 5 mg PO BID 30 Days #60 tab 11/15/20 06/28/24 Rx Bumetanide [BUMEX] 2 mg PO DAILY 30 Days #30 tablet 10/12/21 06/28/24 Rx Gabapentin [Neurontin] 300 mg PO HS 07/09/23 06/28/24 History Amiodarone [Cordarone] 200 mg PO DAILY 06/19/24 06/28/24 History Empagliflozin [Jardiance] 10 mg PO DAILY 06/19/24 06/28/24 History Levothyroxine Sodium [Synthroid] 75 mcg PO DAILY 06/19/24 06/28/24 History Metoprolol Succinate (ER) [Toprol 100 mg PO BID 06/19/24 06/28/24 History XL] Nitroglycerin Sl Tabs [Nitrostat] 0.4 mg SL Q5M PRN 06/19/24 06/28/24 History Sennosides [Ex-Lax Maximum 25 mg PO Q72H 06/19/24 06/28/24 History Strength] Co Q-10 200mg 200 mg PO DAILY 06/28/24 06/28/24 History Gabapentin [Neurontin] 300 mg PO DAILY PRN 06/28/24 06/28/24 History Allergies Allergy/AdvReac Type Severity Reaction Status Date / Time No Known Allergies Allergy Verified 06/28/24 07:58 Physical Exam Vitals: Vital Signs Temp Pulse Pulse Pulse Resp BP BP 06/29/24 09:58 06/29/24 09:56 63 06/29/24 09:46 80 06/29/24 07:11 98.2 F 75 15 120/83 06/29/24 00:05 98.5 F 105 H 20 112/80 06/28/24 21:40 82 18 06/28/24 21:34 84 18 06/28/24 19:00 98.1 F 70 20 106/75 06/28/24 17:07 97.6 F 111 H 97 18 109/65 06/28/24 16:22 88 06/28/24 16:12 88 06/28/24 14:22 98.4 F 90 18 127/78 06/28/24 13:45 98.0 F 67 16 124/92 06/28/24 12:17 88 06/28/24 12:03 90 Pulse Ox 06/29/24 09:58 96 06/29/24 09:56 06/29/24 09:46 06/29/24 07:11 97 06/29/24 00:05 97 06/28/24 21:40 06/28/24 21:34 06/28/24 19:00 97 06/28/24 17:07 06/28/24 16:22 06/28/24 16:12 06/28/24 14:22 97 06/28/24 13:45 98 06/28/24 12:17 06/28/24 12:03 Intake and Output 06/28/24 06/29/24 06/29/24 22:59 06:59 14:59 Intake Total 360 Balance 360 Intake: Oral 360 Other: # Voids 1 2 Results 06/29/24 06:01 06/29/24 06:01 CBC 06/29/24 Range/Units 06:01 WBC 8.77 (4.50-10.00) X 10*3/uL RBC 5.23 (4.40-5.60) X 10*6/uL Hgb 12.6 L (13.0-17.0) g/dL Hct 42.7 (39.6-50.0) % Plt Count 159 (140-440) X 10*3/uL Comprehensive Metabolic Panel 06/29/24 Range/Units 06:01 Sodium 139 (135-145) mmol/L Potassium 4.0 (3.5-5.5) mmol/L Chloride 100 (96-109) mmol/L Carbon Dioxide 27.2 (21.6-31.8) mmol/L BUN 37.4 H (9.0-27.0) mg/dL Creatinine 2.0 H (0.6-1.5) mg/dL Glucose 122 H (70-110) mg/dL Calcium 8.0 L (8.7-10.3) mg/dL Current Medications Generic Name Dose Route Start Last Admin Trade Name Freq PRN Reason Stop Dose Admin Albuterol/Ipratropium 3 ml 06/28/24 08:00 06/29/24 09:46 Ipratropium-Albuterol 3 Ml Neb INHALATION 3 ml RT-QID ALICJA Administration Amiodarone HCl 200 mg 06/28/24 17:15 06/29/24 08:31 Amiodarone 200 Mg Tab PO 200 mg DAILY ALICJA Administration Apixaban 5 mg 06/28/24 21:00 06/29/24 08:30 Apixaban 5 Mg Tab PO 5 mg BID ALICJA Administration Protocol Atorvastatin Calcium 40 mg 06/28/24 17:15 06/29/24 08:30 Atorvastatin 40 Mg Tab PO 40 mg DAILY ALICJA Administration Azithromycin 500 mg 06/28/24 21:00 06/28/24 22:36 Azithromycin 500 Mg Tab PO 06/29/24 21:01 500 mg DAILY@2100 ALICJA Administration Protocol Dapagliflozin 5 mg 06/29/24 09:00 06/29/24 08:32 Dapagliflozin Propanediol 5 Mg Tablet PO 5 mg DAILY ALICJA Administration Docusate Sodium 100 mg 06/28/24 21:00 06/29/24 08:32 Docusate 100 Mg Cap PO 100 mg BID ALICJA Administration Gabapentin 300 mg 06/28/24 17:06 Gabapentin 300 Mg Cap PO DAILY PRN Discomfort Ceftriaxone Sodium 2 gm/ 50 mls @ 100 mls/hr 06/28/24 22:00 06/28/24 22:35 Sodium Chloride IVPB 07/01/24 22:29 100 mls/hr Q24H ALICJA Administration Protocol Levothyroxine Sodium 75 mcg 06/28/24 17:15 06/29/24 06:10 Levothyroxine 75 Mcg Tab PO 75 mcg DAILY@0630 ALICJA Administration Metoprolol Succinate 100 mg 06/28/24 21:00 06/29/24 08:30 Metoprolol Succinate (Er) 100 Mg Tab.Er.24h PO 100 mg BID ALICJA Administration Miscellaneous Information 1 each 06/28/24 05:09 Pneumonia Protocol Utilized 1 Each Misc PO ONCE PRN Per Protocol Senna 25.8 mg 06/28/24 17:15 06/28/24 17:50 Sennosides 8.6 Mg Tab PO Not Given Q72H ALICJA Intake and Output 06/28/24 06/29/24 06/29/24 22:59 06:59 14:59 Intake Total 360 Balance 360 Intake: Oral 360 Other: # Voids 1 2 06/29/24 06:01 06/29/24 06:01
[2024-06-29] MEDS: BUMETANIDE 1 MG TAB PO SCH (12:52)
--- NOTE | 2024-06-29 14:20 | P.CNPUL ---
History of Present Illness Consult date: 06/29/24 Requesting physician: Brenda Monae Reason for consult: dyspnea, cough, COPD, hypoxemia, pneumonia, abnormal CXR/CT Chief complaint: Shortness of breath. History of present illness: Pulmonary consult dated June 29, 2024. 79-year-old male who is seen in the emergency department, on June 27, at about 11:00 at night. The patient comes in complaining of cough, congestion, and shortness of breath. He apparently has been having symptoms for about a week or so. He was seen on June 19 in the emergency department, diagnosed with bronchitis. He apparently completed a course of corticosteroids, and was feeling a bit better, until the last few days. He describes a tickle in his chest, or throat area, cough, congestion, and shortness of breath. He denies any fever, but does state that he has frequent sweating episodes. The patient is seen today in room 457. His BNP was 17,300. Procalcitonin level was 15.9. He was placed on azithromycin and Rocephin. Room air saturation is 97%. He is getting saline at 130 cc an hour. The patient follows with Dr. 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 He has a history of COPD, hyperlipidemia, hypertension, myocardial infarction, coronavirus infection, heart catheterization with stent placement, and is a former smoker. Current laboratory data includes a white count 8.77, hemoglobin 12.6, hematocrit 42.7, and platelet count 159,000. Sodium 139, potassium 4, chlorides 100, CO2 27, BUN 37, creatinine 2.0. Glucose is 122. Calcium is 8. Urine Legionella antigen was negative. Blood and sputum cultures are thus far negative. Chest x-ray shows patchy infiltrates, medially, in bilateral lower lobes. Review of Systems REVIEW OF SYSTEMS: CONSTITUTIONAL: [Negative.] NEUROLOGIC: [ Negative.] HEENT: [ Negative.] CARDIAC: [Negative.] PULMONARY: Cough, congestion, shortness of breath. GI: [Negative.] : [Negative.] RHEUMATOLOGIC: [ Negative.] IMMUNOLOGIC: [ Negative.] ENDOCRINE: [Negative. ] DERMATOLOGIC: [Negative.] Past Medical History Past Medical History: Atrial Fibrillation, COPD, Dialysis, Hyperlipidemia, Hypertension, Myocardial Infarction ([place]) Additional Past Medical History / Comment(s): COVID 2020, heart failure Last Myocardial Infarction Date:: 07/31/2016 History of Any Multi-Drug Resistant Organisms: None Reported Past Surgical History: Cholecystectomy, Heart Catheterization With Stent, Hernia Repair Additional Past Surgical History / Comment(s): 1 stent Past Anesthesia/Blood Transfusion Reactions: No Reported Reaction Date of Last Stent Placement:: 07/28/2016 Past Psychological History: No Psychological Hx Reported Smoking Status: Former smoker Past Alcohol Use History: None Reported Additional Past Alcohol Use History / Comment(s): Smoked for 25 years 2packed a day Past Drug Use History: None Reported - Past Family History Mother Family Medical History: Cancer Father Family Medical History: CVA/TIA Medications and Allergies Home Medications Medication Instructions Recorded Confirmed Type Atorvastatin [Lipitor] 40 mg PO DAILY 11/13/20 06/28/24 History Docusate [Colace] 100 mg PO BID 11/13/20 06/28/24 History Apixaban [Eliquis] 5 mg PO BID 30 Days #60 tab 11/15/20 06/28/24 Rx Bumetanide [BUMEX] 2 mg PO DAILY 30 Days #30 tablet 10/12/21 06/28/24 Rx Gabapentin [Neurontin] 300 mg PO HS 07/09/23 06/28/24 History Amiodarone [Cordarone] 200 mg PO DAILY 06/19/24 06/28/24 History Empagliflozin [Jardiance] 10 mg PO DAILY 06/19/24 06/28/24 History Levothyroxine Sodium [Synthroid] 75 mcg PO DAILY 06/19/24 06/28/24 History Metoprolol Succinate (ER) [Toprol 100 mg PO BID 06/19/24 06/28/24 History XL] Nitroglycerin Sl Tabs [Nitrostat] 0.4 mg SL Q5M PRN 06/19/24 06/28/24 History Sennosides [Ex-Lax Maximum 25 mg PO Q72H 06/19/24 06/28/24 History Strength] Co Q-10 200mg 200 mg PO DAILY 06/28/24 06/28/24 History Gabapentin [Neurontin] 300 mg PO DAILY PRN 06/28/24 06/28/24 History Allergies Allergy/AdvReac Type Severity Reaction Status Date / Time No Known Allergies Allergy Verified 06/28/24 07:58 Physical Exam Osteopathic Statement: *. No significant issues noted on an osteopathic structural exam other than those noted in the History and Physical/Consult. Vitals: Vital Signs Temp Pulse Pulse Pulse Resp BP Pulse Ox 06/29/24 13:07 108 H 06/29/24 12:57 98.4 F 69 16 140/78 98 06/29/24 12:53 97 06/29/24 10:52 16 06/29/24 10:47 95 06/29/24 09:58 96 06/29/24 09:56 63 06/29/24 09:46 80 06/29/24 07:11 98.2 F 75 15 120/83 97 06/29/24 00:05 98.5 F 105 H 20 112/80 97 06/28/24 21:40 82 18 06/28/24 21:34 84 18 06/28/24 19:00 98.1 F 70 20 106/75 97 06/28/24 17:07 97.6 F 111 H 97 18 109/65 06/28/24 16:22 88 06/28/24 16:12 88 06/28/24 14:22 98.4 F 90 18 127/78 97 Intake and Output 06/28/24 06/29/24 06/29/24 22:59 06:59 14:59 Intake Total 360 500 Balance 360 500 Intake: Oral 360 500 Other: Voiding Method Toilet # Voids 1 2 No acute distress, oriented 3. The patient is currently on room air. HEENT examination is grossly unremarkable. Mucous membranes are moist. No oral lesions. Neck supple. Full range of motion. No adenopathy thyromegaly or neck vein distention. Cardiovascular examination reveals regular rhythm rate. S1-S2 normal. No S3 or S4. No discernible murmur noted. Lungs reveal minimal to moderate scattered bilateral rhonchi. Minimal wheezes. No crackles. Breath sounds equal bilaterally. Abdomen soft bowel sounds are heard. No masses or tenderness. Extremities are intact. No cyanosis clubbing or edema. Skin is without rash or lesion. Neurologic examination is brief but nonfocal. Results - Laboratory Findings CBC and BMP: 06/29/24 06:01 06/29/24 06:01 Abnormal lab findings: Abnormal Labs 06/28/24 06/28/24 06/28/24 00:07 02:02 02:02 WBC 16.1 H Hgb MCV 79.1 L MCH 24.4 L MCHC 30.8 L RDW 17.9 H Immature Gran # Neutrophils # (Manual) 14.65 H Lymphocytes # Lymphocytes # (Manual) 0.97 L Sodium 134 L Chloride 95 L BUN 47 H Creatinine 1.88 H Est GFR (CKD-EPI) Glucose 113 H POC Glucose (mg/dL) 136 H Plasma Lactic Acid Jay Calcium 8.2 L Total Bilirubin 1.8 H AST 75 H ALT 66 H Alkaline Phosphatase 169 H Total Protein 6.2 L Albumin 3.4 L Procalcitonin 06/28/24 06/28/24 06/29/24 02:02 02:02 06:01 WBC Hgb 12.6 L MCV MCH 24.1 L MCHC 29.5 L RDW 20.4 H Immature Gran # 0.06 H Neutrophils # (Manual) Lymphocytes # 0.70 L Lymphocytes # (Manual) Sodium Chloride BUN Creatinine Est GFR (CKD-EPI) Glucose POC Glucose (mg/dL) Plasma Lactic Acid Jay 2.2 H* Calcium Total Bilirubin AST ALT Alkaline Phosphatase Total Protein Albumin Procalcitonin 15.90 H 06/29/24 06:01 WBC Hgb MCV MCH MCHC RDW Immature Gran # Neutrophils # (Manual) Lymphocytes # Lymphocytes # (Manual) Sodium Chloride BUN 37.4 H Creatinine 2.0 H Est GFR (CKD-EPI) 34 L Glucose 122 H POC Glucose (mg/dL) Plasma Lactic Acid Jay Calcium 8.0 L Total Bilirubin AST ALT Alkaline Phosphatase Total Protein Albumin Procalcitonin - Diagnostic Findings Chest x-ray: image reviewed Assessment and Plan Assessment: Acute hypoxemic respiratory failure, likely multifactorial, in part related to bibasilar pneumonia, and also congestive heart failure. COPD, mildly active at this time. History of coronary artery disease, with previous myocardial infarction, status post PCI with stent placement. History of hyperlipidemia. History of hypertension. Prior history of tobacco use. Plan: Plan dated June 29, 2024. The patient is seen today in room 457. Interestingly, I saw him about a year ago, July 2023, with a similar episode. The patient is admitted with a diagnosis of shortness of breath, likely secondary to both COPD exacerbation, congestive heart failure, and bibasilar pneumonia. Labs, x-rays, and all medications are reviewed. We will continue to follow the patient, make recommendations. The patient's BNP was quite high. The patient's procalcitonin level was also quite high. The patient is currently on azithromycin and Rocephin for community-acquired pneumonia. He is also getting DuoNebs, 4 times daily. The patient is also getting Bumex, 2 mg daily. We will continue to follow. Prognosis is guarded. Dictation was produced using [employer] dictation software. Please excuse any grammatical, word or spelling errors. Time with Patient: Greater than 30
[2024-06-29 15:02] VITALS: BMI 27.2
--- NOTE | 2024-06-29 18:02 | P.PN ---
Subjective Progress Note Date: 06/29/24 79-year-old man, history of hypertension, hyperlipidemia, history of CAD/MT, COPD, who complains of having cough, congestion, mild dyspnea. Patient states that he started having symptoms a little over a week ago. He was even seen here June 19 and was diagnosed with bronchitis. Patient states that he completed a course of steroid, and was feeling a little better and then over the course of the past 1 to 2 days has had worsening of his symptoms. He describes a "tickle in his chest, some congestion and cough. He has not noted fever though he has had frequent sweating episodes, followed by chills. Blood work completed in ED reveals a WBC of 16.1, hemoglobin of 14 and platelet count of 169, sodium 134, potassium 4.1, BUNs/creatinine 47/1.88 and blood glucose of 113, lactic acid level of 2.2, total bilirubin elevated at 1.8, AST elevated at 75 with ALT of 66, BNP of 17,300 Viral screen is negative for influenza A, influenza B, RSV and COVID-19 PCR Chest x-ray reveals new patchy atelectasis versus airspace disease and medial lower lobes bilaterally which could represent pneumonia Objective - Vital Signs Vital signs: Vital Signs Temp 98.2 F 06/29/24 07:11 Pulse 63 06/29/24 09:56 Resp 16 06/29/24 10:52 BP 120/83 06/29/24 07:11 Pulse Ox 95 06/29/24 10:47 FiO2 Intake & Output 06/28/24 06/29/24 06/29/24 18:59 06:59 18:59 Intake Total 360 250 Balance 360 250 Intake: Oral 360 250 Other: Voiding Method Toilet # Voids 1 2 - Exam General appearance: alert, in no apparent distress Head exam: Present: atraumatic, normocephalic Eye exam: Present: normal appearance. Absent: scleral icterus, conjunctival injection Neck exam: Present: normal inspection Respiratory exam: Present: rales. Absent: respiratory distress, wheezes, rhonchi, stridor, accessory muscle use Cardiovascular Exam: Present: regular rate, normal rhythm, normal heart sounds. Absent: systolic murmur, diastolic murmur, rubs, gallop GI/Abdominal exam: Present: soft. Absent: distended, tenderness, guarding, rebound, rigid, mass Extremities exam: Present: normal inspection, normal capillary refill. Absent: pedal edema, calf tenderness Back exam: Present: normal inspection. Absent: CVA tenderness (R), CVA tenderness (L) Neurological exam: Present: alert Skin exam: Present: warm, dry, intact, normal color. Absent: rash - Labs CBC & Chem 7: 06/29/24 06:01 06/29/24 06:01 Labs: Abnormal Lab Results - Last 24 Hours (Table) 06/29/24 06/29/24 Range/Units 06:01 06:01 Hgb 12.6 L (13.0-17.0) g/dL MCH 24.1 L (27.0-32.0) pg MCHC 29.5 L (32.0-37.0) g/dL RDW 20.4 H (11.5-14.5) % Immature Gran # 0.06 H (0.00-0.04) X 10*3/uL Lymphocytes # 0.70 L (0.90-5.00) X 10*3/uL BUN 37.4 H (9.0-27.0) mg/dL Creatinine 2.0 H (0.6-1.5) mg/dL Est GFR (CKD-EPI) 34 L (>=60) Glucose 122 H (70-110) mg/dL Calcium 8.0 L (8.7-10.3) mg/dL Microbiology - Last 24 Hours (Table) 06/28/24 13:15 Gram Stain - Preliminary Sputum Sputum Culture - Preliminary Assessment and Plan Assessment: 1. Bilateral pneumonia -Patient received IV Rocephin 2 g in ED, we will plan to continue along with azithromycin 500 mg daily; DuoNeb nebulizer treatments 4 times daily and as needed -Blood cultures, sputum cultures and Legionella antigen has been sent -We will monitor CBC, CRP and procalcitonin 2. Acute exacerbation CHF; BNP elevated at 17,000; will add Lasix 40 mg IV x 1 -Will order 2D echo; consult cardiology -Monitor strict ORESTES's and daily weight; low-salt and fluid restricted diet 3. Chronic kidney disease stage IV; creatinine seems to be at baseline at 1.80; monitor strict ORESTES's, daily weights, renal function electrolytes; avoid nephrotoxins and hypotension 4. Leukocytosis; likely related to pneumonia; patient has been placed on IV antibiotics; we will monitor CBC, CRP and procalcitonin 5. Mild hyponatremia; sodium level at 134; patient received IV fluid bolus with normal saline in ED; hold off on any further IV fluids given elevated BNP; we will monitor electrolytes 6. Lactic acidosis; associated with pneumonia; blood cultures and sputum cultures obtained; will trend lactic acid levels 7. Hyperlipidemia; Lipitor 40 mg p.o. nightly 8. Hypertension; Lipitor 100 mg twice daily 9. Hypothyroidism; levothyroxine 75 mcg daily 10. Diabetes mellitus type 2/neuropathy; patient takes Jardiance 10 mg daily; monitor Accu-Cheks before every meal and at bedtime with insulin sliding scale; Neurontin 300 mg nightly 11. Atrial fibrillation; patient remains rate controlled on amiodarone 200 mg daily, metoprolol 100 mg twice daily; anticoagulated with apixaban DVT prophylaxis; SCDs/Eliquis CODE STATUS; full code
[2024-06-30 07:06] VITALS: RESP 16
[2024-06-30 08:10] LABS: Basophils # (A) 0.02 X 10*3/uL (0.00-0.10); Basophils % (A) 0.2 %; Eosinophils % (A) 1.2 %; HCT 44.1 % (39.6-50.0); HGB 13.1 g/dL (13.0-17.0); Lymphocytes # (A) 0.84 X 10*3/uL (0.90-5.00); Lymphocytes % (A) 9.8 %; MCHC 29.7 g/dL (32.0-37.0); MCV 80.8 FL (80.0-97.0); Mean Platelet Volume 11.2 FL (9.5-12.2); Monocytes # (A) 0.67 X 10*3/uL (0.20-1.00); Monocytes % (A) 7.8 %; NRBC Per 100 WBC 0 X 10*3/uL (0.00-0.01); Neutrophils # (A) 6.88 X 10*3/uL (1.80-7.70); Neutrophils % (A) 80.5 %; Platelet Count 180 X 10*3/uL (140-440); RBC 5.46 X 10*6/uL (4.40-5.60); RDW 20.2 % (11.5-14.5); WBC 8.55 X 10*3/uL (4.50-10.00)
[2024-06-30 09:17] LABS: BUN/Creat Ratio 17.15 Ratio (12.00-20.00); Blood Urea Nitrogen 34.3 mg/dL (9.0-27.0); Calcium 8.4 mg/dL (8.7-10.3); Carbon Dioxide 26.2 mmol/L (21.6-31.8); Chloride 99 mmol/L (96-109); Glucose 124 mg/dL (70-110); Potassium 4.3 mmol/L (3.5-5.5); Sodium 140 mmol/L (135-145)
[2024-06-30] MEDS: predniSONE 10 MG TAB PO SCH (10:00)
--- NOTE | 2024-06-30 11:03 | CDI ---
Documentation Clarification Form Date: 06/30/2024 10:40:22 AM From: Jaylin Ordaz RN CCDS Phone: [phone] Admit Date: 06/28/2024 05:10:00 AM Patient Name: Raphael Cabrera Visit Number: [id number] Discharge Date: ATTENTION: The Clinical Documentation Specialists (CDI) and [facility] Coding Staff appreciate your assistance in clarifying documentation. Please respond to the clarification below the line at the bottom and electronically sign. The CDI & [facility] Coding staff will review the response and follow-up if needed. Please note: Queries are made part of the Legal Health Record. If you have any questions, please contact the author of this message via ITS. Dr. Sushil Dillard Acute Hypoxemic Respiratory Failure is documented 06/29, Pulmonary consult which may lack sufficient clinical evidence/support in the medical record. Additional clarification is requested. Patient history/risk factors: 79 year old male presents to the ED with cough, congestion and shortness of breath. Having symptoms for about a week or so. Medical History: COPD, HLD, HTN, [place], Coronavirus infection and former smoker. 06/29 , Pulmonary consult. Clinical Indicators: VSS, 06/29 B/P 120/83, HR 75, Temp 98.2F Oral, RR 15, SpO2 97% room air 06/29 Pulmonary consult: The patient is admitted with a diagnosis of shortness of breath, likely secondary to both COPD exacerbation, congestive heart failure, and bibasilar pneumonia. 06/29 Pulmonary consult: Lungs reveal minimal to moderate scattered bilateral rhonchi. Minimal wheezes. No crackles, Breath sounds equal bilaterally. 06/29, Cardiology consult: Lungs respirations even unlabored. Lungs diminished bilaterally. Treatment: 06/28 - Room Air, 06/28 Duoneb Inhalation QID, 06/28 Zithromax po x 1, 06/28 Rocephin IVP x1, 06/28 Zithromax po Daily x 2 doses, Toprol Xl po bid, 06/28 -06/29 Ceftriaxone IVPB x 2 doses, 06/29 Farxiga po daily, Bumex po daily, After work up and study, please clarify which diagnosis is most appropriate? [ ] Acute Hypoxic Respiratory Failure ruled out [ ] Acute Hypoxic Respiratory Failure is a valid diagnosis as evidenced by the following: [ ] Respiratory Insufficiency [ ] Unable to determine [ ] Other, please specify (Template Last Revised: April 2023) MTDD
--- NOTE | 2024-06-30 12:11 | P.PN ---
Subjective Progress Note Date: 06/30/24 Principal diagnosis: Shortness of breath. Pulmonary consult dated June 29, 2024. 79-year-old male who is seen in the emergency department, on June 27, at about 11:00 at night. The patient comes in complaining of cough, congestion, and shortness of breath. He apparently has been having symptoms for about a week or so. He was seen on June 19 in the emergency department, diagnosed with bronchitis. He apparently completed a course of corticosteroids, and was feeling a bit better, until the last few days. He describes a tickle in his chest, or throat area, cough, congestion, and shortness of breath. He denies any fever, but does state that he has frequent sweating episodes. The patient is seen today in room 457. His BNP was 17,300. Procalcitonin level was 15.9. He was placed on azithromycin and Rocephin. Room air saturation is 97%. He is getting saline at 130 cc an hour. The patient follows with Dr. 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 He has a history of COPD, hyperlipidemia, hypertension, myocardial infarction, coronavirus infection, heart catheterization with stent placement, and is a former smoker. Current laboratory data includes a white count 8.77, hemoglobin 12.6, hematocrit 42.7, and platelet count 159,000. Sodium 139, potassium 4, chlorides 100, CO2 27, BUN 37, creatinine 2.0. Glucose is 122. Calcium is 8. Urine Legionella antigen was negative. Blood and sputum cultures are thus far negative. Chest x-ray sanjeev ws patchy infiltrates, medially, in bilateral lower lobes. Progress note dated June 30, 2024. 79-year-old male seen in consultation yesterday. Please see my consult above. The patient is seen today in room 457. He is feeling much better. He is on room air. He is not receiving any IV fluids. His procalcitonin level was elevated at 15.9. His azithromycin has been completed. He is currently on Rocephin. That can be converted to Omnicef 300 twice a day. In addition, the patient can be sent home with a prednisone burst and taper. Clinically, he is feeling much better, and his breathing is much improved. Current laboratory data includes a white count of 8.6, hemoglobin 13.1, hematocrit 44.1, and a platelet count of 180,000. Sodium 140, potassium 4.3, chlorides 99, CO2 26, BUN 34, and creatinine 2. Glucose 124. Calcium 8.4. Legionella urine antigen was negative. Objective - Vital Signs Vital signs: Vital Signs Temp 97.9 F 06/30/24 07:05 Pulse 100 06/30/24 11:15 Resp 16 06/30/24 07:05 BP 133/86 06/30/24 07:57 Pulse Ox 96 06/30/24 07:49 FiO2 21 06/30/24 07:49 Intake & Output 06/29/24 06/30/24 06/30/24 18:59 06:59 18:59 Intake Total 500 Balance 500 Weight 78.925 kg 81.4 kg Intake: Oral 500 Other: Voiding Method Toilet Toilet # Voids 4 3 - Exam No acute distress, oriented 3. The patient is currently on room air. HEENT examination is grossly unremarkable. Mucous membranes are moist. No oral lesions. Neck supple. Full range of motion. No adenopathy thyromegaly or neck vein distention. Cardiovascular examination reveals regular rhythm rate. S1-S2 normal. No S3 or S4. No discernible murmur noted. Lungs reveal minimal to moderate scattered bilateral rhonchi. Minimal wheezes. No crackles. Breath sounds equal bilaterally. Abdomen soft bowel sounds are heard. No masses or tenderness. Extremities are intact. No cyanosis clubbing or edema. Skin is without rash or lesion. Neurologic examination is brief but nonfocal. - Labs CBC & Chem 7: 06/30/24 06:09 06/30/24 06:09 Labs: Abnormal Lab Results - Last 24 Hours (Table) 06/30/24 06/30/24 Range/Units 06:09 06:09 MCH 24.0 L (27.0-32.0) pg MCHC 29.7 L (32.0-37.0) g/dL RDW 20.2 H (11.5-14.5) % Lymphocytes # 0.84 L (0.90-5.00) X 10*3/uL Anion Gap 14.80 H (4.00-12.00) mmol/L BUN 34.3 H (9.0-27.0) mg/dL Creatinine 2.0 H (0.6-1.5) mg/dL Est GFR (CKD-EPI) 34 L (>=60) Glucose 124 H (70-110) mg/dL Calcium 8.4 L (8.7-10.3) mg/dL Microbiology - Last 24 Hours (Table) 06/28/24 02:02 Blood Culture - Preliminary Blood 06/28/24 13:15 Gram Stain - Preliminary Sputum Sputum Culture - Preliminary Assessment and Plan Assessment: Acute hypoxemic respiratory failure, likely multifactorial, in part related to bibasilar pneumonia, and also congestive heart failure, much improved. COPD, mildly active at this time, much improved. History of coronary artery disease, with previous myocardial infarction, status post PCI with stent placement. History of hyperlipidemia. History of hypertension. Prior history of tobacco use. Plan: Plan dated June 29, 2024. The patient is seen today in room 457. Interestingly, I saw him about a year ago, July 2023, with a similar episode. The patient is admitted with a diagnosis of shortness of breath, likely secondary to both COPD exacerbation, congestive heart failure, and bibasilar pneumonia. Labs, x-rays, and all medications are reviewed. We will continue to follow the patient, make recommendations. The patient's BNP was quite high. The patient's procalcitonin level was also quite high. The patient is currently on azithromycin and Rocephin for community-acquired pneumonia. He is also getting DuoNebs, 4 times daily. The patient is also getting Bumex, 2 mg daily. We will continue to follow. Prognosis is guarded. Dictation was produced using [employer] software. Please excuse any grammatical, word or spelling errors. Plan dated June 30, 2024. Over the last 24 hours, the patient has improved dramatically. He was admitted with a COPD exacerbation, pneumonia, and congestive heart failure, with acute hypoxemic respiratory failure. With aggressive treatment, all of these issues have been improved. Labs, x-rays, and medications are reviewed. The patient thinks that he might want to be discharged home. Will leave that up to the primary service. He can go home on Omnicef 300 twice a day for 5 days, and a prednisone burst and taper. All labs, x-rays, and medications are reviewed. We will continue to follow should he not be discharged. He is getting diuretics as well. Dictation was produced using Dragon dictation software. Please excuse a ny grammatical, word or spelling errors. Time with Patient: Less than 30
--- NOTE | 2024-06-30 12:34 | P.PN ---
Subjective HISTORY OF PRESENT ILLNESS: This is a 79-year-old male with a past medical history significant for congestive heart failure, chronic kidney disease, hypertension, hyperlipidemia, diabetes, cardiomyopathy, and atrial fibrillation. Patient follows in the office with Dr. Limon. We have been asked to see the patient in consultation for congestive heart failure. Patient examined at the bedside. Patient presented to the hospital due to a " tickle in his throat". At the time of examination he denies any shortness of breath. He denies any chest pain. Patient was found to have pneumonia and was started on antibiotics. Additionally he was found to be in acute CHF and was given a dose of IV Lasix in the emergency room. DIAGNOSTICS: - EKG reveals atrial flutter with controlled ventricular rate. - Chest xray new patchy atelectasis or airspace disease in the medial lower lobes bilaterally. May represent pneumonia.. - Laboratory data: WBC 8.77. Hemoglobin 12.6. Platelet count 159. Sodium 139. Potassium 4.0. BUN 37. Creatinine 2.0. Lactic acid 2.2. proBNP 17,300. Procalcitonin 15.9 - Current home cardiac medications include Eliquis 5 mg twice a day, Lipitor 40 mg daily, Jardiance 10 mg daily, Bumex 2 mg daily, amiodarone 200 mg daily. - Most recent echocardiogram obtained in November 2023 revealed ejection fraction 20 to 25% with large hypokinetic areas of anterior, anterior lateral and inferior roy from the base to the mid wall, trace aortic regurgitation, moderate mitral regurgitation, mild tricuspid regurgitation - Cardiac catheterization history: 2017 with stenting of the mid LAD 06/30/2024 Patient examined this morning. He is sitting in the side of the bed. Patient denies chest pain or pressure. He denies shortness of breath. He is hoping to be discharged home today. PHYSICAL EXAM: VITAL SIGNS: Reviewed. GENERAL: Well-developed in no acute distress. HEENT: Head is normocephalic. Pupils are equal, round. Sclerae anicteric. Mucous membranes of the mouth are moist. Neck supple. No JVD or thyromegaly LUNGS: Respirations even and unlabored. Lungs diminished bilaterally HEART: Regular rate and rhythm. S1 and S2 heard. ABDOMEN: Soft. Nondistended. Nontender. EXTREMITIES: Normal range of motion. No clubbing or cyanosis. Peripheral pulses intact. Trace bilateral lower extremity edema NEUROLOGIC: Awake and alert. Oriented x 3. ASSESSMENT: Shortness of breath Bilateral pneumonia Acute on chronic heart failure with reduced EF Permanent atrial fibrillation/typical atrial flutter with controlled ventricular rate Coronary artery disease with previous stenting Ischemic cardiomyopathy, declining ICD implantation Chronic kidney disease Hypertension Hyperlipidemia Diabetes PLAN: No need to repeat echocardiogram as this was performed in November 2023 Continue current cardiac medications No further inpatient recommendations from a cardiac standpoint Patient is stable for discharge home today from a cardiac standpoint We will sign off. Please reconsult if needed. Nurse practitioner note has been reviewed by physician. Signing provider agrees with the documented findings, assessment, and plan of care documented by [employer] as a scribe. Objective - Vital Signs Vital signs: Vital Signs Temp 97.9 F 06/30/24 07:05 Pulse 100 06/30/24 11:15 Resp 16 06/30/24 07:05 BP 133/86 06/30/24 07:57 Pulse Ox 96 06/30/24 07:49 FiO2 21 06/30/24 07:49 Intake & Output 06/29/24 06/30/24 06/30/24 18:59 06:59 18:59 Intake Total 500 Balance 500 Weight 78.925 kg 81.4 kg Intake: Oral 500 Other: Voiding Method Toilet Toilet # Voids 4 3 - Labs CBC & Chem 7: 06/30/24 06:09 06/30/24 06:09 Labs: Abnormal Lab Results - Last 24 Hours (Table) 06/30/24 06/30/24 Range/Units 06:09 06:09 MCH 24.0 L (27.0-32.0) pg MCHC 29.7 L (32.0-37.0) g/dL RDW 20.2 H (11.5-14.5) % Lymphocytes # 0.84 L (0.90-5.00) X 10*3/uL Anion Gap 14.80 H (4.00-12.00) mmol/L BUN 34.3 H (9.0-27.0) mg/dL Creatinine 2.0 H (0.6-1.5) mg/dL Est GFR (CKD-EPI) 34 L (>=60) Glucose 124 H (70-110) mg/dL Calcium 8.4 L (8.7-10.3) mg/dL Microbiology - Last 24 Hours (Table) 06/28/24 13:15 Gram Stain - Final Sputum Sputum Culture - Final 06/28/24 02:02 Blood Culture - Preliminary Blood
[2024-06-30 13:09] VITALS: BP 134/87; PULSE 109; TEMP 98.4
--- NOTE | 2024-06-30 15:07 | P.DS ---
Providers Date of admission: 06/28/24 05:10 Expected date of discharge: 06/30/24 Attending physician: Brenda Monae Consults: 06/28/24 15:24 Consult Physician Routine Consulting Provider: Sushil Dillard Reason/Comments: Pneumonia Do you want consulting provider notified?: Yes Primary care physician: [facility] Course: 79-year-old man, history of hypertension, hyperlipidemia, history of CAD/DC, COPD, who complains of having cough, congestion, mild dyspnea. Patient states that he started having symptoms a little over a week ago. He was even seen here June 19 and was diagnosed with bronchitis. Patient states that he completed a course of steroid, and was feeling a little better and then over the course of the past 1 to 2 days has had worsening of his symptoms. He describes a "tickle in his chest, some congestion and cough. He has not noted fever though he has had frequent sweating episodes, followed by chills. Blood work completed in ED reveals a WBC of 16.1, hemoglobin of 14 and platelet count of 169, sodium 134, potassium 4.1, BUNs/creatinine 47/1.88 and blood glucose of 113, lactic acid level of 2.2, total bilirubin elevated at 1.8, AST elevated at 75 with ALT of 66, BNP of 17,300 Viral screen is negative for influenza A, influenza B, RSV and COVID-19 PCR Chest x-ray reveals new patchy atelectasis versus airspace disease and medial lower lobes bilaterally which could represent pneumonia 1. Bilateral pneumonia -Patient received IV Rocephin 2 g in ED, we will plan to continue along with azithromycin 500 mg daily; DuoNeb nebulizer treatments 4 times daily and as needed -Blood cultures, sputum cultures and Legionella antigen has been sent -We will monitor CBC, CRP and procalcitonin 2. Acute exacerbation CHF; BNP elevated at 17,000; will add Lasix 40 mg IV x 1 -Will order 2D echo; consult cardiology -Monitor strict ORESTES's and daily weight; low-salt and fluid restricted diet 3. Chronic kidney disease stage IV; creatinine seems to be at baseline at 1.80; monitor strict ORESTES's, daily weights, renal function electrolytes; avoid nephrotoxins and hypotension 4. Leukocytosis; likely related to pneumonia; patient has been placed on IV antibiotics; we will monitor CBC, CRP and procalcitonin 5. Mild hyponatremia; sodium level at 134; patient received IV fluid bolus with normal saline in ED; hold off on any further IV fluids given elevated BNP; we will monitor electrolytes 6. Lactic acidosis; associated with pneumonia; blood cultures and sputum cultures obtained; will trend lactic acid levels 7. Hyperlipidemia; Lipitor 40 mg p.o. nightly 8. Hypertension; Lipitor 100 mg twice daily 9. Hypothyroidism; levothyroxine 75 mcg daily 10. Diabetes mellitus type 2/neuropathy; patient takes Jardiance 10 mg daily; monitor Accu-Cheks before every meal and at bedtime with insulin sliding scale; Neurontin 300 mg nightly 11. Atrial fibrillation; patient remains rate controlled on amiodarone 200 mg daily, metoprolol 100 mg twice daily; anticoagulated with apixaban DVT prophylaxis; SCDs/Eliquis CODE STATUS; full code Patient responded well to treatment; has been cleared for discharge on oral Ceftin and 300 mg twice daily for 5 days and steroid burst and taper Patient Condition at Discharge: Fair Plan - Discharge Summary New Discharge Prescriptions: New Cefdinir [Omnicef] 300 mg PO BID 5 Days #10 cap predniSONE 30 mg PO DAILY 5 Days #15 tab Continue Bumetanide [BUMEX] 2 mg PO DAILY 30 Days #30 tablet Gabapentin [Neurontin] 300 mg PO HS Sennosides [Ex-Lax Maximum Strength] 25 mg PO Q72H Levothyroxine Sodium [Synthroid] 75 mcg PO DAILY Empagliflozin [Jardiance] 10 mg PO DAILY Amiodarone [Cordarone] 200 mg PO DAILY Atorvastatin [Lipitor] 40 mg PO DAILY Docusate [Colace] 100 mg PO BID Apixaban [Eliquis] 5 mg PO BID 30 Days #60 tab Nitroglycerin Sl Tabs [Nitrostat] 0.4 mg SL Q5M PRN PRN Reason: Chest Pain Metoprolol Succinate (ER) [Toprol XL] 100 mg PO BID Gabapentin [Neurontin] 300 mg PO DAILY PRN PRN Reason: Discomfort Co Q-10 200mg 200 mg PO DAILY Discharge Medication List Atorvastatin [Lipitor] 40 mg PO DAILY 11/13/20 [History] Docusate [Colace] 100 mg PO BID 11/13/20 [History] Apixaban [Eliquis] 5 mg PO BID 30 Days #60 tab 11/15/20 [Rx] Bumetanide [BUMEX] 2 mg PO DAILY 30 Days #30 tablet 10/12/21 [Rx] Gabapentin [Neurontin] 300 mg PO HS 07/09/23 [History] Amiodarone [Cordarone] 200 mg PO DAILY 06/19/24 [History] Empagliflozin [Jardiance] 10 mg PO DAILY 06/19/24 [History] Levothyroxine Sodium [Synthroid] 75 mcg PO DAILY 06/19/24 [History] Metoprolol Succinate (ER) [Toprol XL] 100 mg PO BID 06/19/24 [History] Nitroglycerin Sl Tabs [Nitrostat] 0.4 mg SL Q5M PRN 06/19/24 [History] Sennosides [Ex-Lax Maximum Strength] 25 mg PO Q72H 06/19/24 [History] Co Q-10 200mg 200 mg PO DAILY 06/28/24 [History] Gabapentin [Neurontin] 300 mg PO DAILY PRN 06/28/24 [History] Cefdinir [Omnicef] 300 mg PO BID 5 Days #10 cap 06/30/24 [Rx] predniSONE 30 mg PO DAILY 5 Days #15 tab 06/30/24 [Rx] Follow up Appointment(s)/Referral(s): Briana Barrera MD [Primary Care Provider] - 1-2 days Jack Limon MD [STAFF PHYSICIAN] - 4 Weeks Patient Instructions/Handouts: Pneumonia (ED) Discharge Disposition: HOME SELF-CARE
[2024-06-30] MEDS ORDERED: CEFDINIR 300 MG CAP PO SCH (21:00)
--- NOTE | 2024-07-03 08:03 | CDI ---
Documentation Clarification Form Date: 06/30/2024 10:40:00 AM From: Jaylin Ordaz RN CCDS Phone: [phone] Admit Date: 06/28/2024 05:10:00 AM Patient Name: Raphael Cabrera Visit Number: [id number] Discharge Date: 06/30/2024 03:16:00 PM ATTENTION: The Clinical Documentation Specialists (CDI) and [facility] Coding Staff appreciate your assistance in clarifying documentation. Please respond to the clarification below the line at the bottom and electronically sign. The CDI & [facility] Coding staff will review the response and follow-up if needed. Please note: Queries are made part of the Legal Health Record. If you have any questions, please contact the author of this message via ITS. Dr. Sushil Dillard Acute Hypoxemic Respiratory Failure is documented 06/29, Pulmonary consult which may lack sufficient clinical evidence/support in the medical record. Additional clarification is requested. Patient history/risk factors: 79 year old male presents to the ED with cough, congestion and shortness of breath. Having symptoms for about a week or so. Medical History: COPD, HLD, HTN, [place], Coronavirus infection and former smoker. 06/29 , Pulmonary consult. Clinical Indicators: VSS, 06/29 B/P 120/83, HR 75, Temp 98.2F Oral, RR 15, SpO2 97% room air 06/29 Pulmonary consult: The patient is admitted with a diagnosis of shortness of breath, likely secondary to both COPD exacerbation, congestive heart failure, and bibasilar pneumonia. 06/29 Pulmonary consult: Lungs reveal minimal to moderate scattered bilateral rhonchi. Minimal wheezes. No crackles, Breath sounds equal bilaterally. 06/29, Cardiology consult: Lungs respirations even unlabored. Lungs diminished bilaterally. Treatment:: 06/28 - Room Air, 06/28 Duoneb Inhalation QID, 06/28 Zithromax po x 1, 06/28 Rocephin IVP x1, 06/28 Zithromax po Daily x 2 doses, Toprol Xl po bid, 06/28 -06/29 Ceftriaxone IVPB x 2 doses, 06/29 Farxiga po daily, Bumex po daily, After work up and study, please clarify which diagnosis is most appropriate? [ ] Acute Hypoxic Respiratory Failure ruled out [ ] Acute Hypoxic Respiratory Failure is a valid diagnosis as evidenced by the following: [ X ] Respiratory Insufficiency [ ] Unable to determine [ ] Other, please specify (Template Last Revised: April 2023) MTDD
== END 2024-06-30 15:16 | disposition home or self-care (01) | DRG 291 ==
LOC: EC 22:56 → 4SSUR 06-28 05:10
PROVIDERS: ADMIT Hospitalist; ATTEND Hospitalist
DX: I13.0 Hypertensive heart and chronic kidney disease with heart failure and stage 1 through stage 4 chronic kidney disease, or unspecified chronic kidney disease (principal); I50.23 Acute on chronic systolic (congestive) heart failure; J18.9 Pneumonia, unspecified organism; J44.0 Chronic obstructive pulmonary disease with (acute) lower respiratory infection; E87.1 Hypo-osmolality and hyponatremia; I48.3 Typical atrial flutter; N18.4 Chronic kidney disease, stage 4 (severe); I48.21 Permanent atrial fibrillation; E11.22 Type 2 diabetes mellitus with diabetic chronic kidney disease; E03.9 Hypothyroidism, unspecified; I08.3 Combined rheumatic disorders of mitral, aortic and tricuspid valves; R17 Unspecified jaundice; E11.42 Type 2 diabetes mellitus with diabetic polyneuropathy; Z11.52 Encounter for screening for COVID-19; Z79.890 Hormone replacement therapy; I25.5 Ischemic cardiomyopathy; E78.5 Hyperlipidemia, unspecified; Z79.899 Other long term (current) drug therapy; Z79.84 Long term (current) use of oral hypoglycemic drugs; I25.10 Atherosclerotic heart disease of native coronary artery without angina pectoris; R06.89 Other abnormalities of breathing; Z95.5 Presence of coronary angioplasty implant and graft; I25.2 Old myocardial infarction; Z79.01 Long term (current) use of anticoagulants; Z86.16 Personal history of COVID-19; Z87.891 Personal history of nicotine dependence; Z90.49 Acquired absence of other specified parts of digestive tract
CPT/HCPCS: 36415; 71046; 80048; 80053; 83605; 83880; 84145; 85025; 87040; 87070; 87205; 87449; 87636; 94640; 94760; 96361; 96374; 99285